=== PATIENT | female | born 1975 | race Caucasian/White ===

== ENCOUNTER 2016-09-27 12:28 | Inpatient (IN) | payer MEDICARE, MEDICAID ==
[~2016-09-27] VITALS: Ht 157.5 cm; Wt 55.4 kg
[~2016-09-27 12:28] MED LIST changes: -BEETAB NG; -CETI1SYP16 NG; -CLON1TAB NG; -HYDR-3713 NG; -IBUP40TA NG; -LEVA750T GT; -PREG25CA NG; -RISATAB3 NG
[2016-09-27 14:28] LABS: BASO # 0.3 K/mm3 (0.0-0.2); BASO % 1.2 % (0.0-1.0); EOS % 0.1 % (0.0-3.0); LARGE UNSTAINED CELL # 0.3 K/mm3 (0.0-0.4); LARGE UNSTAINED CELL % 1.1 % (0.0-4.0); LYMPH % 6.9 % (24.0-44.0); MEAN CORPUSCULAR HGB CONC 33.4 g/dl (32.0-36.5); MEAN CORPUSCULAR VOLUME 89.8 fl (80.0-96.0); MONO # 0.9 K/mm3 (0.0-0.8); MONO % 3.5 % (0.0-5.0); NEUTROPHILS # 21.7 K/mm3 (1.8-7.7); NEUTROPHILS % 87.2 % (36.0-66.0); PLATELET COUNT, AUTOMATED 229 k/mm3 (150-450); RED CELL DISTRIBUTION WIDTH 13.2 % (11.5-14.5); WHITE BLOOD COUNT 24.9 K/mm3 (4.0-10.0)
[2016-09-27] MEDS ORDERED: LevoFLOXacin/DEXTROSE 750 MG/150 ML BAG (J1956) As Ordered ONE (14:40)
--- NOTE | 2016-09-27 15:18 | REP ---
CT study of the abdomen and pelvis without IV or oral contrast: Renal stone protocol. History: Fever. Comparison is made with today's chest x-ray. 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 Lung window settings demonstrate a large area of consolidation in the right lower lobe behind the dome of the right hemidiaphragm consistent with pneumonia. This is not visible on the radiograph. The remaining lung bases are clear. There is a gastrostomy feeding tube in place. The liver and the spleen are normal in size homogeneous in texture. Gallbladder is unremarkable. No adrenal lesion is seen. The kidneys are morphologically intact. There is a low-density lesion in the head of the pancreas 4.3 cm in craniocaudal span by 2.4 cm medial to lateral by 2.0 cm anterior to posterior. This is of uncertain significance. The body of the pancreas is unremarkable. There is no evidence of regional adenopathy. Normal caliber aorta is seen. Small and large intestinal bowel loops are unremarkable. A normal appendix is visible in the right pelvis. There is no CT evidence of appendicitis or diverticulitis. Uterus is retroverted and retroflexed. No adnexal mass or free fluid is seen. Impression: 1. A large dense infiltrate in the right lower lobe consistent with pneumonia. 2. 4 cm low density lesion in the head of the pancreas question cystic mass versus pseudocyst. Recommend contrast enhanced CT study of the pancreas if the patient's clinical condition will allow. No other acute abnormality. Signed by Aquilino Arenas MD 09/27/2016 03:51 P
[2016-09-27 15:42] LABS: ALBUMIN 3.7 GM/DL (3.2-5.2); ALBUMIN/GLOBULIN RATIO 1.16 (1.00-1.93); ALKALINE PHOSPHATASE 94 U/L (45-117); ALT/SGPT 32 U/L (12-78); ANION GAP 9 MEQ/L (8-16); AST/SGOT 22 U/L (15-37); BILIRUBIN,DIRECT 0.3 MG/DL (0.0-0.2); BILIRUBIN,TOTAL 1.5 MG/DL (0.2-1.0); BLOOD UREA NITROGEN 24 MG/DL (7-18); CALCIUM LEVEL 9.3 MG/DL (8.5-10.1); CARBON DIOXIDE LEVEL 32 MEQ/L (21-32); CHLORIDE LEVEL 104 MEQ/L (98-107); CREATININE FOR GFR 0.81 MG/DL (0.55-1.02); GLOMERULAR FILTRATION RATE > 60.0 (>58); GLUCOSE, FASTING 98 MG/DL (70-105); POTASSIUM SERUM 4.6 MEQ/L (3.5-5.1); SODIUM LEVEL 145 MEQ/L (136-145); TOTAL PROTEIN 6.9 GM/DL (6.4-8.2)
[2016-09-27] MEDS ORDERED: RISATAB3 NG (16:41)
[2016-09-27] MEDS ORDERED: BEETAB NG (16:41)
[2016-09-27] MEDS ORDERED: HYDR-3713 NG (16:41)
[2016-09-27] MEDS ORDERED: IBUP40TA NG (16:41)
[2016-09-27] MEDS ORDERED: CETI1SYP16 NG (16:41)
[2016-09-27] MEDS ORDERED: PREG25CA NG (16:41)
[2016-09-27] MEDS ORDERED: MUPI2OI TOP (16:41)
[2016-09-27] MEDS ORDERED: CLON1TAB NG (16:41)
[2016-09-27] MEDS ORDERED: MOM 30ML SUSPENSION UDC NG PRN (20:00)
[2016-09-27] MEDS ORDERED: ALBUTEROL SULFATE 2.5 MG/0.5 ML INH NEB SOLN INH PRN (20:00)
[2016-09-27] MEDS ORDERED: ACETAMINOPHEN 650 MG SUPP PR PRN (20:00)
[2016-09-27] MEDS ORDERED: BISACODYL 10 MG SUPP PR PRN (20:00)
[2016-09-27] MEDS ORDERED: FLEET ENEMA PR PRN (20:00)
[2016-09-27] MEDS ORDERED: IBUPROFEN 400 MG TAB NG PRN (20:00)
[2016-09-27] MEDS ORDERED: ACETAMINOPHEN 325 MG TAB NG PRN (20:00)
[2016-09-27] MEDS ORDERED: CEFEPIME HCL 1 GM in D5W MINI-BAG PLUS 50 ML IV SCH (20:00)
[2016-09-27] MEDS ORDERED: PIPERACILLIN/TAZOBACTAM SOD 3.375 GM in D5W MINI-BAG PLUS 50 ML IV SCH (20:00)
[2016-09-27] MEDS ORDERED: ISOVUE-370 76% 100ML VIAL (Q9967) As Ordered ONE (20:35)
[2016-09-27] MEDS ORDERED: VANCOMYCIN 1000 MG/20 ML VIAL (J3370) As Ordered ONE (20:48)
[2016-09-27] MEDS: ALBUTEROL SULFATE 2.5 MG/0.5 ML INH NEB SOLN INH SCH (21:00)
[2016-09-27] MEDS: clonazePAM 1 MG TAB NG SCH (21:00)
[2016-09-27] MEDS: MUPIROCIN 2% OINT 22 GM TUBE TOP SCH (21:00)
--- NOTE | 2016-09-27 21:16 | HPE ---
DATE OF ADMISSION: 09/27/2016 PRIMARY CARE PROVIDER: Dr. Pompa CHIEF COMPLAINT: Fever. HISTORY OF PRESENT ILLNESS: The patient is a 41-year-old female with advanced Osorio's chorea who is nonverbal at her baseline and spastic quadriparesis and a long-term resident at the [facility]. She has a history of recurrent aspiration pneumonia with placement of a G tube. The patient was most recently hospitalized on 06/26/2016 through 07/04/2016 for aspiration pneumonia at that time. The patient returns once again today with fever, lethargy, similar to her previous presentations. The patient is nonverbal at her baseline and as such the history is obtained from report with the emergency department provider and review of the chart. PAST MEDICAL HISTORY: 1. Asthma. 2. Berrien's chorea. 3. Aspiration pneumonia. 4. Dysphagia. 5. Clostridium (C) difficile colitis. 6. Malnutrition. HOME MEDICATIONS: - Jevity 1.5 calorie via the percutaneous endoscopic gastrostomy (PEG) tube, 300 mL every six hours - Tylenol 650 mg every 4 hours as needed for fever - Tylenol suppository 65 mg every 4 hours as needed for pain or fever - Fisher 5/325 one tablet three times a day - albuterol sulfate nebulizer treatment twice a day and every 4 hours as needed for shortness of breath or wheezing - Baclofen 10 mg twice a day, 20 mg at night - Dulcolax 10 mg suppository per rectum daily as needed for constipation - cetirizine 5 mg per mL syrup 10 mL at night - clonazepam 1 mg tablet at night - disposable enema daily as needed for constipation - Pepcid 20 mg daily - Flonase 50 mcg spray nasally daily - Haldol 2 mg three times a day - ibuprofen 400 mg every 6 hours as needed for fever - milk of magnesia 30 mL daily as needed for constipation - mupirocin ointment 2% topically three times a day - Lyrica 25 mg three times a day - Probiotic one tablet twice a day - scopolamine patch 1.5 mg topically patch every 72 hours PAST SURGICAL HISTORY: 1. G tube insertion. ALLERGIES: PENICILLIN, but has tolerated Zosyn in the past. SOCIAL HISTORY: The patient was a never smoker. She is a resident of [facility]. She has advanced Berrien's chorea. Her aunt is her healthcare proxy. FAMILY HISTORY: Noncontributory. REVIEW OF SYSTEMS: Negative other than the history of present illness. PHYSICAL EXAMINATION: VITAL SIGNS: Blood pressure at the time of arrival was 89/56 with a pulse of 88, respiratory rate 16, temperature 98.9, oxygen saturation 95% on room air. After 2 liters of IV fluids, her blood pressure improved to 125/62, her heart rate is elevated at 114, respiratory rate is 18, temperature is unchanged, and she is 98% on room air. GENERAL: She is a frail, cachectic female, arriving in the stretcher, grunting. She appears agitated but not in acute distress. HEENT: She is nonverbal, not cooperative with examination. She has dry mucous membranes. She does not follow commands or track around the room. She is awake. Arriving in her bed, she attempts to swing at me several times during my attempt to examine her and as such the physical examination is limited. CARDIOVASCULAR EXAM: S1, S2. Tachycardic. RESPIRATORY EXAM: Clear for what I am able to auscultate, although limited anteriorly secondary to her swinging at me. ABDOMINAL EXAM: No significant surrounding erythema or discharge related to her G tube. EXTREMITIES: No clubbing, cyanosis or edema. She has significant chronic contractures. LABORATORY STUDIES: WBC 24.9, hemoglobin 14.1, hematocrit 42.2, platelet count 229. Chemistry panel: Sodium 145, potassium 4.6, chloride 104, bicarbonate 32, BUN 24, creatinine 0.8, lactic acid is 2.3, total bilirubin is slightly elevated at 1.5. Liver function tests are essentially within normal limits. She had a TSH in June, which was within normal limits. Blood cultures are pending. Influenza swab is negative. CT scan of the abdomen and pelvis revealed large dense infiltrates in the right lower lobe consistent with pneumonia and a 4 cm low density lesion at the head of the pancreas, question cystic mass versus pseudocyst. Recommended contrast enhanced CT study of the pancreas. ASSESSMENT AND PLAN: This is a 41-year-old female who presented with fever, highly suspicious for healthcare-associated pneumonia versus aspiration pneumonia. 1. Healthcare-pneumonia versus aspiration pneumonia. Given the patient was recently hospitalized, I will empirically treat her with vancomycin with a pharmacy consult to help with dosing. She did develop some mild acute kidney injury on her last visit while on vancomycin. We will also provide with her Zosyn, she previously tolerated this in the past despite the documented penicillin allergy. I am empirically treating her for healthcare-associated pneumonia. We will check a methicillin resistant Staphylococcus aureus (MRSA) screen of her nares. Should her cultures remain negative, would recommend narrowing her antibiotics to possibly Levaquin to cover for simply an aspiration pneumonia, which I think is more likely given her history of repeated aspiration pneumonias. The patient was initially hypotensive and this improved with fluid. I will continue her on intravenous fluids. I will recheck a lactic acid. 2. Advanced Berrien's chorea. The patient is a longtime residential resident. We will continue with her Baclofen, Fisher, clonazepam, Haldol, Lyrica, scopolamine patch. 3. Chronic constipation. The patient will be continued on her fairly extensive regimen. 4. Dysphagia and aspiration history. The patient does have a G tube in place. We will continue with her Jevity feeds as conducted in the residential. 5. Asthma. The patient is continued on nebulizer treatments as per her usual. 6. Deep vein thrombosis (DVT) prophylaxis. The patient will be on Lovenox. DISPOSITION: The patient is admitted to the progressive care unit (PCU) to Dr. William's service of [facility], who will continue following the patient. Of note, the patient is a FULL CODE. Her healthcare proxy is her aunt. Given her advanced disease, I think initiating goals of care discussions with the healthcare proxy and addressing her code status may be beneficial to the patient fpc.
--- NOTE | 2016-09-27 22:29 | PHACANCOPD ---
PHARMACY VANCOMYCIN DOSING Pt Demographics Demographics Patient Age:41 , Weight: , Gender: female Adjusted Body Weight Date: 09/27/16, Adjusted Body Weight: Kg Events Past 24 Hours Events Past 24 Hours: YES: Elevation in WBC Vancomycin Vancomycin indication: HCAP Vancomycin Target Ranges: 10-20 mcg/ml Vancomycin Load Y/N: No Load Dose Date Time Vancomycin Load Dose: Date: Time: Vancomycin Dose Date: 09/27/16. Current Vancomycin Dose: [750MG IV Q12H] Intermittent Dosing?: No Labs Labs Item Value Date Time White Blood Count 24.9 K/mm3 H 09/27/16 1351 Creatinine 0.81 MG/DL 09/27/16 1337 Lactic Acid Level 2.3 MMOL/L *H 09/27/16 1351 Micro Microbiology 09/27/16 Blood Culture, Received Pending 09/27/16 Blood Culture, Received Pending 09/27/16 Influenza Virus Type A Antigen - Final, Complete 09/27/16 Influenza Virus Type B Antigen - Final, Complete Creatinine Clearance Date:09/27/16. Estimated Creatinine Clearance: [78.8ml/min]. Assessment and Plan Maintaining Current Dose?: Yes Reason for dose change: No Dose Change Pharmacist Note Pharmacist Note Date: 09/27/16. Pharmacist note: Day #1 empiric zosyn/vanco initiated at 750mg IV Q12H for the treatment of HCAP - aiming for a goal trough of 10-20 mcg/ml. PMH negative for MRSA, but positive for vanco use here at [facility], and the patient is a resident of [facility]. Was previously here in June 2016 on vancomycin for the treatment of aspiration pneumonia. The patient has a hx of recurrent aspiration pneumonia, as well as quadriparesis. WBC and lactic acid are currently elevated. CXR showed no infiltrate. We will continue to monitor the patient and schedule a trough level accordingly. MYRANDA [facility]ELEN[facility] Sep 27, 2016 22:29
[2016-09-27] MEDS ORDERED: clonazePAM 0.5 MG TAB As Ordered ONE (22:40)
--- NOTE | 2016-09-27 23:31 | EDDOCDS ---
Physician Documentation [facility] Name: Jacob Dyer Age: 41 yrs Sex: Female : 1975 Arrival Date: 09/27/2016 Time: 12:28 Bed Admit Hold Private MD: Kirk Pompa D Disposition: 09/27/16 15:51 Hospitalization ordered by Salina Hawthorne for Inpatient Admission. Preliminary diagnosis is Pneumonia in diseases classified elsewhere. - [facility] - Status is Inpatient Admission. lf1 - Condition is Stable. - Problem is new. - Symptoms are unchanged. Historical: - Allergies: PENICILLINS; - Home Meds: 1. acetaminophen 650 mg Rectal supp 1 suppository every 4 hours 2. albuterol sulfate 2.5 mg /3 mL (0.083 %) Inhl nebu every 4 hours 3. baclofen 20 mg Oral tab nightly 4. baclofen 10 mg Oral tab twice a day 5. Jevity 1.5 Reji 0.06 gram-1.5 kcal/mL oral liqd 300 mL four times a day 6. Haldol 2 mg Oral tab 1 tab 3 times per day 7. Flonase 50 mcg/actuation Nasal spsn 2 sprays once daily 8. Lyrica 25 mg Oral 3 times per day 9. Transderm-Scop 1.5 mg (1 mg over 3 days) TD pt3d 1 patch 10. Milk of Magnesia 400 mg/5 mL Oral susp 11. Dulcolax (bisacodyl) 5 mg Oral TbEC 1 tab once daily 12. Eliza-Bid 1 billion-250 cell-mg oral tab 13. Tylenol 325 mg Oral tab 2 tabs every 4 hours 14. famotidine 20 mg Oral tab once daily 15. clonazepam 1 mg Oral tab 1 tab daily 16. hydrocodone-acetaminophen 5-325 mg Oral tab 1 tab every 4 hours 17. ibuprofen 200 mg Oral tab 1 tab 3 times per day 18. Zyrtec 10 mg Oral tab 1 tab once daily 19. multivitamin Oral tab daily - PMHx: Asthma; Osorio's Chorea; hypokalemia; Pneumonia; - PSHx: Feeding Tube Insertion; - Social history: Smoking status: Patient states was never smoker of tobacco. No barriers to communication noted, The patient speaks fluent Polish. - Family history: Not pertinent. - : The pt / caregiver states he / she is not on anticoagulants. Home medication list is obtained from the facility MAR. - Exposure Risk Screening:: None identified. 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 LMP N/A - Post-menopause js13 Vital Signs: 12:45 Temp 98.9(R); ml6 12:57 BP 101 / 62 LA Sitting (man/reg); Pulse 84; Resp 18; Pulse Ox 96% on R/A; Weight 54.88 jrd kg / 120.99 lbs (R); 15:39 BP 96 / 76 (auto/); Pulse 88; Resp 16; Pulse Ox 95% on R/A; js13 16:39 BP 89 / 56 (auto/); js13 16:39 Pulse 94 MON; Resp 16; Pulse Ox 97% on R/A; js13 16:54 BP 92 / 59 (auto/); js13 16:54 Pulse 102 MON; Resp 16; Pulse Ox 96% on R/A; js13 18:03 BP 106 / 68 (auto/); js13 18:03 Pulse 112 MON; Resp 16; Pulse Ox 98% on R/A; js13 18:18 BP 113 / 57 (auto/); lf1 18:19 Pulse 114 MON; Pulse Ox 98% ; lf1 18:46 BP 109 / 71 (auto/); lf1 18:47 Pulse 116 MON; Pulse Ox 97% ; lf1 18:48 BP 119 / 60 (auto/); lf1 18:48 Pulse 114 MON; Pulse Ox 97% ; lf1 19:22 BP 125 / 62 (auto/); lf1 19:23 Pulse 124 MON; Resp 18; Pulse Ox 98% ; lf1 20:26 Pulse 120 MON; Resp 18; Temp 99.4(R); Pulse Ox 97% ; lf1 21:11 Height 5 ft. 2 in. (157.48 cm); jp6 21:15 BP 124 / 91 (auto/); lf1 21:16 Pulse 128 MON; Resp 18; Pulse Ox 97% ; lf1 21:30 BP 120 / 83 (auto/); lf1 21:31 Pulse 120 MON; Pulse Ox 97% ; lf1 21:45 BP 121 / 85 (auto/); lf1 21:46 Pulse 124 MON; Pulse Ox 96% ; lf1 21:47 Pulse 126 MON; Pulse Ox 96% ; lf1 22:15 BP 133 / 69 (auto/); lf1 22:15 Pulse 142 MON; Pulse Ox 96% ; lf1 22:45 BP 115 / 75 (auto/); lf1 22:46 Pulse 128 MON; Pulse Ox 97% ; lf1 23:00 BP 148 / 78 (auto/); lf1 23:00 Pulse 134 MON; Resp 20; Temp 99.6(R); Pulse Ox 96% ; lf1 21:11 Body Mass Index 22.13 (54.88 kg, 157.48 cm) jp6 12:57 PATIENT UNABLE TO GIVE PAIN SCALE RATING jrd MDM: 13:24 -Influenza A&B Rapid Antigen - Nose Ordered. EDMS 13:35 -Blood Culture (Adults Only), peripheral from different site, or from device/port/PICC sd1 etc. if present ordered. 13:35 IV Saline Lock ordered. sd1 13:35 NS 0.9% 1000 ml IV at 150 mL/hr continuous ordered. sd1 13:36 -Blood Culture Ordered. EDMS 13:36 Lactic Acid (Gan tube on ice) Ordered. EDMS 13:36 CBC with Diff Ordered. EDMS 14:03 -Blood Culture (Adults Only), peripheral from different site, or from device/port/PICC lbd etc. if present complete. 14:05 BLOOD CULTURES Ordered. EDMS 14:07 CT ABD & PELVIS: No Contrast Ordered. EDMS 14:24 -Influenza A&B Rapid Antigen - Nose Reviewed. sd1 14:27 NS 0.9% (Sepsis- hypotension or lactate >4mmol/L, 30ml/kg) 30 ml/kg IV at bolus once; sd1 Give in 500mL aliquots, assess for rales after each, 1600cc ordered. 14:27 levofloxacin 750 mg IVPB once over 90 mins ordered. sd1 14:30 Lactic Acid (Gan tube on ice) Reviewed. sd1 14:31 Financial registration complete. mm15 14:38 [facility] Payment Agreement was scanned into [email or web address] and attached to record. mm15 15:19 CBC with Diff Reviewed. sd1 15:25 Career Development Manager/Pulse Ox/q 15 min VS ordered. sd1 15:25 MED Profile Ordered. EDMS 15:30 LIVER PROFILE Ordered. EDMS 20:03 LACTIC ACID LEVEL, LACTATE Ordered. EDMS 20:03 BASIC METABOLIC PROFILE Ordered. EDMS 20:03 COMPLETE BLOOD COUNT Ordered. EDMS 20:04 Admission / Observation Status ordered. EDMS 20:09 CT ABD & PELVIS WITH CONTRAST Ordered. EDMS 20:17 MRSA SCREEN Ordered. EDMS 20:41 NS 0.9% 1000 ml IV at 125 mL/hr continuous ordered. lf1 20:43 vancomycin 1 grams IVPB once over 60 mins; dilute in 250mL of NS or D5W ordered. lf1 22:35 cetirizine 10 mg PO once ordered. lf1 22:35 clonazePAM 1 mg PO once ordered. lf1 22:35 Haloperidol 2 mg PO once ordered. lf1 22:35 Pregabalin 25 mg PO once ordered. lf1 23:08 clonazePAM 1 mg PO once; Via gastric tube ordered. lf1 Administered Medications: 13:54 Drug: NS 0.9% 1000 ml [sodium chloride 0.9 % intravenous solution] Route: IV; Rate: 150 js13 mL/hr; Site: left forearm; 14:38 Drug: NS 0.9% (Sepsis- hypotension or lactate >4mmol/L, 30ml/kg) 1646.4 ml [sodium js13 chloride 0.9 % intravenous solution] Route: IV; Rate: bolus; Site: left forearm; 15:05 Follow up: IV Intake: 500ml ; no rales noted upon auscultation js13 15:18 Follow up: IV Intake: 500ml ; LS dimeinished with rhonchi js13 16:20 Follow up: IV Status: No rales on exam; IV Intake: 500ml js13 18:35 Follow up: IV Status: Completed infusion; IV Intake: 100ml js13 14:43 Drug: levofloxacin 750 mg [levofloxacin 750 mg/150 mL in 5 % dextrose intravenous js13 piggyback] Route: IVPB; Infused Over: 90 mins; Site: left forearm; 17:02 Follow up: IV Status: Completed infusion js13 21:19 Drug: NS 0.9% 1000 ml [sodium chloride 0.9 % intravenous solution] Route: IV; Rate: 125 lf1 mL/hr; Site: left forearm; 23:29 Follow up: IV Status: Infusion continued upon admit; IV Intake: 125ml lf1 21:19 Drug: vancomycin 1 grams [vancomycin 1,000 mg intravenous injection] Route: IVPB; lf1 Infused Over: 60 mins; Site: left forearm; 23:29 Follow up: IV Status: Completed infusion; IV Intake: 250ml lf1 22:42 Not Given (admit): cetirizine 10 mg PO once lf1 22:42 Not Given (admit): Haloperidol 2 mg PO once lf1 22:42 Not Given (admit): Pregabalin 25 mg PO once lf1 22:42 CANCELLED (Duplicate Order): Piperacillin-Tazobactam 3.375 grams IVPB once over 30 lf1 mins; dilute in 50mL of NS or D5W 23:02 Not Given (Another route given): clonazePAM 1 mg PO once lf1 23:14 Drug: clonazePAM 1 mg [clonazepam 0.5 mg tablet (2 tabs)] Route: PO; lf1 Signatures: Dispatcher [employer] EDMS Brenda Judge MD MD sd1 Shilpi Jordan, Chain Machine Operator Unit [facility] [place] RN RN Alice Jimenez RN RN 1 Radha Mata,RN RN js13 Swetha Lopez mm15 The chart was reviewed and I authenticate all verbal orders and agree with the evaluation and treatment provided.Corrections: (The following items were deleted from the chart) 15:28 15:25 LIVER PROFILE+LAB ordered. EDND EDND 22:42 22:35 Piperacillin-Tazobactam 3.375 grams IVPB once over 30 mins; dilute in 50mL of NS lf1 or D5W ordered. 1 22:42 22:42 Piperacillin-Tazobactam 3.375 grams IVPB once over 30 mins; dilute in 50mL of NS lf1 or D5W ordered. lf1 Attachments: 14:38 [facility] Payment Agreement mm15 MTDD
--- NOTE | 2016-09-27 23:31 | EDDOCDS ---
Nurse's Notes [facility] Name: Jacob Dyer Age: 41 yrs Sex: Female : 1975 Arrival Date: 09/27/2016 Time: 12:28 Bed Admit Hold Private MD: Kirk Pompa D Diagnosis: Pneumonia in diseases classified elsewhere Presentation: 09/27 12:41 Presenting complaint: [facility] staff sent patient over to be evaluated. Patient had CBC with js13 DIFF, BMP, UA C&S and CHEST X RAY over at [facility]. Suicide/Homicide risk assessment- Unable to assess, due to patient's chronic mental disability. 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 Transition of care: patient was received from [facility]. 12:41 Acuity: APOLONIA Level 3 js13 12:41 Method Of Arrival: Other js13 12:54 Adult Sepsis Screening: The patient does not have new or worsening altered mentation. js13 Patient's respiratory rate is less than 22. Systolic blood pressure is greater than 100. Patient has a qSOFA score of 0- Negative Sepsis Screen. Triage Assessment: 12:54 General: Appears in no apparent distress, Behavior is cooperative. Pain: Unable to use js13 pain scale. Does not appear to understand pain scale. Pt Declines HIV testing. The patient is triaged at the bedside. See Assessment in Nurses Notes section of ED record. Neurological: Level of Consciousness is awake. Cardiovascular: Rhythm is sinus rhythm. Respiratory: Airway is patent Respiratory effort is even, unlabored, Respiratory pattern is regular, symmetrical, Breath sounds are clear. GI: Enteral feeding tube Site clean. Derm: Skin is pink, warm & dry. 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 acetaminophen 650 mg Rectal supp 1 suppository every 4 hours 2. albuterol sulfate 2.5 mg /3 mL (0.083 %) Inhl nebu every 4 hours 3. baclofen 20 mg Oral tab nightly 4. baclofen 10 mg Oral tab twice a day 5. Jevity 1.5 Reji 0.06 gram-1.5 kcal/mL oral liqd 300 mL four times a day 6. Haldol 2 mg Oral tab 1 tab 3 times per day 7. Flonase 50 mcg/actuation Nasal spsn 2 sprays once daily 8. Lyrica 25 mg Oral 3 times per day 9. Transderm-Scop 1.5 mg (1 mg over 3 days) TD pt3d 1 patch 10. Milk of Magnesia 400 mg/5 mL Oral susp 11. Dulcolax (bisacodyl) 5 mg Oral TbEC 1 tab once daily 12. Eliza-Bid 1 billion-250 cell-mg oral tab 13. Tylenol 325 mg Oral tab 2 tabs every 4 hours 14. famotidine 20 mg Oral tab once daily 15. clonazepam 1 mg Oral tab 1 tab daily 16. hydrocodone-acetaminophen 5-325 mg Oral tab 1 tab every 4 hours 17. ibuprofen 200 mg Oral tab 1 tab 3 times per day 18. Zyrtec 10 mg Oral tab 1 tab once daily 19. multivitamin Oral tab daily - PMHx: Asthma; Osorio's Chorea; hypokalemia; Pneumonia; - PSHx: Feeding Tube Insertion; - Social history: Smoking status: Patient states was never smoker of tobacco. No barriers to communication noted, The patient speaks fluent Czech. - Family history: Not pertinent. - : The pt / caregiver states he / she is not on anticoagulants. Home medication list is obtained from the facility MAR. - Exposure Risk Screening:: None identified. Screenin:56 Screening information is obtained from residence staff. Fall risk: At risk due to js13 apparent cognitive impairment, immobility. Assistance ADL's: Requires assistance with. Abuse/DV Screen: The patient / caregiver reports he/she is: not in a situation that causes fear, pain or injury. Nutritional screening: On NPO diet. Advance Directives: There is no active DNR order. home support is adequate. Assessment: 12:56 General: Appears in no apparent distress, Behavior is cooperative. Pain: Unable to use js13 pain scale. Does not appear to understand pain scale. Neurological: Level of Consciousness is awake. Cardiovascular: Rhythm is sinus rhythm. GI: Enteral feeding tube Site clean. Derm: Skin is pink, warm & dry. 14:00 General: Appears in no apparent distress, Behavior is cooperative. Pain: Unable to use js13 pain scale. Does not appear to understand pain scale. Neurological: Level of Consciousness is awake. Cardiovascular: Rhythm is sinus rhythm. Respiratory: Airway is patent Respiratory effort is even, unlabored, Respiratory pattern is regular, Breath sounds with rhonchi Breath sounds are diminished. GI: Enteral feeding tube Site clean. Derm: Skin is pink, warm & dry. 15:10 Adult Sepsis Screening: The patient does not have new or worsening altered mentation. js13 Patient's respiratory rate is less than 22. Systolic blood pressure is greater than 100. Patient has a qSOFA score of 0- Negative Sepsis Screen. General: Appears in no apparent distress, Behavior is cooperative. Pain: Unable to use pain scale. Does not appear to understand pain scale. Neurological: Level of Consciousness is awake. Respiratory: Airway is patent Respiratory effort is even, unlabored, Respiratory pattern is regular. Derm: Skin is pink, warm & dry. 16:15 General: Appears in no apparent distress, Behavior is cooperative. Pain: Unable to use js13 pain scale. Does not appear to understand pain scale. Neurological: Level of Consciousness is awake. Cardiovascular: Rhythm is sinus tachycardia. Respiratory: Airway is patent Respiratory effort is even, unlabored, Respiratory pattern is regular, Breath sounds are diminished. Derm: Skin is pink, warm & dry. 17:00 Adult Sepsis Screening: Accepted Exclusions- Patient is already in the Sepsis Protocol. js13 General: Appears in no apparent distress, Behavior is cooperative. Pain: Unable to use pain scale. Does not appear to understand pain scale. Neurological: Level of Consciousness is awake. Cardiovascular: Rhythm is sinus tachycardia. Respiratory: Airway is patent Respiratory effort is even, unlabored, Respiratory pattern is regular, Breath sounds are diminished. Derm: Skin is pink, warm & dry. 18:10 General: Appears Patient is yelling out and thrashing around in bed, patient opened a js13 cut on her finger that was bleeding. Band aid applied to left index finger. Patient has been repositioned, checked for incontinence, given the television. Patient still yelling out on occasion. . Pain: Unable to use pain scale. Does not appear to understand pain scale. Neurological: Level of Consciousness is awake. Cardiovascular: Rhythm is sinus tachycardia. Respiratory: Airway is patent Respiratory effort is even, unlabored, Respiratory pattern is regular. Derm: Skin is pink, warm & dry. 19:27 Adult Sepsis Screening: The patient does not have new or worsening altered mentation. lf1 Patient's respiratory rate is less than 22. Systolic blood pressure is greater than 100. Patient has a qSOFA score of 0- Negative Sepsis Screen. General: Appears Pt is yelling out regularly, appears to be at her baseline. TV in view.. Pain: Unable to use pain scale. Does not appear to understand pain scale. Neurological: Level of Consciousness is awake. Respiratory: Respiratory effort is even, unlabored, Respiratory pattern is regular. GI: Site clean. Derm: Skin is pale. Musculoskeletal: right arm contracted, BL LE contracted. 20:22 General: Appears in no apparent distress, Behavior is cooperative, restless. Pain: lf1 Unable to use pain scale. Does not appear to understand pain scale. Nonverbal. Neurological: Level of Consciousness is awake. Respiratory: Respiratory effort is even, unlabored. GI: Enteral feeding tube Site clean. : Last wet diaper was September 27, 2016. at 20:24. Derm: Skin is pale. 21:24 General: Appears Pt is continually banging left hand into side rail, pillows positioned lf1 to prevent injury. . Respiratory: Respiratory effort is even, unlabored. Derm: Skin is pale. 23:09 General: Appears uncomfortable, Behavior is agitated, restless. Pain: Unable to use lf1 pain scale. Neurological: Level of Consciousness is awake. Respiratory: Respiratory effort is even, unlabored. GI: Enteral feeding tube Site clean. Derm: Skin is pale. Vital Signs: 12:45 Temp 98.9(R); ml6 12:57 BP 101 / 62 LA Sitting (man/reg); Pulse 84; Resp 18; Pulse Ox 96% on R/A; Weight 54.88 jrd kg (R); 15:39 BP 96 / 76 (auto/); Pulse 88; Resp 16; Pulse Ox 95% on R/A; js13 16:39 BP 89 / 56 (auto/); js13 16:39 Pulse 94 MON; Resp 16; Pulse Ox 97% on R/A; js13 16:54 BP 92 / 59 (auto/); js13 16:54 Pulse 102 MON; Resp 16; Pulse Ox 96% on R/A; js13 18:03 BP 106 / 68 (auto/); js13 18:03 Pulse 112 MON; Resp 16; Pulse Ox 98% on R/A; js13 18:18 BP 113 / 57 (auto/); lf1 18:19 Pulse 114 MON; Pulse Ox 98% ; lf1 18:46 BP 109 / 71 (auto/); lf1 18:47 Pulse 116 MON; Pulse Ox 97% ; lf1 18:48 BP 119 / 60 (auto/); lf1 18:48 Pulse 114 MON; Pulse Ox 97% ; lf1 19:22 BP 125 / 62 (auto/); lf1 19:23 Pulse 124 MON; Resp 18; Pulse Ox 98% ; lf1 20:26 Pulse 120 MON; Resp 18; Temp 99.4(R); Pulse Ox 97% ; lf1 21:11 Height 5 ft. 2 in. (157.48 cm); jp6 21:15 BP 124 / 91 (auto/); lf1 21:16 Pulse 128 MON; Resp 18; Pulse Ox 97% ; lf1 21:30 BP 120 / 83 (auto/); lf1 21:31 Pulse 120 MON; Pulse Ox 97% ; lf1 21:45 BP 121 / 85 (auto/); lf1 21:46 Pulse 124 MON; Pulse Ox 96% ; lf1 21:47 Pulse 126 MON; Pulse Ox 96% ; lf1 22:15 BP 133 / 69 (auto/); lf1 22:15 Pulse 142 MON; Pulse Ox 96% ; lf1 22:45 BP 115 / 75 (auto/); lf1 22:46 Pulse 128 MON; Pulse Ox 97% ; lf1 23:00 BP 148 / 78 (auto/); lf1 23:00 Pulse 134 MON; Resp 20; Temp 99.6(R); Pulse Ox 96% ; lf1 21:11 Body Mass Index 22.13 (54.88 kg, 157.48 cm) jp6 12:57 PATIENT UNABLE TO GIVE PAIN SCALE RATING jrd Vitals: 12:28 Log In Time N/A - ambulance arrival. lf1 ED Course: 12:30 Patient visited by Shilpi Jordan, Condenser Operator. lbd 12:30 Patient moved to Waiting lbd 12:31 Kirk Pompa is Private Physician. lbd 12:32 Radha Mata,GERMAIN is Primary Nurse. lbd 12:32 Patient moved to 15 lbd 12:45 Triage Initiated js13 12:55 Brenda Judge MD is Attending Physician. sd1 12:56 The patient / caregiver is instructed regarding the plan of care and ED course. js13 12:56 No IV's were initiated during this patient's visit. No procedures done that require [facility] assistance. 13:00 Patient visited by Radha Mata RN. js13 13:01 Patient visited by Surendra Kilgore PCA. jrd 13:31 Patient visited by Brenda Judge MD. sd1 13:54 -Blood Culture Sent. js13 13:54 Lactic Acid (Gan tube on ice) Sent. js13 13:54 CBC with Diff Sent. js13 13:54 Inserted saline lock: 18 gauge in left forearm and blood collected. The patient js13 tolerated the procedure well. Labs drawn. (by ED staff). Sent per order to lab. Labs/Blood culture drawn. 14:34 Patient visited by Shanti Marr. nb2 14:38 [facility] Payment Agreement was scanned into [employer] and attached to record. mm15 14:38 BLOOD CULTURES Sent. js13 15:25 CT ABD & PELVIS: No Contrast Returned. EDMS 15:28 Patient visited by Radha Mata RN. js13 15:41 Patient visited by Radha Mata RN. js13 15:51 Salina Hawthorne is Hospitalizing Provider. sd1 17:03 Patient visited by Radha Mata RN. js13 18:15 Patient visited by Radha Mata RN. js13 19:27 Patient visited by Alice Qureshi RN. lf1 19:31 Patient visited by Alice Qureshi RN. lf1 20:21 Patient visited by Alice Qureshi RN. lf1 20:24 Noise minimized. Turned to right side. Repositioned patient. Cleaned of incontinence. lf1 Linen changed. 20:29 Patient visited by Alice Qureshi RN. lf1 20:46 Patient moved to Admit Hold daq 21:00 Cleaned of incontinence. lf1 21:19 Patient visited by Alice Qureshi RN. lf1 21:28 Patient visited by Alice Qureshi RN. lf1 22:45 Primary Nurse role handed off by Radha Mata RN mcp 22:45 Repositioned patient. Cleaned of incontinence. lf1 Administered Medications: 13:54 Drug: NS 0.9% 1000 ml [sodium chloride 0.9 % intravenous solution] Route: IV; Rate: 150 js13 mL/hr; Site: left forearm; 14:38 Drug: NS 0.9% (Sepsis- hypotension or lactate >4mmol/L, 30ml/kg) 1646.4 ml [sodium js13 chloride 0.9 % intravenous solution] Route: IV; Rate: bolus; Site: left forearm; 15:05 Follow up: IV Intake: 500ml ; no rales noted upon auscultation js13 15:18 Follow up: IV Intake: 500ml ; LS dimeinished with rhonchi js13 16:20 Follow up: IV Status: No rales on exam; IV Intake: 500ml js13 18:35 Follow up: IV Status: Completed infusion; IV Intake: 100ml js13 14:43 Drug: levofloxacin 750 mg [levofloxacin 750 mg/150 mL in 5 % dextrose intravenous js13 piggyback] Route: IVPB; Infused Over: 90 mins; Site: left forearm; 17:02 Follow up: IV Status: Completed infusion js13 21:19 Drug: NS 0.9% 1000 ml [sodium chloride 0.9 % intravenous solution] Route: IV; Rate: 125 lf1 mL/hr; Site: left forearm; 23:29 Follow up: IV Status: Infusion continued upon admit; IV Intake: 125ml lf1 21:19 Drug: vancomycin 1 grams [vancomycin 1,000 mg intravenous injection] Route: IVPB; lf1 Infused Over: 60 mins; Site: left forearm; 23:29 Follow up: IV Status: Completed infusion; IV Intake: 250ml lf1 22:42 Not Given (admit): cetirizine 10 mg PO once lf1 22:42 Not Given (admit): Haloperidol 2 mg PO once lf1 22:42 Not Given (admit): Pregabalin 25 mg PO once lf1 22:42 CANCELLED (Duplicate Order): Piperacillin-Tazobactam 3.375 grams IVPB once over 30 lf1 mins; dilute in 50mL of NS or D5W 23:02 Not Given (Another route given): clonazePAM 1 mg PO once lf1 23:14 Drug: clonazePAM 1 mg [clonazepam 0.5 mg tablet (2 tabs)] Route: PO; lf1 Intake: 15:05 IV: 500.00ml; Total: 500.00ml. js13 15:18 IV: 500.00ml; Total: 1000.00ml. js13 16:20 IV: 500.00ml; Total: 1500.00ml. js13 18:35 IV: 100.00ml; Total: 1600.00ml. js13 23:29 IV: 250.00ml; Total: 1850.00ml. lf1 23:29 IV: 125.00ml; Total: 1975.00ml. lf1 Order Results: Lab Order: -Influenza A&B Rapid Antigen - Nose; SPEC'M 09/27/16 13:37 Test: INFLUENZA A RAPID SCR by ICA; Value: INFLUENZA A RESULTS NEGATIVE; Status: F Test: INFLUENZA A RAPID SCR by ICA; Value: Comments:; Status: F Test: INFLUENZA B RAPID SCR by ICA; Value: INFLUENZA B RESULTS NEGATIVE; Status: F Test Note: ; The Influenza test is a direct rapid immunoassay for the qualitative detection of Influenza viral antigen. Cell culture (Viral Culture) testing should be considered to confirm NEGATIVE results and to assist in detecting other viruses that can provide similar clinical symptoms. Please contact the lab within 24 hours ([phone] if confirmatory testing is desired. Lab Order: Lactic Acid (Gan tube on ice); SPEC'M 09/27/16 13:51 Test: LACTIC ACID LEVEL, LACTATE; Value: 2.3; Range: 0.4-2.0; Abnormal: Above upper panic limits; Units: MMOL/L; Status: F Lab Order: CBC with Diff; SPEC'M 09/27/16 13:51 Test: WHITE BLOOD COUNT; Value: 24.9; Range: 4.0-10.0; Abnormal: Above high normal; Units: K/mm3; Status: F Test: RED BLOOD COUNT; Value: 4.69; Range: 4.00-5.40; Units: M/mm3; Status: F Test: HEMOGLOBIN; Value: 14.1; Range: 12.0-16.0; Units: g/dl; Status: F Test: HEMATOCRIT; Value: 42.2; Range: 36.0-47.0; Units: %; Status: F Test: MEAN CORPUSCULAR VOLUME; Value: 89.8; Range: 80.0-96.0; Units: fl; Status: F Test: MEAN CORPUSCULAR HEMOGLOBIN; Value: 30.0; Range: 27.0-33.0; Units: pg; Status: F Test: MEAN CORPUSCULAR HGB CONC; Value: 33.4; Range: 32.0-36.5; Units: g/dl; Status: F Test: RED CELL DISTRIBUTION WIDTH; Value: 13.2; Range: 11.5-14.5; Units: %; Status: F Test: PLATELET COUNT, AUTOMATED; Value: 229; Range: 150-450; Units: k/mm3; Status: F Test: NEUTROPHILS %; Value: 87.2; Range: 36.0-66.0; Abnormal: Above high normal; Units: %; Status: F Test: LYMPH %; Value: 6.9; Range: 24.0-44.0; Abnormal: Below low normal; Units: %; Status: F Test: MONO %; Value: 3.5; Range: 0.0-5.0; Units: %; Status: F Test: EOS %; Value: 0.1; Range: 0.0-3.0; Units: %; Status: F Test: BASO %; Value: 1.2; Range: 0.0-1.0; Abnormal: Above high normal; Units: %; Status: F Test: LARGE UNSTAINED CELL %; Value: 1.1; Range: 0.0-4.0; Units: %; Status: F Test: NEUTROPHILS #; Value: 21.7; Range: 1.8-7.7; Abnormal: Above high normal; Units: K/mm3; Status: F Test: LYMPH #; Value: 2.0; Range: 1.5-4.5; Units: K/mm3; Status: F Test: MONO #; Value: 0.9; Range: 0.0-0.8; Abnormal: Above high normal; Units: K/mm3; Status: F Test: EOS #; Value: 0.0; Range: 0.0-0.50; Units: K/mm3; Status: F Test: BASO #; Value: 0.3; Range: 0.0-0.2; Abnormal: Above high normal; Units: K/mm3; Status: F Test: LARGE UNSTAINED CELL #; Value: 0.3; Range: 0.0-0.4; Units: K/mm3; Status: F Lab Order: MED Profile; SPEC'M 09/27/16 13:37 Test: GLUCOSE, FASTING; Value: 98; Range: 70-105; Units: MG/DL; Status: F Test: BLOOD UREA NITROGEN; Value: 24; Range: 7-18; Abnormal: Above high normal; Units: MG/DL; Status: F Test: CREATININE FOR GFR; Value: 0.81; Range: 0.55-1.02; Units: MG/DL; Status: F Test: GLOMERULAR FILTRATION RATE; Value: > 60.0; Range: >58; Status: F Test: SODIUM LEVEL; Value: 145; Range: 136-145; Units: MEQ/L; Status: F Test: POTASSIUM SERUM; Value: 4.6; Range: 3.5-5.1; Abnormal: Delta; Units: MEQ/L; Status: F Test: CHLORIDE LEVEL; Value: 104; Range: 98-107; Units: MEQ/L; Status: F Test: CARBON DIOXIDE LEVEL; Value: 32; Range: 21-32; Units: MEQ/L; Status: F Test: ANION GAP; Value: 9; Range: 8-16; Units: MEQ/L; Status: F Test: CALCIUM LEVEL; Value: 9.3; Range: 8.5-10.1; Units: MG/DL; Status: F Test Note: ; Units are mL/min/1.73 m2 Chronic Kidney Disease Staging per NKF: Stage I & II GFR >=60 Normal to Mildly Decreased Stage III GFR 30-59 Moderately Decreased Stage IV GFR 15-29 Severely Decreased Stage V GFR <15 Very Little GFR Left ESRD GFR <15 on PUBLIC HEALTH DIRECTOR Lab Order: LIVER PROFILE; SPEC'M 09/27/16 13:37 Test: AST/SGOT; Value: 22; Range: 15-37; Units: U/L; Status: F Test: ALT/SGPT; Value: 32; Range: 12-78; Units: U/L; Status: F Test: ALKALINE PHOSPHATASE; Value: 94; Range: 45-117; Units: U/L; Status: F Test: BILIRUBIN,TOTAL; Value: 1.5; Range: 0.2-1.0; Abnormal: Above high normal; Units: MG/DL; Status: F Test: BILIRUBIN,DIRECT; Value: 0.3; Range: 0.0-0.2; Abnormal: Above high normal; Units: MG/DL; Status: F Test: TOTAL PROTEIN; Value: 6.9; Range: 6.4-8.2; Units: GM/DL; Status: F Test: ALBUMIN; Value: 3.7; Range: 3.2-5.2; Units: GM/DL; Status: F Test: ALBUMIN/GLOBULIN RATIO; Value: 1.16; Range: 1.00-1.93; Status: F Lab Order: LACTIC ACID LEVEL, LACTATE; SPEC'M 09/27/16 20:17 Test: LACTIC ACID LEVEL, LACTATE; Value: 0.9; Range: 0.4-2.0; Units: MMOL/L; Status: F Radiology Order: CT ABD & PELVIS: No Contrast Test: CT ABD & PELVIS: No Contrast REASON FOR EXAMINATION: fever; CT study of the abdomen and pelvis without IV or oral contrast: Renal stone; protocol.; ; History: Fever.; ; Comparison is made with today's chest x-ray.; ; Findings: 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 This; is not visible on the radiograph. The remaining lung bases are clear.; ; There is a gastrostomy feeding tube in place. The liver and the spleen are; normal in size homogeneous in texture. Gallbladder is unremarkable. No adrenal; lesion is seen. The kidneys are morphologically intact. There is a low-density; lesion in the head of the pancreas 4.3 cm in craniocaudal span by 2.4 cm medial; to lateral by 2.0 cm anterior to posterior. This is of uncertain significance.; The body of the pancreas is unremarkable. There is no evidence of regional; adenopathy. Normal caliber aorta is seen. Small and large intestinal bowel; loops are unremarkable. A normal appendix is visible in the right pelvis. There; is no CT evidence of appendicitis or diverticulitis. Uterus is retroverted and; retroflexed. No adnexal mass or free fluid is seen.; ; Impression:; ; 1. A large dense infiltrate in the right lower lobe consistent with pneumonia.; ; 2. 4 cm low density lesion in the head of the pancreas question cystic mass; versus pseudocyst. Recommend contrast enhanced CT study of the pancreas if the; patient's clinical condition will allow. No other acute abnormality.; ; ; Signed by; Aquilino Arenas MD 09/27/2016 03:51 P; Outcome: 15:51 Decision to Hospitalize by Provider. sd1 23:27 Discharge Assessment:. The following High Risk Discharge criteria are identified: None. lf1 Admitted to PCU accompanied by nurse, accompanied by tech, via stretcher, on monitor, with chart. Condition: unchanged. CT Study completed. Property :Personal belongings accompany Pt. 23:28 Discharge Assessment: patient administered narcotics - no. lf1 23:30 Patient left the ED. lf1 Signatures: Dispatcher [employer] EDMS Brenda Judge MD MD sd1 Shilpi Jordan, Condenser Operator Unit lbd Ruth Lemus RN RN [facility] Jaylen PEREZ, Lashonda RN RN Alice Jimenez,RN RN lf1 Sushil Cagle RN RN ml6 Radha MataRN RN js13 Swetha Lopez mm15 Surendra Kilgore, ELECTROLYSIS INVESTIGATOR ELECTROLYSIS INVESTIGATOR jrd Paula Olson,RN RN jp6 Shanti Marr nb2 Corrections: (The following items were deleted from the chart) 13:01 12:57 BP 101 / 62 Sitting Manual L Arm Regular; Pulse 84bpm; Resp 18bpm; Pulse Ox 96% jrd RA; PATIENT UNABLE TO GIVE PAIN SCALE RATING; jrd 17:11 17:00 Adult Sepsis Screening: The patient does not have new or worsening altered js13 mentation. Patient's respiratory rate is less than 22. Systolic blood pressure is less than or equal to 100 (1 point). Patient has a qSOFA score of 1- Negative Sepsis Screen. js13 MTDD
--- NOTE | 2016-09-27 23:52 | IPNPDOC ---
Text Note Date of Service The patient was seen on 09/27/16 at 23:51. NOTE Patient is allergic to PCN; will change zosyn to aztreonam. VS,Fishbone, I+O VS, Fishbone, I+O Laboratory Tests 09/27/16 13:37 09/27/16 13:51 Red Blood Count 4.69, Mean Corpuscular Volume 89.8, Mean Corpuscular Hemoglobin 30.0, Mean Corpuscular Hemoglobin Concent 33.4, Red Cell Distribution Width 13.2 , Neutrophils (%) (Auto) 87.2 H, Lymphocytes (%) (Auto) 6.9 L, Monocytes (%) ( Auto) 3.5, Eosinophils (%) (Auto) 0.1, Basophils (%) (Auto) 1.2 H, Neutrophils # (Auto) 21.7 H, Lymphocytes # (Auto) 2.0, Monocytes # (Auto) 0.9 H, Eosinophils # (Auto) 0.0, Basophils # (Auto) 0.3 H MARY BEAL Sep 27, 2016 23:52
[2016-09-27] MEDS ORDERED: ACETAMINOPHEN 325 MG TAB GT PRN (23:55)
[2016-09-27 23:59] VITALS: BP 140/60
[2016-09-28] VITALS (7 sets, daily range): BP systolic 97–126; BP diastolic 52–69
[2016-09-28] MEDS: CETIRIZINE (ZyrTEC) 5 MG/5 ML UDC NG SCH ×2 (00:27→22:13)
[2016-09-28] MEDS: AZTREONAM 2 GM in D5W MINI-BAG PLUS 100 ML IV SCH ×3 (00:27→15:12)
[2016-09-28] MEDS: HALOPERIDOL 2 MG TAB NG SCH ×4 (00:27→22:12)
[2016-09-28] MEDS: LACTOBACILLUS ACIDOPHILUS CAP (BACID) NG SCH ×3 (00:28→22:12)
[2016-09-28] MEDS: PREGABALIN 25 MG CAP (LYRICA) NG SCH ×4 (00:28→22:12)
[2016-09-28] MEDS: BACLOFEN 10 MG TAB NG SCH ×2 (00:29→22:12)
[2016-09-28] MEDS: NORCO, ANEXSIA 5/325MG TABLET (HYDROcodone/ACETAMINOPHEN) FT SCH ×4 (00:29→22:12)
[2016-09-28] MEDS: NS 1,000 ML IV SCH ×3 (00:30→11:18)
[2016-09-28] MEDS ORDERED: BACLOFEN 10 MG TAB GT SCH (00:42)
[2016-09-28 05:23] LABS: MEAN CORPUSCULAR HEMOGLOBIN 30.4 pg (27.0-33.0); MEAN CORPUSCULAR HGB CONC 32.9 g/dl (32.0-36.5); MEAN CORPUSCULAR VOLUME 92.2 fl (80.0-96.0); RED CELL DISTRIBUTION WIDTH 12.2 % (11.5-14.5); WHITE BLOOD COUNT 10.3 K/mm3 (4.0-10.0)
[2016-09-28 05:48] LABS: ANION GAP 9 MEQ/L (8-16); BLOOD UREA NITROGEN 16 MG/DL (7-18); CALCIUM LEVEL 8.4 MG/DL (8.5-10.1); CARBON DIOXIDE LEVEL 26 MEQ/L (21-32); CHLORIDE LEVEL 111 MEQ/L (98-107); CREATININE FOR GFR 0.54 MG/DL (0.55-1.02); GLOMERULAR FILTRATION RATE > 60.0 (>58); GLUCOSE, FASTING 81 MG/DL (70-105); POTASSIUM SERUM 3.5 MEQ/L (3.5-5.1); SODIUM LEVEL 146 MEQ/L (136-145)
[2016-09-28] MEDS: ALBUTEROL SULFATE 2.5 MG/0.5 ML INH NEB SOLN INH SCH ×2 (07:28→21:00)
[2016-09-28] MEDS: FAMOTIDINE 20 MG TAB FT SCH (08:30)
[2016-09-28] MEDS: BACLOFEN 10 MG TAB GT SCH ×2 (08:30→13:48)
[2016-09-28] MEDS: FLUTICASONE PROP 0.05% NASAL SPRAY 16 GM (FLONASE) SCH (08:31)
[2016-09-28] MEDS: ENOXAPARIN 40 MG/0.4 ML SYRINGE (J1650) SC SCH (08:31)
--- NOTE | 2016-09-28 09:20 | IPNPDOC ---
Assessment/Plan Date Seen The patient was seen on 09/28/16. Family Medicine Attending Note: I saw and examined Ms. Dyer, discussed with WINSTON Bradford. Agree with their note as documented. She seems to be stable and slowly improving. We'll continue current regimen, monitor. 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 Sats stable. If remains stable, can consider change to Levaquin. (2) [place]'s chorea Status: Chronic Response to Treatment: Stable Problem Specific Plan: Monitor Clinically (3) Spastic quadriparesis Status: Chronic Response to Treatment: Stable Problem Specific Plan: Monitor Clinically Plan / VTE VTE Prophylaxis Ordered?: No Subjective Review of Systems CC/HPI Nursing without new concerns. Pt moves about bed freely with her arms and legs. General: Reports: ROS Unobtainable Objective Physical Examination General Exam: Positive: Alert, No Acute Distress ENT Exam: Positive: Mucous membr. moist/pink Chest Exam: Positive: Clear to auscultation Heart Exam: Positive: Normal S1, Normal S2, Rate Normal Abdomen Exam: Positive: Normal bowel sounds, Other (+ G tube in place), Soft Extremity Exam: Negative: Edema Vital Signs/I&O Vital Signs Date Time Temp Pulse Resp B/P Pulse Ox O2 Delivery O2 Flow Rate FiO2 09/28/16 09:12 22 09/28/16 04:00 96.2 112 116/58 94 Room Air I&O- Last 24 Hours up to 6 AM 09/28/16 06:00 Intake Total 1175 ml Balance 1175 ml Laboratory Data Labs 24H Laboratory Tests 2 09/27/16 13:37: Aspartate Amino Transf (AST/SGOT) 22, Alanine Aminotransferase (ALT/SGPT) 32, Alkaline Phosphatase 94, Total Bilirubin 1.5H, Direct Bilirubin 0.3H, Albumin 3.7, Albumin/Globulin Ratio 1.16, Anion Gap 9, Calcium Level 9.3, Glomerular Filtration Rate > 60.0, Total Protein 6.9 09/27/16 13:51: White Blood Count 24.9H, Red Blood Count 4.69, Hemoglobin 14.1, Hematocrit 42.2 , Mean Corpuscular Volume 89.8, Mean Corpuscular Hemoglobin 30.0, Mean Corpuscular Hemoglobin Concent 33.4, Red Cell Distribution Width 13.2, Platelet Count 229, Neutrophils (%) (Auto) 87.2H, Lymphocytes (%) (Auto) 6.9L, Monocytes (%) (Auto) 3.5, Eosinophils (%) (Auto) 0.1, Basophils (%) (Auto) 1.2H, Neutrophils # (Auto) 21.7H, Lymphocytes # (Auto) 2.0, Monocytes # (Auto) 0.9H, Eosinophils # (Auto) 0.0, Basophils # (Auto) 0.3H, Lactic Acid Level 2.3*H, Large Unclassified Cells # 0.3, Large Unclassified Cells % 1.1 09/27/16 20:17: Lactic Acid Level 0.9 09/28/16 05:11: Anion Gap 9, Calcium Level 8.4L, Glomerular Filtration Rate > 60.0, Blood Urea Nitrogen 16, Creatinine 0.54L, Sodium Level 146H, Potassium Level 3.5#, Chloride Level 111H, Carbon Dioxide Level 26 CBC/BMP Laboratory Tests 09/27/16 13:37 09/27/16 13:51 Red Blood Count 4.69, Mean Corpuscular Volume 89.8, Mean Corpuscular Hemoglobin 30.0, Mean Corpuscular Hemoglobin Concent 33.4, Red Cell Distribution Width 13.2 , Neutrophils (%) (Auto) 87.2 H, Lymphocytes (%) (Auto) 6.9 L, Monocytes (%) ( Auto) 3.5, Eosinophils (%) (Auto) 0.1, Basophils (%) (Auto) 1.2 H, Neutrophils # (Auto) 21.7 H, Lymphocytes # (Auto) 2.0, Monocytes # (Auto) 0.9 H, Eosinophils # (Auto) 0.0, Basophils # (Auto) 0.3 H 09/28/16 05:11 Red Blood Count 3.75 L, Mean Corpuscular Volume 92.2, Mean Corpuscular Hemoglobin 30.4, Mean Corpuscular Hemoglobin Concent 32.9, Red Cell Distribution Width 12.2, Calcium Level 8.4 L Microbiology Microbiology 09/27/16 Blood Culture, Received Pending 1/27/17 Blood Culture, Received Pending 09/28/16 MRSA Screen, Received Pending 09/27/16 Influenza Virus Type A Antigen - Final, Complete 09/27/16 Influenza Virus Type B Antigen - Final, Complete TAWANDA YA PA-C Sep 28, 2016 09:20 Tay William MD Sep 28, 2016 22:32
[2016-09-28] MEDS: MUPIROCIN 2% OINT 22 GM TUBE TOP SCH ×3 (09:39→22:13)
[2016-09-28] MEDS: VANCOMYCIN HCL 750 MG, VIAL MATE ADAPTER 1 EACH in D5W 250 ML IV SCH ×2 (09:39→22:11)
[2016-09-28] MEDS: clonazePAM 1 MG TAB NG SCH (22:12)
[2016-09-29] MEDS: AZTREONAM 2 GM in D5W MINI-BAG PLUS 100 ML IV SCH ×3 (00:52→15:03)
[2016-09-29] MEDS: NS 1,000 ML IV SCH ×4 (03:49→18:45)
[2016-09-29 04:00] VITALS: BP 119/68
[2016-09-29] MEDS: ALBUTEROL SULFATE 2.5 MG/0.5 ML INH NEB SOLN INH SCH ×2 (07:21→21:03)
[2016-09-29 08:00] VITALS: BP 120/52
[2016-09-29 08:32] LABS: MEAN CORPUSCULAR HEMOGLOBIN 30.4 pg (27.0-33.0); MEAN CORPUSCULAR HGB CONC 33.6 g/dl (32.0-36.5); MEAN CORPUSCULAR VOLUME 90.3 fl (80.0-96.0); RED CELL DISTRIBUTION WIDTH 13.1 % (11.5-14.5); WHITE BLOOD COUNT 9.5 K/mm3 (4.0-10.0)
[2016-09-29 08:47] LABS: ANION GAP 8 MEQ/L (8-16); BLOOD UREA NITROGEN 8 MG/DL (7-18); CALCIUM LEVEL 8.2 MG/DL (8.5-10.1); CARBON DIOXIDE LEVEL 27 MEQ/L (21-32); CHLORIDE LEVEL 113 MEQ/L (98-107); CREATININE FOR GFR 0.54 MG/DL (0.55-1.02); GLOMERULAR FILTRATION RATE > 60.0 (>58); GLUCOSE, FASTING 98 MG/DL (70-105); POTASSIUM SERUM 3.8 MEQ/L (3.5-5.1); SODIUM LEVEL 148 MEQ/L (136-145)
[2016-09-29] MEDS: ENOXAPARIN 40 MG/0.4 ML SYRINGE (J1650) SC SCH (09:04)
[2016-09-29] MEDS: PREGABALIN 25 MG CAP (LYRICA) NG SCH ×3 (09:05→20:44)
[2016-09-29] MEDS: BACLOFEN 10 MG TAB GT SCH ×2 (09:05→14:57)
[2016-09-29] MEDS: HALOPERIDOL 2 MG TAB NG SCH ×3 (09:05→20:45)
[2016-09-29] MEDS: LACTOBACILLUS ACIDOPHILUS CAP (BACID) NG SCH ×2 (09:05→20:45)
[2016-09-29] MEDS: FAMOTIDINE 20 MG TAB FT SCH (09:05)
[2016-09-29] MEDS: NORCO, ANEXSIA 5/325MG TABLET (HYDROcodone/ACETAMINOPHEN) FT SCH ×3 (09:06→20:46)
[2016-09-29] MEDS: FLUTICASONE PROP 0.05% NASAL SPRAY 16 GM (FLONASE) SCH (09:07)
[2016-09-29] MEDS: MUPIROCIN 2% OINT 22 GM TUBE TOP SCH ×3 (09:07→21:00)
--- NOTE | 2016-09-29 09:14 | IPNPDOC ---
Assessment/Plan Date Seen The patient was seen on 09/29/16. Family Medicine Attending Note: I saw and examined Ms. Dyer, discussed with WINSTON Bradford. Agree with their note as documented. The were some concerns last night about residual in her stomach. Her midnight feeding was held. Nursing reports that she's been tolerating her feedings well since. She's had very little or no residual. I anticipate if she remains afebrile, she can be changed to an antibiotic via G-tube. If this is the case she probably can be transferred back to the [facility] in 1-2 days. 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 Sats stable. If remains stable, can consider change to Levaquin. 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 General: Reports: ROS Unobtainable Objective Physical Examination General Exam: Positive: Alert, No Acute Distress ENT Exam: Positive: Mucous membr. moist/pink (lips dry) Chest Exam: Positive: Clear to auscultation Heart Exam: Positive: Normal S1, Normal S2, Rate Normal Abdomen Exam: Positive: Normal bowel sounds, Other (+ G tube in place), Soft Extremity Exam: Negative: Edema Vital Signs/I&O Vital Signs Date Time Temp Pulse Resp B/P Pulse Ox O2 Delivery O2 Flow Rate FiO2 09/29/16 09:06 20 09/29/16 08:00 96.5 82 120/52 98 Room Air I&O- Last 24 Hours up to 6 AM 09/29/16 06:00 Intake Total 4480 ml Output Total 0 ml Balance 4480 ml Laboratory Data Labs 24H Laboratory Tests 2 09/29/16 08:00: Anion Gap 8, Blood Urea Nitrogen 8, Creatinine 0.54L, Sodium Level 148H, Potassium Level 3.8, Chloride Level 113H, Carbon Dioxide Level 27, Calcium Level 8.2L, Glomerular Filtration Rate > 60.0, Vancomycin Level Trough 9.0L CBC/BMP Laboratory Tests 09/29/16 08:00 Calcium Level 8.2 L, Red Blood Count 3.80 L, Mean Corpuscular Volume 90.3, Mean Corpuscular Hemoglobin 30.4, Mean Corpuscular Hemoglobin Concent 33.6, Red Cell Distribution Width 13.1 Microbiology Microbiology 09/27/16 Blood Culture - Preliminary, Resulted No growth after 24 hours . All specim... 09/27/16 Blood Culture - Preliminary, Resulted No growth after 24 hours . All specim... 09/28/16 MRSA Screen - Final, Complete 09/27/16 Influenza Virus Type A Antigen - Final, Complete 09/27/16 Influenza Virus Type B Antigen - Final, Complete TAWANDA YA PA-C Sep 29, 2016 09:14 Tay William MD Sep 29, 2016 20:26
[2016-09-29] MEDS: VANCOMYCIN HCL 750 MG, VIAL MATE ADAPTER 1 EACH in D5W 250 ML IV SCH (10:03)
[2016-09-29 11:30] VITALS: BP 131/96
--- NOTE | 2016-09-29 11:31 | PHACANCOPD ---
PHARMACY VANCOMYCIN DOSING Pt Demographics Demographics Patient Age:41 , Weight:55.400 , Gender: female Adjusted Body Weight Date: 09/27/16, Adjusted Body Weight: Kg Vancomycin Vancomycin indication: HCAP Vancomycin Target Ranges: 10-20 mcg/ml Vancomycin Load Y/N: No Load Dose Date Time Vancomycin Load Dose: Date: Time: Vancomycin Dose Date: 09/27/16. Current Vancomycin Dose: [750MG IV Q12H] Intermittent Dosing?: No Labs Micro Microbiology 09/27/16 Blood Culture - Preliminary, Resulted No growth after 24 hours . All specim... 09/27/16 Blood Culture - Preliminary, Resulted No growth after 24 hours . All specim... 09/28/16 MRSA Screen - Final, Complete 09/27/16 Influenza Virus Type A Antigen - Final, Complete 09/27/16 Influenza Virus Type B Antigen - Final, Complete Creatinine Clearance Date:09/27/16. Estimated Creatinine Clearance: [78.8ml/min]. Assessment and Plan Maintaining Current Dose?: No Reason for dose change: Trough too low Pharmacist Note Pharmacist Note 09/29/16: Trough today resulted at 9.0, drawn prior to the 4th dose. I will increase the current vancomycin regimen from 750 mg IV Q12H to 1g IV Q12H, continuing to aim for a goal trough of 10-20 mcg/ml. WBC is currently WNL, and patient has been afebrile for past 24 hours. Blood cultures are still pending, and MRSA screen resulted negative. A follow-up trough has been scheduled @ 0800, prior to the 4th dose of the new regimen. We will continue to monitor and make further dose adjustments as needed. Date: 09/27/16. Pharmacist note: Day #1 empiric zosyn/vanco initiated at 750mg IV Q12H for the treatment of HCAP - aiming for a goal trough of 10-20 mcg/ml. PMH negative for MRSA, but positive for vanco use here at [facility], and the patient is a resident of [facility]. Was previously here in June 2016 on vancomycin for the treatment of aspiration pneumonia. The patient has a hx of recurrent aspiration pneumonia, as well as quadriparesis. WBC and lactic acid are currently elevated. CXR showed no infiltrate. We will continue to monitor the patient and schedule a trough level accordingly. MYRANDA MELENDEZ [facility]ARMAC[facility] Sep 29, 2016 11:31
[2016-09-29 14:00] VITALS: BP 133/81
[2016-09-29] MEDS: CETIRIZINE (ZyrTEC) 5 MG/5 ML UDC NG SCH (20:44)
[2016-09-29] MEDS: clonazePAM 1 MG TAB NG SCH (20:45)
[2016-09-29] MEDS: BACLOFEN 10 MG TAB NG SCH (20:45)
[2016-09-29] MEDS: VANCOMYCIN HCL 1,000 MG, VIAL MATE ADAPTER 1 EACH in D5W 250 ML IV SCH (21:00)
[2016-09-29 22:00] VITALS: BP 131/76
--- NOTE | 2016-09-30 00:31 | EDDOCDS ---
Physician Documentation [facility] Name: Jacob Dyer Age: 41 yrs Sex: Female : 1975 Arrival Date: 09/27/2016 Time: 12:28 Bed Admit Hold Private MD: Kirk Pompa D Disposition: 09/27/16 15:51 Hospitalization ordered by Salina Hawthorne for Inpatient Admission. Preliminary diagnosis is Pneumonia in diseases classified elsewhere. - [facility]. - Status is Inpatient Admission. lf1 - Condition is Stable. - Problem is new. - Symptoms are unchanged. Historical: - Allergies: PENICILLINS; - Home Meds: 1. acetaminophen 650 mg Rectal supp 1 suppository every 4 hours 2. albuterol sulfate 2.5 mg /3 mL (0.083 %) Inhl nebu every 4 hours 3. baclofen 20 mg Oral tab nightly 4. baclofen 10 mg Oral tab twice a day 5. Jevity 1.5 Reji 0.06 gram-1.5 kcal/mL oral liqd 300 mL four times a day 6. Haldol 2 mg Oral tab 1 tab 3 times per day 7. Flonase 50 mcg/actuation Nasal spsn 2 sprays once daily 8. Lyrica 25 mg Oral 3 times per day 9. Transderm-Scop 1.5 mg (1 mg over 3 days) TD pt3d 1 patch 10. Milk of Magnesia 400 mg/5 mL Oral susp 11. Dulcolax (bisacodyl) 5 mg Oral TbEC 1 tab once daily 12. Eliza-Bid 1 billion-250 cell-mg oral tab 13. Tylenol 325 mg Oral tab 2 tabs every 4 hours 14. famotidine 20 mg Oral tab once daily 15. clonazepam 1 mg Oral tab 1 tab daily 16. hydrocodone-acetaminophen 5-325 mg Oral tab 1 tab every 4 hours 17. ibuprofen 200 mg Oral tab 1 tab 3 times per day 18. Zyrtec 10 mg Oral tab 1 tab once daily 19. multivitamin Oral tab daily - PMHx: Asthma; Osorio's Chorea; hypokalemia; Pneumonia; - PSHx: Feeding Tube Insertion; - Social history: Smoking status: Patient states was never smoker of tobacco. No barriers to communication noted, The patient speaks fluent Yi. - Family history: Not pertinent. - : The pt / caregiver states he / she is not on anticoagulants. Home medication list is obtained from the facility MAR. - Exposure Risk Screening:: None identified. 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 12:54 LMP N/A - Post-menopause js13 Vital Signs: 12:45 Temp 98.9(R); ml6 12:57 BP 101 / 62 LA Sitting (man/reg); Pulse 84; Resp 18; Pulse Ox 96% on R/A; Weight 54.88 jrd kg / 120.99 lbs (R); 15:39 BP 96 / 76 (auto/); Pulse 88; Resp 16; Pulse Ox 95% on R/A; js13 16:39 BP 89 / 56 (auto/); js13 16:39 Pulse 94 MON; Resp 16; Pulse Ox 97% on R/A; js13 16:54 BP 92 / 59 (auto/); js13 16:54 Pulse 102 MON; Resp 16; Pulse Ox 96% on R/A; js13 18:03 BP 106 / 68 (auto/); js13 18:03 Pulse 112 MON; Resp 16; Pulse Ox 98% on R/A; js13 18:18 BP 113 / 57 (auto/); lf1 18:19 Pulse 114 MON; Pulse Ox 98% ; lf1 18:46 BP 109 / 71 (auto/); lf1 18:47 Pulse 116 MON; Pulse Ox 97% ; lf1 18:48 BP 119 / 60 (auto/); lf1 18:48 Pulse 114 MON; Pulse Ox 97% ; lf1 19:22 BP 125 / 62 (auto/); lf1 19:23 Pulse 124 MON; Resp 18; Pulse Ox 98% ; lf1 20:26 Pulse 120 MON; Resp 18; Temp 99.4(R); Pulse Ox 97% ; lf1 21:11 Height 5 ft. 2 in. (157.48 cm); jp6 21:15 BP 124 / 91 (auto/); lf1 21:16 Pulse 128 MON; Resp 18; Pulse Ox 97% ; lf1 21:30 BP 120 / 83 (auto/); lf1 21:31 Pulse 120 MON; Pulse Ox 97% ; lf1 21:45 BP 121 / 85 (auto/); lf1 21:46 Pulse 124 MON; Pulse Ox 96% ; lf1 21:47 Pulse 126 MON; Pulse Ox 96% ; lf1 22:15 BP 133 / 69 (auto/); lf1 22:15 Pulse 142 MON; Pulse Ox 96% ; lf1 22:45 BP 115 / 75 (auto/); lf1 22:46 Pulse 128 MON; Pulse Ox 97% ; lf1 23:00 BP 148 / 78 (auto/); lf1 23:00 Pulse 134 MON; Resp 20; Temp 99.6(R); Pulse Ox 96% ; lf1 21:11 Body Mass Index 22.13 (54.88 kg, 157.48 cm) jp6 12:57 PATIENT UNABLE TO GIVE PAIN SCALE RATING jrd MDM: 13:24 -Influenza A&B Rapid Antigen - Nose Ordered. EDMS 13:35 -Blood Culture (Adults Only), peripheral from different site, or from device/port/PICC sd1 etc. if present ordered. 13:35 IV Saline Lock ordered. sd1 13:35 NS 0.9% 1000 ml IV at 150 mL/hr continuous ordered. sd1 13:36 -Blood Culture Ordered. EDMS 13:36 Lactic Acid (Gan tube on ice) Ordered. EDMS 13:36 CBC with Diff Ordered. EDMS 14:03 -Blood Culture (Adults Only), peripheral from different site, or from device/port/PICC lbd etc. if present complete. 14:05 BLOOD CULTURES Ordered. EDMS 14:07 CT ABD & PELVIS: No Contrast Ordered. EDMS 14:24 -Influenza A&B Rapid Antigen - Nose Reviewed. sd1 14:27 NS 0.9% (Sepsis- hypotension or lactate >4mmol/L, 30ml/kg) 30 ml/kg IV at bolus once; sd1 Give in 500mL aliquots, assess for rales after each, 1600cc ordered. 14:27 levofloxacin 750 mg IVPB once over 90 mins ordered. sd1 14:30 Lactic Acid (Gan tube on ice) Reviewed. sd1 14:31 Financial registration complete. mm15 14:38 [facility] Payment Agreement was scanned into [employer] and attached to record. mm15 15:19 CBC with Diff Reviewed. sd1 15:25 Preschool Adviser/Pulse Ox/q 15 min VS ordered. sd1 15:25 MED Profile Ordered. EDMS 15:30 LIVER PROFILE Ordered. EDMS 20:03 LACTIC ACID LEVEL, LACTATE Ordered. EDMS 20:03 BASIC METABOLIC PROFILE Ordered. EDMS 20:03 COMPLETE BLOOD COUNT Ordered. EDMS 20:04 Admission / Observation Status ordered. EDMS 20:09 CT ABD & PELVIS WITH CONTRAST Ordered. EDMS 20:17 MRSA SCREEN Ordered. EDMS 20:41 NS 0.9% 1000 ml IV at 125 mL/hr continuous ordered. lf1 20:43 vancomycin 1 grams IVPB once over 60 mins; dilute in 250mL of NS or D5W ordered. lf1 22:35 cetirizine 10 mg PO once ordered. lf1 22:35 clonazePAM 1 mg PO once ordered. lf1 22:35 Haloperidol 2 mg PO once ordered. lf1 22:35 Pregabalin 25 mg PO once ordered. lf1 23:08 clonazePAM 1 mg PO once; Via gastric tube ordered. lf1 01 07:46 Radiology Report was scanned into [employer] and attached to record. gb Administered Medications: 09/27 13:54 Drug: NS 0.9% 1000 ml [sodium chloride 0.9 % intravenous solution] Route: IV; Rate: 150 js13 mL/hr; Site: left forearm; 14:38 Drug: NS 0.9% (Sepsis- hypotension or lactate >4mmol/L, 30ml/kg) 1646.4 ml [sodium js13 chloride 0.9 % intravenous solution] Route: IV; Rate: bolus; Site: left forearm; 15:05 Follow up: IV Intake: 500ml ; no rales noted upon auscultation js13 15:18 Follow up: IV Intake: 500ml ; LS dimeinished with rhonchi js13 16:20 Follow up: IV Status: No rales on exam; IV Intake: 500ml js13 18:35 Follow up: IV Status: Completed infusion; IV Intake: 100ml js13 14:43 Drug: levofloxacin 750 mg [levofloxacin 750 mg/150 mL in 5 % dextrose intravenous js13 piggyback] Route: IVPB; Infused Over: 90 mins; Site: left forearm; 17:02 Follow up: IV Status: Completed infusion js13 21:19 Drug: NS 0.9% 1000 ml [sodium chloride 0.9 % intravenous solution] Route: IV; Rate: 125 lf1 mL/hr; Site: left forearm; 23:29 Follow up: IV Status: Infusion continued upon admit; IV Intake: 125ml lf1 21:19 Drug: vancomycin 1 grams [vancomycin 1,000 mg intravenous injection] Route: IVPB; lf1 Infused Over: 60 mins; Site: left forearm; 23:29 Follow up: IV Status: Completed infusion; IV Intake: 250ml lf1 22:42 Not Given (admit): cetirizine 10 mg PO once lf1 22:42 Not Given (admit): Haloperidol 2 mg PO once lf1 22:42 Not Given (admit): Pregabalin 25 mg PO once lf1 22:42 CANCELLED (Duplicate Order): Piperacillin-Tazobactam 3.375 grams IVPB once over 30 lf1 mins; dilute in 50mL of NS or D5W 23:02 Not Given (Another route given): clonazePAM 1 mg PO once lf1 23:14 Drug: clonazePAM 1 mg [clonazepam 0.5 mg tablet (2 tabs)] Route: PO; lf1 Signatures: Dispatcher [employer] EDMS Brenda Judge MD MD sd1 Shilpi Jordan, Head Transfer Clerk Unit lbd Jaylen [facility], Lashonda, RN RN daq Zoey Dhaliwal, Reg Reg gb Alice Qureshi,RN RN 1 Radha Mata,RN RN js13 Swetha Lopez mm15 The chart was reviewed and I authenticate all verbal orders and agree with the evaluation and treatment provided.Corrections: (The following items were deleted from the chart) 15:28 15:25 LIVER PROFILE+LAB ordered. EDOH EDOH 22:42 22:35 Piperacillin-Tazobactam 3.375 grams IVPB once over 30 mins; dilute in 50mL of NS lf1 or D5W ordered. lf1 22:42 22:42 Piperacillin-Tazobactam 3.375 grams IVPB once over 30 mins; dilute in 50mL of NS lf1 or D5W ordered. lf1 Attachments: 14:38 [facility] Payment Agreement mm15 Chart Complete MTDD
--- NOTE | 2016-09-30 00:31 | EDDOCDS ---
Nurse's Notes [facility] Name: Jacob Dyer Age: 41 yrs Sex: Female : 1975 Arrival Date: 09/27/2016 Time: 12:28 Bed Admit Hold Private MD: Kirk Pompa D Diagnosis: Pneumonia in diseases classified elsewhere Presentation: 09/27 12:41 Presenting complaint: [facility] staff sent patient over to be evaluated. Patient had CBC with js13 DIFF, BMP, UA C&S and CHEST X RAY over at [facility]. Suicide/Homicide risk assessment- Unable to assess, due to patient's chronic mental disability. Status: Patient is not a manager field services or dependent. Transition of care: patient was received from [facility]. 12:41 Acuity: APOLONIA Level 3 js13 12:41 Method Of Arrival: Other js13 12:54 Adult Sepsis Screening: The patient does not have new or worsening altered mentation. js13 Patient's respiratory rate is less than 22. Systolic blood pressure is greater than 100. Patient has a qSOFA score of 0- Negative Sepsis Screen. Triage Assessment: 12:54 General: Appears in no apparent distress, Behavior is cooperative. Pain: Unable to use js13 pain scale. Does not appear to understand pain scale. Pt Declines HIV testing. The patient is triaged at the bedside. See Assessment in Nurses Notes section of ED record. Neurological: Level of Consciousness is awake. Cardiovascular: Rhythm is sinus rhythm. Respiratory: Airway is patent Respiratory effort is even, unlabored, Respiratory pattern is regular, symmetrical, Breath sounds are clear. GI: Enteral feeding tube Site clean. Derm: Skin is pink, warm & dry. 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 acetaminophen 650 mg Rectal supp 1 suppository every 4 hours 2. albuterol sulfate 2.5 mg /3 mL (0.083 %) Inhl nebu every 4 hours 3. baclofen 20 mg Oral tab nightly 4. baclofen 10 mg Oral tab twice a day 5. Jevity 1.5 Reji 0.06 gram-1.5 kcal/mL oral liqd 300 mL four times a day 6. Haldol 2 mg Oral tab 1 tab 3 times per day 7. Flonase 50 mcg/actuation Nasal spsn 2 sprays once daily 8. Lyrica 25 mg Oral 3 times per day 9. Transderm-Scop 1.5 mg (1 mg over 3 days) TD pt3d 1 patch 10. Milk of Magnesia 400 mg/5 mL Oral susp 11. Dulcolax (bisacodyl) 5 mg Oral TbEC 1 tab once daily 12. Eliza-Bid 1 billion-250 cell-mg oral tab 13. Tylenol 325 mg Oral tab 2 tabs every 4 hours 14. famotidine 20 mg Oral tab once daily 15. clonazepam 1 mg Oral tab 1 tab daily 16. hydrocodone-acetaminophen 5-325 mg Oral tab 1 tab every 4 hours 17. ibuprofen 200 mg Oral tab 1 tab 3 times per day 18. Zyrtec 10 mg Oral tab 1 tab once daily 19. multivitamin Oral tab daily - PMHx: Asthma; Osorio's Chorea; hypokalemia; Pneumonia; - PSHx: Feeding Tube Insertion; - Social history: Smoking status: Patient states was never smoker of tobacco. No barriers to communication noted, The patient speaks fluent Tajik. - Family history: Not pertinent. - : The pt / caregiver states he / she is not on anticoagulants. Home medication list is obtained from the facility MAR. - Exposure Risk Screening:: None identified. Screenin:56 Screening information is obtained from residence staff. Fall risk: At risk due to js13 apparent cognitive impairment, immobility. Assistance ADL's: Requires assistance with. Abuse/DV Screen: The patient / caregiver reports he/she is: not in a situation that causes fear, pain or injury. Nutritional screening: On NPO diet. Advance Directives: There is no active DNR order. home support is adequate. Assessment: 12:56 General: Appears in no apparent distress, Behavior is cooperative. Pain: Unable to use js13 pain scale. Does not appear to understand pain scale. Neurological: Level of Consciousness is awake. Cardiovascular: Rhythm is sinus rhythm. GI: Enteral feeding tube Site clean. Derm: Skin is pink, warm & dry. 14:00 General: Appears in no apparent distress, Behavior is cooperative. Pain: Unable to use js13 pain scale. Does not appear to understand pain scale. Neurological: Level of Consciousness is awake. Cardiovascular: Rhythm is sinus rhythm. Respiratory: Airway is patent Respiratory effort is even, unlabored, Respiratory pattern is regular, Breath sounds with rhonchi Breath sounds are diminished. GI: Enteral feeding tube Site clean. Derm: Skin is pink, warm & dry. 15:10 Adult Sepsis Screening: The patient does not have new or worsening altered mentation. js13 Patient's respiratory rate is less than 22. Systolic blood pressure is greater than 100. Patient has a qSOFA score of 0- Negative Sepsis Screen. General: Appears in no apparent distress, Behavior is cooperative. Pain: Unable to use pain scale. Does not appear to understand pain scale. Neurological: Level of Consciousness is awake. Respiratory: Airway is patent Respiratory effort is even, unlabored, Respiratory pattern is regular. Derm: Skin is pink, warm & dry. 16:15 General: Appears in no apparent distress, Behavior is cooperative. Pain: Unable to use js13 pain scale. Does not appear to understand pain scale. Neurological: Level of Consciousness is awake. Cardiovascular: Rhythm is sinus tachycardia. Respiratory: Airway is patent Respiratory effort is even, unlabored, Respiratory pattern is regular, Breath sounds are diminished. Derm: Skin is pink, warm & dry. 17:00 Adult Sepsis Screening: Accepted Exclusions- Patient is already in the Sepsis Protocol. js13 General: Appears in no apparent distress, Behavior is cooperative. Pain: Unable to use pain scale. Does not appear to understand pain scale. Neurological: Level of Consciousness is awake. Cardiovascular: Rhythm is sinus tachycardia. Respiratory: Airway is patent Respiratory effort is even, unlabored, Respiratory pattern is regular, Breath sounds are diminished. Derm: Skin is pink, warm & dry. 18:10 General: Appears Patient is yelling out and thrashing around in bed, patient opened a js13 cut on her finger that was bleeding. Band aid applied to left index finger. Patient has been repositioned, checked for incontinence, given the television. Patient still yelling out on occasion. . Pain: Unable to use pain scale. Does not appear to understand pain scale. Neurological: Level of Consciousness is awake. Cardiovascular: Rhythm is sinus tachycardia. Respiratory: Airway is patent Respiratory effort is even, unlabored, Respiratory pattern is regular. Derm: Skin is pink, warm & dry. 19:27 Adult Sepsis Screening: The patient does not have new or worsening altered mentation. lf1 Patient's respiratory rate is less than 22. Systolic blood pressure is greater than 100. Patient has a qSOFA score of 0- Negative Sepsis Screen. General: Appears Pt is yelling out regularly, appears to be at her baseline. TV in view.. Pain: Unable to use pain scale. Does not appear to understand pain scale. Neurological: Level of Consciousness is awake. Respiratory: Respiratory effort is even, unlabored, Respiratory pattern is regular. GI: Site clean. Derm: Skin is pale. Musculoskeletal: right arm contracted, BL LE contracted. 20:22 General: Appears in no apparent distress, Behavior is cooperative, restless. Pain: lf1 Unable to use pain scale. Does not appear to understand pain scale. Nonverbal. Neurological: Level of Consciousness is awake. Respiratory: Respiratory effort is even, unlabored. GI: Enteral feeding tube Site clean. : Last wet diaper was September 27, 2016. at 20:24. Derm: Skin is pale. 21:24 General: Appears Pt is continually banging left hand into side rail, pillows positioned lf1 to prevent injury. . Respiratory: Respiratory effort is even, unlabored. Derm: Skin is pale. 23:09 General: Appears uncomfortable, Behavior is agitated, restless. Pain: Unable to use lf1 pain scale. Neurological: Level of Consciousness is awake. Respiratory: Respiratory effort is even, unlabored. GI: Enteral feeding tube Site clean. Derm: Skin is pale. Vital Signs: 12:45 Temp 98.9(R); ml6 12:57 BP 101 / 62 LA Sitting (man/reg); Pulse 84; Resp 18; Pulse Ox 96% on R/A; Weight 54.88 jrd kg (R); 15:39 BP 96 / 76 (auto/); Pulse 88; Resp 16; Pulse Ox 95% on R/A; js13 16:39 BP 89 / 56 (auto/); js13 16:39 Pulse 94 MON; Resp 16; Pulse Ox 97% on R/A; js13 16:54 BP 92 / 59 (auto/); js13 16:54 Pulse 102 MON; Resp 16; Pulse Ox 96% on R/A; js13 18:03 BP 106 / 68 (auto/); js13 18:03 Pulse 112 MON; Resp 16; Pulse Ox 98% on R/A; js13 18:18 BP 113 / 57 (auto/); lf1 18:19 Pulse 114 MON; Pulse Ox 98% ; lf1 18:46 BP 109 / 71 (auto/); lf1 18:47 Pulse 116 MON; Pulse Ox 97% ; lf1 18:48 BP 119 / 60 (auto/); lf1 18:48 Pulse 114 MON; Pulse Ox 97% ; lf1 19:22 BP 125 / 62 (auto/); lf1 19:23 Pulse 124 MON; Resp 18; Pulse Ox 98% ; lf1 20:26 Pulse 120 MON; Resp 18; Temp 99.4(R); Pulse Ox 97% ; lf1 21:11 Height 5 ft. 2 in. (157.48 cm); jp6 21:15 BP 124 / 91 (auto/); lf1 21:16 Pulse 128 MON; Resp 18; Pulse Ox 97% ; lf1 21:30 BP 120 / 83 (auto/); lf1 21:31 Pulse 120 MON; Pulse Ox 97% ; lf1 21:45 BP 121 / 85 (auto/); lf1 21:46 Pulse 124 MON; Pulse Ox 96% ; lf1 21:47 Pulse 126 MON; Pulse Ox 96% ; lf1 22:15 BP 133 / 69 (auto/); lf1 22:15 Pulse 142 MON; Pulse Ox 96% ; lf1 22:45 BP 115 / 75 (auto/); lf1 22:46 Pulse 128 MON; Pulse Ox 97% ; lf1 23:00 BP 148 / 78 (auto/); lf1 23:00 Pulse 134 MON; Resp 20; Temp 99.6(R); Pulse Ox 96% ; lf1 21:11 Body Mass Index 22.13 (54.88 kg, 157.48 cm) jp6 12:57 PATIENT UNABLE TO GIVE PAIN SCALE RATING jrd Vitals: 12:28 Log In Time N/A - ambulance arrival. lf1 ED Course: 12:30 Patient visited by Shilpi Jordan, Animal Cop. lbd 12:30 Patient moved to Waiting lbd 12:31 Kirk Pompa is Private Physician. lbd 12:32 Radha Mata,GERMAIN is Primary Nurse. lbd 12:32 Patient moved to 15 lbd 12:45 Triage Initiated js13 12:55 Brenda Judge MD is Attending Physician. sd1 12:56 The patient / caregiver is instructed regarding the plan of care and ED course. js13 12:56 No IV's were initiated during this patient's visit. No procedures done that require [facility] assistance. 13:00 Patient visited by Radha Mata RN. js13 13:01 Patient visited by Surendra Kilgore PCA. jrd 13:31 Patient visited by Brenda Judge MD. sd1 13:54 -Blood Culture Sent. js13 13:54 Lactic Acid (Gan tube on ice) Sent. js13 13:54 CBC with Diff Sent. js13 13:54 Inserted saline lock: 18 gauge in left forearm and blood collected. The patient js13 tolerated the procedure well. Labs drawn. (by ED staff). Sent per order to lab. Labs/Blood culture drawn. 14:34 Patient visited by Shanti Marr. nb2 14:38 [facility] Payment Agreement was scanned into [employer] and attached to record. mm15 14:38 BLOOD CULTURES Sent. js13 15:25 CT ABD & PELVIS: No Contrast Returned. EDMS 15:28 Patient visited by Radha Mata RN. js13 15:41 Patient visited by Radha Mata RN. js13 15:51 Salina Hawthorne is Hospitalizing Provider. sd1 17:03 Patient visited by Radha Mata RN. js13 18:15 Patient visited by Radha Mata RN. js13 19:27 Patient visited by Alice Qureshi RN. lf1 19:31 Patient visited by Alice Qureshi RN. lf1 20:21 Patient visited by Alice Qureshi RN. lf1 20:24 Noise minimized. Turned to right side. Repositioned patient. Cleaned of incontinence. lf1 Linen changed. 20:29 Patient visited by Alice Qureshi RN. lf1 20:46 Patient moved to Admit Hold daq 21:00 Cleaned of incontinence. lf1 21:19 Patient visited by Alice Qureshi RN. lf1 21:28 Patient visited by Alice Qureshi RN. lf1 22:45 Primary Nurse role handed off by Radha Mata RN mcp 22:45 Repositioned patient. Cleaned of incontinence. lf1 09/28 07:46 Radiology Report was scanned into [employer] and attached to record. gb Administered Medications: 09/27 13:54 Drug: NS 0.9% 1000 ml [sodium chloride 0.9 % intravenous solution] Route: IV; Rate: 150 js13 mL/hr; Site: left forearm; 14:38 Drug: NS 0.9% (Sepsis- hypotension or lactate >4mmol/L, 30ml/kg) 1646.4 ml [sodium js13 chloride 0.9 % intravenous solution] Route: IV; Rate: bolus; Site: left forearm; 15:05 Follow up: IV Intake: 500ml ; no rales noted upon auscultation js13 15:18 Follow up: IV Intake: 500ml ; LS dimeinished with rhonchi js13 16:20 Follow up: IV Status: No rales on exam; IV Intake: 500ml js13 18:35 Follow up: IV Status: Completed infusion; IV Intake: 100ml js13 14:43 Drug: levofloxacin 750 mg [levofloxacin 750 mg/150 mL in 5 % dextrose intravenous js13 piggyback] Route: IVPB; Infused Over: 90 mins; Site: left forearm; 17:02 Follow up: IV Status: Completed infusion js13 21:19 Drug: NS 0.9% 1000 ml [sodium chloride 0.9 % intravenous solution] Route: IV; Rate: 125 lf1 mL/hr; Site: left forearm; 23:29 Follow up: IV Status: Infusion continued upon admit; IV Intake: 125ml lf1 21:19 Drug: vancomycin 1 grams [vancomycin 1,000 mg intravenous injection] Route: IVPB; lf1 Infused Over: 60 mins; Site: left forearm; 23:29 Follow up: IV Status: Completed infusion; IV Intake: 250ml lf1 22:42 Not Given (admit): cetirizine 10 mg PO once lf1 22:42 Not Given (admit): Haloperidol 2 mg PO once lf1 22:42 Not Given (admit): Pregabalin 25 mg PO once lf1 22:42 CANCELLED (Duplicate Order): Piperacillin-Tazobactam 3.375 grams IVPB once over 30 lf1 mins; dilute in 50mL of NS or D5W 23:02 Not Given (Another route given): clonazePAM 1 mg PO once lf1 23:14 Drug: clonazePAM 1 mg [clonazepam 0.5 mg tablet (2 tabs)] Route: PO; lf1 Intake: 15:05 IV: 500.00ml; Total: 500.00ml. js13 15:18 IV: 500.00ml; Total: 1000.00ml. js13 16:20 IV: 500.00ml; Total: 1500.00ml. js13 18:35 IV: 100.00ml; Total: 1600.00ml. js13 23:29 IV: 250.00ml; Total: 1850.00ml. lf1 23:29 IV: 125.00ml; Total: 1975.00ml. lf1 Order Results: Lab Order: -Influenza A&B Rapid Antigen - Nose; SPEC'M 09/27/16 13:37 Test: INFLUENZA A RAPID SCR by ICA; Value: INFLUENZA A RESULTS NEGATIVE; Status: F Test: INFLUENZA A RAPID SCR by ICA; Value: Comments:; Status: F Test: INFLUENZA B RAPID SCR by ICA; Value: INFLUENZA B RESULTS NEGATIVE; Status: F Test Note: ; The Influenza test is a direct rapid immunoassay for the qualitative detection of Influenza viral antigen. Cell culture (Viral Culture) testing should be considered to confirm NEGATIVE results and to assist in detecting other viruses that can provide similar clinical symptoms. Please contact the lab within 24 hours [phone] if confirmatory testing is desired. Lab Order: Lactic Acid (Gan tube on ice); SPEC'M 09/27/16 13:51 Test: LACTIC ACID LEVEL, LACTATE; Value: 2.3; Range: 0.4-2.0; Abnormal: Above upper panic limits; Units: MMOL/L; Status: F Lab Order: CBC with Diff; SPEC'M 09/27/16 13:51 Test: WHITE BLOOD COUNT; Value: 24.9; Range: 4.0-10.0; Abnormal: Above high normal; Units: K/mm3; Status: F Test: RED BLOOD COUNT; Value: 4.69; Range: 4.00-5.40; Units: M/mm3; Status: F Test: HEMOGLOBIN; Value: 14.1; Range: 12.0-16.0; Units: g/dl; Status: F Test: HEMATOCRIT; Value: 42.2; Range: 36.0-47.0; Units: %; Status: F Test: MEAN CORPUSCULAR VOLUME; Value: 89.8; Range: 80.0-96.0; Units: fl; Status: F Test: MEAN CORPUSCULAR HEMOGLOBIN; Value: 30.0; Range: 27.0-33.0; Units: pg; Status: F Test: MEAN CORPUSCULAR HGB CONC; Value: 33.4; Range: 32.0-36.5; Units: g/dl; Status: F Test: RED CELL DISTRIBUTION WIDTH; Value: 13.2; Range: 11.5-14.5; Units: %; Status: F Test: PLATELET COUNT, AUTOMATED; Value: 229; Range: 150-450; Units: k/mm3; Status: F Test: NEUTROPHILS %; Value: 87.2; Range: 36.0-66.0; Abnormal: Above high normal; Units: %; Status: F Test: LYMPH %; Value: 6.9; Range: 24.0-44.0; Abnormal: Below low normal; Units: %; Status: F Test: MONO %; Value: 3.5; Range: 0.0-5.0; Units: %; Status: F Test: EOS %; Value: 0.1; Range: 0.0-3.0; Units: %; Status: F Test: BASO %; Value: 1.2; Range: 0.0-1.0; Abnormal: Above high normal; Units: %; Status: F Test: LARGE UNSTAINED CELL %; Value: 1.1; Range: 0.0-4.0; Units: %; Status: F Test: NEUTROPHILS #; Value: 21.7; Range: 1.8-7.7; Abnormal: Above high normal; Units: K/mm3; Status: F Test: LYMPH #; Value: 2.0; Range: 1.5-4.5; Units: K/mm3; Status: F Test: MONO #; Value: 0.9; Range: 0.0-0.8; Abnormal: Above high normal; Units: K/mm3; Status: F Test: EOS #; Value: 0.0; Range: 0.0-0.50; Units: K/mm3; Status: F Test: BASO #; Value: 0.3; Range: 0.0-0.2; Abnormal: Above high normal; Units: K/mm3; Status: F Test: LARGE UNSTAINED CELL #; Value: 0.3; Range: 0.0-0.4; Units: K/mm3; Status: F Lab Order: MED Profile; SPEC'M 09/27/16 13:37 Test: GLUCOSE, FASTING; Value: 98; Range: 70-105; Units: MG/DL; Status: F Test: BLOOD UREA NITROGEN; Value: 24; Range: 7-18; Abnormal: Above high normal; Units: MG/DL; Status: F Test: CREATININE FOR GFR; Value: 0.81; Range: 0.55-1.02; Units: MG/DL; Status: F Test: GLOMERULAR FILTRATION RATE; Value: > 60.0; Range: >58; Status: F Test: SODIUM LEVEL; Value: 145; Range: 136-145; Units: MEQ/L; Status: F Test: POTASSIUM SERUM; Value: 4.6; Range: 3.5-5.1; Abnormal: Delta; Units: MEQ/L; Status: F Test: CHLORIDE LEVEL; Value: 104; Range: 98-107; Units: MEQ/L; Status: F Test: CARBON DIOXIDE LEVEL; Value: 32; Range: 21-32; Units: MEQ/L; Status: F Test: ANION GAP; Value: 9; Range: 8-16; Units: MEQ/L; Status: F Test: CALCIUM LEVEL; Value: 9.3; Range: 8.5-10.1; Units: MG/DL; Status: F Test Note: ; Units are mL/min/1.73 m2 Chronic Kidney Disease Staging per NKF: Stage I & II GFR >=60 Normal to Mildly Decreased Stage III GFR 30-59 Moderately Decreased Stage IV GFR 15-29 Severely Decreased Stage V GFR <15 Very Little GFR Left ESRD GFR <15 on [employer] OPERATOR Lab Order: LIVER PROFILE; SPEC'M 09/27/16 13:37 Test: AST/SGOT; Value: 22; Range: 15-37; Units: U/L; Status: F Test: ALT/SGPT; Value: 32; Range: 12-78; Units: U/L; Status: F Test: ALKALINE PHOSPHATASE; Value: 94; Range: 45-117; Units: U/L; Status: F Test: BILIRUBIN,TOTAL; Value: 1.5; Range: 0.2-1.0; Abnormal: Above high normal; Units: MG/DL; Status: F Test: BILIRUBIN,DIRECT; Value: 0.3; Range: 0.0-0.2; Abnormal: Above high normal; Units: MG/DL; Status: F Test: TOTAL PROTEIN; Value: 6.9; Range: 6.4-8.2; Units: GM/DL; Status: F Test: ALBUMIN; Value: 3.7; Range: 3.2-5.2; Units: GM/DL; Status: F Test: ALBUMIN/GLOBULIN RATIO; Value: 1.16; Range: 1.00-1.93; Status: F Lab Order: LACTIC ACID LEVEL, LACTATE; SPEC'M 09/27/16 20:17 Test: LACTIC ACID LEVEL, LACTATE; Value: 0.9; Range: 0.4-2.0; Units: MMOL/L; Status: F Radiology Order: CT ABD & PELVIS: No Contrast Test: CT ABD & PELVIS: No Contrast REASON FOR EXAMINATION: fever; CT study of the abdomen and pelvis without IV or oral contrast: Renal stone; protocol.; ; History: Fever.; ; Comparison is made with today's chest x-ray.; ; Findings: Digital preliminary rolled gold plater radiograph is unremarkable.; ; Lung window settings demonstrate a large area of consolidation in the right lower; lobe behind the dome of the right hemidiaphragm consistent with pneumonia. This; is not visible on the radiograph. The remaining lung bases are clear.; ; There is a gastrostomy feeding tube in place. The liver and the spleen are; normal in size homogeneous in texture. Gallbladder is unremarkable. No adrenal; lesion is seen. The kidneys are morphologically intact. There is a low-density; lesion in the head of the pancreas 4.3 cm in craniocaudal span by 2.4 cm medial; to lateral by 2.0 cm anterior to posterior. This is of uncertain significance.; The body of the pancreas is unremarkable. There is no evidence of regional; adenopathy. Normal caliber aorta is seen. Small and large intestinal bowel; loops are unremarkable. A normal appendix is visible in the right pelvis. There; is no CT evidence of appendicitis or diverticulitis. Uterus is retroverted and; retroflexed. No adnexal mass or free fluid is seen.; ; Impression:; ; 1. A large dense infiltrate in the right lower lobe consistent with pneumonia.; ; 2. 4 cm low density lesion in the head of the pancreas question cystic mass; versus pseudocyst. Recommend contrast enhanced CT study of the pancreas if the; patient's clinical condition will allow. No other acute abnormality.; ; ; Signed by; Aquilino Arenas MD 09/27/2016 03:51 P; Outcome: 15:51 Decision to Hospitalize by Provider. sd1 23:27 Discharge Assessment:. The following High Risk Discharge criteria are identified: None. lf1 Admitted to PCU accompanied by nurse, accompanied by tech, via stretcher, on monitor, with chart. Condition: unchanged. CT Study completed. Property :Personal belongings accompany Pt. 23:28 Discharge Assessment: patient administered narcotics - no. lf1 23:30 Patient left the ED. lf1 Signatures: Dispatcher [employer] EDMS Brenda Judge MD MD sd1 Shilpi Jordan, Animal Cop Unit lbd Ruth Lemus RN GERMAIN [place] , Lashonda RN GERMAIN daZoey Rocha, Reg Reg gb Alice Qureshi,RN RN lf1 Sushil Cagle, RN RN ml6 Radha Mata,RN RN js13 Swetha Lopez mm15 Surendra Kilgore, ART THERAPIST ART THERAPIST d Paula Olson,RN RN jp6 Shanti Marr2 Corrections: (The following items were deleted from the chart) 13:01 12:57 BP 101 / 62 Sitting Manual L Arm Regular; Pulse 84bpm; Resp 18bpm; Pulse Ox 96% jrd RA; PATIENT UNABLE TO GIVE PAIN SCALE RATING; jrd 17:11 17:00 Adult Sepsis Screening: The patient does not have new or worsening altered js13 mentation. Patient's respiratory rate is less than 22. Systolic blood pressure is less than or equal to 100 (1 point). Patient has a qSOFA score of 1- Negative Sepsis Screen. js13 Chart Complete MTDD
--- NOTE | 2016-09-30 00:31 | EDDOCDS ---
Physician Documentation [facility] Name: Jacob Dyer Age: 41 yrs Sex: Female : 1975 Arrival Date: 09/27/2016 Time: 12:28 Bed Admit Hold Private MD: Kirk Pompa D Disposition: 09/27/16 15:51 Hospitalization ordered by Salina Hawthorne for Inpatient Admission. Preliminary diagnosis is Pneumonia in diseases classified elsewhere. - [facility] - Status is Inpatient Admission. lf1 - Condition is Stable. - Problem is new. - Symptoms are unchanged. Historical: - Allergies: PENICILLINS; - Home Meds: 1. acetaminophen 650 mg Rectal supp 1 suppository every 4 hours 2. albuterol sulfate 2.5 mg /3 mL (0.083 %) Inhl nebu every 4 hours 3. baclofen 20 mg Oral tab nightly 4. baclofen 10 mg Oral tab twice a day 5. Jevity 1.5 Reji 0.06 gram-1.5 kcal/mL oral liqd 300 mL four times a day 6. Haldol 2 mg Oral tab 1 tab 3 times per day 7. Flonase 50 mcg/actuation Nasal spsn 2 sprays once daily 8. Lyrica 25 mg Oral 3 times per day 9. Transderm-Scop 1.5 mg (1 mg over 3 days) TD pt3d 1 patch 10. Milk of Magnesia 400 mg/5 mL Oral susp 11. Dulcolax (bisacodyl) 5 mg Oral TbEC 1 tab once daily 12. Eliza-Bid 1 billion-250 cell-mg oral tab 13. Tylenol 325 mg Oral tab 2 tabs every 4 hours 14. famotidine 20 mg Oral tab once daily 15. clonazepam 1 mg Oral tab 1 tab daily 16. hydrocodone-acetaminophen 5-325 mg Oral tab 1 tab every 4 hours 17. ibuprofen 200 mg Oral tab 1 tab 3 times per day 18. Zyrtec 10 mg Oral tab 1 tab once daily 19. multivitamin Oral tab daily - PMHx: Asthma; Osorio's Chorea; hypokalemia; Pneumonia; - PSHx: Feeding Tube Insertion; - Social history: Smoking status: Patient states was never smoker of tobacco. No barriers to communication noted, The patient speaks fluent Czech. - Family history: Not pertinent. - : The pt / caregiver states he / she is not on anticoagulants. Home medication list is obtained from the facility MAR. - Exposure Risk Screening:: None identified. 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 BENDER: 09/27 12:54 LMP N/A - Post-menopause js13 Vital Signs: 12:45 Temp 98.9(R); ml6 12:57 BP 101 / 62 LA Sitting (man/reg); Pulse 84; Resp 18; Pulse Ox 96% on R/A; Weight 54.88 jrd kg / 120.99 lbs (R); 15:39 BP 96 / 76 (auto/); Pulse 88; Resp 16; Pulse Ox 95% on R/A; js13 16:39 BP 89 / 56 (auto/); js13 16:39 Pulse 94 MON; Resp 16; Pulse Ox 97% on R/A; js13 16:54 BP 92 / 59 (auto/); js13 16:54 Pulse 102 MON; Resp 16; Pulse Ox 96% on R/A; js13 18:03 BP 106 / 68 (auto/); js13 18:03 Pulse 112 MON; Resp 16; Pulse Ox 98% on R/A; js13 18:18 BP 113 / 57 (auto/); lf1 18:19 Pulse 114 MON; Pulse Ox 98% ; lf1 18:46 BP 109 / 71 (auto/); lf1 18:47 Pulse 116 MON; Pulse Ox 97% ; lf1 18:48 BP 119 / 60 (auto/); lf1 18:48 Pulse 114 MON; Pulse Ox 97% ; lf1 19:22 BP 125 / 62 (auto/); lf1 19:23 Pulse 124 MON; Resp 18; Pulse Ox 98% ; lf1 20:26 Pulse 120 MON; Resp 18; Temp 99.4(R); Pulse Ox 97% ; lf1 21:11 Height 5 ft. 2 in. (157.48 cm); jp6 21:15 BP 124 / 91 (auto/); lf1 21:16 Pulse 128 MON; Resp 18; Pulse Ox 97% ; lf1 21:30 BP 120 / 83 (auto/); lf1 21:31 Pulse 120 MON; Pulse Ox 97% ; lf1 21:45 BP 121 / 85 (auto/); lf1 21:46 Pulse 124 MON; Pulse Ox 96% ; lf1 21:47 Pulse 126 MON; Pulse Ox 96% ; lf1 22:15 BP 133 / 69 (auto/); lf1 22:15 Pulse 142 MON; Pulse Ox 96% ; lf1 22:45 BP 115 / 75 (auto/); lf1 22:46 Pulse 128 MON; Pulse Ox 97% ; lf1 23:00 BP 148 / 78 (auto/); lf1 23:00 Pulse 134 MON; Resp 20; Temp 99.6(R); Pulse Ox 96% ; lf1 21:11 Body Mass Index 22.13 (54.88 kg, 157.48 cm) jp6 12:57 PATIENT UNABLE TO GIVE PAIN SCALE RATING jrd MDM: 13:24 -Influenza A&B Rapid Antigen - Nose Ordered. EDMS 13:35 -Blood Culture (Adults Only), peripheral from different site, or from device/port/PICC sd1 etc. if present ordered. 13:35 IV Saline Lock ordered. sd1 13:35 NS 0.9% 1000 ml IV at 150 mL/hr continuous ordered. sd1 13:36 -Blood Culture Ordered. EDMS 13:36 Lactic Acid (Gan tube on ice) Ordered. EDMS 13:36 CBC with Diff Ordered. EDMS 14:03 -Blood Culture (Adults Only), peripheral from different site, or from device/port/PICC lbd etc. if present complete. 14:05 BLOOD CULTURES Ordered. EDMS 14:07 CT ABD & PELVIS: No Contrast Ordered. EDMS 14:24 -Influenza A&B Rapid Antigen - Nose Reviewed. sd1 14:27 NS 0.9% (Sepsis- hypotension or lactate >4mmol/L, 30ml/kg) 30 ml/kg IV at bolus once; sd1 Give in 500mL aliquots, assess for rales after each, 1600cc ordered. 14:27 levofloxacin 750 mg IVPB once over 90 mins ordered. sd1 14:30 Lactic Acid (Gan tube on ice) Reviewed. sd1 14:31 Financial registration complete. mm15 14:38 PENDING SALE TO [facility] Payment Agreement was scanned into [employer] and attached to record. mm15 15:19 CBC with Diff Reviewed. sd1 15:25 Supervisor Chlorine Liquefaction/Pulse Ox/q 15 min VS ordered. sd1 15:25 MED Profile Ordered. EDMS 15:30 LIVER PROFILE Ordered. EDMS 20:03 LACTIC ACID LEVEL, LACTATE Ordered. EDMS 20:03 BASIC METABOLIC PROFILE Ordered. EDMS 20:03 COMPLETE BLOOD COUNT Ordered. EDMS 20:04 Admission / Observation Status ordered. EDMS 20:09 CT ABD & PELVIS WITH CONTRAST Ordered. EDMS 20:17 MRSA SCREEN Ordered. EDMS 20:41 NS 0.9% 1000 ml IV at 125 mL/hr continuous ordered. lf1 20:43 vancomycin 1 grams IVPB once over 60 mins; dilute in 250mL of NS or D5W ordered. lf1 22:35 cetirizine 10 mg PO once ordered. lf1 22:35 clonazePAM 1 mg PO once ordered. lf1 22:35 Haloperidol 2 mg PO once ordered. lf1 22:35 Pregabalin 25 mg PO once ordered. lf1 23:08 clonazePAM 1 mg PO once; Via gastric tube ordered. lf1 01 07:46 Radiology Report was scanned into [employer] and attached to record. gb Administered Medications: 09/27 13:54 Drug: NS 0.9% 1000 ml [sodium chloride 0.9 % intravenous solution] Route: IV; Rate: 150 js13 mL/hr; Site: left forearm; 14:38 Drug: NS 0.9% (Sepsis- hypotension or lactate >4mmol/L, 30ml/kg) 1646.4 ml [sodium js13 chloride 0.9 % intravenous solution] Route: IV; Rate: bolus; Site: left forearm; 15:05 Follow up: IV Intake: 500ml ; no rales noted upon auscultation js13 15:18 Follow up: IV Intake: 500ml ; LS dimeinished with rhonchi js13 16:20 Follow up: IV Status: No rales on exam; IV Intake: 500ml js13 18:35 Follow up: IV Status: Completed infusion; IV Intake: 100ml js13 14:43 Drug: levofloxacin 750 mg [levofloxacin 750 mg/150 mL in 5 % dextrose intravenous js13 piggyback] Route: IVPB; Infused Over: 90 mins; Site: left forearm; 17:02 Follow up: IV Status: Completed infusion js13 21:19 Drug: NS 0.9% 1000 ml [sodium chloride 0.9 % intravenous solution] Route: IV; Rate: 125 lf1 mL/hr; Site: left forearm; 23:29 Follow up: IV Status: Infusion continued upon admit; IV Intake: 125ml lf1 21:19 Drug: vancomycin 1 grams [vancomycin 1,000 mg intravenous injection] Route: IVPB; lf1 Infused Over: 60 mins; Site: left forearm; 23:29 Follow up: IV Status: Completed infusion; IV Intake: 250ml lf1 22:42 Not Given (admit): cetirizine 10 mg PO once lf1 22:42 Not Given (admit): Haloperidol 2 mg PO once lf1 22:42 Not Given (admit): Pregabalin 25 mg PO once lf1 22:42 CANCELLED (Duplicate Order): Piperacillin-Tazobactam 3.375 grams IVPB once over 30 lf1 mins; dilute in 50mL of NS or D5W 23:02 Not Given (Another route given): clonazePAM 1 mg PO once lf1 23:14 Drug: clonazePAM 1 mg [clonazepam 0.5 mg tablet (2 tabs)] Route: PO; lf1 Signatures: Dispatcher [employer] EDMS Brenda Judge MD MD sd1 Shilpi Jordan, Apprentice Stylist Unit lbd [facility], Lashonda, RN RN daq Zoey Dhaliwal, Reg Reg gb Alice Qureshi,RN RN 1 Radha Mata,RN RN js13 Swetha Lopez mm15 The chart was reviewed and I authenticate all verbal orders and agree with the evaluation and treatment provided.Corrections: (The following items were deleted from the chart) 15:28 15:25 LIVER PROFILE+LAB ordered. EDAR EDAR 22:42 22:35 Piperacillin-Tazobactam 3.375 grams IVPB once over 30 mins; dilute in 50mL of NS lf1 or D5W ordered. lf1 22:42 22:42 Piperacillin-Tazobactam 3.375 grams IVPB once over 30 mins; dilute in 50mL of NS lf1 or D5W ordered. lf1 Attachments: 14:38 [facility] mm15 Chart Complete MTDD
[2016-09-30] MEDS: NS 1,000 ML IV SCH (03:45)
[2016-09-30 06:00] VITALS: BP 117/77
[2016-09-30 06:37] LABS: MEAN CORPUSCULAR HEMOGLOBIN 29.5 pg (27.0-33.0); MEAN CORPUSCULAR HGB CONC 32.6 g/dl (32.0-36.5); MEAN CORPUSCULAR VOLUME 90.6 fl (80.0-96.0); RED CELL DISTRIBUTION WIDTH 13.1 % (11.5-14.5); WHITE BLOOD COUNT 8.6 K/mm3 (4.0-10.0)
[2016-09-30 06:51] LABS: ANION GAP 8 MEQ/L (8-16); BLOOD UREA NITROGEN 11 MG/DL (7-18); CALCIUM LEVEL 8.7 MG/DL (8.5-10.1); CARBON DIOXIDE LEVEL 29 MEQ/L (21-32); CHLORIDE LEVEL 110 MEQ/L (98-107); CREATININE FOR GFR 0.56 MG/DL (0.55-1.02); GLOMERULAR FILTRATION RATE > 60.0 (>58); GLUCOSE, FASTING 91 MG/DL (70-105); POTASSIUM SERUM 4.4 MEQ/L (3.5-5.1); SODIUM LEVEL 147 MEQ/L (136-145)
[2016-09-30] MEDS: ALBUTEROL SULFATE 2.5 MG/0.5 ML INH NEB SOLN INH SCH (07:23)
[2016-09-30] MEDS ORDERED: LEVA750T GT (08:53)
[2016-09-30] MEDS ORDERED: SCOPOLAMINE 1.5 MG TRANSDERMAL TOP SCH (09:00)
[2016-09-30] MEDS: ENOXAPARIN 40 MG/0.4 ML SYRINGE (J1650) SC SCH (09:02)
[2016-09-30] MEDS: FAMOTIDINE 20 MG TAB FT SCH (09:03)
[2016-09-30] MEDS: PREGABALIN 25 MG CAP (LYRICA) NG SCH (09:03)
[2016-09-30] MEDS: NORCO, ANEXSIA 5/325MG TABLET (HYDROcodone/ACETAMINOPHEN) FT SCH (09:03)
[2016-09-30] MEDS: BACLOFEN 10 MG TAB GT SCH (09:03)
[2016-09-30] MEDS: HALOPERIDOL 2 MG TAB NG SCH (09:04)
[2016-09-30] MEDS: AZTREONAM 2 GM in D5W MINI-BAG PLUS 100 ML IV SCH ×3 (09:04)
[2016-09-30] MEDS: LACTOBACILLUS ACIDOPHILUS CAP (BACID) NG SCH (09:04)
[2016-09-30] MEDS: FLUTICASONE PROP 0.05% NASAL SPRAY 16 GM (FLONASE) SCH (09:05)
[2016-09-30] MEDS: MUPIROCIN 2% OINT 22 GM TUBE TOP SCH (09:06)
--- NOTE | 2016-09-30 09:10 | REPUSA ---
HISTORY: N/A. TECHNIQUE: Multiple axial CT images were obtained through the abdomen and pelvis after administratio n of oral and intravenous contrast material. FINDINGS: Correlation is made with noncontrast study of the same date. The liver is of uniform attenuation without mass or defect. There is no intra- or extrahepatic bilia ry ductal dilatation. The spleen is normal. The gallbladder is within normal limits. The pancreas is of normal contour and attenuation characteristics. There is no evidence of adrenal mass. Both kidneys demonstrate prompt and equal nephrograms. The kidneys are normal in size, shape and con figuration. There is no evidence of renal or ureteral mass. No renal or ureteral calculi are identi fied. There is no hydroureter or hydronephrosis. Gastrostomy tube is in place. No evidence for appendicitis. There is no bowel wall thickening. No evidence for small or large bow el obstruction. There is no evidence of abdominal ascites or lymphadenopathy. There is no evidence of intrinsic or extrinsic bladder mass. There is no pelvic ascites or lymphaden opathy. Uterus and ovaries are unremarkable. Patchy confluent opacity is noted in the right lung base compatible with pneumonia. The bony structures are free of lytic or blastic lesions. IMPRESSION: 1. Right lower lobe pneumonia. 2. Pancreas appears grossly unremarkable. No evidence of pancreatic mass or cyst. Thank you for your kind referral of this patient. We appreciate the opportunity to participate in th is patient's care.
[2016-09-30] MEDS: VANCOMYCIN HCL 1,000 MG, VIAL MATE ADAPTER 1 EACH in D5W 250 ML IV SCH (10:35)
--- NOTE | 2016-09-30 10:48 | DSES ---
DATE OF ADMISSION: 09/27/2016 DATE OF DISCHARGE: 09/30/2016 PRIMARY CARE PHYSICIAN: Chaz Matson MD ATTENDING PHYSICIAN: Dr. Nydia Sandoval HISTORY OF PRESENT ILLNESS: Jacob Dyer is a 41-year-old female patient of Dr. Chaz Matson and resident of [facility] who was admitted with healthcare-associated pneumonia. The patient received intravenous (IV) vancomycin and aztreonam. White blood cell (WBC) improved. The patient was afebrile and remained stable. Plan is to be discharged back to [facility] on Levaquin via gastrostomy tube (G-tube) tube for an additional 7 days. The patient does have a feeding tube, and nursing stated that she had no residuals this morning. She has a history of [facility] 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 She was maintained on her chronic nebulizer treatments for history of asthma. She will be discharged back to [facility] today. PHYSICAL EXAMINATION: Vital signs: Temperature 97.2, pulse 98, respiratory rate 20, blood pressure is 117/77, pulse oximetry 99%. General: The patient is nonverbal. No acute distress. Chest: Clear to auscultation bilaterally. Heart: Regular rate and rhythm. Abdomen: Positive bowel sounds, soft, nontender. G tube in place. Extremities: No edema. LABORATORIES: WBC 8.6, hemoglobin 12.8, hematocrit 39.2, platelets 207. Sodium 147, potassium 4.4, chloride 110, carbon dioxide 29, BUN 11, creatinine 0.56, glucose 91, calcium 8.7. MEDICATIONS: - Levaquin 750 mg G tube daily for 7 days - acetaminophen 650 mg G tube every 4 hours as needed pain or fever - acetaminophen 650 mg suppository per rectum every 4 hours as needed pain or fever - acetaminophen/hydrocodone one tablet G tube three times a day - albuterol 2.5 mg inhaled every 4 hours shortness of breath or wheezing - albuterol nebulizers 2.5 mg inhaled twice a day - baclofen 10 mg G tube twice a day - baclofen 20 mg G tube nightly - Dulcolax 10 mg suppository per rectum daily as needed constipation - cetirizine 10 mg G tube nightly - clonazepam 1 mg G tube nightly - enema per rectum daily as needed constipation - Pepcid 20 mg G tube daily - Flonase two sprays each nostril daily - haloperidol 2 mg G tube three times a day - Jevity per regular dosing - milk of magnesia 30 mL G tube daily as needed constipation - mupirocin topically three times a day to affected area - Lyrica 25 mg G tube three times a day - scopolamine 1.5 mg topically every 72 hours - ibuprofen 400 mg G tube every 6 hours as needed temperature greater than 101 DISCHARGE INSTRUCTIONS: The patient should followup with her primary care provider, Dr. Matson, at [facility] this week. Activity is total assist. Diet: Feeding tube per instructions. DISCHARGE DIAGNOSES: 1. Healthcare-associated pneumonia/ Gram Negative Healthcare-associated pneumonia 2. [facility] [place] [facility] chorea. 3. Spastic quadriparesis. 4. Asthma. 5. Dysphagia. MTDD
--- NOTE | 2016-10-02 13:58 | EDDOCDS ---
Physician Documentation [facility] Name: Jacob Dyer Age: 41 yrs Sex: Female : 1975 Arrival Date: 09/27/2016 Time: 12:28 Bed Admit Hold Private MD: Kirk Pompa D Disposition: 09/27/16 15:51 Hospitalization ordered by Salina Hawthorne for Inpatient Admission. Preliminary diagnosis is Pneumonia in diseases classified elsewhere. - [facility] - Status is Inpatient Admission. lf1 - Condition is Stable. - Problem is new. - Symptoms are unchanged. Historical: - Allergies: PENICILLINS; - Home Meds: 1. acetaminophen 650 mg Rectal supp 1 suppository every 4 hours 2. albuterol sulfate 2.5 mg /3 mL (0.083 %) Inhl nebu every 4 hours 3. baclofen 20 mg Oral tab nightly 4. baclofen 10 mg Oral tab twice a day 5. Jevity 1.5 Reji 0.06 gram-1.5 kcal/mL oral liqd 300 mL four times a day 6. Haldol 2 mg Oral tab 1 tab 3 times per day 7. Flonase 50 mcg/actuation Nasal spsn 2 sprays once daily 8. Lyrica 25 mg Oral 3 times per day 9. Transderm-Scop 1.5 mg (1 mg over 3 days) TD pt3d 1 patch 10. Milk of Magnesia 400 mg/5 mL Oral susp 11. Dulcolax (bisacodyl) 5 mg Oral TbEC 1 tab once daily 12. Eliza-Bid 1 billion-250 cell-mg oral tab 13. Tylenol 325 mg Oral tab 2 tabs every 4 hours 14. famotidine 20 mg Oral tab once daily 15. clonazepam 1 mg Oral tab 1 tab daily 16. hydrocodone-acetaminophen 5-325 mg Oral tab 1 tab every 4 hours 17. ibuprofen 200 mg Oral tab 1 tab 3 times per day 18. Zyrtec 10 mg Oral tab 1 tab once daily 19. multivitamin Oral tab daily - PMHx: Asthma; Osorio's Chorea; hypokalemia; Pneumonia; - PSHx: Feeding Tube Insertion; - Social history: Smoking status: Patient states was never smoker of tobacco. No barriers to communication noted, The patient speaks fluent Greenlandic. - Family history: Not pertinent. - : The pt / caregiver states he / she is not on anticoagulants. Home medication list is obtained from the facility MAR. - Exposure Risk Screening:: None identified. 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: 09/27 12:54 LMP N/A - Post-menopause js13 Vital Signs: 12:45 Temp 98.9(R); ml6 12:57 BP 101 / 62 LA Sitting (man/reg); Pulse 84; Resp 18; Pulse Ox 96% on R/A; Weight 54.88 jrd kg / 120.99 lbs (R); 15:39 BP 96 / 76 (auto/); Pulse 88; Resp 16; Pulse Ox 95% on R/A; js13 16:39 BP 89 / 56 (auto/); js13 16:39 Pulse 94 MON; Resp 16; Pulse Ox 97% on R/A; js13 16:54 BP 92 / 59 (auto/); js13 16:54 Pulse 102 MON; Resp 16; Pulse Ox 96% on R/A; js13 18:03 BP 106 / 68 (auto/); js13 18:03 Pulse 112 MON; Resp 16; Pulse Ox 98% on R/A; js13 18:18 BP 113 / 57 (auto/); lf1 18:19 Pulse 114 MON; Pulse Ox 98% ; lf1 18:46 BP 109 / 71 (auto/); lf1 18:47 Pulse 116 MON; Pulse Ox 97% ; lf1 18:48 BP 119 / 60 (auto/); lf1 18:48 Pulse 114 MON; Pulse Ox 97% ; lf1 19:22 BP 125 / 62 (auto/); lf1 19:23 Pulse 124 MON; Resp 18; Pulse Ox 98% ; lf1 20:26 Pulse 120 MON; Resp 18; Temp 99.4(R); Pulse Ox 97% ; lf1 21:11 Height 5 ft. 2 in. (157.48 cm); jp6 21:15 BP 124 / 91 (auto/); lf1 21:16 Pulse 128 MON; Resp 18; Pulse Ox 97% ; lf1 21:30 BP 120 / 83 (auto/); lf1 21:31 Pulse 120 MON; Pulse Ox 97% ; lf1 21:45 BP 121 / 85 (auto/); lf1 21:46 Pulse 124 MON; Pulse Ox 96% ; lf1 21:47 Pulse 126 MON; Pulse Ox 96% ; lf1 22:15 BP 133 / 69 (auto/); lf1 22:15 Pulse 142 MON; Pulse Ox 96% ; lf1 22:45 BP 115 / 75 (auto/); lf1 22:46 Pulse 128 MON; Pulse Ox 97% ; lf1 23:00 BP 148 / 78 (auto/); lf1 23:00 Pulse 134 MON; Resp 20; Temp 99.6(R); Pulse Ox 96% ; lf1 21:11 Body Mass Index 22.13 (54.88 kg, 157.48 cm) jp6 12:57 PATIENT UNABLE TO GIVE PAIN SCALE RATING jrd MDM: 13:24 -Influenza A&B Rapid Antigen - Nose Ordered. EDMS 13:35 -Blood Culture (Adults Only), peripheral from different site, or from device/port/PICC sd1 etc. if present ordered. 13:35 IV Saline Lock ordered. sd1 13:35 NS 0.9% 1000 ml IV at 150 mL/hr continuous ordered. sd1 13:36 -Blood Culture Ordered. EDMS 13:36 Lactic Acid (Gan tube on ice) Ordered. EDMS 13:36 CBC with Diff Ordered. EDMS 14:03 -Blood Culture (Adults Only), peripheral from different site, or from device/port/PICC lbd etc. if present complete. 14:05 BLOOD CULTURES Ordered. EDMS 14:07 CT ABD & PELVIS: No Contrast Ordered. EDMS 14:24 -Influenza A&B Rapid Antigen - Nose Reviewed. sd1 14:27 NS 0.9% (Sepsis- hypotension or lactate >4mmol/L, 30ml/kg) 30 ml/kg IV at bolus once; sd1 Give in 500mL aliquots, assess for rales after each, 1600cc ordered. 14:27 levofloxacin 750 mg IVPB once over 90 mins ordered. sd1 14:30 Lactic Acid (Gan tube on ice) Reviewed. sd1 14:31 Financial registration complete. mm15 14:38 [facility] Payment Agreement was scanned into [employer] and attached to record. mm15 15:19 CBC with Diff Reviewed. sd1 15:25 Manager Fine/Pulse Ox/q 15 min VS ordered. sd1 15:25 MED Profile Ordered. EDMS 15:30 LIVER PROFILE Ordered. EDMS 20:03 LACTIC ACID LEVEL, LACTATE Ordered. EDMS 20:03 BASIC METABOLIC PROFILE Ordered. EDMS 20:03 COMPLETE BLOOD COUNT Ordered. EDMS 20:04 Admission / Observation Status ordered. EDMS 20:09 CT ABD & PELVIS WITH CONTRAST Ordered. EDMS 20:17 MRSA SCREEN Ordered. EDMS 20:41 NS 0.9% 1000 ml IV at 125 mL/hr continuous ordered. lf1 20:43 vancomycin 1 grams IVPB once over 60 mins; dilute in 250mL of NS or D5W ordered. lf1 22:35 cetirizine 10 mg PO once ordered. lf1 22:35 clonazePAM 1 mg PO once ordered. lf1 22:35 Haloperidol 2 mg PO once ordered. lf1 22:35 Pregabalin 25 mg PO once ordered. lf1 23:08 clonazePAM 1 mg PO once; Via gastric tube ordered. lf1 09/28 07:46 Radiology Report was scanned into [employer] and attached to record. 10/02 09:23 MED Profile Reviewed. sd1 09:23 LIVER PROFILE Reviewed. sd1 09:23 LACTIC ACID LEVEL, LACTATE Reviewed. sd1 09:23 CT ABD & PELVIS: No Contrast Reviewed. sd1 Administered Medications: 09/27 13:54 Drug: NS 0.9% 1000 ml [sodium chloride 0.9 % intravenous solution] Route: IV; Rate: 150 js13 mL/hr; Site: left forearm; 14:38 Drug: NS 0.9% (Sepsis- hypotension or lactate >4mmol/L, 30ml/kg) 1646.4 ml [sodium js13 chloride 0.9 % intravenous solution] Route: IV; Rate: bolus; Site: left forearm; 15:05 Follow up: IV Intake: 500ml ; no rales noted upon auscultation js13 15:18 Follow up: IV Intake: 500ml ; LS dimeinished with rhonchi js13 16:20 Follow up: IV Status: No rales on exam; IV Intake: 500ml js13 18:35 Follow up: IV Status: Completed infusion; IV Intake: 100ml js13 14:43 Drug: levofloxacin 750 mg [levofloxacin 750 mg/150 mL in 5 % dextrose intravenous js13 piggyback] Route: IVPB; Infused Over: 90 mins; Site: left forearm; 17:02 Follow up: IV Status: Completed infusion js13 21:19 Drug: NS 0.9% 1000 ml [sodium chloride 0.9 % intravenous solution] Route: IV; Rate: 125 lf1 mL/hr; Site: left forearm; 23:29 Follow up: IV Status: Infusion continued upon admit; IV Intake: 125ml lf1 21:19 Drug: vancomycin 1 grams [vancomycin 1,000 mg intravenous injection] Route: IVPB; lf1 Infused Over: 60 mins; Site: left forearm; 23:29 Follow up: IV Status: Completed infusion; IV Intake: 250ml lf1 22:42 Not Given (admit): cetirizine 10 mg PO once lf1 22:42 Not Given (admit): Haloperidol 2 mg PO once lf1 22:42 Not Given (admit): Pregabalin 25 mg PO once lf1 22:42 CANCELLED (Duplicate Order): Piperacillin-Tazobactam 3.375 grams IVPB once over 30 lf1 mins; dilute in 50mL of NS or D5W 23:02 Not Given (Another route given): clonazePAM 1 mg PO once lf1 23:14 Drug: clonazePAM 1 mg [clonazepam 0.5 mg tablet (2 tabs)] Route: PO; lf1 Signatures: Dispatcher [employer] EDMS Brenda Judge MD MD sd1 Shilpi Jordan, Operations Assistant Unit [facility] Lashonda Velazquez, RN RN daZoey Rocha, Reg Reg gb Alice Qureshi,RN RN lf1 Radha Mata RN RN [id number] Swetha Lopez mm15 The chart was reviewed and I authenticate all verbal orders and agree with the evaluation and treatment provided.Corrections: (The following items were deleted from the chart) 15:28 15:25 LIVER PROFILE+LAB ordered. EDMS EDMS 22:42 22:35 Piperacillin-Tazobactam 3.375 grams IVPB once over 30 mins; dilute in 50mL of NS lf1 or D5W ordered. lf1 22:42 22:42 Piperacillin-Tazobactam 3.375 grams IVPB once over 30 mins; dilute in 50mL of NS lf1 or D5W ordered. lf1 Attachments: 14:38 [facility] Payment Agreement mm15 Chart Complete MTDD
--- NOTE | 2016-10-02 13:58 | EDDOCDS ---
Physician Documentation [facility] Name: Jacob Dyer Age: 41 yrs Sex: Female : 1975 Arrival Date: 09/27/2016 Time: 12:28 Bed Admit Hold Private MD: Kirk Pompa D Disposition: 09/27/16 15:51 Hospitalization ordered by Salina Hawthorne for Inpatient Admission. Preliminary diagnosis is Pneumonia in diseases classified elsewhere. - [facility] - Status is Inpatient Admission. lf1 - Condition is Stable. - Problem is new. - Symptoms are unchanged. Historical: - Allergies: PENICILLINS; - Home Meds: 1. acetaminophen 650 mg Rectal supp 1 suppository every 4 hours 2. albuterol sulfate 2.5 mg /3 mL (0.083 %) Inhl nebu every 4 hours 3. baclofen 20 mg Oral tab nightly 4. baclofen 10 mg Oral tab twice a day 5. Jevity 1.5 Reji 0.06 gram-1.5 kcal/mL oral liqd 300 mL four times a day 6. Haldol 2 mg Oral tab 1 tab 3 times per day 7. Flonase 50 mcg/actuation Nasal spsn 2 sprays once daily 8. Lyrica 25 mg Oral 3 times per day 9. Transderm-Scop 1.5 mg (1 mg over 3 days) TD pt3d 1 patch 10. Milk of Magnesia 400 mg/5 mL Oral susp 11. Dulcolax (bisacodyl) 5 mg Oral TbEC 1 tab once daily 12. Eliza-Bid 1 billion-250 cell-mg oral tab 13. Tylenol 325 mg Oral tab 2 tabs every 4 hours 14. famotidine 20 mg Oral tab once daily 15. clonazepam 1 mg Oral tab 1 tab daily 16. hydrocodone-acetaminophen 5-325 mg Oral tab 1 tab every 4 hours 17. ibuprofen 200 mg Oral tab 1 tab 3 times per day 18. Zyrtec 10 mg Oral tab 1 tab once daily 19. multivitamin Oral tab daily - PMHx: Asthma; Osorio's Chorea; hypokalemia; Pneumonia; - PSHx: Feeding Tube Insertion; - Social history: Smoking status: Patient states was never smoker of tobacco. No barriers to communication noted, The patient speaks fluent Sinhala. - Family history: Not pertinent. - : The pt / caregiver states he / she is not on anticoagulants. Home medication list is obtained from the facility MAR. - Exposure Risk Screening:: None identified. 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 12:54 LMP N/A - Post-menopause js13 Vital Signs: 12:45 Temp 98.9(R); ml6 12:57 BP 101 / 62 LA Sitting (man/reg); Pulse 84; Resp 18; Pulse Ox 96% on R/A; Weight 54.88 jrd kg / 120.99 lbs (R); 15:39 BP 96 / 76 (auto/); Pulse 88; Resp 16; Pulse Ox 95% on R/A; js13 16:39 BP 89 / 56 (auto/); js13 16:39 Pulse 94 MON; Resp 16; Pulse Ox 97% on R/A; js13 16:54 BP 92 / 59 (auto/); js13 16:54 Pulse 102 MON; Resp 16; Pulse Ox 96% on R/A; js13 18:03 BP 106 / 68 (auto/); js13 18:03 Pulse 112 MON; Resp 16; Pulse Ox 98% on R/A; js13 18:18 BP 113 / 57 (auto/); lf1 18:19 Pulse 114 MON; Pulse Ox 98% ; lf1 18:46 BP 109 / 71 (auto/); lf1 18:47 Pulse 116 MON; Pulse Ox 97% ; lf1 18:48 BP 119 / 60 (auto/); lf1 18:48 Pulse 114 MON; Pulse Ox 97% ; lf1 19:22 BP 125 / 62 (auto/); lf1 19:23 Pulse 124 MON; Resp 18; Pulse Ox 98% ; lf1 20:26 Pulse 120 MON; Resp 18; Temp 99.4(R); Pulse Ox 97% ; lf1 21:11 Height 5 ft. 2 in. (157.48 cm); jp6 21:15 BP 124 / 91 (auto/); lf1 21:16 Pulse 128 MON; Resp 18; Pulse Ox 97% ; lf1 21:30 BP 120 / 83 (auto/); lf1 21:31 Pulse 120 MON; Pulse Ox 97% ; lf1 21:45 BP 121 / 85 (auto/); lf1 21:46 Pulse 124 MON; Pulse Ox 96% ; lf1 21:47 Pulse 126 MON; Pulse Ox 96% ; lf1 22:15 BP 133 / 69 (auto/); lf1 22:15 Pulse 142 MON; Pulse Ox 96% ; lf1 22:45 BP 115 / 75 (auto/); lf1 22:46 Pulse 128 MON; Pulse Ox 97% ; lf1 23:00 BP 148 / 78 (auto/); lf1 23:00 Pulse 134 MON; Resp 20; Temp 99.6(R); Pulse Ox 96% ; lf1 21:11 Body Mass Index 22.13 (54.88 kg, 157.48 cm) jp6 12:57 PATIENT UNABLE TO GIVE PAIN SCALE RATING jrd MDM: 13:24 -Influenza A&B Rapid Antigen - Nose Ordered. EDMS 13:35 -Blood Culture (Adults Only), peripheral from different site, or from device/port/PICC sd1 etc. if present ordered. 13:35 IV Saline Lock ordered. sd1 13:35 NS 0.9% 1000 ml IV at 150 mL/hr continuous ordered. sd1 13:36 -Blood Culture Ordered. EDMS 13:36 Lactic Acid (Gan tube on ice) Ordered. EDMS 13:36 CBC with Diff Ordered. EDMS 14:03 -Blood Culture (Adults Only), peripheral from different site, or from device/port/PICC lbd etc. if present complete. 14:05 BLOOD CULTURES Ordered. EDMS 14:07 CT ABD & PELVIS: No Contrast Ordered. EDMS 14:24 -Influenza A&B Rapid Antigen - Nose Reviewed. sd1 14:27 NS 0.9% (Sepsis- hypotension or lactate >4mmol/L, 30ml/kg) 30 ml/kg IV at bolus once; sd1 Give in 500mL aliquots, assess for rales after each, 1600cc ordered. 14:27 levofloxacin 750 mg IVPB once over 90 mins ordered. sd1 14:30 Lactic Acid (Gan tube on ice) Reviewed. sd1 14:31 Financial registration complete. mm15 14:38 [facility] Payment Agreement was scanned into [employer] and attached to record. mm15 15:19 CBC with Diff Reviewed. sd1 15:25 Field Operations Coordinator/Pulse Ox/q 15 min VS ordered. sd1 15:25 MED Profile Ordered. EDMS 15:30 LIVER PROFILE Ordered. EDMS 20:03 LACTIC ACID LEVEL, LACTATE Ordered. EDMS 20:03 BASIC METABOLIC PROFILE Ordered. EDMS 20:03 COMPLETE BLOOD COUNT Ordered. EDMS 20:04 Admission / Observation Status ordered. EDMS 20:09 CT ABD & PELVIS WITH CONTRAST Ordered. EDMS 20:17 MRSA SCREEN Ordered. EDMS 20:41 NS 0.9% 1000 ml IV at 125 mL/hr continuous ordered. lf1 20:43 vancomycin 1 grams IVPB once over 60 mins; dilute in 250mL of NS or D5W ordered. lf1 22:35 cetirizine 10 mg PO once ordered. lf1 22:35 clonazePAM 1 mg PO once ordered. lf1 22:35 Haloperidol 2 mg PO once ordered. lf1 22:35 Pregabalin 25 mg PO once ordered. lf1 23:08 clonazePAM 1 mg PO once; Via gastric tube ordered. lf1 09/28 07:46 Radiology Report was scanned into [employer] and attached to record. 10/02 09:23 MED Profile Reviewed. sd1 09:23 LIVER PROFILE Reviewed. sd1 09:23 LACTIC ACID LEVEL, LACTATE Reviewed. sd1 09:23 CT ABD & PELVIS: No Contrast Reviewed. sd1 Administered Medications: 09/27 13:54 Drug: NS 0.9% 1000 ml [sodium chloride 0.9 % intravenous solution] Route: IV; Rate: 150 js13 mL/hr; Site: left forearm; 14:38 Drug: NS 0.9% (Sepsis- hypotension or lactate >4mmol/L, 30ml/kg) 1646.4 ml [sodium js13 chloride 0.9 % intravenous solution] Route: IV; Rate: bolus; Site: left forearm; 15:05 Follow up: IV Intake: 500ml ; no rales noted upon auscultation js13 15:18 Follow up: IV Intake: 500ml ; LS dimeinished with rhonchi js13 16:20 Follow up: IV Status: No rales on exam; IV Intake: 500ml js13 18:35 Follow up: IV Status: Completed infusion; IV Intake: 100ml js13 14:43 Drug: levofloxacin 750 mg [levofloxacin 750 mg/150 mL in 5 % dextrose intravenous js13 piggyback] Route: IVPB; Infused Over: 90 mins; Site: left forearm; 17:02 Follow up: IV Status: Completed infusion js13 21:19 Drug: NS 0.9% 1000 ml [sodium chloride 0.9 % intravenous solution] Route: IV; Rate: 125 lf1 mL/hr; Site: left forearm; 23:29 Follow up: IV Status: Infusion continued upon admit; IV Intake: 125ml lf1 21:19 Drug: vancomycin 1 grams [vancomycin 1,000 mg intravenous injection] Route: IVPB; lf1 Infused Over: 60 mins; Site: left forearm; 23:29 Follow up: IV Status: Completed infusion; IV Intake: 250ml lf1 22:42 Not Given (admit): cetirizine 10 mg PO once lf1 22:42 Not Given (admit): Haloperidol 2 mg PO once lf1 22:42 Not Given (admit): Pregabalin 25 mg PO once lf1 22:42 CANCELLED (Duplicate Order): Piperacillin-Tazobactam 3.375 grams IVPB once over 30 lf1 mins; dilute in 50mL of NS or D5W 23:02 Not Given (Another route given): clonazePAM 1 mg PO once lf1 23:14 Drug: clonazePAM 1 mg [clonazepam 0.5 mg tablet (2 tabs)] Route: PO; lf1 Signatures: Dispatcher [employer] EDMS Brenda Judge MD MD sd1 Shilpi Jordan, Building Inspector Unit [facility] Lashonda Velazquez, RN RN daZoey Rocha, Reg Reg gb Alice Qureshi,RN RN lf1 Radha Mata RN RN js13 Swetha Lopez mm15 The chart was reviewed and I authenticate all verbal orders and agree with the evaluation and treatment provided.Corrections: (The following items were deleted from the chart) 15:28 15:25 LIVER PROFILE+LAB ordered. EDMS EDMS 22:42 22:35 Piperacillin-Tazobactam 3.375 grams IVPB once over 30 mins; dilute in 50mL of NS lf1 or D5W ordered. lf1 22:42 22:42 Piperacillin-Tazobactam 3.375 grams IVPB once over 30 mins; dilute in 50mL of NS lf1 or D5W ordered. lf1 Attachments: 14:38 [facility] Payment Agreement mm15 Chart Complete MTDD
--- NOTE | 2016-10-02 13:58 | EDDOCDS ---
Nurse's Notes [facility] Name: Jacob Dyer Age: 41 yrs Sex: Female : 1975 Arrival Date: 09/27/2016 Time: 12:28 Bed Admit Hold Private MD: Kirk Pompa D Diagnosis: Pneumonia in diseases classified elsewhere Presentation: 09/27 12:41 Presenting complaint: [facility] staff sent patient over to be evaluated. Patient had CBC with js13 DIFF, BMP, UA C&S and CHEST X RAY over at [facility]. Suicide/Homicide risk assessment- Unable to assess, due to patient's chronic mental disability. Status: Patient is not a office services coordinator or dependent. Transition of care: patient was received from [facility]. 12:41 Acuity: APOLONIA Level 3 js13 12:41 Method Of Arrival: Other js13 12:54 Adult Sepsis Screening: The patient does not have new or worsening altered mentation. js13 Patient's respiratory rate is less than 22. Systolic blood pressure is greater than 100. Patient has a qSOFA score of 0- Negative Sepsis Screen. Triage Assessment: 12:54 General: Appears in no apparent distress, Behavior is cooperative. Pain: Unable to use js13 pain scale. Does not appear to understand pain scale. Pt Declines HIV testing. The patient is triaged at the bedside. See Assessment in Nurses Notes section of ED record. Neurological: Level of Consciousness is awake. Cardiovascular: Rhythm is sinus rhythm. Respiratory: Airway is patent Respiratory effort is even, unlabored, Respiratory pattern is regular, symmetrical, Breath sounds are clear. GI: Enteral feeding tube Site clean. Derm: Skin is pink, warm & dry. 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 acetaminophen 650 mg Rectal supp 1 suppository every 4 hours 2. albuterol sulfate 2.5 mg /3 mL (0.083 %) Inhl nebu every 4 hours 3. baclofen 20 mg Oral tab nightly 4. baclofen 10 mg Oral tab twice a day 5. Jevity 1.5 Reji 0.06 gram-1.5 kcal/mL oral liqd 300 mL four times a day 6. Haldol 2 mg Oral tab 1 tab 3 times per day 7. Flonase 50 mcg/actuation Nasal spsn 2 sprays once daily 8. Lyrica 25 mg Oral 3 times per day 9. Transderm-Scop 1.5 mg (1 mg over 3 days) TD pt3d 1 patch 10. Milk of Magnesia 400 mg/5 mL Oral susp 11. Dulcolax (bisacodyl) 5 mg Oral TbEC 1 tab once daily 12. Eliza-Bid 1 billion-250 cell-mg oral tab 13. Tylenol 325 mg Oral tab 2 tabs every 4 hours 14. famotidine 20 mg Oral tab once daily 15. clonazepam 1 mg Oral tab 1 tab daily 16. hydrocodone-acetaminophen 5-325 mg Oral tab 1 tab every 4 hours 17. ibuprofen 200 mg Oral tab 1 tab 3 times per day 18. Zyrtec 10 mg Oral tab 1 tab once daily 19. multivitamin Oral tab daily - PMHx: Asthma; Osorio's Chorea; hypokalemia; Pneumonia; - PSHx: Feeding Tube Insertion; - Social history: Smoking status: Patient states was never smoker of tobacco. No barriers to communication noted, The patient speaks fluent Thai. - Family history: Not pertinent. - : The pt / caregiver states he / she is not on anticoagulants. Home medication list is obtained from the facility MAR. - Exposure Risk Screening:: None identified. Screenin:56 Screening information is obtained from residence staff. Fall risk: At risk due to js13 apparent cognitive impairment, immobility. Assistance ADL's: Requires assistance with. Abuse/DV Screen: The patient / caregiver reports he/she is: not in a situation that causes fear, pain or injury. Nutritional screening: On NPO diet. Advance Directives: There is no active DNR order. home support is adequate. Assessment: 12:56 General: Appears in no apparent distress, Behavior is cooperative. Pain: Unable to use js13 pain scale. Does not appear to understand pain scale. Neurological: Level of Consciousness is awake. Cardiovascular: Rhythm is sinus rhythm. GI: Enteral feeding tube Site clean. Derm: Skin is pink, warm & dry. 14:00 General: Appears in no apparent distress, Behavior is cooperative. Pain: Unable to use js13 pain scale. Does not appear to understand pain scale. Neurological: Level of Consciousness is awake. Cardiovascular: Rhythm is sinus rhythm. Respiratory: Airway is patent Respiratory effort is even, unlabored, Respiratory pattern is regular, Breath sounds with rhonchi Breath sounds are diminished. GI: Enteral feeding tube Site clean. Derm: Skin is pink, warm & dry. 15:10 Adult Sepsis Screening: The patient does not have new or worsening altered mentation. js13 Patient's respiratory rate is less than 22. Systolic blood pressure is greater than 100. Patient has a qSOFA score of 0- Negative Sepsis Screen. General: Appears in no apparent distress, Behavior is cooperative. Pain: Unable to use pain scale. Does not appear to understand pain scale. Neurological: Level of Consciousness is awake. Respiratory: Airway is patent Respiratory effort is even, unlabored, Respiratory pattern is regular. Derm: Skin is pink, warm & dry. 16:15 General: Appears in no apparent distress, Behavior is cooperative. Pain: Unable to use js13 pain scale. Does not appear to understand pain scale. Neurological: Level of Consciousness is awake. Cardiovascular: Rhythm is sinus tachycardia. Respiratory: Airway is patent Respiratory effort is even, unlabored, Respiratory pattern is regular, Breath sounds are diminished. Derm: Skin is pink, warm & dry. 17:00 Adult Sepsis Screening: Accepted Exclusions- Patient is already in the Sepsis Protocol. js13 General: Appears in no apparent distress, Behavior is cooperative. Pain: Unable to use pain scale. Does not appear to understand pain scale. Neurological: Level of Consciousness is awake. Cardiovascular: Rhythm is sinus tachycardia. Respiratory: Airway is patent Respiratory effort is even, unlabored, Respiratory pattern is regular, Breath sounds are diminished. Derm: Skin is pink, warm & dry. 18:10 General: Appears Patient is yelling out and thrashing around in bed, patient opened a js13 cut on her finger that was bleeding. Band aid applied to left index finger. Patient has been repositioned, checked for incontinence, given the television. Patient still yelling out on occasion. . Pain: Unable to use pain scale. Does not appear to understand pain scale. Neurological: Level of Consciousness is awake. Cardiovascular: Rhythm is sinus tachycardia. Respiratory: Airway is patent Respiratory effort is even, unlabored, Respiratory pattern is regular. Derm: Skin is pink, warm & dry. 19:27 Adult Sepsis Screening: The patient does not have new or worsening altered mentation. lf1 Patient's respiratory rate is less than 22. Systolic blood pressure is greater than 100. Patient has a qSOFA score of 0- Negative Sepsis Screen. General: Appears Pt is yelling out regularly, appears to be at her baseline. TV in view.. Pain: Unable to use pain scale. Does not appear to understand pain scale. Neurological: Level of Consciousness is awake. Respiratory: Respiratory effort is even, unlabored, Respiratory pattern is regular. GI: Site clean. Derm: Skin is pale. Musculoskeletal: right arm contracted, BL LE contracted. 20:22 General: Appears in no apparent distress, Behavior is cooperative, restless. Pain: lf1 Unable to use pain scale. Does not appear to understand pain scale. Nonverbal. Neurological: Level of Consciousness is awake. Respiratory: Respiratory effort is even, unlabored. GI: Enteral feeding tube Site clean. : Last wet diaper was September 27, 2016. at 20:24. Derm: Skin is pale. 21:24 General: Appears Pt is continually banging left hand into side rail, pillows positioned lf1 to prevent injury. . Respiratory: Respiratory effort is even, unlabored. Derm: Skin is pale. 23:09 General: Appears uncomfortable, Behavior is agitated, restless. Pain: Unable to use lf1 pain scale. Neurological: Level of Consciousness is awake. Respiratory: Respiratory effort is even, unlabored. GI: Enteral feeding tube Site clean. Derm: Skin is pale. Vital Signs: 12:45 Temp 98.9(R); ml6 12:57 BP 101 / 62 LA Sitting (man/reg); Pulse 84; Resp 18; Pulse Ox 96% on R/A; Weight 54.88 jrd kg (R); 15:39 BP 96 / 76 (auto/); Pulse 88; Resp 16; Pulse Ox 95% on R/A; js13 16:39 BP 89 / 56 (auto/); js13 16:39 Pulse 94 MON; Resp 16; Pulse Ox 97% on R/A; js13 16:54 BP 92 / 59 (auto/); js13 16:54 Pulse 102 MON; Resp 16; Pulse Ox 96% on R/A; js13 18:03 BP 106 / 68 (auto/); js13 18:03 Pulse 112 MON; Resp 16; Pulse Ox 98% on R/A; js13 18:18 BP 113 / 57 (auto/); lf1 18:19 Pulse 114 MON; Pulse Ox 98% ; lf1 18:46 BP 109 / 71 (auto/); lf1 18:47 Pulse 116 MON; Pulse Ox 97% ; lf1 18:48 BP 119 / 60 (auto/); lf1 18:48 Pulse 114 MON; Pulse Ox 97% ; lf1 19:22 BP 125 / 62 (auto/); lf1 19:23 Pulse 124 MON; Resp 18; Pulse Ox 98% ; lf1 20:26 Pulse 120 MON; Resp 18; Temp 99.4(R); Pulse Ox 97% ; lf1 21:11 Height 5 ft. 2 in. (157.48 cm); jp6 21:15 BP 124 / 91 (auto/); lf1 21:16 Pulse 128 MON; Resp 18; Pulse Ox 97% ; lf1 21:30 BP 120 / 83 (auto/); lf1 21:31 Pulse 120 MON; Pulse Ox 97% ; lf1 21:45 BP 121 / 85 (auto/); lf1 21:46 Pulse 124 MON; Pulse Ox 96% ; lf1 21:47 Pulse 126 MON; Pulse Ox 96% ; lf1 22:15 BP 133 / 69 (auto/); lf1 22:15 Pulse 142 MON; Pulse Ox 96% ; lf1 22:45 BP 115 / 75 (auto/); lf1 22:46 Pulse 128 MON; Pulse Ox 97% ; lf1 23:00 BP 148 / 78 (auto/); lf1 23:00 Pulse 134 MON; Resp 20; Temp 99.6(R); Pulse Ox 96% ; lf1 21:11 Body Mass Index 22.13 (54.88 kg, 157.48 cm) jp6 12:57 PATIENT UNABLE TO GIVE PAIN SCALE RATING jrd Vitals: 12:28 Log In Time N/A - ambulance arrival. lf1 ED Course: 12:30 Patient visited by Shilpi Jordan, Pourer. lbd 12:30 Patient moved to Waiting lbd 12:31 Kirk Pompa is Private Physician. lbd 12:32 Radha Mata,GERMAIN is Primary Nurse. lbd 12:32 Patient moved to 15 lbd 12:45 Triage Initiated js13 12:55 Brenda Judge MD is Attending Physician. sd1 12:56 The patient / caregiver is instructed regarding the plan of care and ED course. js13 12:56 No IV's were initiated during this patient's visit. No procedures done that require [facility] assistance. 13:00 Patient visited by Radha Mata RN. js13 13:01 Patient visited by Surendra Kilgore PCA. jrd 13:31 Patient visited by Brenda Judge MD. sd1 13:54 -Blood Culture Sent. js13 13:54 Lactic Acid (Gan tube on ice) Sent. js13 13:54 CBC with Diff Sent. js13 13:54 Inserted saline lock: 18 gauge in left forearm and blood collected. The patient js13 tolerated the procedure well. Labs drawn. (by ED staff). Sent per order to lab. Labs/Blood culture drawn. 14:34 Patient visited by Shanti Marr. nb2 14:38 [facility] Payment Agreement was scanned into EZ2[employer] and attached to record. mm15 14:38 BLOOD CULTURES Sent. js13 15:25 CT ABD & PELVIS: No Contrast Returned. EDMS 15:28 Patient visited by Radha Mata RN. js13 15:41 Patient visited by Radha Mata RN. js13 15:51 Salina Hawthorne is Hospitalizing Provider. sd1 17:03 Patient visited by Radha Mata RN. js13 18:15 Patient visited by Radha Mata RN. js13 19:27 Patient visited by Alice Qureshi RN. lf1 19:31 Patient visited by Alice Qureshi RN. lf1 20:21 Patient visited by Alice Qureshi RN. lf1 20:24 Noise minimized. Turned to right side. Repositioned patient. Cleaned of incontinence. lf1 Linen changed. 20:29 Patient visited by Alcie Qureshi RN. lf1 20:46 Patient moved to Admit Hold daq 21:00 Cleaned of incontinence. lf1 21:19 Patient visited by Alice Qureshi RN. lf1 21:28 Patient visited by Alice Qureshi RN. lf1 22:45 Primary Nurse role handed off by Radha Mata RN mcp 22:45 Repositioned patient. Cleaned of incontinence. lf1 09/28 07:46 Radiology Report was scanned into EZ[employer] and attached to record. gb Administered Medications: 09/27 13:54 Drug: NS 0.9% 1000 ml [sodium chloride 0.9 % intravenous solution] Route: IV; Rate: 150 js13 mL/hr; Site: left forearm; 14:38 Drug: NS 0.9% (Sepsis- hypotension or lactate >4mmol/L, 30ml/kg) 1646.4 ml [sodium js13 chloride 0.9 % intravenous solution] Route: IV; Rate: bolus; Site: left forearm; 15:05 Follow up: IV Intake: 500ml ; no rales noted upon auscultation js13 15:18 Follow up: IV Intake: 500ml ; LS dimeinished with rhonchi js13 16:20 Follow up: IV Status: No rales on exam; IV Intake: 500ml js13 18:35 Follow up: IV Status: Completed infusion; IV Intake: 100ml js13 14:43 Drug: levofloxacin 750 mg [levofloxacin 750 mg/150 mL in 5 % dextrose intravenous js13 piggyback] Route: IVPB; Infused Over: 90 mins; Site: left forearm; 17:02 Follow up: IV Status: Completed infusion js13 21:19 Drug: NS 0.9% 1000 ml [sodium chloride 0.9 % intravenous solution] Route: IV; Rate: 125 lf1 mL/hr; Site: left forearm; 23:29 Follow up: IV Status: Infusion continued upon admit; IV Intake: 125ml lf1 21:19 Drug: vancomycin 1 grams [vancomycin 1,000 mg intravenous injection] Route: IVPB; lf1 Infused Over: 60 mins; Site: left forearm; 23:29 Follow up: IV Status: Completed infusion; IV Intake: 250ml lf1 22:42 Not Given (admit): cetirizine 10 mg PO once lf1 22:42 Not Given (admit): Haloperidol 2 mg PO once lf1 22:42 Not Given (admit): Pregabalin 25 mg PO once lf1 22:42 CANCELLED (Duplicate Order): Piperacillin-Tazobactam 3.375 grams IVPB once over 30 lf1 mins; dilute in 50mL of NS or D5W 23:02 Not Given (Another route given): clonazePAM 1 mg PO once lf1 23:14 Drug: clonazePAM 1 mg [clonazepam 0.5 mg tablet (2 tabs)] Route: PO; lf1 Intake: 15:05 IV: 500.00ml; Total: 500.00ml. js13 15:18 IV: 500.00ml; Total: 1000.00ml. js13 16:20 IV: 500.00ml; Total: 1500.00ml. js13 18:35 IV: 100.00ml; Total: 1600.00ml. js13 23:29 IV: 250.00ml; Total: 1850.00ml. lf1 23:29 IV: 125.00ml; Total: 1975.00ml. lf1 Order Results: Lab Order: -Influenza A&B Rapid Antigen - Nose; SPEC'M 09/27/16 13:37 Test: INFLUENZA A RAPID SCR by ICA; Value: INFLUENZA A RESULTS NEGATIVE; Status: F Test: INFLUENZA A RAPID SCR by ICA; Value: Comments:; Status: F Test: INFLUENZA B RAPID SCR by ICA; Value: INFLUENZA B RESULTS NEGATIVE; Status: F Test Note: ; The Influenza test is a direct rapid immunoassay for the qualitative detection of Influenza viral antigen. Cell culture (Viral Culture) testing should be considered to confirm NEGATIVE results and to assist in detecting other viruses that can provide similar clinical symptoms. Please contact the lab within 24 hours ([phone]) if confirmatory testing is desired. Lab Order: Lactic Acid (Gan tube on ice); SPEC'M 09/27/16 13:51 Test: LACTIC ACID LEVEL, LACTATE; Value: 2.3; Range: 0.4-2.0; Abnormal: Above upper panic limits; Units: MMOL/L; Status: F Lab Order: CBC with Diff; SPEC'M 09/27/16 13:51 Test: WHITE BLOOD COUNT; Value: 24.9; Range: 4.0-10.0; Abnormal: Above high normal; Units: K/mm3; Status: F Test: RED BLOOD COUNT; Value: 4.69; Range: 4.00-5.40; Units: M/mm3; Status: F Test: HEMOGLOBIN; Value: 14.1; Range: 12.0-16.0; Units: g/dl; Status: F Test: HEMATOCRIT; Value: 42.2; Range: 36.0-47.0; Units: %; Status: F Test: MEAN CORPUSCULAR VOLUME; Value: 89.8; Range: 80.0-96.0; Units: fl; Status: F Test: MEAN CORPUSCULAR HEMOGLOBIN; Value: 30.0; Range: 27.0-33.0; Units: pg; Status: F Test: MEAN CORPUSCULAR HGB CONC; Value: 33.4; Range: 32.0-36.5; Units: g/dl; Status: F Test: RED CELL DISTRIBUTION WIDTH; Value: 13.2; Range: 11.5-14.5; Units: %; Status: F Test: PLATELET COUNT, AUTOMATED; Value: 229; Range: 150-450; Units: k/mm3; Status: F Test: NEUTROPHILS %; Value: 87.2; Range: 36.0-66.0; Abnormal: Above high normal; Units: %; Status: F Test: LYMPH %; Value: 6.9; Range: 24.0-44.0; Abnormal: Below low normal; Units: %; Status: F Test: MONO %; Value: 3.5; Range: 0.0-5.0; Units: %; Status: F Test: EOS %; Value: 0.1; Range: 0.0-3.0; Units: %; Status: F Test: BASO %; Value: 1.2; Range: 0.0-1.0; Abnormal: Above high normal; Units: %; Status: F Test: LARGE UNSTAINED CELL %; Value: 1.1; Range: 0.0-4.0; Units: %; Status: F Test: NEUTROPHILS #; Value: 21.7; Range: 1.8-7.7; Abnormal: Above high normal; Units: K/mm3; Status: F Test: LYMPH #; Value: 2.0; Range: 1.5-4.5; Units: K/mm3; Status: F Test: MONO #; Value: 0.9; Range: 0.0-0.8; Abnormal: Above high normal; Units: K/mm3; Status: F Test: EOS #; Value: 0.0; Range: 0.0-0.50; Units: K/mm3; Status: F Test: BASO #; Value: 0.3; Range: 0.0-0.2; Abnormal: Above high normal; Units: K/mm3; Status: F Test: LARGE UNSTAINED CELL #; Value: 0.3; Range: 0.0-0.4; Units: K/mm3; Status: F Lab Order: MED Profile; SPEC'M 09/27/16 13:37 Test: GLUCOSE, FASTING; Value: 98; Range: 70-105; Units: MG/DL; Status: F Test: BLOOD UREA NITROGEN; Value: 24; Range: 7-18; Abnormal: Above high normal; Units: MG/DL; Status: F Test: CREATININE FOR GFR; Value: 0.81; Range: 0.55-1.02; Units: MG/DL; Status: F Test: GLOMERULAR FILTRATION RATE; Value: > 60.0; Range: >58; Status: F Test: SODIUM LEVEL; Value: 145; Range: 136-145; Units: MEQ/L; Status: F Test: POTASSIUM SERUM; Value: 4.6; Range: 3.5-5.1; Abnormal: Delta; Units: MEQ/L; Status: F Test: CHLORIDE LEVEL; Value: 104; Range: 98-107; Units: MEQ/L; Status: F Test: CARBON DIOXIDE LEVEL; Value: 32; Range: 21-32; Units: MEQ/L; Status: F Test: ANION GAP; Value: 9; Range: 8-16; Units: MEQ/L; Status: F Test: CALCIUM LEVEL; Value: 9.3; Range: 8.5-10.1; Units: MG/DL; Status: F Test Note: ; Units are mL/min/1.73 m2 Chronic Kidney Disease Staging per NKF: Stage I & II GFR >=60 Normal to Mildly Decreased Stage III GFR 30-59 Moderately Decreased Stage IV GFR 15-29 Severely Decreased Stage V GFR <15 Very Little GFR Left ESRD GFR <15 on ENROLLMENT REPRESENTATIVE Lab Order: LIVER PROFILE; SPEC'M 09/27/16 13:37 Test: AST/SGOT; Value: 22; Range: 15-37; Units: U/L; Status: F Test: ALT/SGPT; Value: 32; Range: 12-78; Units: U/L; Status: F Test: ALKALINE PHOSPHATASE; Value: 94; Range: 45-117; Units: U/L; Status: F Test: BILIRUBIN,TOTAL; Value: 1.5; Range: 0.2-1.0; Abnormal: Above high normal; Units: MG/DL; Status: F Test: BILIRUBIN,DIRECT; Value: 0.3; Range: 0.0-0.2; Abnormal: Above high normal; Units: MG/DL; Status: F Test: TOTAL PROTEIN; Value: 6.9; Range: 6.4-8.2; Units: GM/DL; Status: F Test: ALBUMIN; Value: 3.7; Range: 3.2-5.2; Units: GM/DL; Status: F Test: ALBUMIN/GLOBULIN RATIO; Value: 1.16; Range: 1.00-1.93; Status: F Lab Order: LACTIC ACID LEVEL, LACTATE; SPEC'M 09/27/16 20:17 Test: LACTIC ACID LEVEL, LACTATE; Value: 0.9; Range: 0.4-2.0; Units: MMOL/L; Status: F Radiology Order: CT ABD & PELVIS: No Contrast Test: CT ABD & PELVIS: No Contrast REASON FOR EXAMINATION: fever; CT study of the abdomen and pelvis without IV or oral contrast: Renal stone; protocol.; ; History: Fever.; ; Comparison is made with today's chest x-ray.; ; Findings: Digital preliminary dining car hop radiograph is unremarkable.; ; Lung window settings demonstrate a large area of consolidation in the right lower; lobe behind the dome of the right hemidiaphragm consistent with pneumonia. This; is not visible on the radiograph. The remaining lung bases are clear.; ; There is a gastrostomy feeding tube in place. The liver and the spleen are; normal in size homogeneous in texture. Gallbladder is unremarkable. No adrenal; lesion is seen. The kidneys are morphologically intact. There is a low-density; lesion in the head of the pancreas 4.3 cm in craniocaudal span by 2.4 cm medial; to lateral by 2.0 cm anterior to posterior. This is of uncertain significance.; The body of the pancreas is unremarkable. There is no evidence of regional; adenopathy. Normal caliber aorta is seen. Small and large intestinal bowel; loops are unremarkable. A normal appendix is visible in the right pelvis. There; is no CT evidence of appendicitis or diverticulitis. Uterus is retroverted and; retroflexed. No adnexal mass or free fluid is seen.; ; Impression:; ; 1. A large dense infiltrate in the right lower lobe consistent with pneumonia.; ; 2. 4 cm low density lesion in the head of the pancreas question cystic mass; versus pseudocyst. Recommend contrast enhanced CT study of the pancreas if the; patient's clinical condition will allow. No other acute abnormality.; ; ; Signed by; Aquilino Arenas MD 09/27/2016 03:51 P; Outcome: 15:51 Decision to Hospitalize by Provider. sd1 23:27 Discharge Assessment:. The following High Risk Discharge criteria are identified: None. lf1 Admitted to PCU accompanied by nurse, accompanied by tech, via stretcher, on monitor, with chart. Condition: unchanged. CT Study completed. Property :Personal belongings accompany Pt. 23:28 Discharge Assessment: patient administered narcotics - no. lf1 23:30 Patient left the ED. lf1 Signatures: Dispatcher [employer] EDMS Brenda Judge MD MD sd1 Shilpi Jordan, Pourer Unit lbd Ruth Lemus RN GERMAIN [place] , Lashonda RN GERMAIN daZoey Rocha, Reg Reg gb Alice Qureshi,RN RN lf1 Sushil Cagle, RN RN ml6 Radha Mata,RN RN js13 Swetha Lopez mm15 Surendra Kilgore, [employer]AT [employer] PLANT UTILITY SUPERVISOR [employer]ANT UTILITY SUPERVISOR d Paula Olson,RN RN jp6 Shanti Marr2 Corrections: (The following items were deleted from the chart) 13:01 12:57 BP 101 / 62 Sitting Manual L Arm Regular; Pulse 84bpm; Resp 18bpm; Pulse Ox 96% jrd RA; PATIENT UNABLE TO GIVE PAIN SCALE RATING; jrd 17:11 17:00 Adult Sepsis Screening: The patient does not have new or worsening altered js13 mentation. Patient's respiratory rate is less than 22. Systolic blood pressure is less than or equal to 100 (1 point). Patient has a qSOFA score of 1- Negative Sepsis Screen. js13 Chart Complete MTDD
== END 2016-09-30 12:25 | DRG 177 ==
LOC: M ED 12:28 → M MS5PR 19:59 → M ED INP 20:00 → M PCU 23:18 → M MS5PR 09-29 11:15
PROVIDERS: ADMIT Internal Medicine; ATTEND Family Medicine
DX: J15.6 Pneumonia due to other Gram-negative bacteria (principal); G82.50 Quadriplegia, unspecified; G10 Huntington's disease; E46 Unspecified protein-calorie malnutrition; J45.909 Unspecified asthma, uncomplicated; K59.09 Other constipation; R13.10 Dysphagia, unspecified; Z79.51 Long term (current) use of inhaled steroids; Z79.899 Other long term (current) drug therapy; Z87.01 Personal history of pneumonia (recurrent); Z93.1 Gastrostomy status; Z88.0 Allergy status to penicillin

== ENCOUNTER → 2016-09-27 | Outpatient (REF) | payer MEDICARE, MEDICAID ==
[~2016-09-27] MED LIST: ACET-654 NG; ACET650S3 PR; ALBU83IN INH; ARTIDRO OP; ATIV1TAB7 GT; AUGM875T27 PEG; BACL-67 NG; BACL10TA2 NG; BEETAB NG; BENCRE TOP; CEFT1INJ3 IM; CETI1SYP16 NG; CETI1SYP16 PEG; CLIN300C2 GT; CLON1TAB NG; CLON1TAB PEG; DULC10SU2 PR; DUONSOL NEB; ENEMENE6 PR; FAMO20TA PEG; FEVE650S3 PR; FLON1SPR; HALDOL; HALO1TA PEG; HALO2TA NG; HYDR-3713 NG; HYDR-3713 PEG; HYDR-3713 PO; IBUP40TA NG; JEVILIQ32 PEG; LEVA500T PO; LEVA750T GT; MILKSUS NG; MOM30SS PEG; MOME50SP; MOTR200T4; MUPI2OI TOP; NYST100024 TOP; NYST10PW TOP; PEPC1TAB4 NG; PHEN1SUP6 PR; PRED20TA GT; PREG25CA NG; PREG25CA PEG; PREG50CA PEG; PREV30TA3 GT; PROTPAK PEG; PULM0.5S INH; RISATAB3 NG; RISATAB3 PEG; RISP1TAB41 PEG; SENO8.6T10 PEG; TRAN1.5D2 TOP; ZANT1TAB PEG; ZYRT10TA2 PEG; ventolin NEB
[2016-09-27 09:56] LABS: BASO % 0.2 % (0.0-1.0); LARGE UNSTAINED CELL # 0.2 K/mm3 (0.0-0.4); LARGE UNSTAINED CELL % 1.1 % (0.0-4.0); LYMPH # 0.8 K/mm3 (1.5-4.5); LYMPH % 3.9 % (24.0-44.0); MEAN CORPUSCULAR HEMOGLOBIN 30.5 pg (27.0-33.0); MEAN CORPUSCULAR HGB CONC 33.4 g/dl (32.0-36.5); MEAN CORPUSCULAR VOLUME 91.2 fl (80.0-96.0); MONO # 0.7 K/mm3 (0.0-0.8); MONO % 3.2 % (0.0-5.0); NEUTROPHILS # 19.5 K/mm3 (1.8-7.7); NEUTROPHILS % 91.7 % (36.0-66.0); PLATELET COUNT, AUTOMATED 211 k/mm3 (150-450); RED CELL DISTRIBUTION WIDTH 12.3 % (11.5-14.5); WHITE BLOOD COUNT 21.2 K/mm3 (4.0-10.0)
[2016-09-27 10:07] LABS: ANION GAP 8 MEQ/L (8-16); BLOOD UREA NITROGEN 23 MG/DL (7-18); CALCIUM LEVEL 9.2 MG/DL (8.5-10.1); CARBON DIOXIDE LEVEL 30 MEQ/L (21-32); CHLORIDE LEVEL 106 MEQ/L (98-107); CREATININE FOR GFR 0.71 MG/DL (0.55-1.02); GLOMERULAR FILTRATION RATE > 60.0 (>58); GLUCOSE, FASTING 129 MG/DL (70-105); POTASSIUM SERUM 3.7 MEQ/L (3.5-5.1); SODIUM LEVEL 144 MEQ/L (136-145)
--- NOTE | 2016-09-27 11:07 | REP ---
PORTABLE CHEST: AP portable view of the chest is performed and compared to multiple prior exams, most recent of which is 07/07/2016. There is no evidence of acute infiltrate, with lung huntley appearing unchanged compared to the prior study. The heart and mediastinum are within normal limits. The visualized osseous structures are intact. IMPRESSION: No acute infiltrate. Signed by Isidro Gan MD 09/27/2016 01:13 P
== END | disposition home or self-care (01) ==
LOC: SKLAB2 09:07
PROVIDERS: ATTEND Family Medicine
DX: R50.9 Fever, unspecified (principal)

== ENCOUNTER → 2016-10-14 | Outpatient (REF) | payer MEDICARE, MEDICAID ==
[~2016-10-14] MED LIST changes: +BEETAB NG; +CETI1SYP16 NG; +CLON1TAB NG; +HYDR-3713 NG; +IBUP40TA NG; +LEVA750T GT; +PREG25CA NG; +RISATAB3 NG
[2016-10-14 09:13] LABS: ALBUMIN 3.3 GM/DL (3.2-5.2); ALKALINE PHOSPHATASE 74 U/L (45-117); ALT/SGPT 32 U/L (12-78); ANION GAP 7 MEQ/L (8-16); AST/SGOT 24 U/L (15-37); BILIRUBIN,TOTAL 0.5 MG/DL (0.2-1.0); BLOOD UREA NITROGEN 24 MG/DL (7-18); CALCIUM LEVEL 8.9 MG/DL (8.5-10.1); CARBON DIOXIDE LEVEL 31 MEQ/L (21-32); CHLORIDE LEVEL 106 MEQ/L (98-107); CREATININE FOR GFR 0.55 MG/DL (0.55-1.02); GLOMERULAR FILTRATION RATE > 60.0 (>58); GLUCOSE, FASTING 68 MG/DL (70-105); SODIUM LEVEL 144 MEQ/L (136-145); TOTAL PROTEIN 6.3 GM/DL (6.4-8.2)
== END | disposition home or self-care (01) ==
LOC: SKLAB2 07:00
PROVIDERS: ATTEND Family Medicine
DX: G10 Huntington's disease (principal)

== ENCOUNTER → 2016-11-18 | Outpatient (REF) | payer MEDICARE, MEDICAID ==
[2016-11-18 15:19] LABS: MEAN CORPUSCULAR HEMOGLOBIN 30.6 pg (27.0-33.0); MEAN CORPUSCULAR HGB CONC 34.2 g/dl (32.0-36.5); MEAN CORPUSCULAR VOLUME 89.4 fl (80.0-96.0); RED CELL DISTRIBUTION WIDTH 12.2 % (11.5-14.5); WHITE BLOOD COUNT 13.3 K/mm3 (4.0-10.0)
[2016-11-18 15:38] LABS: ANION GAP 9 MEQ/L (8-16); BLOOD UREA NITROGEN 24 MG/DL (7-18); CARBON DIOXIDE LEVEL 30 MEQ/L (21-32); CHLORIDE LEVEL 108 MEQ/L (98-107); CREATININE FOR GFR 0.76 MG/DL (0.55-1.02); GLOMERULAR FILTRATION RATE > 60.0 (>58); GLUCOSE, FASTING 125 MG/DL (70-105); POTASSIUM SERUM 4.7 MEQ/L (3.5-5.1); SODIUM LEVEL 147 MEQ/L (136-145)
--- NOTE | 2016-11-18 15:42 | REP ---
Chest one-view HISTORY: Aspiration Comparison: 09/27/2016 The lungs are clear. The heart is normal in size. The pulmonary vasculature is normal in appearance. Impression: No acute disease. Signed by Benjamin Suazo MD 11/18/2016 03:33 P
== END ==
LOC: SKLAB2 14:42
PROVIDERS: ATTEND Family Medicine
DX: J69.0 Pneumonitis due to inhalation of food and vomit (principal); Z79.899 Other long term (current) drug therapy

== ENCOUNTER → 2016-11-20 | Outpatient (REF) | payer MEDICARE, MEDICAID | LOC: SKLAB2 04:30 | PROVIDERS: ATTEND Family Medicine | DX: R50.9 Fever, unspecified (principal) ==

== ENCOUNTER → 2016-11-20 | Outpatient (REF) | payer MEDICARE, MEDICAID ==
[2016-11-20 12:32] LABS: MEAN CORPUSCULAR HEMOGLOBIN 29.8 pg (27.0-33.0); MEAN CORPUSCULAR VOLUME 93.2 fl (80.0-96.0); RED CELL DISTRIBUTION WIDTH 12.4 % (11.5-14.5); WHITE BLOOD COUNT 16.8 K/mm3 (4.0-10.0)
[2016-11-20 12:50] LABS: ANION GAP 8 MEQ/L (8-16); BLOOD UREA NITROGEN 25 MG/DL (7-18); CALCIUM LEVEL 9.1 MG/DL (8.5-10.1); CARBON DIOXIDE LEVEL 30 MEQ/L (21-32); CHLORIDE LEVEL 106 MEQ/L (98-107); CREATININE FOR GFR 0.67 MG/DL (0.55-1.02); GLOMERULAR FILTRATION RATE > 60.0 (>58); GLUCOSE, FASTING 101 MG/DL (70-105); POTASSIUM SERUM 4.1 MEQ/L (3.5-5.1); SODIUM LEVEL 144 MEQ/L (136-145)
== END ==
LOC: SKLAB2 11:47
PROVIDERS: ATTEND Family Medicine
DX: R50.9 Fever, unspecified (principal)

== ENCOUNTER → 2016-11-25 | Outpatient (REF) | payer MEDICARE, MEDICAID ==
[2016-11-25 07:46] LABS: MEAN CORPUSCULAR HEMOGLOBIN 29.3 pg (27.0-33.0); MEAN CORPUSCULAR HGB CONC 32.7 g/dl (32.0-36.5); MEAN CORPUSCULAR VOLUME 89.5 fl (80.0-96.0); RED CELL DISTRIBUTION WIDTH 12.3 % (11.5-14.5); WHITE BLOOD COUNT 5.2 K/mm3 (4.0-10.0)
== END ==
LOC: SKLAB2 07:00
PROVIDERS: ATTEND Family Medicine
DX: J98.8 Other specified respiratory disorders (principal)

== ENCOUNTER → 2016-12-27 | Outpatient (CLI) | payer MEDICARE, MEDICAID ==
[~2016-12-27] MED LIST changes: +IPRASOL4 INH; +LEVO1SOL3 NG; +LORA-376 SL
--- NOTE | 2016-12-27 17:18 | REP ---
KUB ABDOMEN: Two KUB films of the abdomen are performed. A catheter is seen overlying the right lower quadrant of the abdomen, coursing cephalad and medially with the tip overlying the L1 vertebral body. There is no evidence of bowel obstruction. A phlebolith is seen in the inferior pelvis. There are mild degenerative changes of the spine. Signed by Isidro Gan MD 12/30/2016 05:39 P
== END ==
LOC: M RAD 16:38
PROVIDERS: ATTEND Family Medicine
DX: Z46.6 Encounter for fitting and adjustment of urinary device (principal)

== ENCOUNTER 2016-12-28 09:38 | Inpatient (IN) | payer MEDICARE, MEDICAID ==
[~2016-12-28] VITALS: Ht 154.9 cm; Wt 51.0 kg
[~2016-12-28 09:38] MED LIST changes: -IPRASOL4 INH; -LEVO1SOL3 NG; -LORA-376 SL
[2016-12-28] MEDS ORDERED: IPRASOL4 INH (10:41)
[2016-12-28] MEDS ORDERED: GASTROGRAFIN SOLUTION 30ML (Q9963) PO ONE (13:45)
[2016-12-28] MEDS ORDERED: NS 1,000 ML IV ONE (14:30)
[2016-12-28] MEDS ORDERED: cefTRIAXone SOD 1 GM in D5W MINI-BAG PLUS 50 ML IV ONE (14:30)
[2016-12-28] MEDS ORDERED: ACETAMINOPHEN 650 MG SUPP PR ONE (14:30)
[2016-12-28] MEDS ORDERED: LEVO1SOL3 NG (14:42)
[2016-12-28] MEDS ORDERED: LORA-376 SL (14:56)
[2016-12-28 15:01] LABS: BASO % 0.2 % (0.0-1.0); EOS % 0.1 % (0.0-3.0); LARGE UNSTAINED CELL # 0.1 K/mm3 (0.0-0.4); LARGE UNSTAINED CELL % 1.1 % (0.0-4.0); LYMPH # 1.2 K/mm3 (1.5-4.5); LYMPH % 10.6 % (24.0-44.0); MEAN CORPUSCULAR HGB CONC 33.4 g/dl (32.0-36.5); MEAN CORPUSCULAR VOLUME 89.8 fl (80.0-96.0); MONO # 0.3 K/mm3 (0.0-0.8); MONO % 2.7 % (0.0-5.0); NEUTROPHILS # 9.8 K/mm3 (1.8-7.7); NEUTROPHILS % 85.3 % (36.0-66.0); PLATELET COUNT, AUTOMATED 280 k/mm3 (150-450); WHITE BLOOD COUNT 11.5 K/mm3 (4.0-10.0)
--- NOTE | 2016-12-28 15:12 | REP ---
Chest one-view HISTORY: Sepsis Comparison: 11/18/2016 The lungs are clear. The heart is normal in size. The pulmonary vasculature is normal in appearance. Impression: No acute disease. Signed by Benjamin Suazo MD 12/28/2016 03:02 P
[2016-12-28 15:31] LABS: ALBUMIN 3.7 GM/DL (3.2-5.2); ALBUMIN/GLOBULIN RATIO 0.86 (1.00-1.93); ALKALINE PHOSPHATASE 80 U/L (45-117); ALT/SGPT 23 U/L (12-78); ANION GAP 10 MEQ/L (8-16); AST/SGOT 10 U/L (15-37); BILIRUBIN,DIRECT 0.3 MG/DL (0.0-0.2); BILIRUBIN,TOTAL 1.3 MG/DL (0.2-1.0); BLOOD UREA NITROGEN 22 MG/DL (7-18); CALCIUM LEVEL 8.7 MG/DL (8.5-10.1); CARBON DIOXIDE LEVEL 26 MEQ/L (21-32); CHLORIDE LEVEL 107 MEQ/L (98-107); CREATININE FOR GFR 0.72 MG/DL (0.55-1.02); GLOMERULAR FILTRATION RATE > 60.0 (>58); GLUCOSE, FASTING 94 MG/DL (70-105); POTASSIUM SERUM 3.7 MEQ/L (3.5-5.1); SODIUM LEVEL 143 MEQ/L (136-145)
--- NOTE | 2016-12-28 16:50 | HPEPDOC ---
General Date of Admission 12/28/16 Primary Care Physician: Chaz Matson MD Attending Physician: GIUSEPPE ROACH MD Chief Complaint The patient is a 41-year-old female admitted with a reason for visit of Feeding Tube Problem. History of Present Illness General reveals a 41-year-old patient of Dr. Chaz Matson and is a resident of the [facility], who is transferred to the ER for dehydration due to loss of her G-tube. 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 A Dangelo catheter was temporarily placed in the G-tube opening, and placement was confirmed. However, the patient spiked a fever to 101 , and had episodes of tachycardia in the ER. She was evaluated further and, and found to have a lactic acidosis. She was admitted to the medicine service for fluid resuscitation, empiric antibiotics, and monitoring for aspiration pneumonia. Home Medications Scheduled (Flonase Allergy Relief) 50 Mcg/Act Spr, 2 SPRAYS NA DAILY, (Reported) (Jevity 1.5 Reji/Fiber) 1 Liq Liq, 300 ML PEG QID, (Reported) TAKES AT 0100, 0600, 1300, 2000 (Eliza-Bid Probiotic) 1 Tab Tab, 1 TAB NG BID, (Reported) (Bee Zee) 1 Tab Tab, 1 TAB NG DAILY, (Reported) (Levofloxacin) 25 Mg/Ml Jyothi, 750 ML NG QHS, (Reported) START DATE 12/24 FOR 10 DAYS Acetaminophen/Hydrocodone (Hydrocodone/Acetaminophen 5-325 mg) 1 Tab Tab, 1 TAB NG TID, (Reported) Albuterol/Ipratropium (Ipratropium [place]/Albut 0.5-2.5 (3) mg/3Ml) 1 Jyothi Jyothi, 1 JYOTHI INH QID, (Reported) Baclofen (Baclofen) 10 Mg Tab, 10 MG NG BID, (Reported) 0900 & 1400 Baclofen (Baclofen) 20 Mg Tab, 20 MG NG QHS, (Reported) Cetirizine Hcl (Cetirizine HCl) 5 Mg/5 Ml Syp, 10 MG NG QHS, (Reported) Clonazepam (Clonazepam) 1 Mg Tab, 1 MG NG QHS, (Reported) Famotidine (Pepcid) 20 Mg Tab, 20 MG NG DAILY, (Reported) Haloperidol (Haloperidol) 2 Mg Tab, 2 MG NG TID, (Reported) 0900, 1400, 2100 Pregabalin (Lyrica) 25 Mg Cap, 25 MG NG TID, (Reported) Scopolamine (Transderm-Scop) 1.5 Mg Dis, 1.5 MG TOP Q72H, (Reported) APPLY BEHIND EAR Scheduled PRN (Enema Disposable) 1 Merna Merna, 1 MERNA [place] DAILY PRN for CONSTIPATION, (Reported) Acetaminophen (Acetaminophen) 325 Mg Tab, 650 MG NG Q4HP PRN for PAIN / FEVER, ( Reported) Acetaminophen (Feverall Adults) 650 Mg Sup, 650 MG [place] Q4HP PRN for PAIN / FEVER, (Reported) Albuterol Sulfate (Albuterol Sulfate) 2.5 Mg/3 Ml Nebu, 2.5 MG INH Q4H PRN for SOB/WHEEZING, (Reported) Bisacodyl (Dulcolax) 10 Mg Sup, 10 MG [place] DAILY PRN for CONSTIPATION, (Reported) Ibuprofen (Ibuprofen) 400 Mg Tab, 400 MG NG Q6H PRN for TEMP => 101, (Reported) Lorazepam (Lorazepam) 0.5 Mg Tab, 0.5 MG SL for AGITATION, (Reported) Milk Of Magnesia (Milk of Magnesia) 1,200 Mg/15 Ml Amy, 30 ML NG DAILYPRN PRN for CONSTIPATION, (Reported) Allergies Coded Allergies: Penicillins (Unverified Allergy, Unknown, 04/19/16) Past Medical History Medical History 1. [place]'s michael 2. Dysphagia 3. History of multiple episodes of aspiration pneumonia 4. G-tube 5. Nonverbal Surgical History 1. G-tube 2014 Family History Significant Family History: No pertinent family hx Social History Patient lives at [facility]; no history of alcohol abuse, tobacco use, or drugs Review of Symptoms Other systems Review of systems unobtainable due to nonverbal status Physical Examination General Exam: Positive: Alert, Cooperative, No Acute Distress, Other (cachectic ) Eye Exam: Positive: Conjunctiva & lids normal ENT Exam: Positive: Atraumatic, Negative: Mucous membr. moist/pink (dry mucous membranes with cracked lips) Neck Exam: Positive: Supple, Negative: JVD, thyromegaly, Lymphadenopathy Chest Exam: Positive: Normal air movement, Rhonchi (right upper and middle lobe rhonchi), Negative: Rales, Wheezing Heart Exam: Positive: Tachycardic, Regular Rhythm, Normal S1, Normal S2, Negative: Murmurs Telemetry: Positive: No significant arrhythmia Abdomen Exam: Positive: Normal bowel sounds, Soft, Negative: Tenderness, Hepatospenomegaly, Mass Extremity Exam: Negative: Clubbing, Cyanosis, Edema Skin Exam: Negative: Nl turgor and temperature, Rash, Breakdown Neuro Exam: Positive: Other (coriaform movements of limbs) Vital Signs Vital Signs Date Time Temp Pulse Resp B/P (MAP) Pulse Ox O2 Delivery O2 Flow Rate FiO2 12/28/16 14:22 101.0 114 24 171/75 (107) 94 Room Air Laboratory Data Labs 24H Laboratory Tests 2 12/28/16 14:49: White Blood Count 11.5H, Red Blood Count 4.89, Hemoglobin 14.7, Hematocrit 43.9 , Mean Corpuscular Volume 89.8, Mean Corpuscular Hemoglobin 30.0, Mean Corpuscular Hemoglobin Concent 33.4, Red Cell Distribution Width 13.0, Platelet Count 280, Neutrophils (%) (Auto) 85.3H, Lymphocytes (%) (Auto) 10.6L, Monocytes (%) (Auto) 2.7, Eosinophils (%) (Auto) 0.1, Basophils (%) (Auto) 0.2, Neutrophils # (Auto) 9.8H, Lymphocytes # (Auto) 1.2L, Monocytes # (Auto) 0.3, Eosinophils # (Auto) 0.0, Basophils # (Auto) 0.0, Large Unclassified Cells % 1.1 , Large Unclassified Cells # 0.1, Urine Appearance CLEAR, Urine Color YELLOW, Urine pH 6.0, Urine Specific [place] 1.029, Urine Protein 1+H, Urine Glucose (UA ) NEGATIVE, Urine Ketones 2+H, Urine Urobilinogen 0.2, Urine Bilirubin NEGATIVE , Urine Leukocyte Esterase NEGATIVE, Urine Blood NEGATIVE, Urine Nitrite NEGATIVE, Urine WBC (Auto) 1, Urine RBC (Auto) 4H, Urine Hyaline Casts (Auto) 0 , Urine Bacteria (Auto) NEGATIVE, Urine Squamous Epithelial Cells 1, Urine Mucus (Auto) SMALL, Urine Sperm (Auto) , Anion Gap 10, Glomerular Filtration Rate > 60.0, Lactic Acid Level 3.0*H, Calcium Level 8.7, Aspartate Amino Transf (AST/SGOT) 10L, Alanine Aminotransferase (ALT/SGPT) 23, Alkaline Phosphatase 80 , Total Bilirubin 1.3H, Direct Bilirubin 0.3H, Total Protein 8.0, Albumin 3.7, Albumin/Globulin Ratio 0.86L CBC/BMP Laboratory Tests 12/28/16 14:49 Red Blood Count 4.89, Mean Corpuscular Volume 89.8, Mean Corpuscular Hemoglobin 30.0, Mean Corpuscular Hemoglobin Concent 33.4, Red Cell Distribution Width 13.0 , Neutrophils (%) (Auto) 85.3 H, Lymphocytes (%) (Auto) 10.6 L, Monocytes (%) ( Auto) 2.7, Eosinophils (%) (Auto) 0.1, Basophils (%) (Auto) 0.2, Neutrophils # ( Auto) 9.8 H, Lymphocytes # (Auto) 1.2 L, Monocytes # (Auto) 0.3, Eosinophils # ( Auto) 0.0, Basophils # (Auto) 0.0 Microbiology Microbiology 12/28/16 Blood Culture, Received Pending 12/28/16 Blood Culture, Received Pending 12/28/16 Influenza Virus Type A Antigen - Final, Complete 12/28/16 Influenza Virus Type B Antigen - Final, Complete 12/28/16 Urine Culture, Received Pending Assessment/Plan This is a 41-year-old patient of Dr. Earl, who presents with lactic acidosis, hypokalemia, tachycardia, and fever. Problems (1) Fever Status: Acute Problem Text: Patient had fever to 101 in the ER, tachycardia, and lactic acidosis. She has a history of multiple aspiration pneumonias. Mild leukocytosis. No acute respiratory distress, however rhonchi on exam. UA negative for infection. Possible aspiration pneumonitis, however will cover for anaerobes. -Admit to medicine for fluid resuscitation and antibiotics -Clindamycin 3 mg 4 times a day and Flagyl 500 mg 3 times a day 7 days -Serial lactates until normal -IV fluids (2) Lactic acidosis Status: Acute Problem Text: See above (3) [place]'s chorea Status: Chronic Problem Text: Chronic Osorio's michael, spastic quadriplegia, chronic dysphagia requiring G-tube (4) Feeding by G-tube Status: Chronic Problem Specific Plan: Consult Specialist Problem Text: Catheter replaced in the ER, however may need to discuss with surgery or GI. Nothing by mouth for now, as patient is reported to vomit up what was given to her initially to the G-tube. Plan / VTE VTE Prophylaxis Ordered?: Yes (heparin) Plan Disposition Pending resolution of lactic acidosis, afebrile, able to feed to G-tube, and with stable respiratory status GIUSEPPE ROACH MD Dec 28, 2016 16:50
[2016-12-28] MEDS ORDERED: BISACODYL 10 MG SUPP PR PRN (17:00)
[2016-12-28] MEDS ORDERED: MOM 30ML SUSPENSION UDC NG PRN (17:00)
[2016-12-28] MEDS ORDERED: ACETAMINOPHEN 650 MG SUPP PR PRN (17:00)
[2016-12-28] MEDS ORDERED: ALBUTEROL SULFATE 2.5 MG/0.5 ML INH NEB SOLN INH PRN (17:00)
[2016-12-28] MEDS: D5W/0.45% SODIUM CHLORIDE 1,000 ML IV SCH (18:13)
[2016-12-28 18:19] VITALS: BP 110/62
[2016-12-28 21:15] VITALS: BP 116/72
[2016-12-28] MEDS: CLINDAMYCIN 300 MG in APPROPRIATE DILUENT 1 EA IV SCH (21:22)
[2016-12-28] MEDS: HALOPERIDOL 2 MG TAB NG SCH (21:22)
[2016-12-28] MEDS: HEPARIN SOD (PORCINE) 5000 UNITS/ML VIAL SC SCH (21:22)
[2016-12-28] MEDS: CETIRIZINE (ZyrTEC) 5 MG/5 ML UDC DYE FREE NG SCH (21:22)
[2016-12-28] MEDS: clonazePAM 1 MG TAB NG SCH (21:22)
[2016-12-28] MEDS: BACLOFEN 10 MG TAB NG SCH (21:22)
[2016-12-28] MEDS: PREGABALIN 25 MG CAP (LYRICA) NG SCH (21:25)
[2016-12-28] MEDS: SCOPOLAMINE 1.5 MG TRANSDERMAL TOP SCH (21:25)
[2016-12-28] MEDS: metroNIDAZOLE 500 MG in APPROPRIATE DILUENT 1 EA IV SCH (22:53)
[2016-12-29] MEDS: metroNIDAZOLE 500 MG in APPROPRIATE DILUENT 1 EA IV SCH ×3 (05:14→21:38)
[2016-12-29] MEDS: D5W/0.45% SODIUM CHLORIDE 1,000 ML IV SCH ×2 (05:15→17:52)
[2016-12-29] MEDS: HEPARIN SOD (PORCINE) 5000 UNITS/ML VIAL SC SCH ×3 (05:15→21:37)
[2016-12-29 06:20] VITALS: BP 102/56
[2016-12-29 06:32] LABS: BASO % 0.5 % (0.0-1.0); EOS # 0.1 K/mm3 (0.0-0.50); EOS % 1.2 % (0.0-3.0); LARGE UNSTAINED CELL # 0.2 K/mm3 (0.0-0.4); LARGE UNSTAINED CELL % 3.7 % (0.0-4.0); LYMPH # 1.4 K/mm3 (1.5-4.5); LYMPH % 22.8 % (24.0-44.0); MEAN CORPUSCULAR HGB CONC 33.1 g/dl (32.0-36.5); MEAN CORPUSCULAR VOLUME 90.7 fl (80.0-96.0); MONO # 0.3 K/mm3 (0.0-0.8); MONO % 4.8 % (0.0-5.0); NEUTROPHILS # 4.1 K/mm3 (1.8-7.7); PLATELET COUNT, AUTOMATED 192 k/mm3 (150-450); WHITE BLOOD COUNT 6.1 K/mm3 (4.0-10.0)
[2016-12-29 06:36] LABS: ANION GAP 6 MEQ/L (8-16); BLOOD UREA NITROGEN 19 MG/DL (7-18); CALCIUM LEVEL 8.1 MG/DL (8.5-10.1); CARBON DIOXIDE LEVEL 27 MEQ/L (21-32); CHLORIDE LEVEL 109 MEQ/L (98-107); CREATININE FOR GFR 0.56 MG/DL (0.55-1.02); GLOMERULAR FILTRATION RATE > 60.0 (>58); GLUCOSE, FASTING 91 MG/DL (70-105); POTASSIUM SERUM 3.2 MEQ/L (3.5-5.1); SODIUM LEVEL 142 MEQ/L (136-145)
[2016-12-29] MEDS: FAMOTIDINE 20 MG TAB NG SCH (08:22)
[2016-12-29] MEDS: PREGABALIN 25 MG CAP (LYRICA) NG SCH ×3 (08:22→21:37)
[2016-12-29] MEDS: HALOPERIDOL 2 MG TAB NG SCH ×3 (08:22→21:37)
[2016-12-29] MEDS: CLINDAMYCIN 300 MG in APPROPRIATE DILUENT 1 EA IV SCH ×4 (08:23→21:36)
[2016-12-29] MEDS: FLUTICASONE PROP 0.05% NASAL SPRAY 16 GM (FLONASE) SCH (08:23)
--- NOTE | 2016-12-29 08:26 | REP ---
KUB, ONE VIEW: HISTORY: G tube placement. A G tube is present. Contrast material is present in the stomach. The intestinal gas pattern is nonspecific. IMPRESSION: A G tube is present in the stomach. Signed by Benjamin Suazo MD 12/29/2016 09:23 A
--- NOTE | 2016-12-29 09:25 | IPNPDOC ---
Subjective Date Seen The patient was seen on 12/29/16. Subjective Chief Complaint/HPI The patient is a 41-year-old female admitted with a reason for visit of Lactic Acidosis. Events since last encounter Patient has defervesced today and is now having sweats. Nursing notes that she is also more agitated. They have been able to give her medications through her temporary Dangelo catheter in the place of her PEG tube. She continues to have occasional cough and rhonchi. Constitutional: Reports: Fever, Other (sweats) Psych: Reports: Other Psych (agitated) Other systems Review of systems otherwise unobtainable due to nonverbal status Objective Physical Examination General Exam: Positive: Alert, Cooperative, No Acute Distress, Other (cachectic ) Eye Exam: Positive: Conjunctiva & lids normal ENT Exam: Positive: Atraumatic, Negative: Mucous membr. moist/pink (dry mucous membranes with cracked lips) Neck Exam: Positive: Supple, Negative: JVD, thyromegaly, Lymphadenopathy Chest Exam: Positive: Normal air movement, Rhonchi (right upper and middle lobe rhonchi), Negative: Rales, Wheezing Heart Exam: Positive: Tachycardic, Regular Rhythm, Normal S1, Normal S2, Negative: Murmurs Telemetry: Positive: No significant arrhythmia Abdomen Exam: Positive: Normal bowel sounds, Soft, Negative: Tenderness, Hepatospenomegaly, Mass Extremity Exam: Negative: Clubbing, Cyanosis, Edema Skin Exam: Negative: Nl turgor and temperature, Rash, Breakdown Neuro Exam: Positive: Other (coriaform movements of limbs) Assessment /Plan Problems (1) Fever Status: Acute Problem Text: Patient had fever to 101 in the ER, tachycardia, and lactic acidosis. She has a history of multiple aspiration pneumonias. Mild leukocytosis. No acute respiratory distress, however rhonchi on exam. UA negative for infection. Possible aspiration pneumonitis. Currently covering for anaerobes. Clindamycin/Flagyl day 2. Lactates have normalized. -Admit to medicine for fluid resuscitation and antibiotics -Clindamycin 3 mg 4 times a day and Flagyl 500 mg 3 times a day 7 days -IV fluids while nothing by mouth -Consult surgery to replace PEG (2) Lactic acidosis Status: Acute Problem Text: See above (3) [place]'s chorea Status: Chronic Problem Text: Chronic [place]'s michael, spastic quadriplegia, chronic dysphagia requiring G-tube (4) Feeding by G-tube Status: Chronic Problem Specific Plan: Consult Specialist Problem Text: Catheter replaced in the ER, however may need to discuss with surgery or GI. Nothing by mouth for now, as patient is reported to vomit up what was given to her initially to the G-tube. - Surgery consulted to replace PEG tube; Dr. Powers - Restart tube feeds after PEG was replaced Plan/VTE VTE Prophylaxis Ordered?: Yes (heparin) Disposition Pending afebrile for 24 hours, stable respiratory status, PEG tube replaced VS, I&O, 24H, Fishbone Vital Signs/I&O Vital Signs Date Time Temp Pulse Resp B/P (MAP) Pulse Ox O2 Delivery O2 Flow Rate FiO2 12/29/16 06:20 98.2 79 18 102/56 (71) 94 Room Air I&O- Last 24 Hours up to 6 AM 12/29/16 06:00 Intake Total 0 ml Output Total 0 ml Balance 0 ml Laboratory Data 24H LABS Laboratory Tests 2 12/28/16 14:49: White Blood Count 11.5H, Red Blood Count 4.89, Hemoglobin 14.7, Hematocrit 43.9 , Mean Corpuscular Volume 89.8, Mean Corpuscular Hemoglobin 30.0, Mean Corpuscular Hemoglobin Concent 33.4, Red Cell Distribution Width 13.0, Platelet Count 280, Neutrophils (%) (Auto) 85.3H, Lymphocytes (%) (Auto) 10.6L, Monocytes (%) (Auto) 2.7, Eosinophils (%) (Auto) 0.1, Basophils (%) (Auto) 0.2, Neutrophils # (Auto) 9.8H, Lymphocytes # (Auto) 1.2L, Monocytes # (Auto) 0.3, Eosinophils # (Auto) 0.0, Basophils # (Auto) 0.0, Large Unclassified Cells % 1.1 , Large Unclassified Cells # 0.1, Urine Appearance CLEAR, Urine Color YELLOW, Urine pH 6.0, Urine Specific [place] 1.029, Urine Protein 1+H, Urine Glucose (UA ) NEGATIVE, Urine Ketones 2+H, Urine Urobilinogen 0.2, Urine Bilirubin NEGATIVE , Urine Leukocyte Esterase NEGATIVE, Urine Blood NEGATIVE, Urine Nitrite NEGATIVE, Urine WBC (Auto) 1, Urine RBC (Auto) 4H, Urine Hyaline Casts (Auto) 0 , Urine Bacteria (Auto) NEGATIVE, Urine Squamous Epithelial Cells 1, Urine Mucus (Auto) SMALL, Urine Sperm (Auto) , Anion Gap 10, Glomerular Filtration Rate > 60.0, Lactic Acid Level 3.0*H, Calcium Level 8.7, Aspartate Amino Transf (AST/SGOT) 10L, Alanine Aminotransferase (ALT/SGPT) 23, Alkaline Phosphatase 80 , Total Bilirubin 1.3H, Direct Bilirubin 0.3H, Total Protein 8.0, Albumin 3.7, Albumin/Globulin Ratio 0.86L 12/28/16 19:50: Lactic Acid Followup at 4 Hours 1.8 12/29/16 05:37: White Blood Count 6.1, Red Blood Count 4.15, Hemoglobin 12.5#, Hematocrit 37.7, Mean Corpuscular Volume 90.7, Mean Corpuscular Hemoglobin 30.0, Mean Corpuscular Hemoglobin Concent 33.1, Red Cell Distribution Width 13.0, Platelet Count 192, Neutrophils (%) (Auto) 67.0H, Lymphocytes (%) (Auto) 22.8L, Monocytes (%) (Auto) 4.8, Eosinophils (%) (Auto) 1.2, Basophils (%) (Auto) 0.5, Neutrophils # (Auto) 4.1, Lymphocytes # (Auto) 1.4L, Monocytes # (Auto) 0.3, Eosinophils # (Auto) 0.1, Basophils # (Auto) 0.0, Large Unclassified Cells % 3.7 , Large Unclassified Cells # 0.2, Anion Gap 6L, Glomerular Filtration Rate > 60.0, Calcium Level 8.1L, Blood Urea Nitrogen 19H, Creatinine 0.56, Sodium Level 142, Potassium Level 3.2L, Chloride Level 109H, Carbon Dioxide Level 27 CBC/BMP Laboratory Tests 12/28/16 14:49 Red Blood Count 4.89, Mean Corpuscular Volume 89.8, Mean Corpuscular Hemoglobin 30.0, Mean Corpuscular Hemoglobin Concent 33.4, Red Cell Distribution Width 13.0 , Neutrophils (%) (Auto) 85.3 H, Lymphocytes (%) (Auto) 10.6 L, Monocytes (%) ( Auto) 2.7, Eosinophils (%) (Auto) 0.1, Basophils (%) (Auto) 0.2, Neutrophils # ( Auto) 9.8 H, Lymphocytes # (Auto) 1.2 L, Monocytes # (Auto) 0.3, Eosinophils # ( Auto) 0.0, Basophils # (Auto) 0.0 12/29/16 05:37 Red Blood Count 4.15, Mean Corpuscular Volume 90.7, Mean Corpuscular Hemoglobin 30.0, Mean Corpuscular Hemoglobin Concent 33.1, Red Cell Distribution Width 13.0 , Neutrophils (%) (Auto) 67.0 H, Lymphocytes (%) (Auto) 22.8 L, Monocytes (%) ( Auto) 4.8, Eosinophils (%) (Auto) 1.2, Basophils (%) (Auto) 0.5, Neutrophils # ( Auto) 4.1, Lymphocytes # (Auto) 1.4 L, Monocytes # (Auto) 0.3, Eosinophils # ( Auto) 0.1, Basophils # (Auto) 0.0, Calcium Level 8.1 L Microbiology Microbiology 12/28/16 Blood Culture, Received Pending 12/28/16 Blood Culture, Received Pending 12/28/16 Influenza Virus Type A Antigen - Final, Complete 12/28/16 Influenza Virus Type B Antigen - Final, Complete 12/28/16 Urine Culture, Received Pending GIUSEPPE ROACH MD Dec 29, 2016 09:25
[2016-12-29] MEDS ORDERED: D5W/0.45% SODIUM CHLORIDE 1,000 ML IV SCH (09:30)
[2016-12-29] MEDS ORDERED: POTASSIUM CHLORIDE 10% LIQ 20 MEQ/15 ML UDC PEG ONE (09:30)
[2016-12-29] MEDS: ACETAMINOPHEN 325 MG/10.15 ML UDC GT PRN (12:25)
[2016-12-29 14:00] VITALS: BP 119/64
[2016-12-29] MEDS: clonazePAM 1 MG TAB NG SCH (21:36)
[2016-12-29] MEDS: BACLOFEN 10 MG TAB NG SCH (21:36)
[2016-12-29] MEDS: CETIRIZINE (ZyrTEC) 5 MG/5 ML UDC DYE FREE NG SCH (21:37)
[2016-12-29 22:00] VITALS: BP 139/63
[2016-12-30] MEDS: D5W/0.45% SODIUM CHLORIDE 1,000 ML IV SCH (05:35)
[2016-12-30] MEDS: HEPARIN SOD (PORCINE) 5000 UNITS/ML VIAL SC SCH ×3 (05:35→21:29)
[2016-12-30] MEDS: metroNIDAZOLE 500 MG in APPROPRIATE DILUENT 1 EA IV SCH ×2 (05:35→13:11)
--- NOTE | 2016-12-30 05:49 | ECGEPIP ---
Stationary ECG Study [facility] - ED Test Date: 2016-12-28 Pat Name: PAT RAYGOZA Department: Room: - Gender: F [employer]: CHARLENE : 1975 Requested By: SHELLY Maldonado Order Number: [id number] Reading MD: Israel Sotelo Measurements Intervals [place] Rate: 128 P: 63 TN: 105 QRS: 93 QRSD: 78 T: 35 QT: 334 QTc: 488 Interpretive Statements SINUS TACHYCARDIA WITH SHORT TN INTERVAL NONSPECIFIC ST & T-WAVE ABNORMALITY BASELINE ARTIFACT AFFECTS INTERPRETATION SIMILAR TO 06/16/16 Electronically Signed On 12-30-2016 5:49:34 EDT by Israel Sotelo
[2016-12-30 06:00] VITALS: BP 111/68
[2016-12-30 06:07] LABS: BASO % 0.5 % (0.0-1.0); EOS # 0.1 K/mm3 (0.0-0.50); EOS % 1.1 % (0.0-3.0); LARGE UNSTAINED CELL # 0.1 K/mm3 (0.0-0.4); LARGE UNSTAINED CELL % 1.5 % (0.0-4.0); LYMPH # 1.4 K/mm3 (1.5-4.5); MEAN CORPUSCULAR HEMOGLOBIN 29.3 pg (27.0-33.0); MEAN CORPUSCULAR HGB CONC 33.1 g/dl (32.0-36.5); MEAN CORPUSCULAR VOLUME 88.5 fl (80.0-96.0); MONO # 0.4 K/mm3 (0.0-0.8); MONO % 5.6 % (0.0-5.0); NEUTROPHILS # 4.8 K/mm3 (1.8-7.7); NEUTROPHILS % 72.4 % (36.0-66.0); PLATELET COUNT, AUTOMATED 187 k/mm3 (150-450); RED CELL DISTRIBUTION WIDTH 12.9 % (11.5-14.5); WHITE BLOOD COUNT 6.6 K/mm3 (4.0-10.0)
[2016-12-30 06:24] LABS: ANION GAP 7 MEQ/L (8-16); BLOOD UREA NITROGEN 9 MG/DL (7-18); CALCIUM LEVEL 7.8 MG/DL (8.5-10.1); CARBON DIOXIDE LEVEL 27 MEQ/L (21-32); CHLORIDE LEVEL 109 MEQ/L (98-107); CREATININE FOR GFR 0.48 MG/DL (0.55-1.02); GLOMERULAR FILTRATION RATE > 60.0 (>58); GLUCOSE, FASTING 89 MG/DL (70-105); POTASSIUM SERUM 3.4 MEQ/L (3.5-5.1); SODIUM LEVEL 143 MEQ/L (136-145)
[2016-12-30] MEDS: ACETAMINOPHEN 325 MG/10.15 ML UDC GT PRN ×2 (06:29→16:39)
[2016-12-30] MEDS: LORazepam 0.5 MG TAB SL PRN (06:29)
--- NOTE | 2016-12-30 08:38 | CR ---
DATE OF CONSULTATION: 12/29/2016 REASON FOR CONSULTATION: Replacement of feeding tube. HISTORY OF PRESENT ILLNESS: The patient is a 41-year-old female who presents from [facility] for dehydration due to malfunction and loss of her G tube. She has a history of Nolan's chorea, spastic quadriparesis and dysphagia. A Dangelo catheter was temporarily placed in the G-tube opening in the emergency room. She was admitted to the floor for hydration. I have been asked to replace her feeding tubes so that she can resume feedings. PAST MEDICAL HISTORY: 1. Osorio's chorea. 2. Dysphagia. 3. Aspiration pneumonia. PAST SURGICAL HISTORY: G-tube placement originally in 2014. FAMILY HISTORY: Noncontributory. SOCIAL HISTORY: Lives at [facility]. No alcohol, drug or tobacco abuse. REVIEW OF SYSTEMS: Unable to obtain. ALLERGIES: PENICILLINS HOME MEDICATIONS: Please see med record. PHYSICAL EXAMINATION; General: Patient is awake and cooperative. HEENT: Pupils are equally round and reactive to light and accommodation. Heart: S1, S2 regular rate and rhythm. Lungs: Clear to auscultation bilaterally. Abdomen: Soft, nontender, nondistended. There is a gastrostomy in the left upper abdomen currently with a 14-Nepalese Dangelo catheter in place. Extremities: No clubbing, cyanosis or edema. LABORATORY DATA: White count is 6.6, hemoglobin 12.6 and platelets 187. ASSESSMENT/PLAN: The patient is a 41-year-old female with dysphagia and Osorio's chorea who presents for feeding tube replacement. Currently has a 14-Nepalese Dangelo catheter in place. According to our records, she had a 20- Nepalese feeding tube prior to that originally placed back into [address] Dr[address] Blevins. I obtained a 20-Nepalese gastrostomy tube from the operating room and replaced it at bedside. The Dangelo catheter was removed. The 20-Nepalese gastrostomy tube had lubrication placed around the bulb and it was gently inserted without any resistance. 5 mL of saline were placed inside the bulb on the gastrostomy tube and the bumper was placed. She tolerated the procedure well. The tube was able to be aspirated and gastric contents were easily removed. After placement, it flushed easily as well without any leakage around the tube. Thank you for the consult. Please call with any other questions. FIGUEROAD
[2016-12-30] MEDS: PREGABALIN 25 MG CAP (LYRICA) NG SCH ×3 (09:58→21:28)
[2016-12-30] MEDS: HALOPERIDOL 2 MG TAB NG SCH ×3 (09:58→21:28)
[2016-12-30] MEDS: CLINDAMYCIN 300 MG in APPROPRIATE DILUENT 1 EA IV SCH ×2 (09:58→13:10)
[2016-12-30] MEDS: FAMOTIDINE 20 MG TAB NG SCH (09:58)
[2016-12-30] MEDS: FLUTICASONE PROP 0.05% NASAL SPRAY 16 GM (FLONASE) SCH (09:59)
--- NOTE | 2016-12-30 11:19 | IPNPDOC ---
Subjective Date Seen The patient was seen on 12/30/16. Subjective Chief Complaint/HPI The patient is a 41-year-old female admitted with a reason for visit of Lactic Acidosis. Events since last encounter Pt non verbal. Nursing reports pt has not had her feedings resumed. General: Reports: ROS Unobtainable Objective Physical Examination General Exam: Positive: Alert, No Acute Distress, Other (cachectic) Eye Exam: Positive: Conjunctiva & lids normal Neck Exam: Positive: Supple, Negative: JVD, thyromegaly, Lymphadenopathy Chest Exam: Positive: Normal air movement, Rhonchi (right upper and middle lobe rhonchi), Negative: Rales, Wheezing Heart Exam: Positive: Rate Normal, Regular Rhythm, Normal S1, Normal S2, Negative: Murmurs Telemetry: Positive: No significant arrhythmia Abdomen Exam: Positive: Normal bowel sounds (+ G tube), Soft, Negative: Tenderness, Hepatospenomegaly, Mass Extremity Exam: Negative: Edema Skin Exam: Positive: Nl turgor and temperature Neuro Exam: Positive: Other (coriaform movements of limbs) Assessment /Plan Problems (1) Fever Status: Acute Problem Text: D3 clinda/metro 12/30 - Afebrile for more than 24 hours, HR improved. change to levo for 7D total 12/29 Patient had fever to 101 in the ER, tachycardia, and lactic acidosis. She has a history of multiple aspiration pneumonias. Mild leukocytosis. No acute respiratory distress, however rhonchi on exam. UA negative for infection. Possible aspiration pneumonitis. Currently covering for anaerobes. Clindamycin/ Flagyl day 2. Lactates have normalized. -Admit to medicine for fluid resuscitation and antibiotics -Clindamycin 3 mg 4 times a day and Flagyl 500 mg 3 times a day 7 days -IV fluids while nothing by mouth -Consult surgery to replace PEG (2) Feeding by G-tube Status: Chronic Problem Specific Plan: Consult Specialist Problem Text: 12/30 - G tube replaced, will resume tube feeds, if tolerated well plan for tran[facility]ser back to [facility] either today or tomorrow, PFS aware. 12/29 - Catheter replaced in the ER, however may need to discuss with surgery or GI. Nothing by mouth for now, as patient is reported to vomit up what was given to her initially to the G-tube. - Surgery consulted to replace PEG tube; Dr. 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, spastic quadriplegia, chronic dysphagia requiring G-tube Plan/VTE VTE Prophylaxis Ordered?: Yes (heparin) VS, I&O, 24H, Fishbone Vital Signs/I&O Vital Signs Date Time Temp Pulse Resp B/P (MAP) Pulse Ox O2 Delivery O2 Flow Rate FiO2 12/30/16 06:00 98.5 92 18 111/68 (82) 94 Room Air I&O- Last 24 Hours up to 6 AM 12/30/16 06:00 Intake Total 1300 ml Balance 1300 ml Laboratory Data 24H LABS Laboratory Tests 2 12/30/16 05:31: White Blood Count 6.6, Red Blood Count 4.29, Hemoglobin 12.6, Hematocrit 38.0, Mean Corpuscular Volume 88.5, Mean Corpuscular Hemoglobin 29.3, Mean Corpuscular Hemoglobin Concent 33.1, Red Cell Distribution Width 12.9, Platelet Count 187, Neutrophils (%) (Auto) 72.4H, Lymphocytes (%) (Auto) 19.0L, Monocytes (%) (Auto) 5.6H, Eosinophils (%) (Auto) 1.1, Basophils (%) (Auto) 0.5 , Neutrophils # (Auto) 4.8, Lymphocytes # (Auto) 1.4L, Monocytes # (Auto) 0.4, Eosinophils # (Auto) 0.1, Basophils # (Auto) 0.0, Large Unclassified Cells % 1.5 , Large Unclassified Cells # 0.1, Anion Gap 7L, Glomerular Filtration Rate > 60.0, Blood Urea Nitrogen 9#, Creatinine 0.48L, Sodium Level 143, Potassium Level 3.4L, Chloride Level 109H, Carbon Dioxide Level 27, Calcium Level 7.8L CBC/BMP Laboratory Tests 12/30/16 05:31 Red Blood Count 4.29, Mean Corpuscular Volume 88.5, Mean Corpuscular Hemoglobin 29.3, Mean Corpuscular Hemoglobin Concent 33.1, Red Cell Distribution Width 12.9 , Neutrophils (%) (Auto) 72.4 H, Lymphocytes (%) (Auto) 19.0 L, Monocytes (%) ( Auto) 5.6 H, Eosinophils (%) (Auto) 1.1, Basophils (%) (Auto) 0.5, Neutrophils # (Auto) 4.8, Lymphocytes # (Auto) 1.4 L, Monocytes # (Auto) 0.4, Eosinophils # (Auto) 0.1, Basophils # (Auto) 0.0, Calcium Level 7.8 L Microbiology Microbiology 12/28/16 Blood Culture - Preliminary, Resulted No growth after 24 hours . All specim... 12/28/16 Blood Culture - Preliminary, Resulted No growth after 24 hours . All specim... 12/28/16 Influenza Virus Type A Antigen - Final, Complete 12/28/16 Influenza Virus Type B Antigen - Final, Complete 12/28/16 Urine Culture - Final, Complete TAWANDA YA PA-C December 30, 2016 11:19 Richar Wiggins M.D. December 30, 2016 15:39
[2016-12-30 14:00] VITALS: BP 115/76
[2016-12-30] MEDS: LevoFLOXacin 500 MG TABLET PEG SCH (16:34)
[2016-12-30] MEDS: BACLOFEN 10 MG TAB NG SCH (21:27)
[2016-12-30] MEDS: CETIRIZINE (ZyrTEC) 5 MG/5 ML UDC DYE FREE NG SCH (21:28)
[2016-12-30] MEDS: clonazePAM 1 MG TAB NG SCH (21:28)
[2016-12-30 22:00] VITALS: BP 137/76
[2016-12-31] MEDS: D5W/0.45% SODIUM CHLORIDE 1,000 ML IV SCH ×2 (01:09→20:41)
[2016-12-31] MEDS: LORazepam 0.5 MG TAB SL PRN (01:09)
[2016-12-31] MEDS: LevoFLOXacin 500 MG TABLET PEG SCH (05:33)
[2016-12-31] MEDS: HEPARIN SOD (PORCINE) 5000 UNITS/ML VIAL SC SCH ×3 (05:33→20:42)
[2016-12-31 06:00] VITALS: BP 144/72
[2016-12-31 06:40] LABS: BASO % 0.3 % (0.0-1.0); EOS # 0.2 K/mm3 (0.0-0.50); EOS % 1.4 % (0.0-3.0); LARGE UNSTAINED CELL # 0.2 K/mm3 (0.0-0.4); LARGE UNSTAINED CELL % 1.1 % (0.0-4.0); LYMPH # 1.8 K/mm3 (1.5-4.5); MEAN CORPUSCULAR HEMOGLOBIN 30.1 pg (27.0-33.0); MEAN CORPUSCULAR HGB CONC 33.7 g/dl (32.0-36.5); MEAN CORPUSCULAR VOLUME 89.2 fl (80.0-96.0); MONO # 0.6 K/mm3 (0.0-0.8); MONO % 4.4 % (0.0-5.0); NEUTROPHILS # 11.9 K/mm3 (1.8-7.7); NEUTROPHILS % 80.9 % (36.0-66.0); PLATELET COUNT, AUTOMATED 217 k/mm3 (150-450); RED CELL DISTRIBUTION WIDTH 12.8 % (11.5-14.5); WHITE BLOOD COUNT 14.7 K/mm3 (4.0-10.0)
[2016-12-31 07:02] LABS: ANION GAP 10 MEQ/L (8-16); BLOOD UREA NITROGEN 5 MG/DL (7-18); CALCIUM LEVEL 8.4 MG/DL (8.5-10.1); CARBON DIOXIDE LEVEL 24 MEQ/L (21-32); CHLORIDE LEVEL 109 MEQ/L (98-107); CREATININE FOR GFR 0.51 MG/DL (0.55-1.02); GLOMERULAR FILTRATION RATE > 60.0 (>58); GLUCOSE, FASTING 89 MG/DL (70-105); SODIUM LEVEL 143 MEQ/L (136-145)
[2016-12-31] MEDS: FAMOTIDINE 20 MG TAB NG SCH (09:42)
[2016-12-31] MEDS: PREGABALIN 25 MG CAP (LYRICA) NG SCH ×3 (09:43→20:41)
[2016-12-31] MEDS: HALOPERIDOL 2 MG TAB NG SCH ×3 (09:43→20:42)
[2016-12-31] MEDS: FLUTICASONE PROP 0.05% NASAL SPRAY 16 GM (FLONASE) SCH (09:44)
--- NOTE | 2016-12-31 10:27 | IPNPDOC ---
Subjective Date Seen The patient was seen on 12/31/16. Subjective Chief Complaint/HPI The patient is a 41-year-old female admitted with a reason for visit of Lactic Acidosis. Events since last encounter Nursing tried to bolus feed yesterday, which resulted in the pt vomiting. She had a residual of 125 cc at midnight and 15 cc at 4 AM. They have not yet started to feed her continuous at this time. General: Reports: ROS Unobtainable Objective Physical Examination General Exam: Positive: Alert, No Acute Distress, Other (cachectic) Eye Exam: Positive: Conjunctiva & lids normal Neck Exam: Positive: Supple, Negative: JVD, thyromegaly, Lymphadenopathy Chest Exam: Positive: Normal air movement, Rhonchi (right upper and middle lobe rhonchi), Negative: Rales, Wheezing Heart Exam: Positive: Rate Normal, Regular Rhythm, Normal S1, Normal S2, Negative: Murmurs Telemetry: Positive: No significant arrhythmia Abdomen Exam: Positive: Normal bowel sounds (+ G tube), Soft, Negative: Tenderness, Hepatospenomegaly, Mass Extremity Exam: Negative: Edema Skin Exam: Positive: Nl turgor and temperature Neuro Exam: Positive: Other (coriaform movements of limbs) Assessment /Plan Problems (1) Fever Status: Acute Problem Text: D2 levo 12/31 - remains afebrile, but had a bump in her WBC to 14.7, likely assoc with her vomiting event yesterday 12/30 - Afebrile for more than 24 hours, HR improved. D3 clinda/metro, change to levo for 7D total for G- coverage 12/29 Patient had fever to 101 in the ER, tachycardia, and lactic acidosis. She has a history of multiple aspiration pneumonias. Mild leukocytosis. No acute respiratory distress, however rhonchi on exam. UA negative for infection. Possible aspiration pneumonitis. Currently covering for anaerobes. Clindamycin/ Flagyl day 2. Lactates have normalized. 12/28 BCX - 1 12/28 UCX - x 1 (2) Feeding by G-tube Status: Chronic Problem Specific Plan: Consult Specialist Problem Text: Contingency: advance to J / - Bolus feeds as were being administered at [facility] were resumed yest, pt vomited. restarted at 20 cc/hr at noon c SLOW titration. with 75 cc free water q6h for now, will involve heel stainer for recommendations, this will need to be titrated to suit her needs. PFS has obtained approval for pt to receive continuous feeds at [facility]. 12/30 - G tube replaced, will resume tube feeds, if tolerated well plan for tranfser back to [facility] either today or tomorrow, PFS aware. 12/29 - Catheter replaced in the ER, however may need to discuss with surgery or GI. Nothing by mouth for now, as patient is reported to vomit up what was given to her initially to the G-tube. - Surgery consulted to replace PEG tube; Dr. Powers - Restart tube feeds after PEG was replaced (3) Lactic acidosis Status: Resolved Problem Text: See above (4) [place]'s chorea Status: Chronic Problem Text: Chronic Osorio's michael, spastic quadriplegia, chronic dysphagia requiring G-tube Plan/VTE VTE Prophylaxis Ordered?: Yes (heparin) VS, I&O, 24H, Fishbone Vital Signs/I&O Vital Signs Date Time Temp Pulse Resp B/P (MAP) Pulse Ox O2 Delivery O2 Flow Rate FiO2 12/31/16 06:00 98.5 91 19 144/72 (96) 91 Room Air I&O- Last 24 Hours up to 6 AM 12/31/16 06:00 Intake Total 1725 ml Output Total 0 ml Balance 1725 ml Laboratory Data 24H LABS Laboratory Tests 2 12/31/16 06:25: White Blood Count 14.7H, Red Blood Count 4.80, Hemoglobin 14.4, Hematocrit 42.8 , Mean Corpuscular Volume 89.2, Mean Corpuscular Hemoglobin 30.1, Mean Corpuscular Hemoglobin Concent 33.7, Red Cell Distribution Width 12.8, Platelet Count 217, Neutrophils (%) (Auto) 80.9H, Lymphocytes (%) (Auto) 12.0L, Monocytes (%) (Auto) 4.4, Eosinophils (%) (Auto) 1.4, Basophils (%) (Auto) 0.3, Neutrophils # (Auto) 11.9H, Lymphocytes # (Auto) 1.8, Monocytes # (Auto) 0.6, Eosinophils # (Auto) 0.2, Basophils # (Auto) 0.0, Large Unclassified Cells % 1.1 , Large Unclassified Cells # 0.2, Anion Gap 10, Glomerular Filtration Rate > 60.0, Blood Urea Nitrogen 5L, Creatinine 0.51L, Sodium Level 143, Potassium Level 4.0, Chloride Level 109H, Carbon Dioxide Level 24, Calcium Level 8.4L CBC/BMP Laboratory Tests 12/31/16 06:25 Red Blood Count 4.80, Mean Corpuscular Volume 89.2, Mean Corpuscular Hemoglobin 30.1, Mean Corpuscular Hemoglobin Concent 33.7, Red Cell Distribution Width 12.8 , Neutrophils (%) (Auto) 80.9 H, Lymphocytes (%) (Auto) 12.0 L, Monocytes (%) ( Auto) 4.4, Eosinophils (%) (Auto) 1.4, Basophils (%) (Auto) 0.3, Neutrophils # ( Auto) 11.9 H, Lymphocytes # (Auto) 1.8, Monocytes # (Auto) 0.6, Eosinophils # ( Auto) 0.2, Basophils # (Auto) 0.0, Calcium Level 8.4 L Microbiology Microbiology 12/28/16 Blood Culture - Preliminary, Resulted No Growth after 48 hours. All Specime... 12/28/16 Blood Culture - Preliminary, Resulted No Growth after 48 hours. All Specime... 12/28/16 Influenza Virus Type A Antigen - Final, Complete 12/28/16 Influenza Virus Type B Antigen - Final, Complete 12/28/16 Urine Culture - Final, Complete TAWANDA YA PA-C December 31, 2016 10:27 Richar Wiggins M.D. December 31, 2016 14:57
[2016-12-31 14:00] VITALS: BP 139/92
[2016-12-31] MEDS: clonazePAM 1 MG TAB NG SCH (20:41)
[2016-12-31] MEDS: SCOPOLAMINE 1.5 MG TRANSDERMAL TOP SCH (20:41)
[2016-12-31] MEDS: CETIRIZINE (ZyrTEC) 5 MG/5 ML UDC DYE FREE NG SCH (20:41)
[2016-12-31] MEDS: BACLOFEN 10 MG TAB NG SCH (20:41)
[2016-12-31 22:00] VITALS: BP 130/72
--- NOTE | 2017-01-01 02:17 | REP ---
Clinical: Leukocytosis . Comparison: 11/18/2016 . Technique: PA and lateral. Findings: The mediastinum and cardiac silhouette are normal. The lung huntley are clear and without acute consolidation, effusion, or pneumothorax. The skeletal structures are intact and normal. Impression: 1. No acute cardiopulmonary process. Signed by Aaron Shelton MD 01/01/2017 02:09 A
[2017-01-01] MEDS: LevoFLOXacin 500 MG TABLET PEG SCH (05:32)
[2017-01-01] MEDS: HEPARIN SOD (PORCINE) 5000 UNITS/ML VIAL SC SCH ×3 (05:32→20:49)
[2017-01-01 06:00] VITALS: BP 116/67
[2017-01-01 06:15] LABS: BASO % 0.6 % (0.0-1.0); EOS # 0.1 K/mm3 (0.0-0.50); EOS % 1.7 % (0.0-3.0); LARGE UNSTAINED CELL # 0.1 K/mm3 (0.0-0.4); LARGE UNSTAINED CELL % 1.5 % (0.0-4.0); LYMPH % 25.2 % (24.0-44.0); MEAN CORPUSCULAR HGB CONC 34.2 g/dl (32.0-36.5); MEAN CORPUSCULAR VOLUME 87.8 fl (80.0-96.0); MONO # 0.5 K/mm3 (0.0-0.8); PLATELET COUNT, AUTOMATED 234 k/mm3 (150-450); WHITE BLOOD COUNT 7.6 K/mm3 (4.0-10.0)
[2017-01-01 06:30] LABS: ANION GAP 7 MEQ/L (8-16); BLOOD UREA NITROGEN 5 MG/DL (7-18); CALCIUM LEVEL 8.8 MG/DL (8.5-10.1); CARBON DIOXIDE LEVEL 29 MEQ/L (21-32); CHLORIDE LEVEL 109 MEQ/L (98-107); CREATININE FOR GFR 0.63 MG/DL (0.55-1.02); GLOMERULAR FILTRATION RATE > 60.0 (>58); GLUCOSE, FASTING 107 MG/DL (70-105); POTASSIUM SERUM 3.5 MEQ/L (3.5-5.1); SODIUM LEVEL 145 MEQ/L (136-145)
[2017-01-01] MEDS: PREGABALIN 25 MG CAP (LYRICA) NG SCH ×3 (09:29→20:46)
[2017-01-01] MEDS: FAMOTIDINE 20 MG TAB NG SCH (09:29)
[2017-01-01] MEDS: HALOPERIDOL 2 MG TAB NG SCH ×3 (09:29→20:47)
[2017-01-01] MEDS: FLUTICASONE PROP 0.05% NASAL SPRAY 16 GM (FLONASE) SCH (09:30)
--- NOTE | 2017-01-01 10:31 | IPNPDOC ---
Subjective Date Seen The patient was seen on 01/01/17. Subjective Chief Complaint/HPI The patient is a 41-year-old female admitted with a reason for visit of Lactic Acidosis. Events since last encounter tolerating PEG tube feeds at 30 cc/hour Constitutional: Denies: Chills, Fever Pulmonary: Denies: Dyspnea, Cough Cardiovascular: Denies: Chest Pain, Palpitations Gastrointestinal: Reports: Vomiting (small amount of emesis 2200 12/31. ), Denies: Nausea, Abdominal Pain, Diarrhea, Constipation Objective Physical Examination General Exam: Positive: Alert, Other (cachectic - alert, moaning at times) Eye Exam: Positive: Conjunctiva & lids normal Neck Exam: Positive: Supple, Negative: JVD, thyromegaly, Lymphadenopathy Chest Exam: Positive: Normal air movement, Negative: Rales, Rhonchi, Wheezing Heart Exam: Positive: Rate Normal, Regular Rhythm, Normal S1, Normal S2, Negative: Murmurs Telemetry: Positive: No significant arrhythmia Abdomen Exam: Positive: Normal bowel sounds (+ G tube), Soft, Negative: Tenderness, Hepatospenomegaly, Mass Extremity Exam: Negative: Edema Skin Exam: Positive: Nl turgor and temperature Neuro Exam: Positive: Other (coriaform movements of limbs) Assessment /Plan Problems (1) Fever Status: Acute Problem Text: 01/01 - tmax = 99.2 last 24 hours. D#3 Levoquin for ? aspiration pneumonia. B/C neg. U/c neg. CXR neg x 2. Resp status stable. 12/31 - remains afebrile, but had a bump in her WBC to 14.7, likely assoc with her vomiting event yesterday 12/30 - Afebrile for more than 24 hours, HR improved. D3 clinda/metro, change to levo for 7D total for G- coverage 12/29 Patient had fever to 101 in the ER, tachycardia, and lactic acidosis. She has a history of multiple aspiration pneumonias. Mild leukocytosis. No acute respiratory distress, however rhonchi on exam. UA negative for infection. Possible aspiration pneumonitis. Currently covering for anaerobes. Clindamycin/ Flagyl day 2. Lactates have normalized. 12/28 BCX - 1 12/28 UCX - x 1 (2) Feeding by G-tube Status: Chronic Problem Specific Plan: Consult Specialist Problem Text: 01/01 - Tolerating Continuous feedings at 30 cc/hour. Advance to 40 cc/hour today and monitor residuals. Nutrition consult to determine goal rate ordered. Contingency: advance to J 12/31 - Bolus feeds as were being administered at [facility] were resumed yest, pt vomited. restarted at 20 cc/hr at noon c SLOW titration. with 75 cc free water q6h for now, will involve loading machine tool setter for recommendations, this will need to be titrated to suit her needs. PFS has obtained approval for pt to receive continuous feeds at [facility]. 12/30 - G tube replaced, will resume tube feeds, if tolerated well plan for tranfser back to [facility] either today or tomorrow, PFS aware. 12/29 - Catheter replaced in the ER, however may need to discuss with surgery or GI. Nothing by mouth for now, as patient is reported to vomit up what was given to her initially to the G-tube. - Surgery consulted to replace PEG tube; Dr. 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 VS, I&O, 24H, [facility] Vital Signs/I&O Vital Signs Date Time Temp Pulse Resp B/P (MAP) Pulse Ox O2 Delivery O2 Flow Rate FiO2 01/01/17 06:00 98.1 102 16 116/67 (83) 95 Room Air I&O- Last 24 Hours up to 6 AM 01/01/17 05:59 Intake Total 1216 ml Output Total 0 ml Balance 1216 ml Laboratory Data 24H LABS Laboratory Tests 2 01/01/17 05:48: White Blood Count 7.6, Red Blood Count 4.55, Hemoglobin 13.7, Hematocrit 39.9, Mean Corpuscular Volume 87.8, Mean Corpuscular Hemoglobin 30.0, Mean Corpuscular Hemoglobin Concent 34.2, Red Cell Distribution Width 13.0, Platelet Count 234, Neutrophils (%) (Auto) 65.0, Lymphocytes (%) (Auto) 25.2, Monocytes ( %) (Auto) 6.0H, Eosinophils (%) (Auto) 1.7, Basophils (%) (Auto) 0.6, Neutrophils # (Auto) 5.0, Lymphocytes # (Auto) 2.0, Monocytes # (Auto) 0.5, Eosinophils # (Auto) 0.1, Basophils # (Auto) 0.0, Large Unclassified Cells % 1.5 , Large Unclassified Cells # 0.1, Anion Gap 7L, Glomerular Filtration Rate > 60.0, Blood Urea Nitrogen 5L, Creatinine 0.63, Sodium Level 145, Potassium Level 3.5, Chloride Level 109H, Carbon Dioxide Level 29, Calcium Level 8.8 CBC/BMP Laboratory Tests 01/01/17 05:48 Red Blood Count 4.55, Mean Corpuscular Volume 87.8, Mean Corpuscular Hemoglobin 30.0, Mean Corpuscular Hemoglobin Concent 34.2, Red Cell Distribution Width 13.0 , Neutrophils (%) (Auto) 65.0, Lymphocytes (%) (Auto) 25.2, Monocytes (%) (Auto ) 6.0 H, Eosinophils (%) (Auto) 1.7, Basophils (%) (Auto) 0.6, Neutrophils # ( Auto) 5.0, Lymphocytes # (Auto) 2.0, Monocytes # (Auto) 0.5, Eosinophils # (Auto ) 0.1, Basophils # (Auto) 0.0, Calcium Level 8.8 Microbiology Microbiology 12/28/16 Blood Culture - Preliminary, Resulted No Growth after 72 hours. All specime... 12/28/16 Blood Culture - Preliminary, Resulted No Growth after 72 hours. All specime... 12/28/16 Influenza Virus Type A Antigen - Final, Complete 12/28/16 Influenza Virus Type B Antigen - Final, Complete 12/28/16 Urine Culture - Final, Complete HOLLY TREAN PA-C January 01, 2017 10:31
[2017-01-01 14:00] VITALS: BP 153/82
[2017-01-01] MEDS: CETIRIZINE (ZyrTEC) 5 MG/5 ML UDC DYE FREE NG SCH (20:46)
[2017-01-01] MEDS: clonazePAM 1 MG TAB NG SCH (20:46)
[2017-01-01] MEDS: BACLOFEN 10 MG TAB NG SCH (20:47)
[2017-01-01] MEDS: LORazepam 0.5 MG TAB SL PRN (20:47)
[2017-01-02] MEDS: HEPARIN SOD (PORCINE) 5000 UNITS/ML VIAL SC SCH (05:15)
[2017-01-02] MEDS: LevoFLOXacin 500 MG TABLET PEG SCH (05:15)
[2017-01-02 05:59] LABS: BASO % 0.7 % (0.0-1.0); EOS # 0.3 K/mm3 (0.0-0.50); EOS % 4.8 % (0.0-3.0); LARGE UNSTAINED CELL # 0.2 K/mm3 (0.0-0.4); LARGE UNSTAINED CELL % 3.4 % (0.0-4.0); LYMPH # 2.2 K/mm3 (1.5-4.5); LYMPH % 39.5 % (24.0-44.0); MEAN CORPUSCULAR HEMOGLOBIN 30.6 pg (27.0-33.0); MEAN CORPUSCULAR HGB CONC 33.7 g/dl (32.0-36.5); MEAN CORPUSCULAR VOLUME 90.6 fl (80.0-96.0); MONO # 0.4 K/mm3 (0.0-0.8); MONO % 6.8 % (0.0-5.0); NEUTROPHILS # 2.5 K/mm3 (1.8-7.7); NEUTROPHILS % 44.7 % (36.0-66.0); PLATELET COUNT, AUTOMATED 245 k/mm3 (150-450); RED CELL DISTRIBUTION WIDTH 13.1 % (11.5-14.5); WHITE BLOOD COUNT 5.5 K/mm3 (4.0-10.0)
[2017-01-02 06:00] VITALS: BP 109/79
[2017-01-02 06:11] LABS: ANION GAP 6 MEQ/L (8-16); BLOOD UREA NITROGEN 10 MG/DL (7-18); CALCIUM LEVEL 9.1 MG/DL (8.5-10.1); CARBON DIOXIDE LEVEL 34 MEQ/L (21-32); CHLORIDE LEVEL 108 MEQ/L (98-107); CREATININE FOR GFR 0.65 MG/DL (0.55-1.02); GLOMERULAR FILTRATION RATE > 60.0 (>58); GLUCOSE, FASTING 91 MG/DL (70-105); SODIUM LEVEL 148 MEQ/L (136-145)
[2017-01-02] MEDS: FAMOTIDINE 20 MG TAB NG SCH (09:34)
[2017-01-02] MEDS: PREGABALIN 25 MG CAP (LYRICA) NG SCH (09:34)
[2017-01-02] MEDS: HALOPERIDOL 2 MG TAB NG SCH (09:34)
[2017-01-02] MEDS: FLUTICASONE PROP 0.05% NASAL SPRAY 16 GM (FLONASE) SCH (09:35)
[2017-01-02] MEDS ORDERED: LEVA500T PEG (10:10)
--- NOTE | 2017-01-02 15:18 | DSES ---
DATE OF ADMISSION: 12/28/2016 DATE OF DISCHARGE: 01/02/2017 PRIMARY CARE PROVIDER: Dr. Ayden Matson ATTENDING PHYSICIAN: Dr. Richar Wiggins HISTORY: This is a 41-year-old female patient resident at [facility] who was transferred to [facility] Emergency Room due to a problem with her gastrostomy (G) tube. She has a history of [place]obr[place]'s chorea, spastic quadriplegia and dysphagia, multiple episodes of aspiration pneumonia. She discontinued her G-tube. A Dangelo catheter was temporarily placed, although the patient was tachycardic and feverish in the emergency room and therefore, her admission was arranged. She was admitted to the hospital for fluid resuscitation and empiric antibiotics for coverage of aspiration pneumonia. During her hospitalization, she did remain medically stable. She did have her G-tube replaced by general surgery. She was placed on clindamycin and Flagyl initially. This was changed to oral Levaquin. She has remained afebrile despite a bump in her white blood cell count. She does clinically appear to be improving and her white blood cell count did normalize. After replacement of the G-tube, we re-attempted bolus feeds. However, the patient did not tolerate this and therefore, she has been transitioned to continuous feeds. Patient and family services has been involved with making sure that this will be acceptable upon her transfer back over to [facility]. She has also been seen and evaluated by nutritional services in the hospital with a recommendation of a goal feeding rate of 45 mL an hour to provide 1620 calories, 68 grams of protein, 108% RDI, 820 mL of water needed, free water needed is 800 mL daily for 1 mL of water per calorie. She currently is at her goal feeding rate at this time. DISCHARGE DIAGNOSES: Include: 1. Aspiration pneumonia. 2. Feeding by gastrostomy (G) tube. 3. Lactic acidosis. 4. Niobrara's chorea. DISCHARGE MEDICATIONS: Include: - Levaquin 500 mg daily times seven additional days - acetaminophen 650 via tube every four hours as needed for pain or fever or per rectum - hydrocodone one tablet three times a day - albuterol sulfate 2.5 mg inhaled four times a day as needed for shortness of breath or wheezing - baclofen 10 mg twice a day - baclofen 20 mg before bed - BZ one tablet daily - bisacodyl 10 mg per rectum daily as needed for constipation - cetirizine 10 mg before bed - clonazepam 1 mg before bed - enema daily as needed for constipation - Pepcid 20 mg daily - Flonase two sprays intranasally daily - haloperidol 2 mg three times a day - ibuprofen 400 mg every six hours as needed for temperature greater than 101 - lorazepam 0.5 mg sublingually as needed for agitation - milk of magnesia 30 mL daily as needed for constipation - Lyrica 25 mg three times a day - Eliza-Bid probiotic twice a day - scopolamine 1.5 mg topically every 72 hours DISCHARGE PLAN: Followup with Dr. Matson at [facility] Keep home. Activity should be as tolerated. Diet is as stated above.
== END 2017-01-02 13:28 | DRG 177 ==
LOC: M ED 11:03 → M ED INP 16:47 → M MSPAV 18:03
PROVIDERS: ADMIT Family Medicine; ATTEND Family Medicine
PROC: 0D2DXUZ Change Feeding Device in Lower Intestinal Tract, External Approach (ICD-10-PCS; principal; 2016-12-29)
DX: J69.0 Pneumonitis due to inhalation of food and vomit (principal); G80.0 Spastic quadriplegic cerebral palsy; G10 Huntington's disease; E87.2 Acidosis; K94.23 Gastrostomy malfunction; E87.6 Hypokalemia; R00.0 Tachycardia, unspecified; E86.0 Dehydration; R13.10 Dysphagia, unspecified; Z88.0 Allergy status to penicillin; Z79.899 Other long term (current) drug therapy

== ENCOUNTER → 2017-01-06 | Outpatient (REF) | payer MEDICARE, MEDICAID ==
[~2017-01-06] MED LIST changes: +IPRASOL4 INH; +LEVA500T PEG; +LEVO1SOL3 NG; +LORA-376 SL
[2017-01-06 08:56] LABS: ALBUMIN 3.3 GM/DL (3.2-5.2); ALBUMIN/GLOBULIN RATIO 0.89 (1.00-1.93); ALKALINE PHOSPHATASE 72 U/L (45-117); ALT/SGPT 71 U/L (12-78); ANION GAP 6 MEQ/L (8-16); AST/SGOT 42 U/L (15-37); BILIRUBIN,TOTAL 0.7 MG/DL (0.2-1.0); BLOOD UREA NITROGEN 17 MG/DL (7-18); CALCIUM LEVEL 9.3 MG/DL (8.5-10.1); CARBON DIOXIDE LEVEL 28 MEQ/L (21-32); CHLORIDE LEVEL 103 MEQ/L (98-107); CREATININE FOR GFR 0.59 MG/DL (0.55-1.02); GLOMERULAR FILTRATION RATE > 60.0 (>58); GLUCOSE, FASTING 77 MG/DL (70-105); POTASSIUM SERUM 5.1 MEQ/L (3.5-5.1); SODIUM LEVEL 137 MEQ/L (136-145)
== END ==
LOC: SKLAB2 07:00
PROVIDERS: ATTEND Family Medicine
DX: G10 Huntington's disease (principal)

== ENCOUNTER → 2017-01-11 | Outpatient (CLI) | payer MEDICARE, MEDICAID ==
[~2017-01-11] MED LIST changes: +GASTROGRAFIN SOLUTION 30ML (Q9963) As Ordered ONE; +GUAI10EL PO; +IBUP60TA NG; +LEVA500T GT; +PRED5ELUD PEG; +TYLE325T5 NG; +VITMTA NG
--- NOTE | 2017-01-11 11:57 | REP ---
KUB ABDOMEN AND PELVIS TO CHECK GASTROSTOMY TUBE: Gastrografin was injected into the gastrostomy tube, approximately 50cc. The contrast enters the stomach and proximal duodenum. The gastrostomy tube is in good position. No leakage of contrast is seen. Bowel gas pattern is normal. Signed by Isidro Gan MD 01/11/2017 07:48 P
== END ==
LOC: M RAD 10:03
PROVIDERS: ATTEND Family Medicine
DX: Z93.1 Gastrostomy status (principal)
CPT/HCPCS: 74000; Q9963

== ENCOUNTER 2017-01-12 13:50 | Emergency (ER) | payer MEDICARE, MEDICAID ==
[~2017-01-12] VITALS: Ht 154.9 cm; Wt 50.3 kg
[~2017-01-12 13:50] MED LIST changes: -GASTROGRAFIN SOLUTION 30ML (Q9963) As Ordered ONE; -GUAI10EL PO; -IBUP60TA NG; -LEVA500T GT; -PRED5ELUD PEG; -TYLE325T5 NG; -VITMTA NG
[2017-01-12] MEDS ORDERED: NS 1,000 ML IV SCH (14:06)
[2017-01-12] MEDS ORDERED: ONDANSETRON 4MG/2ML VIAL (J2405) IV ONE (14:40)
[2017-01-12 16:07] LABS: BASO % 0.2 % (0.0-1.0); EOS % 0.2 % (0.0-3.0); INR 0.99; LARGE UNSTAINED CELL # 0.2 K/mm3 (0.0-0.4); LARGE UNSTAINED CELL % 1.3 % (0.0-4.0); LYMPH # 1.4 K/mm3 (1.5-4.5); LYMPH % 9.8 % (24.0-44.0); MEAN CORPUSCULAR HEMOGLOBIN 29.3 pg (27.0-33.0); MEAN CORPUSCULAR HGB CONC 33.1 g/dl (32.0-36.5); MEAN CORPUSCULAR VOLUME 88.3 fl (80.0-96.0); MONO # 0.6 K/mm3 (0.0-0.8); MONO % 4.7 % (0.0-5.0); NEUTROPHILS # 10.5 K/mm3 (1.8-7.7); NEUTROPHILS % 83.9 % (36.0-66.0); PLATELET COUNT, AUTOMATED 192 k/mm3 (150-450); RED CELL DISTRIBUTION WIDTH 13.3 % (11.5-14.5); WHITE BLOOD COUNT 12.5 K/mm3 (4.0-10.0)
[2017-01-12 16:17] LABS: ALBUMIN 3.6 GM/DL (3.2-5.2); ALBUMIN/GLOBULIN RATIO 0.97 (1.00-1.93); ALKALINE PHOSPHATASE 78 U/L (45-117); ALT/SGPT 33 U/L (12-78); ANION GAP 6 MEQ/L (8-16); AST/SGOT 11 U/L (15-37); BILIRUBIN,DIRECT 0.2 MG/DL (0.0-0.2); BLOOD UREA NITROGEN 16 MG/DL (7-18); CARBON DIOXIDE LEVEL 30 MEQ/L (21-32); CHLORIDE LEVEL 107 MEQ/L (98-107); CREATININE FOR GFR 0.55 MG/DL (0.55-1.02); GLOMERULAR FILTRATION RATE > 60.0 (>58); GLUCOSE, FASTING 103 MG/DL (70-105); POTASSIUM SERUM 3.8 MEQ/L (3.5-5.1); SODIUM LEVEL 143 MEQ/L (136-145); TOTAL PROTEIN 7.3 GM/DL (6.4-8.2)
[2017-01-12 17:06] VITALS: BP 190/105
--- NOTE | 2017-01-13 07:31 | REP ---
PORTABLE CHEST: AP portable view of the chest is performed and compared to a prior study 12/31/2016. There is no acute infiltrate. The heart is normal in size and the mediastinal silhouette is unremarkable. IMPRESSION: No acute infiltrate. Signed by Isidro Gan MD 01/13/2017 12:17 P
--- NOTE | 2017-01-13 07:58 | REP ---
CT CHEST WITHOUT CONTRAST: CT chest is performed without IV contrast. Sagittal and coronal reconstruction images are performed. In the right lower lobe there is some minor streaky infiltrate or atelectasis. This has significantly improved since the prior CT of 09/27/2016. No definite infiltrate is seen in the left lung. No gross adenopathy is seen in the chest. The heart is normal in size. There is no pleural or pericardial effusion. The visualized upper abdominal structures are grossly unremarkable. There is a gastrostomy tube present. IMPRESSION: Minimal right lower lobe infiltrate. This has significantly improved when compared to the prior CT exam of 09/27/2016. Signed by Isidro Gan MD 01/13/2017 12:20 P
== END 2017-01-12 18:46 | disposition home or self-care (01) ==
LOC: EDBD 13:50 → M ED 14:04
DX: R91.8 Other nonspecific abnormal finding of lung field (principal); R05 Cough; G10 Huntington's disease; J45.909 Unspecified asthma, uncomplicated; E46 Unspecified protein-calorie malnutrition; M54.9 Dorsalgia, unspecified; Z93.1 Gastrostomy status; Z79.899 Other long term (current) drug therapy; Z88.0 Allergy status to penicillin
CPT/HCPCS: 36415; 71010; 71250; 74000; 80048; 80076; 81001; 83690; 85025; 85610; 87086; 94760; 96374; 99284; J2405; Q9963

== ENCOUNTER 2017-02-10 01:41 | Inpatient (IN) | payer MEDICARE, MEDICAID ==
[~2017-02-10] VITALS: Ht 154.9 cm; Wt 50.0 kg
[2017-02-10] MEDS ORDERED: NS 500 ML IV ONE ×2 (03:00→03:45)
[2017-02-10 03:11] LABS: BASO % 0.3 % (0.0-1.0); EOS % 0.1 % (0.0-3.0); LARGE UNSTAINED CELL # 0.2 K/mm3 (0.0-0.4); LYMPH # 0.7 K/mm3 (1.5-4.5); MEAN CORPUSCULAR HEMOGLOBIN 30.5 pg (27.0-33.0); MEAN CORPUSCULAR VOLUME 89.7 fl (80.0-96.0); MONO # 0.9 K/mm3 (0.0-0.8); MONO % 5.4 % (0.0-5.0); NEUTROPHILS # 15.7 K/mm3 (1.8-7.7); NEUTROPHILS % 90.2 % (36.0-66.0); PLATELET COUNT, AUTOMATED 192 k/mm3 (150-450); RED CELL DISTRIBUTION WIDTH 13.2 % (11.5-14.5); WHITE BLOOD COUNT 17.4 K/mm3 (4.0-10.0)
[2017-02-10 03:19] LABS: ANION GAP 5 MEQ/L (8-16); BLOOD UREA NITROGEN 23 MG/DL (7-18); CARBON DIOXIDE LEVEL 31 MEQ/L (21-32); CHLORIDE LEVEL 108 MEQ/L (98-107); CREATININE FOR GFR 0.63 MG/DL (0.55-1.02); GLOMERULAR FILTRATION RATE > 60.0 (>58); GLUCOSE, FASTING 136 MG/DL (70-105); POTASSIUM SERUM 3.8 MEQ/L (3.5-5.1); SODIUM LEVEL 144 MEQ/L (136-145)
[2017-02-10 03:53] LABS: ABG BASE EXCESS -1.5 (-2.0-2.0); ABG HCO3 23.7 MEQ/L (22.0-26.0); ABG PARTIAL PRESSURE CO2 41.9 mmHg (35.0-45.0); ABG PARTIAL PRESSURE O2 127.6 mmHg (75.0-100.0); ABG STANDARD HCO3 23.2 MEQ/L (22.0-26.0); ABG pH (ARTERIAL) 7.371 UNITS (7.350-7.450)
[2017-02-10] MEDS ORDERED: ISOVUE-370 76% 100ML VIAL (Q9967) As Ordered ONE (04:23)
[2017-02-10] MEDS ORDERED: FUROSEMIDE 100 MG/10 ML VIAL (J1940) IV ONE (05:00)
--- NOTE | 2017-02-10 05:09 | REP ---
Clinical: Acute chest pain dyspnea. Comparison: Chest CT dated 01/12/2017. Technique: Axial contrast enhanced images from the thoracic inlet to the upper abdomen using 100 ml Isovue 370 intravenous contrast material with coronal and sagittal re-formations. Findings: Respiratory motion artifact limits evaluation. Satisfactory enhancement of the pulmonary vasculature is achieved and no obvious filling defects are identified to suggest pulmonary embolus. Thoracic aorta is normal caliber without aneurysm or dissection. Heart and pericardium are normal. Bilateral lung huntley demonstrates subtle increased perihilar interstitial markings and very mild perihilar ground-glass opacities extending into the lower lobes suggesting bronchitis. No focal consolidation, effusion/pleural reaction or pneumothorax. No pulmonary nodule or mass lesion appreciated. Tracheobronchial tree is patent. No significant adenopathy. Impression: No evidence for pulmonary embolus. Mild perihilar and basilar bronchitis type pattern suggested. No focal consolidation or effusion. Signed by Aaron Shelton MD 02/10/2017 05:01 A
[2017-02-10] MEDS ORDERED: DULC10SU2 PR (06:11)
[2017-02-10] MEDS ORDERED: VITMTA NG (06:12)
[2017-02-10] MEDS ORDERED: TRAN1.5D2 TOP (06:12)
[2017-02-10] MEDS ORDERED: MILKSUS NG (06:12)
[2017-02-10] MEDS ORDERED: TYLE325T5 NG (06:12)
[2017-02-10] MEDS ORDERED: IPRASOL4 INH (06:12)
[2017-02-10] MEDS ORDERED: IBUP60TA NG (06:12)
--- NOTE | 2017-02-10 06:41 | HPEPDOC ---
General Date of Admission Primary Care Physician: Chaz Matson M.D. Attending Physician: Chaz Matson M.D. Chief Complaint The patient is a 42-year-old female admitted with a reason for visit of SOB. 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 History of aspiration pneumonia coming from custodial for generalized weakness and hypoxia. Patient has PEG tube in place. She was immediately placed on nonrebreather. Patient was tachypneic, presented and able to participate in history and physical exam records were reviewed from the old chart Home Medications Scheduled (Flonase Allergy Relief) 50 Mcg/Act Spr, 2 SPRAYS NA DAILY, (Reported) (Eliza-Bid Probiotic) 1 Tab Tab, 1 TAB NG BID, (Reported) (Bee Zee) 1 Tab Tab, 1 TAB NG DAILY, (Reported) Acetaminophen/Hydrocodone (Hydrocodone/Acetaminophen 5-325 mg) 1 Tab Tab, 1 TAB NG TID, (Reported) Albuterol/Ipratropium (Ipratropium Wharton/Albut 0.5-2.5 (3) mg/3Ml) 1 Jyothi Jyothi, 1 JYOTHI INH QID, (Reported) Baclofen (Baclofen) 10 Mg Tab, 10 MG NG BID, (Reported) 0900 & 1400 Baclofen (Baclofen) 20 Mg Tab, 20 MG NG QHS, (Reported) Cetirizine Hcl (Cetirizine HCl) 5 Mg/5 Ml Syp, 10 MG NG QHS, (Reported) Clonazepam (Clonazepam) 1 Mg Tab, 1 MG NG QHS, (Reported) Famotidine (Pepcid) 20 Mg Tab, 20 MG NG DAILY, (Reported) Haloperidol (Haloperidol) 2 Mg Tab, 2 MG NG TID, (Reported) 0900, 1400, 2100 Pregabalin (Lyrica) 25 Mg Cap, 25 MG NG TID, (Reported) Scopolamine (Transderm-Scop) 1.5 Mg Dis, 1.5 MG TOP Q72H, (Reported) @1400 Scheduled PRN Acetaminophen (Tylenol) 325 Mg Tab, 650 MG NG Q4H PRN for PAIN / FEVER, ( Reported) Bisacodyl (Dulcolax) 10 Mg Sup, 10 MG DC DAILY PRN for CONSTIPATION, (Reported) Ibuprofen (Ibuprofen) 600 Mg Tab, 600 MG NG Q6H PRN for FEVER, (Reported) Milk Of Magnesia (Milk of Magnesia) 1,200 Mg/15 Ml Amy, 30 ML NG DAILY PRN for CONSTIPATION, (Reported) Allergies Coded Allergies: Penicillins (Unverified Allergy, Unknown, 04/19/16) Past Medical History Medical History Osorio chorea Surgical History PEG tube placement Family History Significant Family History: No pertinent family hx Social History * Smoker: Denies Alcohol: Denies Drugs: denies Recent Travel/Sick Contacts: Denies: Recent travel, Recent sick contacts Review of Symptoms Other systems Unable to obtain due to Osorio chorea, mental impairment Physical Examination General Exam: Positive: Mild Distress Eye Exam: Positive: PERRLA, Conjunctiva & lids normal, Negative: Sclera icteric ENT Exam: Positive: Atraumatic, Mucous membr. moist/pink Neck Exam: Positive: Supple, Negative: JVD, thyromegaly Chest Exam: Positive: Rhonchi, Diminished Heart Exam: Positive: Rate Normal, Tachycardic, Normal S1, Normal S2, Negative: Murmurs, Rubs Telemetry: Positive: No significant arrhythmia Abdomen Exam: Positive: Normal bowel sounds, Soft, Negative: Tenderness, Hepatospenomegaly Extremity Exam: Positive: Normal pulses, Negative: Clubbing, Cyanosis, Edema Skin Exam: Positive: Nl turgor and temperature, Negative: Breakdown, Lesion Neuro Exam: Positive: Other (nonverbal, not following commands) Vital Signs Vital Signs Date Time Temp Pulse Resp B/P (MAP) Pulse Ox O2 Delivery O2 Flow Rate FiO2 02/10/17 06:03 114 91 02/10/17 04:33 112/55 (74) 02/10/17 02:10 Non-Rebreather 02/10/17 01:43 99.0 32 Laboratory Data Labs 24H Laboratory Tests 2 02/10/17 02:35: White Blood Count 17.4H, Red Blood Count 4.84, Hemoglobin 14.8, Hematocrit 43.5 , Mean Corpuscular Volume 89.7, Mean Corpuscular Hemoglobin 30.5, Mean Corpuscular Hemoglobin Concent 34.0, Red Cell Distribution Width 13.2, Platelet Count 192, Neutrophils (%) (Auto) 90.2H, Lymphocytes (%) (Auto) 3.0L, Monocytes (%) (Auto) 5.4H, Eosinophils (%) (Auto) 0.1, Basophils (%) (Auto) 0.3, Neutrophils # (Auto) 15.7H, Lymphocytes # (Auto) 0.7L, Monocytes # (Auto) 0.9H, Eosinophils # (Auto) 0.0, Basophils # (Auto) 0.0, Large Unclassified Cells % 1.0 , Large Unclassified Cells # 0.2, Anion Gap 5L, Glomerular Filtration Rate > 60.0, Blood Urea Nitrogen 23H, Creatinine 0.63, Sodium Level 144, Potassium Level 3.8, Chloride Level 108H, Carbon Dioxide Level 31, Calcium Level 10.0 02/10/17 02:36: Lactic Acid Level 1.4 02/10/17 03:13: Urine Appearance HAZY, Urine Color YOAV, Urine pH 6.0, Urine Specific [place] 1.031, Urine Protein 1+H, Urine Glucose (UA) 1+H, Urine Ketones 1+H, Urine Urobilinogen 0.2, Urine Bilirubin NEGATIVE, Urine Leukocyte Esterase NEGATIVE, Urine Blood NEGATIVE, Urine Nitrite NEGATIVE, Urine WBC (Auto) 3, Urine RBC ( Auto) 7H, Urine Hyaline Casts (Auto) 0, Urine Bacteria (Auto) NEGATIVE, Urine Squamous Epithelial Cells 1, Urine Mucus (Auto) MODERATE, Urine Sperm (Auto) 02/10/17 03:48: Blood Gas Bicarbonate Standard 23.2, Arterial Blood pH 7.371, Arterial Blood Partial Pressure CO2 41.9, Arterial Blood Partial Pressure O2 127.6H, Arterial Blood Total CO2 25.0, Arterial Blood HCO3 23.7, Arterial Blood Base Excess -1.5 , Arterial Blood Oxygen Saturation 98.6 CBC/BMP Laboratory Tests 02/10/17 02:35 Red Blood Count 4.84, Mean Corpuscular Volume 89.7, Mean Corpuscular Hemoglobin 30.5, Mean Corpuscular Hemoglobin Concent 34.0, Red Cell Distribution Width 13.2 , Neutrophils (%) (Auto) 90.2 H, Lymphocytes (%) (Auto) 3.0 L, Monocytes (%) ( Auto) 5.4 H, Eosinophils (%) (Auto) 0.1, Basophils (%) (Auto) 0.3, Neutrophils # (Auto) 15.7 H, Lymphocytes # (Auto) 0.7 L, Monocytes # (Auto) 0.9 H, Eosinophils # (Auto) 0.0, Basophils # (Auto) 0.0, Calcium Level 10.0 Microbiology Microbiology 02/10/17 Blood Culture, Received Pending 02/10/17 Urine Culture, Received Pending Assessment/Plan 42-year-old female for history of Crook chorea presented with a custodial for aspiration pneumonia Problems (1) Aspiration pneumonia Onset Date: Unknown Status: Acute Problem Text: started IV vancomycin and Zosyn. Continue with aspiration precautions (2) Crook chorea Status: Chronic Problem Text: Continue with the Klonopin, Haldol and Lyrica Plan / VTE VTE Prophylaxis Ordered?: Yes Plan / Urinary Catheter Reason for insertion/continuin: Critical Pt monitoring Plan IVF: Initiate Diet: Continue Current Activity: Continue Current Anticipated Discharge: Custodial AARON SAENZ MD Feb 10, 2017 06:41
[2017-02-10] MEDS ORDERED: MOM 30ML SUSPENSION UDC NG PRN (06:45)
[2017-02-10] MEDS ORDERED: BISACODYL 10 MG SUPP PR PRN (06:45)
[2017-02-10] MEDS ORDERED: VANCOMYCIN HCL 1,000 MG, VIAL MATE ADAPTER 1 EACH in D5W 250 ML IV ONE (06:45)
[2017-02-10] MEDS: IPRATROPIUM 0.5MG/ALBUTEROL 2.5MG INH SOL UD 3ML (DUONEB)(J7620) INH SCH ×3 (08:27→20:33)
--- NOTE | 2017-02-10 08:51 | REP ---
PORTABLE CHEST, SINGLE VIEW: There is no evidence of acute infiltrate. No pleural effusion is seen. The heart is normal in size. The mediastinal silhouette is unremarkable. The visualized osseous structures are intact. IMPRESSION: No acute pulmonary disease. Signed by Isidro Gan MD 02/10/2017 05:09 P
[2017-02-10] MEDS: PREGABALIN 25 MG CAP (LYRICA) NG SCH ×3 (09:00→21:01)
[2017-02-10] MEDS: HALOPERIDOL 2 MG TAB NG SCH ×3 (09:00→21:02)
--- NOTE | 2017-02-10 11:36 | IPNPDOC ---
Subjective Date Seen The patient was seen on 02/10/17. Subjective Chief Complaint/HPI The patient is a 42-year-old female admitted with a reason for visit of Hcap ( Healthcare-Associated Pneumonia). General: Reports: ROS Unobtainable Constitutional: Denies: Fever, Night Sweats Skin: Denies: Rash, Breakdown Pulmonary: Reports: Dyspnea, Cough Gastrointestinal: Denies: Vomiting Neurological: Reports: Weakness Objective Physical Examination General Exam: Positive: Mild Distress Eye Exam: Positive: PERRLA, Conjunctiva & lids normal, Negative: Sclera icteric ENT Exam: Positive: Atraumatic, Mucous membr. moist/pink Neck Exam: Positive: Supple, Negative: JVD, thyromegaly Chest Exam: Positive: Rhonchi, Diminished Heart Exam: Positive: Rate Normal, Tachycardic, Normal S1, Normal S2, Negative: Murmurs, Rubs Telemetry: Positive: No significant arrhythmia Abdomen Exam: Positive: Normal bowel sounds, Soft, Negative: Tenderness, Hepatospenomegaly Extremity Exam: Positive: Normal pulses, Negative: Clubbing, Cyanosis, Edema Skin Exam: Positive: Nl turgor and temperature, Negative: Breakdown, Lesion Neuro Exam: Positive: Other (nonverbal, not following commands) Assessment /Plan Problems (1) Acute respiratory failure with hypoxia Status: Acute Problem Text: -noted to have bronchitis on CT chest. Start Solumedrol 60 mg IV q 8 hrs. Chest PT ordered. Wean oxygen to keep saturations above 90%. Currently on non-rebeather with sats in the 98% range. (2) Aspiration pneumonia Onset Date: Unknown Status: Acute Problem Text: started IV vancomycin and Zosyn. Continue with aspiration precautions (3) [place] chorea Status: Chronic Problem Text: Will obtain tube feed schedule from [facility] to continue for nutrition. Continue with the Klonopin, Haldol and Lyrica Plan/VTE VTE Prophylaxis Ordered?: Yes (Lovenox) Plan/Urinary Catheter Reason for insertion/continuin: Critical Pt monitoring Plan Diet: Continue Current Activity: Continue Current Anticipated Discharge: Residential VS, I&O, 24H, Fishbone Vital Signs/I&O Vital Signs Date Time Temp Pulse Resp B/P (MAP) Pulse Ox O2 Delivery O2 Flow Rate FiO2 02/10/17 11:28 97.5 02/10/17 10:09 114 20 98 02/10/17 02:10 Non-Rebreather I&O- Last 24 Hours up to 6 AM 02/10/17 06:00 Output Total 800 ml Balance -800 ml Laboratory Data 24H LABS Laboratory Tests 2 02/10/17 02:35: White Blood Count 17.4H, Red Blood Count 4.84, Hemoglobin 14.8, Hematocrit 43.5 , Mean Corpuscular Volume 89.7, Mean Corpuscular Hemoglobin 30.5, Mean Corpuscular Hemoglobin Concent 34.0, Red Cell Distribution Width 13.2, Platelet Count 192, Neutrophils (%) (Auto) 90.2H, Lymphocytes (%) (Auto) 3.0L, Monocytes (%) (Auto) 5.4H, Eosinophils (%) (Auto) 0.1, Basophils (%) (Auto) 0.3, Neutrophils # (Auto) 15.7H, Lymphocytes # (Auto) 0.7L, Monocytes # (Auto) 0.9H, Eosinophils # (Auto) 0.0, Basophils # (Auto) 0.0, Large Unclassified Cells % 1.0 , Large Unclassified Cells # 0.2, Anion Gap 5L, Glomerular Filtration Rate > 60.0, Blood Urea Nitrogen 23H, Creatinine 0.63, Sodium Level 144, Potassium Level 3.8, Chloride Level 108H, Carbon Dioxide Level 31, Calcium Level 10.0 02/10/17 02:36: Lactic Acid Level 1.4 02/10/17 03:13: Urine Appearance HAZY, Urine Color YOAV, Urine pH 6.0, Urine Specific [place] 1.031, Urine Protein 1+H, Urine Glucose (UA) 1+H, Urine Ketones 1+H, Urine Urobilinogen 0.2, Urine Bilirubin NEGATIVE, Urine Leukocyte Esterase NEGATIVE, Urine Blood NEGATIVE, Urine Nitrite NEGATIVE, Urine WBC (Auto) 3, Urine RBC ( Auto) 7H, Urine Hyaline Casts (Auto) 0, Urine Bacteria (Auto) NEGATIVE, Urine Squamous Epithelial Cells 1, Urine Mucus (Auto) MODERATE, Urine Sperm (Auto) 02/10/17 03:48: Blood Gas Bicarbonate Standard 23.2, Arterial Blood pH 7.371, Arterial Blood Partial Pressure CO2 41.9, Arterial Blood Partial Pressure O2 127.6H, Arterial Blood Total CO2 25.0, Arterial Blood HCO3 23.7, Arterial Blood Base Excess -1.5 , Arterial Blood Oxygen Saturation 98.6 02/10/17 06:27: CBC/BMP Laboratory Tests 02/10/17 02:35 Red Blood Count 4.84, Mean Corpuscular Volume 89.7, Mean Corpuscular Hemoglobin 30.5, Mean Corpuscular Hemoglobin Concent 34.0, Red Cell Distribution Width 13.2 , Neutrophils (%) (Auto) 90.2 H, Lymphocytes (%) (Auto) 3.0 L, Monocytes (%) ( Auto) 5.4 H, Eosinophils (%) (Auto) 0.1, Basophils (%) (Auto) 0.3, Neutrophils # (Auto) 15.7 H, Lymphocytes # (Auto) 0.7 L, Monocytes # (Auto) 0.9 H, Eosinophils # (Auto) 0.0, Basophils # (Auto) 0.0, Calcium Level 10.0 Microbiology Microbiology 02/10/17 Blood Culture, Received Pending 02/10/17 Blood Culture, Received Pending 02/10/17 Influenza Virus Type A Antigen - Final, Complete 02/10/17 Influenza Virus Type B Antigen - Final, Complete 02/10/17 Urine Culture, Received Pending Chloé Valenzuela [facility] Feb 10, 2017 11:36
[2017-02-10] MEDS: methylPREDNISolone INJ 125 MG/2 ML VIAL (J2930) IV SCH ×2 (12:38→21:01)
[2017-02-10] MEDS: ENOXAPARIN 30 MG/0.3 ML SYR (J1650) SC SCH (12:42)
[2017-02-10] MEDS: FAMOTIDINE 20 MG TAB NG SCH (12:46)
[2017-02-10 13:10] VITALS: BP 131/78
[2017-02-10] MEDS: FLUTICASONE PROP 0.05% NASAL SPRAY 16 GM (FLONASE) SCH (14:28)
[2017-02-10] MEDS: NS 1,000 ML IV SCH (14:29)
[2017-02-10] MEDS: SCOPOLAMINE 1.5 MG TRANSDERMAL TOP SCH (14:29)
[2017-02-10 16:00] VITALS: BP 138/68
[2017-02-10] MEDS: VANCOMYCIN HCL 1,000 MG, VIAL MATE ADAPTER 1 EACH in D5W 250 ML IV SCH (17:29)
[2017-02-10] MEDS ORDERED: KETOROLAC 30 MG/ML VIAL (J1885) IV SCH (19:00)
[2017-02-10 19:20] VITALS: BP 115/60
[2017-02-10] MEDS: clonazePAM 1 MG TAB NG SCH (21:00)
[2017-02-10] MEDS: BACLOFEN 10 MG TAB NG SCH (21:02)
[2017-02-11 00:56] VITALS: BP 111/71
[2017-02-11] MEDS: NS 1,000 ML IV SCH ×3 (01:29→21:00)
[2017-02-11] MEDS: VANCOMYCIN HCL 1,000 MG, VIAL MATE ADAPTER 1 EACH in D5W 250 ML IV SCH (03:27)
[2017-02-11] MEDS: methylPREDNISolone INJ 125 MG/2 ML VIAL (J2930) IV SCH ×3 (03:27→22:07)
[2017-02-11 04:04] VITALS: BP 107/55
[2017-02-11 04:38] LABS: DIFF SLIDE NUMBER 68; MEAN CORPUSCULAR HEMOGLOBIN 31.5 pg (27.0-33.0); MEAN CORPUSCULAR HGB CONC 34.2 g/dl (32.0-36.5); MEAN CORPUSCULAR VOLUME 92.2 fl (80.0-96.0); PLATELET COUNT, AUTOMATED 163 k/mm3 (150-450); RED CELL DISTRIBUTION WIDTH 13.3 % (11.5-14.5); WHITE BLOOD COUNT 12.8 K/mm3 (4.0-10.0)
[2017-02-11 04:59] LABS: ALBUMIN 2.9 GM/DL (3.2-5.2); ALBUMIN/GLOBULIN RATIO 0.85 (1.00-1.93); ALKALINE PHOSPHATASE 72 U/L (45-117); ALT/SGPT 24 U/L (12-78); ANION GAP 6 MEQ/L (8-16); AST/SGOT 10 U/L (15-37); BLOOD UREA NITROGEN 24 MG/DL (7-18); CARBON DIOXIDE LEVEL 26 MEQ/L (21-32); CHLORIDE LEVEL 109 MEQ/L (98-107); CREATININE FOR GFR 0.61 MG/DL (0.55-1.02); GLOMERULAR FILTRATION RATE > 60.0 (>58); GLUCOSE, FASTING 185 MG/DL (70-105); SODIUM LEVEL 141 MEQ/L (136-145); TOTAL PROTEIN 6.3 GM/DL (6.4-8.2)
[2017-02-11 05:16] LABS: CALCIUM LEVEL 8.2 MG/DL (8.5-10.1)
[2017-02-11 05:34] LABS: EOSINOPHILS 1 % (0-5)
[2017-02-11] MEDS: IPRATROPIUM 0.5MG/ALBUTEROL 2.5MG INH SOL UD 3ML (DUONEB)(J7620) INH SCH ×4 (07:16→21:26)
[2017-02-11 07:40] VITALS: BP 103/49
[2017-02-11] MEDS ORDERED: AZITHROMYCIN SUSP 200MG/5ML 30ML BOTTLE (FOR INPATIENT ORDERS) GT SCH (09:00)
[2017-02-11] MEDS: ENOXAPARIN 30 MG/0.3 ML SYR (J1650) SC SCH (09:13)
[2017-02-11] MEDS: HALOPERIDOL 2 MG TAB NG SCH ×3 (09:13→20:16)
[2017-02-11] MEDS: FAMOTIDINE 20 MG TAB NG SCH (09:13)
[2017-02-11] MEDS: FLUTICASONE PROP 0.05% NASAL SPRAY 16 GM (FLONASE) SCH (09:13)
[2017-02-11] MEDS: PREGABALIN 25 MG CAP (LYRICA) NG SCH ×3 (09:19→20:16)
--- NOTE | 2017-02-11 09:55 | IPNPDOC ---
Subjective Date Seen The patient was seen on 02/11/17. Subjective Chief Complaint/HPI The patient is a 42-year-old female admitted with a reason for visit of Hcap ( Healthcare-Associated Pneumonia). Events since last encounter Improving since yesterday. Oxygen weaned down to 2LNC from NRB. HR improved in 90s from 120s General: Reports: ROS Unobtainable Constitutional: Denies: Fever Pulmonary: Reports: Dyspnea, Denies: Cough Objective Physical Examination General Exam: Positive: Mild Distress Eye Exam: Positive: PERRLA, Conjunctiva & lids normal, Negative: Sclera icteric ENT Exam: Positive: Atraumatic, Mucous membr. moist/pink Neck Exam: Positive: Supple, Negative: JVD, thyromegaly Chest Exam: Positive: Rhonchi, Diminished Heart Exam: Positive: Rate Normal, Tachycardic, Normal S1, Normal S2, Negative: Murmurs, Rubs Telemetry: Positive: No significant arrhythmia Abdomen Exam: Positive: Normal bowel sounds, Soft, Negative: Tenderness, Hepatospenomegaly Extremity Exam: Positive: Normal pulses, Negative: Clubbing, Cyanosis, Edema Skin Exam: Positive: Nl turgor and temperature, Negative: Breakdown, Lesion Neuro Exam: Positive: Other (nonverbal, not following commands) Assessment /Plan Problems (1) Acute respiratory failure with hypoxia Status: Acute Problem Text: 02/11/2017: continue Solumedrol x 1 more day. Oxygen saturations improving. Change to zithromax and ceftin via Gtube. -noted to have bronchitis on CT chest. Start Solumedrol 60 mg IV q 8 hrs. Chest PT ordered. Wean oxygen to keep saturations above 90%. Currently on non- rebreather with sats in the 98% range. (2) Bronchitis Problem Text: 02/11/2017: continue Solumedrol x 1 more day. Oxygen saturations improving. Change to zithromax and ceftin via Gtube. (3) Aspiration pneumonia Onset Date: Unknown Status: Acute Problem Text: Continue with aspiration precautions. Resume Tube feeds today (4) [place] chorea Status: Chronic Problem Text: Will obtain tube feed schedule from [facility] to continue for nutrition. Continue with the Klonopin, Haldol and Lyrica Plan/VTE VTE Prophylaxis Ordered?: Yes (Lovenox) Plan/Urinary Catheter Reason for insertion/continuin: Critical Pt monitoring Plan Diet: Continue Current Activity: Continue Current Anticipated Discharge: [facility] VS, I&O, 24H, Jarod Vital Signs/I&O Vital Signs Date Time Temp Pulse Resp B/P (MAP) Pulse Ox O2 Delivery O2 Flow Rate FiO2 02/11/17 07:40 97.7 99 18 103/49 (67) 97 Nasal Cannula 3.0 I&O- Last 24 Hours up to 6 AM 02/11/17 06:00 Intake Total 2040 ml Output Total 250 ml Balance 1790 ml Laboratory Data 24H LABS Laboratory Tests 2 02/11/17 04:20: Neutrophils 92H, Lymphocytes (Manual) 8L, Eosinophils (Manual) 1, Platelet Estimate NORMAL, Red Blood Cell Morphology NORMAL, Anion Gap 6L, Glomerular Filtration Rate > 60.0, Blood Urea Nitrogen 24H, Creatinine 0.61, Sodium Level 141, Potassium Level 4.0, Chloride Level 109H, Carbon Dioxide Level 26, Calcium Level 8.2#L, Aspartate Amino Transf (AST/SGOT) 10L, Alanine Aminotransferase ( ALT/SGPT) 24, Alkaline Phosphatase 72, Total Bilirubin 1.0, Total Protein 6.3L, Albumin 2.9L, Albumin/Globulin Ratio 0.85L CBC/BMP Laboratory Tests 02/11/17 04:20 Red Blood Count 3.90 L, Mean Corpuscular Volume 92.2, Mean Corpuscular Hemoglobin 31.5, Mean Corpuscular Hemoglobin Concent 34.2, Red Cell Distribution Width 13.3, Calcium Level 8.2 #L, Aspartate Amino Transf (AST/SGOT ) 10 L, Alanine Aminotransferase (ALT/SGPT) 24, Alkaline Phosphatase 72, Total Bilirubin 1.0, Total Protein 6.3 L, Albumin 2.9 L Microbiology Microbiology 02/10/17 Blood Culture - Preliminary, Resulted No growth after 24 hours . All specim... 02/10/17 Blood Culture - Preliminary, Resulted No growth after 24 hours . All specim... 02/10/17 Influenza Virus Type A Antigen - Final, Complete 02/10/17 Influenza Virus Type B Antigen - Final, Complete 02/10/17 Urine Culture, Received Pending Chloé Valenzuela [facility] Feb 11, 2017 09:55
[2017-02-11 12:00] VITALS: BP 123/70
[2017-02-11] MEDS: LevoFLOXacin 500 MG TABLET GT SCH (14:10)
[2017-02-11 16:00] VITALS: BP 110/66
[2017-02-11 20:00] VITALS: BP 118/83
[2017-02-11] MEDS: ACETAMINOPHEN 325 MG/10.15 ML UDC NG PRN (20:16)
[2017-02-11] MEDS: clonazePAM 1 MG TAB NG SCH (20:16)
[2017-02-11] MEDS: BACLOFEN 10 MG TAB NG SCH (20:16)
[2017-02-12] VITALS: BP 100/51
[2017-02-12 04:00] VITALS: BP 162/90
[2017-02-12] MEDS: methylPREDNISolone INJ 125 MG/2 ML VIAL (J2930) IV SCH (04:14)
[2017-02-12 05:22] LABS: BASO % 0.2 % (0.0-1.0); EOS % 0.2 % (0.0-3.0); LARGE UNSTAINED CELL # 0.1 K/mm3 (0.0-0.4); LARGE UNSTAINED CELL % 0.8 % (0.0-4.0); LYMPH # 0.9 K/mm3 (1.5-4.5); LYMPH % 7.6 % (24.0-44.0); MEAN CORPUSCULAR HEMOGLOBIN 30.2 pg (27.0-33.0); MEAN CORPUSCULAR HGB CONC 31.5 g/dl (32.0-36.5); MONO # 0.3 K/mm3 (0.0-0.8); MONO % 2.2 % (0.0-5.0); NEUTROPHILS # 10.8 K/mm3 (1.8-7.7); PLATELET COUNT, AUTOMATED 167 k/mm3 (150-450); RED CELL DISTRIBUTION WIDTH 13.1 % (11.5-14.5); WHITE BLOOD COUNT 12.2 K/mm3 (4.0-10.0)
[2017-02-12] MEDS: LevoFLOXacin 500 MG TABLET GT SCH (05:30)
[2017-02-12 05:47] LABS: ALBUMIN 2.9 GM/DL (3.2-5.2); ALBUMIN/GLOBULIN RATIO 0.81 (1.00-1.93); ALKALINE PHOSPHATASE 70 U/L (45-117); ALT/SGPT 26 U/L (12-78); ANION GAP 5 MEQ/L (8-16); AST/SGOT 18 U/L (15-37); BILIRUBIN,TOTAL 0.7 MG/DL (0.2-1.0); BLOOD UREA NITROGEN 22 MG/DL (7-18); CALCIUM LEVEL 8.4 MG/DL (8.5-10.1); CARBON DIOXIDE LEVEL 23 MEQ/L (21-32); CHLORIDE LEVEL 113 MEQ/L (98-107); CREATININE FOR GFR 0.52 MG/DL (0.55-1.02); GLOMERULAR FILTRATION RATE > 60.0 (>58); GLUCOSE, FASTING 127 MG/DL (70-105); POTASSIUM SERUM 4.5 MEQ/L (3.5-5.1); SODIUM LEVEL 141 MEQ/L (136-145); TOTAL PROTEIN 6.5 GM/DL (6.4-8.2)
[2017-02-12] MEDS: IPRATROPIUM 0.5MG/ALBUTEROL 2.5MG INH SOL UD 3ML (DUONEB)(J7620) INH SCH ×4 (07:44→19:43)
[2017-02-12 08:00] VITALS: BP 140/70
--- NOTE | 2017-02-12 09:03 | IPNPDOC ---
Subjective Date Seen The patient was seen on 02/12/17. Subjective Chief Complaint/HPI The patient is a 42-year-old female admitted with a reason for visit of Hcap ( Healthcare-Associated Pneumonia). Events since last encounter Continues to improve. Near baseline behavior. Oxygen weaning down. Requiring suction for thick secretions. Chest PT ordered q 6 hrs. General: Reports: ROS Unobtainable Constitutional: Denies: Fever Objective Physical Examination General Exam: Positive: Mild Distress Eye Exam: Positive: PERRLA, Conjunctiva & lids normal, Negative: Sclera icteric ENT Exam: Positive: Atraumatic, Mucous membr. moist/pink Neck Exam: Positive: Supple, Negative: JVD, thyromegaly Chest Exam: Positive: Clear to auscultation, Rhonchi (occasional) Heart Exam: Positive: Rate Normal, Tachycardic, Normal S1, Normal S2, Negative: Murmurs, Rubs Telemetry: Positive: No significant arrhythmia Abdomen Exam: Positive: Normal bowel sounds, Soft, Negative: Tenderness, Hepatospenomegaly Extremity Exam: Positive: Normal pulses, Negative: Clubbing, Cyanosis, Edema Skin Exam: Positive: Nl turgor and temperature, Negative: Breakdown, Lesion Neuro Exam: Positive: Other (nonverbal, not following commands) Assessment /Plan Problems (1) Acute respiratory failure with hypoxia Status: Acute Problem Text: 02/12/2017: Prednisone via GT today. COntinue Chest PT, Levaquin. Wean oxygen. anticipate DC home in 1-2 days. 02/11/2017: continue Solumedrol x 1 more day. Oxygen saturations improving. Change to zithromax and ceftin via Gtube. -noted to have bronchitis on CT chest. Start Solumedrol 60 mg IV q 8 hrs. Chest PT ordered. Wean oxygen to keep saturations above 90%. Currently on non- rebreather with sats in the 98% range. (2) Bronchitis Problem Text: 02/11/2017: continue Solumedrol x 1 more day. Oxygen saturations improving. Change to zithromax and ceftin via Gtube. (3) Aspiration pneumonia Onset Date: Unknown Status: Acute Problem Text: Continue with aspiration precautions. Resume Tube feeds today (4) [place] chorea Status: Chronic Problem Text: Will obtain tube feed schedule from [facility] to continue for nutrition. Continue with the Klonopin, Haldol and Lyrica Plan/VTE VTE Prophylaxis Ordered?: Yes (Lovenox) Plan/Urinary Catheter Reason for insertion/continuin: Critical Pt monitoring Plan Diet: Continue Current Activity: Continue Current Anticipated Discharge: Intermediate VS, I&O, 24H, Fishbone Vital Signs/I&O Vital Signs Date Time Temp Pulse Resp B/P (MAP) Pulse Ox O2 Delivery O2 Flow Rate FiO2 02/12/17 08:00 97.1 112 20 140/70 (93) 94 Room Air 02/12/17 00:00 2.0 I&O- Last 24 Hours up to 6 AM 02/12/17 05:59 Intake Total 2294 ml Output Total 500 ml Balance 1794 ml Laboratory Data 24H LABS Laboratory Tests 2 02/11/17 15:16: Vancomycin Level Trough 7.7L 02/11/17 17:22: 02/12/17 05:15: White Blood Count 12.2H, Red Blood Count 4.04, Hemoglobin 12.2, Hematocrit 38.8 , Mean Corpuscular Volume 96.0, Mean Corpuscular Hemoglobin 30.2, Mean Corpuscular Hemoglobin Concent 31.5L, Red Cell Distribution Width 13.1, Platelet Count 167, Neutrophils (%) (Auto) 89.0H, Lymphocytes (%) (Auto) 7.6L, Monocytes (%) (Auto) 2.2, Eosinophils (%) (Auto) 0.2, Basophils (%) (Auto) 0.2, Neutrophils # (Auto) 10.8H, Lymphocytes # (Auto) 0.9L, Monocytes # (Auto) 0.3, Eosinophils # (Auto) 0.0, Basophils # (Auto) 0.0, Large Unclassified Cells % 0.8 , Large Unclassified Cells # 0.1, Anion Gap 5L, Glomerular Filtration Rate > 60.0, Blood Urea Nitrogen 22H, Creatinine 0.52L, Sodium Level 141, Potassium Level 4.5, Chloride Level 113H, Carbon Dioxide Level 23, Calcium Level 8.4L, Aspartate Amino Transf (AST/SGOT) 18, Alanine Aminotransferase (ALT/SGPT) 26, Alkaline Phosphatase 70, Total Bilirubin 0.7, Total Protein 6.5, Albumin 2.9L, Albumin/Globulin Ratio 0.81L CBC/BMP Laboratory Tests 02/12/17 05:15 Red Blood Count 4.04, Mean Corpuscular Volume 96.0, Mean Corpuscular Hemoglobin 30.2, Mean Corpuscular Hemoglobin Concent 31.5 L, Red Cell Distribution Width 13.1, Neutrophils (%) (Auto) 89.0 H, Lymphocytes (%) (Auto) 7.6 L, Monocytes (% ) (Auto) 2.2, Eosinophils (%) (Auto) 0.2, Basophils (%) (Auto) 0.2, Neutrophils # (Auto) 10.8 H, Lymphocytes # (Auto) 0.9 L, Monocytes # (Auto) 0.3, Eosinophils # (Auto) 0.0, Basophils # (Auto) 0.0, Calcium Level 8.4 L, Aspartate Amino Transf (AST/SGOT) 18, Alanine Aminotransferase (ALT/SGPT) 26, Alkaline Phosphatase 70, Total Bilirubin 0.7, Total Protein 6.5, Albumin 2.9 L Microbiology Microbiology 02/10/17 Blood Culture - Preliminary, Resulted No Growth after 48 hours. All Specime... 02/10/17 Blood Culture - Preliminary, Resulted No Growth after 48 hours. All Specime... 02/10/17 Influenza Virus Type A Antigen - Final, Complete 02/10/17 Influenza Virus Type B Antigen - Final, Complete 02/10/17 Urine Culture, Received Pending Chloé Valenzuela [facility] Feb 12, 2017 09:03
[2017-02-12] MEDS: ENOXAPARIN 30 MG/0.3 ML SYR (J1650) SC SCH (09:36)
[2017-02-12] MEDS: FAMOTIDINE 20 MG TAB NG SCH (09:37)
[2017-02-12] MEDS: FLUTICASONE PROP 0.05% NASAL SPRAY 16 GM (FLONASE) SCH (09:37)
[2017-02-12] MEDS: PREGABALIN 25 MG CAP (LYRICA) NG SCH ×3 (09:37→20:11)
[2017-02-12] MEDS: HALOPERIDOL 2 MG TAB NG SCH ×3 (09:37→20:11)
[2017-02-12 12:00] VITALS: BP 139/77
[2017-02-12] MEDS: ACETAMINOPHEN 325 MG/10.15 ML UDC NG PRN ×2 (13:47→20:12)
[2017-02-12] MEDS: predniSONE 5MG/5ML SOLN ORAL SYRINGE PEG SCH ×2 (14:27→20:12)
[2017-02-12 16:00] VITALS: BP 126/59
[2017-02-12] MEDS ORDERED: guaiFENesin SYRUP 200 MG/10 ML UDC PO PRN (18:00)
[2017-02-12 20:00] VITALS: BP 105/57
[2017-02-12] MEDS: BACLOFEN 10 MG TAB NG SCH (20:11)
[2017-02-12] MEDS: clonazePAM 1 MG TAB NG SCH (20:11)
[2017-02-12] MEDS ORDERED: guaiFENesin ER 600 MG TAB PO SCH (21:00)
[2017-02-13] VITALS: BP 97/55
[2017-02-13 00:07] LABS: ORGANISM ID Not indicated. (.); SPECIMEN SOURCE Urine (.)
[2017-02-13 04:00] VITALS: BP 108/53
[2017-02-13] MEDS: LevoFLOXacin 500 MG TABLET GT SCH (05:52)
[2017-02-13 07:46] LABS: BASO % 0.2 % (0.0-1.0); EOS % 0.1 % (0.0-3.0); LARGE UNSTAINED CELL # 0.2 K/mm3 (0.0-0.4); LARGE UNSTAINED CELL % 2.1 % (0.0-4.0); LYMPH # 1.6 K/mm3 (1.5-4.5); LYMPH % 16.7 % (24.0-44.0); MEAN CORPUSCULAR HEMOGLOBIN 29.5 pg (27.0-33.0); MEAN CORPUSCULAR HGB CONC 32.3 g/dl (32.0-36.5); MEAN CORPUSCULAR VOLUME 91.1 fl (80.0-96.0); MONO # 0.6 K/mm3 (0.0-0.8); MONO % 6.7 % (0.0-5.0); NEUTROPHILS # 6.5 K/mm3 (1.8-7.7); NEUTROPHILS % 74.2 % (36.0-66.0); PLATELET COUNT, AUTOMATED 199 k/mm3 (150-450); RED CELL DISTRIBUTION WIDTH 13.1 % (11.5-14.5); WHITE BLOOD COUNT 8.7 K/mm3 (4.0-10.0)
[2017-02-13] MEDS: IPRATROPIUM 0.5MG/ALBUTEROL 2.5MG INH SOL UD 3ML (DUONEB)(J7620) INH SCH ×2 (07:58→11:37)
[2017-02-13 08:00] VITALS: BP 139/81
[2017-02-13 08:05] LABS: ALBUMIN 3.5 GM/DL (3.2-5.2); ALBUMIN/GLOBULIN RATIO 1.13 (1.00-1.93); ALKALINE PHOSPHATASE 69 U/L (45-117); ALT/SGPT 29 U/L (12-78); ANION GAP 5 MEQ/L (8-16); AST/SGOT 11 U/L (15-37); BILIRUBIN,TOTAL 0.6 MG/DL (0.2-1.0); BLOOD UREA NITROGEN 23 MG/DL (7-18); CALCIUM LEVEL 8.9 MG/DL (8.5-10.1); CARBON DIOXIDE LEVEL 31 MEQ/L (21-32); CHLORIDE LEVEL 109 MEQ/L (98-107); CREATININE FOR GFR 0.63 MG/DL (0.55-1.02); GLOMERULAR FILTRATION RATE > 60.0 (>58); GLUCOSE, FASTING 89 MG/DL (70-105); POTASSIUM SERUM 3.7 MEQ/L (3.5-5.1); SODIUM LEVEL 145 MEQ/L (136-145); TOTAL PROTEIN 6.6 GM/DL (6.4-8.2)
[2017-02-13] MEDS: ENOXAPARIN 30 MG/0.3 ML SYR (J1650) SC SCH (08:58)
[2017-02-13] MEDS: predniSONE 5MG/5ML SOLN ORAL SYRINGE PEG SCH (08:58)
[2017-02-13] MEDS: FAMOTIDINE 20 MG TAB NG SCH (08:58)
[2017-02-13] MEDS: PREGABALIN 25 MG CAP (LYRICA) NG SCH (08:58)
[2017-02-13] MEDS: HALOPERIDOL 2 MG TAB NG SCH (08:58)
[2017-02-13] MEDS: SCOPOLAMINE 1.5 MG TRANSDERMAL TOP SCH (08:59)
[2017-02-13] MEDS: FLUTICASONE PROP 0.05% NASAL SPRAY 16 GM (FLONASE) SCH (08:59)
[2017-02-13] MEDS ORDERED: PRED5ELUD PEG (11:02)
[2017-02-13] MEDS ORDERED: GUAI10EL PO (11:02)
[2017-02-13] MEDS ORDERED: LEVA500T GT (11:02)
--- NOTE | 2017-02-14 10:36 | DSES ---
DATE OF ADMISSION: 02/10/2017 DATE OF DISCHARGE: 02/13/2017 ATTENDING PHYSICIAN: Dr. Richar Wiggins. PRIMARY CARE PROVIDER: Dr. Chaz Matson. 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 Workup in the emergency department (ED) which included a chest x-ray and CT angiogram proved mild perihilar and basilar bronchitis-type pattern suggested. The patient has a significant past medical history of aspiration pneumonia. Her tube feed was held. She was resuscitated with intravenous (IV) fluids for the first 24 hours, and given IV antibiotic. HOSPITAL COURSE: The patient's saline lock subsequently pulled out and the patient was switched over to Levaquin via gastrostomy (G) tube, as well as prednisone via percutaneous endoscopic gastrostomy (PEG) tube twice a day. The patient was given guaifenesin for her chest congestion, given chest physical therapy (PT) and continued on nebulizers. The patient has improved significantly. White blood cell count on admission was 17,000. She has come down to 8000 as of today. Renal function has remained stable, and patient has been weaned off her oxygen. She is to maintain oxygen saturation in 93-95% range on room air. The patient's tube feed was started on admission day two per her previous orders at the long term, and has tolerated that well with no signs of aspiration. The patient did have a positive urinary tract infection (UTI) which was noted on culture obtained in the emergency room (ER) through catheterized specimen, and it did show sensitivity to levofloxacin. Imaging included chest x-ray and CT angiogram as already stated. CONSULTATIONS: None. PHYSICAL EXAMINATION: Currently the patient is resting comfortably. The patient does have a baseline behavior of significant movements and restlessness in the bed. She is nonverbal. Review of systems is unable to be obtained; however, the patient does appear baseline as is previously known in the nursing staff and this provider. HEENT: Neck is supple without lymphadenopathy or jugular venous distention (JVD). CARDIOVASCULAR: Heart rate and rhythm are regular. PULMONARY: Lungs are clear throughout. ABDOMEN: Soft and nontender. G tube is in place. EXTREMITIES: Bilateral lower extremities are without any edema. ASSESSMENT/DISCHARGE DIAGNOSES: 1. Perihilar bronchitis, questionable aspiration. 2. Urinary tract infection secondary to Enterococcus faecalis. 3. [place]'s chorea. PLAN: The patient will be discharged back to [facility]. She is to resume her tube feed as per previous. Activity is as per previous at the long term. She will followup with her primary care provider at [facility] which is Dr. Matson. MEDICATIONS: - guaifenesin 10 mL syrup via G-tube every four hours as needed for cough - levofloxacin 500 mg tablet via G-tube daily at 0600 - prednisone 5 mg/5 mL 20 mg via PEG tube twice a day, 20 mL were provided so that gives her another few days of steroid - acetaminophen 650 mg via G-tube every four hours as needed for pain or fever - hydrocodone with acetaminophen one tablet via G-tube three times a day - albuterol/ipratropium one inhalation four times a day - Baclofen 10 mg via G-tube twice a day - Baclofen 20 mg via G-tube at bedtime - BEE Zee one tab daily via G-tube - Dulcolax 10 mg suppository per rectum daily as needed for constipation - cetirizine 10 mg via G-tube at bedtime - clonazepam 1 mg via G-tube at bedtime - famotidine 20 mg via G-tube daily - Flonase Allergy Relief 50 mcg two sprays each nostril daily - haloperidol 2 mg three times a day via G-tube - ibuprofen 600 mg via G-tube every six hours as needed for fever - milk of magnesia 30 mL via G-tube daily as needed for constipation - pregabalin 25 mg capsule via G-tube three times a day - Eliza-Bid probiotic one tablet via G-tube twice a day - scopolamine patch topically, change every 72 hours The patient is discharged in stable condition at time of discharge.
[2017-02-15 00:06] LABS: ORGANISM ID Not indicated. (.); SPECIMEN SOURCE Urine (.)
== END 2017-02-13 14:12 | DRG 177 ==
LOC: EDBD 01:41 → M ED 03:30 → M ED INP 06:27 → M PCU 13:10
PROVIDERS: ADMIT Internal Medicine; ATTEND Family Medicine
DX: J69.0 Pneumonitis due to inhalation of food and vomit (principal); J96.01 Acute respiratory failure with hypoxia; G10 Huntington's disease; N39.0 Urinary tract infection, site not specified; J40 Bronchitis, not specified as acute or chronic; Z93.1 Gastrostomy status; Z88.0 Allergy status to penicillin; Z79.899 Other long term (current) drug therapy; B95.2 Enterococcus as the cause of diseases classified elsewhere

== ENCOUNTER 2017-03-13 06:55 | Emergency (ER) | payer MEDICARE, MEDICAID ==
[~2017-03-13] VITALS: Ht 154.9 cm; Wt 50.0 kg
[~2017-03-13 06:55] MED LIST changes: -ACEP650S PR; -BACL1TAB9 GT; -CEFT1INJ39 IM; -ENEMENE16 PR; -GUAI100S7 GT; -IBUP40TA GT; -LEVO500T3 GT; -LEVO500T3 PO; -ROCE1INJ4 IM
[2017-03-13] MEDS ORDERED: ROCE1INJ4 IM (07:38)
[2017-03-13] MEDS ORDERED: ACETAMINOPHEN 650 MG SUPP PR ONE (08:00)
[2017-03-13 09:32] LABS: BASO % 0.2 % (0.0-1.0); EOS % 0.2 % (0.0-3.0); LARGE UNSTAINED CELL # 0.2 K/mm3 (0.0-0.4); LARGE UNSTAINED CELL % 0.7 % (0.0-4.0); LYMPH # 0.7 K/mm3 (1.5-4.5); LYMPH % 3.2 % (24.0-44.0); MEAN CORPUSCULAR HEMOGLOBIN 30.5 pg (27.0-33.0); MEAN CORPUSCULAR HGB CONC 34.1 g/dl (32.0-36.5); MEAN CORPUSCULAR VOLUME 89.5 fl (80.0-96.0); MONO # 0.9 K/mm3 (0.0-0.8); MONO % 4.1 % (0.0-5.0); NEUTROPHILS # 19.2 K/mm3 (1.8-7.7); NEUTROPHILS % 91.7 % (36.0-66.0); PLATELET COUNT, AUTOMATED 254 k/mm3 (150-450); WHITE BLOOD COUNT 20.9 K/mm3 (4.0-10.0)
[2017-03-13 10:08] LABS: ANION GAP 11 MEQ/L (8-16); BLOOD UREA NITROGEN 19 MG/DL (7-18); CALCIUM LEVEL 9.7 MG/DL (8.5-10.1); CARBON DIOXIDE LEVEL 22 MEQ/L (21-32); CHLORIDE LEVEL 108 MEQ/L (98-107); CREATININE FOR GFR 0.72 MG/DL (0.55-1.02); GLOMERULAR FILTRATION RATE > 60.0 (>58); GLUCOSE, FASTING 120 MG/DL (70-105); POTASSIUM SERUM 4.6 MEQ/L (3.5-5.1); SODIUM LEVEL 141 MEQ/L (136-145)
[2017-03-13] MEDS ORDERED: NS 500 ML IV ONE (10:15)
[2017-03-13] MEDS ORDERED: LEVO500T3 PO (12:37)
[2017-03-13] MEDS ORDERED: LevoFLOXacin IV 500 MG in APPROPRIATE DILUENT 1 EA IV ONE (13:00)
[2017-03-13 13:07] VITALS: BP 118/68
== END 2017-03-13 13:59 | disposition home or self-care (01) ==
LOC: M ED 06:55
DX: J20.9 Acute bronchitis, unspecified (principal); R50.9 Fever, unspecified; R06.02 Shortness of breath; R09.89 Other specified symptoms and signs involving the circulatory and respiratory systems; J45.909 Unspecified asthma, uncomplicated; G10 Huntington's disease; Z93.1 Gastrostomy status
CPT/HCPCS: 36415; 71010; 80048; 81001; 85025; 87040; 87086; 87486; 87581; 87633; 87798; 96374; 99284; J1956

== ENCOUNTER → 2017-03-13 | Outpatient (REF) | payer MEDICARE, MEDICAID ==
[~2017-03-13] MED LIST changes: +ACEP650S PR; -ACET-654 NG; +ACET1TAB17 NG; -AUGM875T27 PEG; +AUGM875T28 PEG; -BACL-67 NG; +BACL1TAB9 GT; +BACL1TAB9 NG; +BEETAB GT; -BEETAB NG; +CEFT1INJ39 IM; +CETI1SYP16 GT; -CETI1SYP16 NG; +CLON1TAB GT; -CLON1TAB NG; +ENEMENE16 PR; +GUAI100S7 GT; +GUAI10EL PO; +HALO2TA GT; -HALO2TA NG; +HYDR-3713 GT; -HYDR-3713 NG; +IBUP1TAB6 NG; +IBUP40TA GT; +LEVA1TAB2 GT; +LEVA1TAB2 PEG; +LEVA1TAB2 PO; -LEVA500T PEG; -LEVA500T PO; -LEVA750T GT; +LEVA750T7 GT; -LEVO1SOL3 NG; +LEVO25SO NG; +LEVO500T3 GT; +LEVO500T3 PO; -LORA-376 SL; +LORA0.5T11 SL; +MILKSUS GT; -NYST100024 TOP; +NYST1POW9 TOP; +PEPC1TAB4 GT; -PEPC1TAB4 NG; +PRED5ELUD PEG; +PREG25CA GT; -PREG25CA NG; +RISATAB3 GT; -RISATAB3 NG; -RISP1TAB41 PEG; +RISP1TAB42 PEG; +ROCE1INJ4 IM; +TYLE325T5 GT; +VITMTA NG
--- NOTE | 2017-03-13 09:45 | REPUSA ---
CLINICAL HISTORY: Congestion. COMMENTS: There is bilateral peribronchial interstitial thickening suggestive of bronchitis. The heart, mediastinum and pulmonary vessels appear normal. IMPRESSION: Bronchitis. Thank you for your kind referral of this patient.
== END ==
LOC: M RAD 01:00
PROVIDERS: ATTEND Family Medicine
DX: R06.02 Shortness of breath (principal); R09.89 Other specified symptoms and signs involving the circulatory and respiratory systems

== ENCOUNTER 2017-03-23 11:39 | Inpatient (IN) | payer MEDICARE, MEDICAID ==
[2017-03-23] VITALS (7 sets, daily range): BP systolic 95–137; BP diastolic 56–92
[~2017-03-23] VITALS: Ht 154.9 cm; Wt 47.8 kg
[~2017-03-23 11:39] MED LIST changes: -ACEP650S PR; -BACL1TAB9 GT; -CEFT1INJ39 IM; -ENEMENE16 PR; -GUAI100S7 GT; -IBUP40TA GT; -LEVO500T3 GT
[2017-03-23 12:13] LABS: INR 1.06
[2017-03-23 12:16] LABS: ADD MANUAL DIFFER YES; MEAN CORPUSCULAR HEMOGLOBIN 30.1 pg (27.0-33.0); MEAN CORPUSCULAR HGB CONC 33.5 g/dl (32.0-36.5); PLATELET COUNT, AUTOMATED 366 k/mm3 (150-450); RED CELL DISTRIBUTION WIDTH 13.4 % (11.5-14.5)
[2017-03-23 12:17] LABS: DIFF SLIDE NUMBER 98
[2017-03-23 12:18] LABS: ABG pH (ARTERIAL) 7.453 UNITS (7.350-7.450)
[2017-03-23 12:19] LABS: ABG BASE EXCESS 4.7 (-2.0-2.0); ABG HCO3 29.2 MEQ/L (22.0-26.0); ABG PARTIAL PRESSURE CO2 42.7 mmHg (35.0-45.0); ABG PARTIAL PRESSURE O2 54.3 mmHg (75.0-100.0); ABG STANDARD HCO3 28.4 MEQ/L (22.0-26.0); ABG TOTAL CO2 30.5 MEQ/L (22.0-29.0)
[2017-03-23 12:24] LABS: ALBUMIN 3.9 GM/DL (3.2-5.2); ALBUMIN/GLOBULIN RATIO 0.98 (1.00-1.93); ALKALINE PHOSPHATASE 73 U/L (45-117); ALT/SGPT 24 U/L (12-78); AMYLASE 84 U/L (25-115); ANION GAP 7 MEQ/L (8-16); AST/SGOT 12 U/L (15-37); BILIRUBIN,DIRECT 0.2 MG/DL (0.0-0.2); BILIRUBIN,TOTAL 2.5 MG/DL (0.2-1.0); BLOOD UREA NITROGEN 29 MG/DL (7-18); CALCIUM LEVEL 9.7 MG/DL (8.5-10.1); CARBON DIOXIDE LEVEL 31 MEQ/L (21-32); CHLORIDE LEVEL 103 MEQ/L (98-107); CREATININE FOR GFR 0.71 MG/DL (0.55-1.02); GLOMERULAR FILTRATION RATE > 60.0 (>58); GLUCOSE, FASTING 142 MG/DL (70-105); POTASSIUM SERUM 4.1 MEQ/L (3.5-5.1); SODIUM LEVEL 141 MEQ/L (136-145); TOTAL PROTEIN 7.9 GM/DL (6.4-8.2)
[2017-03-23] MEDS ORDERED: ERTAPENEM SODIUM 1 GM in NS MINI-BAG PLUS 50 ML IV ONE (12:30)
--- NOTE | 2017-03-23 12:34 | REP ---
PORTABLE CHEST: AP portable view of the chest is performed. Comparison made with prior studies. There is mild interstitial fibrosis without evidence of acute infiltrate. Heart is normal in size. Mediastinal silhouette is unchanged. IMPRESSION: No acute infiltrate. Signed by Isidro Gan MD 03/23/2017 07:29 P
[2017-03-23 12:42] LABS: BANDS 2 % (< 11)
[2017-03-23] MEDS ORDERED: ISOVUE-370 76% 100ML VIAL (Q9967) As Ordered ONE (13:03)
[2017-03-23] MEDS ORDERED: GUAI100S7 GT ×2 (13:10→13:27)
[2017-03-23] MEDS ORDERED: ALBU83IN INH (13:27)
[2017-03-23] MEDS ORDERED: ENEMENE16 PR (13:27)
[2017-03-23] MEDS ORDERED: BACL1TAB9 GT (13:27)
[2017-03-23] MEDS ORDERED: ACEP650S PR (13:27)
[2017-03-23] MEDS ORDERED: IBUP40TA GT (13:27)
[2017-03-23] MEDS ORDERED: LEVO500T3 GT (13:29)
--- NOTE | 2017-03-23 14:23 | REP ---
CT ANGIOGRAM OF THE CHEST: TECHNIQUE: Axial contrast enhanced images from the thoracic inlet to the upper abdomen using 100 mL Isovue 370 intravenous contrast material with multiplanar reformations. Comparison 02/10/2017. There is no CT evidence of a pulmonary embolism. There is no thoracic aortic aneurysm or dissection. Normal size mediastinal and hilar lymph nodes are present. Heart is normal in size. There is no pleural or pericardial effusion. There are inspissated secretions in the lower lobe bronchioles bilaterally. Diffuse interstitial and mild alveolar infiltrates are seen in both lower lobes. IMPRESSION: No CT evidence of pulmonary embolism. Inspissated secretions in bilateral lower lobe bronchioles more so on the right than on the left. There are diffuse mild bilateral lower lobe interstitial and alveolar infiltrates. Signed by Isidro Gan MD 03/23/2017 07:30 P
--- NOTE | 2017-03-23 14:25 | REP ---
CT ABDOMEN AND PELVIS WITH IV CONTRAST: TECHNIQUE: Axial contrast enhanced images from the lung bases to the pubic symphysis using 100 mL Isovue 370 intravenous contrast material with multiplanar reformations. The study is limited by patient motion. There appears to be fatty infiltration of the liver. No other gross liver abnormality is seen. The spleen, adrenals, pancreas and kidneys are grossly unremarkable but again not optimally evaluated. There is no abdominal aortic aneurysm. No definite adenopathy is seen. There is no free air or free fluid. No definite bowel wall thickening is seen. No pelvic mass is seen. IMPRESSION: Grossly negative CT abdomen and pelvis with IV contrast. This study is limited by motion. PEG tube noted. Signed by Isidro Gan MD 03/23/2017 07:31 P
[2017-03-23] MEDS ORDERED: NORCO, ANEXSIA 5/325MG TABLET (HYDROcodone/ACETAMINOPHEN) GT PRN (14:45)
[2017-03-23] MEDS ORDERED: ALBUTEROL SULFATE 2.5 MG/0.5 ML INH NEB SOLN INH PRN (14:45)
[2017-03-23] MEDS ORDERED: LIDOCAINE 1% MDV 20ML VIAL As Ordered ONE (15:14)
[2017-03-23] MEDS ORDERED: SUCCINYLCHOLINE INJ 200 MG/10 ML VIAL (J0330) As Ordered ONE (15:26)
[2017-03-23] MEDS ORDERED: ETOMIDATE INJ 20MG/10ML VIAL As Ordered ONE (15:26)
--- NOTE | 2017-03-23 15:38 | HPE ---
DATE OF ADMISSION: 03/23/2017 DIAGNOSIS: Respiratory failure secondary to bilateral pneumonia from retained pulmonary secretions. SECONDARY DIAGNOSES: 1. Archuleta's Chorea. 2. Spastic quadriparesis. 3. History of Clostridium (C.) difficile colitis. 4. History of recurrent aspiration pneumonia, status post percutaneous endoscopic gastrostomy (PEG) feeding tube. CODE STATUS: FULL CODE. HISTORY: Jacob Dyer is transferred from [facility]. She is a full code. Patient with Osorio's chorea, spastic quadriparesis, recurrent aspiration pneumonia requiring hospitalizations for this. Apparently was being treated at [facility] for presume respiratory infection. PAST MEDICAL HISTORY: As above. MEDICATIONS: - [place] tablet 5/325 three times a day at 8 a.m, 2 p.m. and 8 p.m. - baclofen 20 mg daily; the baclofen changed to 20 mg at 9 p.m.,10 mg at 9 a.m and 4 p.m. - DuoNeb every four hours - She has been getting Rocephin one gram intramuscular (IM) for the past two days - Dulcolax daily as needed - Haldol 2 mg three times a day by gastrostomy (G) tube 9, 2, and 9 p.m. - milk of magnesia 10 mL daily as needed - Flonase spray two sprays daily - Pepcid 20 mg by G-tube daily - Tylenol - multivitamins - Claritin syrup 5 mg daily - ibuprofen 400 mg every six hours as needed - Klonopin 1 mg daily at bedtime - Lyrica 25 mg three times a day 6 a.m., 1 p.m. 8 p.m. - Transderm scopolamine 1.5 mg every three days for increased secretions - oxygen as needed - DuoDerm dressing to some problem skin areas - Jevity 1.5 50 mL per hour 24 hours a day, total of 1200 mL per 24 hours - water 75 mL four times a day ALLERGIES: PENICILLIN REVIEW OF SYSTEMS: Not obtainable. PHYSICAL EXAMINATION: VITAL SIGNS: Blood pressure 136/90, pulse 133 sinus tachycardia on telemetry, saturation up to 92%, was in the high 70s on arrival, 86% when first supplying her continuous positive airway pressure (CPAP). GENERAL APPEARANCE: Cachectic, contracted, unresponsive. HEENT: Shows dystonic face. No jugular venous distention (JVD). LUNGS: Diffuse rhonchi and wheezes. Poor air movement. HEART: Regular rhythm, tachycardic. ABDOMEN: Soft. G-tube present. Nondistended. EXTREMITIES: Wasted. Contracted. No palpable musculature. Distal pulses are normal. NEUROLOGIC: Could not cooperative for neurologic exam. LABORATORY DATA: White count is 40,000, hemoglobin 59, platelets 366. ABG 7.245/42/53/88%. Sodium 141, potassium 4.1, BUN 29, creatinine 0.7, glucose 140, lactic acid 2.1. CRP is 12.1. CT angiogram no evidence of pulmonary embolism. Inspissated secretions bilateral lower lobe bronchioles. Bilateral lower lobe interstitial alveolar infiltrates. CT abdomen and pelvis unremarkable except for PEG tube. IMPRESSION: Healthcare-associated/senior living-associated pneumonia, probably secondary to aspiration and inspissated secretions. PLAN: 1. She looks like she is declining. She is unresponsive. She is on noninvasive ventilator, steroid support. I do not think this is going to be sufficient for her, as she is not responding. I spoke with Dr. Wilson about the case, transferring the patient to intensive care unit (ICU) from the emergency room. Consult Dr. Wilson. The patient may need intubation. This is consistent with her pre-expressed healthcare wishes to have "everything done." I will treat her with ceftaroline 600 mg intravenous (IV) every 12 hours, should cover methicillin-resistant Staphylococcus aureus (MRSA) as well as typical pulmonary pathogens. This does not look at all like an atypical pneumonitis, so I am not going to be giving her a macrolide. 2. Osorio's chorea. Continue her Klonopin and Haldol. 3. Feeding tube. Continue her Jevity.
[2017-03-23] MEDS ORDERED: PROPOFOL 1,000 MG/100 ML VIAL As Ordered ONE (15:42)
[2017-03-23] MEDS ORDERED: ETOMIDATE INJ 20MG/10ML VIAL IV STA (15:48)
[2017-03-23] MEDS ORDERED: SUCCINYLCHOLINE INJ 200 MG/10 ML VIAL (J0330) IV STA (15:48)
[2017-03-23] MEDS: ALBUTEROL SULFATE 2.5 MG/0.5 ML INH NEB SOLN INH SCH ×2 (16:00→19:20)
[2017-03-23] MEDS: IPRATROPIUM 0.5MG/ALBUTEROL 2.5MG INH SOL UD 3ML (DUONEB)(J7620) NEB SCH ×2 (16:00→19:20)
[2017-03-23] MEDS ORDERED: SODIUM CHLORIDE 0.9% 1000 ML IV SCH (16:15)
[2017-03-23] MEDS: PROPOFOL 1,000 MG in APPROPRIATE DILUENT 1 EA IV SCH ×2 (16:26→23:22)
[2017-03-23] MEDS: PREGABALIN 25 MG CAP (LYRICA) GT SCH ×2 (17:52→21:40)
[2017-03-23] MEDS: BACLOFEN 10 MG TAB GT SCH ×2 (17:52→21:40)
[2017-03-23] MEDS: CEFTAROLINE FOSAMIL 600 MG in D5W MINI-BAG PLUS 50 ML IV SCH (17:53)
--- NOTE | 2017-03-23 21:26 | REP ---
PORTABLE CHEST: AP portable view of the chest is performed and compared to prior study of 06/23/2017. There is placement of an endotracheal tube. The tip is about 3.5 cm above the chiqui. There are bilateral lower lobe interstitial infiltrates. The heart is normal in size. The mediastinal silhouette is unremarkable. Signed by Isidro Gan MD 03/24/2017 01:08 P
[2017-03-23] MEDS: CHLORHEXIDINE GLUCONATE 0.12 % 15ML UDC (PERIDEX ORAL RINSE) MT SCH (21:39)
[2017-03-23] MEDS: clonazePAM 1 MG TAB GT SCH (21:40)
[2017-03-23] MEDS: HEPARIN SOD (PORCINE) 5000 UNITS/ML VIAL SQ SCH (21:40)
[2017-03-24] VITALS (23 sets, daily range): BP systolic 98–132; BP diastolic 56–101; O2SAT 97
[2017-03-24] MEDS: ACETAMINOPHEN 650 MG SUPP PR PRN (02:01)
[2017-03-24 05:03] LABS: MEAN CORPUSCULAR HEMOGLOBIN 30.6 pg (27.0-33.0); MEAN CORPUSCULAR HGB CONC 34.2 g/dl (32.0-36.5); MEAN CORPUSCULAR VOLUME 89.5 fl (80.0-96.0); RED CELL DISTRIBUTION WIDTH 13.4 % (11.5-14.5); WHITE BLOOD COUNT 22.1 K/mm3 (4.0-10.0)
[2017-03-24] MEDS: CEFTAROLINE FOSAMIL 600 MG in D5W MINI-BAG PLUS 50 ML IV SCH ×2 (05:09→18:00)
[2017-03-24 05:16] LABS: ANION GAP 6 MEQ/L (8-16); BLOOD UREA NITROGEN 19 MG/DL (7-18); CALCIUM LEVEL 8.4 MG/DL (8.5-10.1); CARBON DIOXIDE LEVEL 28 MEQ/L (21-32); CHLORIDE LEVEL 108 MEQ/L (98-107); CREATININE FOR GFR 0.62 MG/DL (0.55-1.02); GLOMERULAR FILTRATION RATE > 60.0 (>58); GLUCOSE, FASTING 103 MG/DL (70-105); POTASSIUM SERUM 3.3 MEQ/L (3.5-5.1); SODIUM LEVEL 142 MEQ/L (136-145)
[2017-03-24 06:01] LABS: ABG BASE EXCESS 3.7 (-2.0-2.0); ABG HCO3 26.8 MEQ/L (22.0-26.0); ABG PARTIAL PRESSURE CO2 35.5 mmHg (35.0-45.0); ABG PARTIAL PRESSURE O2 83.6 mmHg (75.0-100.0); ABG STANDARD HCO3 27.7 MEQ/L (22.0-26.0); ABG TOTAL CO2 27.9 MEQ/L (22.0-29.0); ABG pH (ARTERIAL) 7.496 UNITS (7.350-7.450)
--- NOTE | 2017-03-24 06:38 | RO ---
DATE OF PROCEDURE: 03/23/2017 PREPROCEDURE DIAGNOSIS: Acute hypoxic respiratory distress. POSTPROCEDURE DIAGNOSIS: Acute hypoxic respiratory distress. PROCEDURE: Endotracheal intubation. PROCEDURALIST: Ravi Wilson DO FLASH RANGING CREWMEMBER: None. ANESTHESIA: Rapid sequence intubation including etomidate 20 mg IV and succinylcholine 60 mg IV. DESCRIPTION OF PROCEDURE: A time out was performed identifying correct site, correct procedure with two patient identifiers. The patient was placed in a sniffing position. She was preoxygenated with 100% of oxygen. Rapid sequence intubation was then performed with etomidate followed directly by succinylcholine and flushed. The GlideScope was then used to view the posterior pharynx. There is puddles of mucus in her posterior pharynx. The 8.0 endotracheal tube was easily passed through the vocal cords. This was secured at 22 at the lip. Placement was confirmed with end tidal CO2 monitoring, auscultation and chest x-ray. There were no observed complications. The patient had no hypoxia during the procedure.
[2017-03-24] MEDS: IPRATROPIUM 0.5MG/ALBUTEROL 2.5MG INH SOL UD 3ML (DUONEB)(J7620) NEB SCH ×4 (07:36→20:34)
--- NOTE | 2017-03-24 07:45 | REP ---
Portable chest, 06:54 a.m., single AP view, the patient semi upright: Comparison studies are 03/23/2017 at 12:16 p.m. and 03:49 p.m. and 05:05 a.m.: There is focal increased radiodensity inferiorly in the right lung as an interval change compatible with a focal infiltrate. The left lung is clear. Cardiac size is normal. There is an endotracheal tube terminating satisfactorily at the level of the aortic arch, unchanged. Signed by Isidro Eaton MD 03/24/2017 07:36 A
[2017-03-24] MEDS: ALBUTEROL SULFATE 2.5 MG/0.5 ML INH NEB SOLN INH SCH ×3 (08:00→19:17)
--- NOTE | 2017-03-24 08:16 | ECGEPIP ---
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
[2017-03-24] MEDS: CHLORHEXIDINE GLUCONATE 0.12 % 15ML UDC (PERIDEX ORAL RINSE) MT SCH (08:35)
[2017-03-24] MEDS: MOM 30ML SUSPENSION UDC GT SCH (08:35)
[2017-03-24] MEDS: PREGABALIN 25 MG CAP (LYRICA) GT SCH ×3 (08:36→20:52)
[2017-03-24] MEDS: HEPARIN SOD (PORCINE) 5000 UNITS/ML VIAL SQ SCH ×2 (08:36→20:52)
[2017-03-24] MEDS: FAMOTIDINE 20 MG TAB GT SCH (08:36)
[2017-03-24] MEDS: BACLOFEN 10 MG TAB GT SCH ×3 (08:36→20:52)
--- NOTE | 2017-03-24 08:46 | RO ---
DATE OF PROCEDURE: 03/23/2017 PREPROCEDURE DIAGNOSIS: Poor mucociliary clearance and impaction of mucous. POSTPROCEDURE DIAGNOSIS: Poor mucociliary clearance and impaction of mucous. PROCEDURE: Bronchoscopy. PROCEDURALIST: Ravi Wilson DO CAD DESIGNER: None. DESCRIPTION OF PROCEDURE: H190 bronchoscope was inserted into the endotracheal tube with Cetacaine spray. All airways were suctioned and cleared of thick amounts of mucus. The right upper lobe was especially obstructed with large amounts of mucus plugging. Saline was used and the posterior segment to facilitate mucociliary clearance. The trachea was midline. Erendira was sharp. Both right and left mainstem bronchi had significant amounts of mucus. RB 1 through 10 was cleared of mucus without endobronchial lesions. LB 1 through 10 was then cleared of mucus without any endobronchial lesions. After all airways were suctioned, the bronchoscope was removed. There were no observed complications. [facility]
[2017-03-24] MEDS: PROPOFOL 1,000 MG in APPROPRIATE DILUENT 1 EA IV SCH (11:47)
--- NOTE | 2017-03-24 12:33 | CR ---
CRITICAL CARE CONSULTATION: DATE OF CONSULTATION: 03/23/2017 REASON FOR CONSULTATION: Hypoxic respiratory failure. Critical care time was 1 hour and 47 minutes. This excludes all procedures. I was urgently called to see this patient by Dr. Sharma. He had been asked to admit this 42-year-old female that I have taken care of in the intensive care unit before for pneumonia, sepsis and respiratory failure. She again presents with a similar picture. She had been reportedly treated for respiratory infection in the alf. It is not clear what medication she was initiated on; however, she had some vomiting also last night. She was noticed to have significant respiratory distress and was brought to the emergency room where she was barely conscious, had difficulty breathing was placed on C-PAP while confirming code status. On my arrival she was tachypneic on C-PAP and unarousable. Therefore I performed intubation. During intubation, she had significant pooling of mucus secretions in her posterior pharynx. I therefore proceeded shortly after with bronchoscopy to evacuate the airway, especially because there was obstructive airway on chest CT. During the process, I sent a sputum sample for culture. The patient is not verbal. Her family is not in attendance. Her healthcare proxy and designated decision maker had spoken with our emergency room physician and directed her to perform all measures to sustain her life. PHYSICAL EXAMINATION Temperature is 99.4, rectally was 101, pulse is sinus tachycardia with a heart rate of 132, respiratory rate of 32, blood pressure of 131/83, oxygen saturation 93% on 0.40 prior to intubation. The patient is having desaturation episodes into the 80s. GENERAL: The patient is tachypneic and using accessory muscles to breathe, tachycardiac. Appears to be in acute respiratory distress. HEENT: Sclerae clear and anicteric. Pupils equal, react to light. Mucous membranes are dry. Mouth is rigid with small mouth opening. Tongue is dry. Neck is supple. No tracheal deviation or mass. LYMPHATICS: No supraclavicular, cervical, axillary adenopathy. PULMONARY: Diffuse rhonchi throughout both lung huntley with decreased air entry at bases. No dullness to percussion. Positive accessory muscle use. CARDIAC: Distant S1, S2, tachycardiac in nature without murmur, rub or gallop. ABDOMEN: Soft, nontender, nondistended. No hepatosplenomegaly. No masses. She has a percutaneous endoscopic gastrostomy (PEG) tube in her left upper quadrant. EXTREMITIES: Chronic contractures. Decreased muscle tone. NEUROLOGIC: No evidence of seizure activity. No evidence of asymmetric weakness. LABORATORY DATA: Laboratory evaluation shows a white count of 40.0, hemoglobin 15.9, hematocrit of 47.6 with a platelet count of 366 with 91% neutrophilia. Lactate is elevated at 2.1. Sodium is 141, potassium 4.1, chloride is 103, bicarbonate of 31, BUN of 29, creatinine of 0.7, glucose of 142, AST of 12, ALT of 24. INR is 1.06. Initial arterial blood gas shows a pH of 7.45, pCO2 of 42, pO2 of 54 on 100% non-rebreather. Chest x-ray shows bilateral infiltrate. Chest CT shows no evidence of pulmonary embolism but there are secretions in bilateral lower lobes obstructing most of the bronchials. Diffuse infiltrates. Abdomen and pelvis CT was performed, which did not show any abnormalities according to the report. I personal reviewed the chest CT and chest x-ray. Chest x-ray shows hyperinflated lungs. After intubation, endotracheal tube is in good position, approximately 4 cm above the chiqui. There is no evidence of pneumothorax. Blood cultures are pending. IMPRESSION: 1. Acute hypoxic respiratory failure from pneumonia. The patient is from alf. She has already received ertapenem. She was started on ceftaroline. We will continue this until her speciations from her sputum culture returns. We will maintain on volume control mechanical ventilation with low tidal volumes due to the possibility of sepsis. At this point in time, she does not have any evidence of septic shock. She is getting 2 liters of fluid as her mucous membranes appear dry. 2. Osorio's chorea. I agree with continuing Klonopin. She has chronic contractures and we will monitor closely for frequent repositioning and skin protection. 3. Gastrointestinal prophylaxis with Protonix. 4. Nutrition. We will restart Jevity, however at low rate at 30 mL an hour with elevated head of the bed and aspiration precautions. Critical care time was 1 hour and 47 minutes. Critical care attention due to the severity of her respiratory distress and mucociliary clearance. Edited: real 04/02/2017 1305 MTDD
[2017-03-24] MEDS ORDERED: POTASSIUM CHL PWD 20 MEQ PACKET PO ONE (14:00)
--- NOTE | 2017-03-24 20:45 | CCN ---
DATE: 03/24/2017 Critical care time was 45 minutes. This excludes all procedures. This morning I evaluated the patient on mechanical ventilation. She continued to have copious amounts of secretions. She was awake and agitated on sedation vacation. I again lifted her sedation and placed her on a spontaneous breathing trial. She does not follow commands at baseline. She was moving extremities and opening eyes which is her baseline functioning. She had a decent cough and passed her spontaneous breathing trial therefore I extubated the patient today. She is having copious amounts of mucus secretions continuously. We are keeping the head of the bed elevated and promoting mucociliary clearance. She is at high risk for reintubation given the severity of her respiratory status. Her tube feeds were increased today. Temperature is 98.8, pulse is 109, respiratory rate is 24, blood pressure is 117/75, oxygen saturations 98% on 2 liters. GENERAL: The patient is agitated, coughing, and slightly tachypneic. HEENT: Sclerae clear and anicteric. Pupils were equal, reactive to light. Mucous membranes are fairly moist, more moist than yesterday. Tongue is midline. PULMONARY: Diffuse rhonchi throughout both lung huntley. No expiratory wheeze. No dullness to percussion. CARDIAC: Tachycardiac, S1, S2, without audible murmur, rub or gallop. No elevated JVP. PMI is nondisplaced. There is no significant peripheral edema. ABDOMEN: Soft, nontender, nondistended. No hepatosplenomegaly. PEG tube is in place in the left upper quadrant. EXTREMITIES: Chronic contractures and muscle wasting. No edema. SKIN: Pale without jaundice or bruising. LABORATORY EVALUATION: White blood cell count is now down to 22 from 40, hemoglobin is 12.1, platelet count of 219, sodium is 142, potassium 3.3, chloride is 108, bicarbonate of 20, BUN of 19 and creatinine of 0.62, calcium is slightly low at 8.4, glucose is 103. Arterial blood gas this morning shows a pH of 7.50, pCO2 of 36 and PaO2 of 83. Chest x-ray shows endotracheal tube in good position. Minimal infiltrate, right greater than left. No evidence of pneumothorax. No pleural effusion. Fair chest expansion. IMPRESSION: 1. Acute hypoxic respiratory failure secondary to pneumonia. Sputum culture is still pending. The patient is on ceftaroline until sputum culture results. Will de-escalate therapy at that point in time. The patient is from long term and therefore runs a risk of having MRSA. She is at high risk for aspiration. She is also at high risk for a need for reintubation due to her inability to have adequate mucociliary clearance. Will continue NT suction as necessary and follow aspiration precautions. 2. Hypokalemia. Potassium replaced per tube today. 3. Muscle wasting, protein malnourishment. Increased tube feeds today. 4. Lima's chorea. She is continued on her baclofen and Klonopin and there has been no evidence of seizure activity. Overall poor prognosis given her chronic illness and inability to clear mucus secretions. Attempts to keep her off mechanical ventilation will be pursued today. Will transfer to primary service when the patient is more stable. Currently she continues to require critical care due to her tenuous respiratory status.
[2017-03-24] MEDS: clonazePAM 1 MG TAB GT SCH (20:52)
[2017-03-25] VITALS (15 sets, daily range): BP systolic 90–133; BP diastolic 56–79
[2017-03-25] MEDS: CEFTAROLINE FOSAMIL 600 MG in D5W MINI-BAG PLUS 50 ML IV SCH (05:24)
[2017-03-25 06:24] LABS: ABG BASE EXCESS 3.2 (-2.0-2.0); ABG HCO3 27.2 MEQ/L (22.0-26.0); ABG PARTIAL PRESSURE CO2 39.6 mmHg (35.0-45.0); ABG PARTIAL PRESSURE O2 76.6 mmHg (75.0-100.0); ABG STANDARD HCO3 27.2 MEQ/L (22.0-26.0); ABG TOTAL CO2 28.4 MEQ/L (22.0-29.0); ABG pH (ARTERIAL) 7.455 UNITS (7.350-7.450)
[2017-03-25 07:24] LABS: MEAN CORPUSCULAR HEMOGLOBIN 31.1 pg (27.0-33.0); MEAN CORPUSCULAR HGB CONC 33.9 g/dl (32.0-36.5); MEAN CORPUSCULAR VOLUME 91.7 fl (80.0-96.0); RED CELL DISTRIBUTION WIDTH 13.2 % (11.5-14.5); WHITE BLOOD COUNT 9.7 K/mm3 (4.0-10.0)
--- NOTE | 2017-03-25 07:48 | REP ---
Portable chest, single AP view, the patient semi upright, 06:55 a.m.: Comparison is 03/24/2017. The a focal infiltrate noted on the comparison study inferiorly in the right lung has improved. The lung huntley otherwise clear. No pleural effusions. The endotracheal tube has been removed. Cardiac size is normal. The sai, mediastinum, and bony thorax are unremarkable. There are superimposed tubing artifacts over the mediastinum. Signed by Isidro Eaton MD 03/25/2017 07:39 A
[2017-03-25] MEDS: ALBUTEROL SULFATE 2.5 MG/0.5 ML INH NEB SOLN INH SCH ×4 (08:00→19:58)
[2017-03-25] MEDS: IPRATROPIUM 0.5MG/ALBUTEROL 2.5MG INH SOL UD 3ML (DUONEB)(J7620) NEB SCH ×4 (08:43→19:58)
[2017-03-25 08:44] LABS: ANION GAP 4 MEQ/L (8-16); BLOOD UREA NITROGEN 15 MG/DL (7-18); CALCIUM LEVEL 8.8 MG/DL (8.5-10.1); CARBON DIOXIDE LEVEL 30 MEQ/L (21-32); CHLORIDE LEVEL 106 MEQ/L (98-107); CREATININE FOR GFR 0.62 MG/DL (0.55-1.02); GLOMERULAR FILTRATION RATE > 60.0 (>58); GLUCOSE, FASTING 102 MG/DL (70-105); SODIUM LEVEL 140 MEQ/L (136-145)
[2017-03-25] MEDS: BACLOFEN 10 MG TAB GT SCH ×3 (09:26→20:15)
[2017-03-25] MEDS: FAMOTIDINE 20 MG TAB GT SCH (09:26)
[2017-03-25] MEDS: HEPARIN SOD (PORCINE) 5000 UNITS/ML VIAL SQ SCH ×2 (09:27→20:15)
[2017-03-25] MEDS: PREGABALIN 25 MG CAP (LYRICA) GT SCH ×3 (09:27→20:15)
[2017-03-25] MEDS: MOM 30ML SUSPENSION UDC GT SCH (09:28)
[2017-03-25] MEDS ORDERED: SODIUM CHLORIDE 0.9% 1000 ML IV ONE (10:00)
[2017-03-25] MEDS: D5W IV SCH ×2 (10:34→17:37)
[2017-03-25] MEDS: TOBRAMYCIN SULF IV SCH ×2 (10:34→17:37)
[2017-03-25] MEDS: cefTAZidime 1 GM in D5W MINI-BAG PLUS 100 ML IV SCH ×2 (11:07→18:22)
--- NOTE | 2017-03-25 12:47 | CCN ---
DATE: 03/25/2017 Jacob was extubated yesterday. She is not as tachypneic this morning, although she continues to have significant mucus secretions requiring suctioning. Continues to produce large amounts of yellow mucus. She is continuing tube feeds. Her urine output has decreased this morning therefore I gave her normal saline at 1 liter. We will continue to monitor urine output throughout the day. The patient is averbal but has significant agitation with being repositioned, which is her baseline. PHYSICAL EXAMINATION Temperature 98.8, pulse is 91, respiratory rate 18, blood pressure is 99/63, oxygen saturation 95% on 2 liters. GENERAL: Awake, less tachypneic. Moving extremities when agitated. HEENT: Sclerae clear and anicteric. Pupils equal, react to light. Mucous membranes are moist without lesions. Tongue is midline. Much more moist than on admission. Neck is supple. No tracheal deviation or mass. LYMPHS: No supraclavicular, cervical or axillary adenopathy. CARDIAC: Regular S1, S2 without audible murmur, rub or gallop. No elevated jugular venous pressure. No peripheral edema. PULMONARY: Decreased breath sounds throughout. No prolongation of the expiratory phase. No wheeze, scattered rhonchi are present. ABDOMEN: Soft, nontender, nondistended. No hepatosplenomegaly. No masses or hernia. Left upper quadrant percutaneous endoscopic gastrostomy (PEG) tube in place without surrounding erythema. EXTREMITIES: No cyanosis, clubbing or edema. Chronic contractures are present. SKIN: Pale without rashes, jaundice. There is an old bruise underneath her jaw. This was present on admission. MUSCULOSKELETAL: Significant muscle wasting and contractures, as mentioned above. LABORATORY EVALUATION: Shows a white blood cell count that is down to 9.7 from 22 yesterday, 40 the day before. Hemoglobin is 12.4, hematocrit of 36.6 with a platelet count of 184. Sodium is 140, bicarbonate is 30, potassium is 4.0 with a chloride of 106, BUN of 15, creatinine of 0.62, calcium is 8.8. INR is 1.06. Sputum culture this morning is showing Pseudomonas, which is resistant to levofloxacin, sensitive to tobramycin, ceftazidime, Zosyn on meropenem. Enterococcus faecalis grew out of her urine; however, it is not clear that she had a urinary tract infection. IMPRESSION 1. Acute respiratory failure from Pseudomonas pneumonia. I have changed her antibiotics from ceftaroline to ceftazidime and tobramycin. I am providing dual coverage due to the Pseudomonal infection. Due to her clinical improvement, I am transferring her to [facility] service. We will continue recommend NT suctioning. The patient has a high risk of recurrent respiratory failure given her inability to perform adequate mucociliary clearance. 2. Chronic aspiration. Has tube feeds currently. Not at baseline but sufficient. Jevity is being administered continuously rather than a bolus form. 3. Decreased urine output. 1 liter normal saline administered this morning. We will continue to monitor urine output. Kidney function has been adequate. MTDD
--- NOTE | 2017-03-25 13:53 | IPNPDOC ---
Subjective Date Seen The patient was seen on 03/25/17. Subjective Chief Complaint/HPI The patient is a 42-year-old female admitted with a reason for visit of Aspiration Pneumonia. General: Reports: ROS Unobtainable Objective Physical Examination General Exam: Positive: Alert, Mild Distress ENT Exam: Positive: Atraumatic Chest Exam: Positive: Clear to auscultation, Diminished, Negative: Rales, Rhonchi Heart Exam: Positive: Regular Rhythm, Negative: Murmurs Abdomen Exam: Positive: Normal bowel sounds Skin Exam: Negative: Breakdown Neuro Exam: Positive: Other (tremor/dyskinesia. unintelligible brief vocalizations) Assessment /Plan Problems (1) HCAP (healthcare-associated pneumonia) Status: Acute Response to Treatment: Improving Problem Specific Plan: Consult Specialist (improving. pseudomonas being treated with ceftazidime and tobra) Problem Text: due to decreased urine output, received fluid bolus. milton in place. as a consequence of her chronic neurodegenerative disease she is subject to recurrent aspiration and suffers from decreased ability to clear secretions as well. (2) Osorio's chorea Status: Chronic Response to Treatment: Stable Problem Specific Plan: Monitor Clinically (3) Functional quadriplegia Status: Chronic Response to Treatment: Stable Problem Specific Plan: Monitor Clinically Plan/VTE VTE Prophylaxis Ordered?: Yes Plan/Urinary Catheter Reason for insertion/continuin: Critical Pt monitoring Plan IVF: Continue Activity: Continue Current Anticipated Discharge: Assisted VS, I&O, 24H, [facility] Vital Signs/I&O Vital Signs Date Time Temp Pulse Resp B/P (MAP) Pulse Ox O2 Delivery O2 Flow Rate FiO2 03/25/17 12:00 98.4 105 16 133/66 (88) 96 Nasal Cannula 2.0 03/24/17 13:00 40 I&O- Last 24 Hours up to 6 AM 03/25/17 06:00 Intake Total 1270 ml Output Total 580 ml Balance 690 ml Laboratory Data 24H LABS Laboratory Tests 2 03/25/17 05:52: Blood Gas Bicarbonate Standard 27.2H, Arterial Blood pH 7.455H, Arterial Blood Partial Pressure CO2 39.6, Arterial Blood Partial Pressure O2 76.6, Arterial Blood Total CO2 28.4, Arterial Blood HCO3 27.2H, Arterial Blood Base Excess 3.2H , Arterial Blood Oxygen Saturation 95.5 03/25/17 07:07: Anion Gap 4L, Glomerular Filtration Rate > 60.0, Blood Urea Nitrogen 15, Creatinine 0.62, Sodium Level 140, Potassium Level 4.0#, Chloride Level 106, Carbon Dioxide Level 30, Calcium Level 8.8 CBC/BMP Laboratory Tests 03/25/17 07:07 Red Blood Count 3.99 L, Mean Corpuscular Volume 91.7, Mean Corpuscular Hemoglobin 31.1, Mean Corpuscular Hemoglobin Concent 33.9, Red Cell Distribution Width 13.2, Calcium Level 8.8 Microbiology Microbiology 03/23/17 Blood Culture - Preliminary, Resulted No Growth after 48 hours. All Specime... 03/23/17 Blood Culture - Preliminary, Resulted No Growth after 48 hours. All Specime... 03/23/17 Gram Stain - Final, Complete 03/23/17 Sputum Culture - Final, Complete Pseudomonas Aeruginosa 03/23/17 Influenza Virus Type A Antigen - Final, Complete 03/23/17 Influenza Virus Type B Antigen - Final, Complete 03/23/17 Urine Culture - Preliminary, Resulted Enterococcus Faecalis Kirk Pompa MD Mar 25, 2017 13:53
[2017-03-25] MEDS: clonazePAM 1 MG TAB GT SCH (20:15)
[2017-03-26] VITALS (9 sets, daily range): BP systolic 108–129; BP diastolic 63–90
[2017-03-26] MEDS: TOBRAMYCIN SULF IV SCH ×3 (02:57→19:03)
[2017-03-26] MEDS: D5W IV SCH ×3 (02:57→19:03)
[2017-03-26] MEDS ORDERED: ONDANSETRON 4MG/2ML VIAL (J2405) IV PRN (03:15)
[2017-03-26] MEDS: cefTAZidime 1 GM in D5W MINI-BAG PLUS 100 ML IV SCH ×3 (03:56→19:05)
[2017-03-26 05:46] LABS: ABG HCO3 29.4 MEQ/L (22.0-26.0); ABG PARTIAL PRESSURE CO2 47.7 mmHg (35.0-45.0); ABG STANDARD HCO3 26.6 MEQ/L (22.0-26.0); ABG TOTAL CO2 30.9 MEQ/L (22.0-29.0); ABG pH (ARTERIAL) 7.408 UNITS (7.350-7.450)
[2017-03-26 05:49] LABS: ABG PARTIAL PRESSURE O2 18.8 mmHg (75.0-100.0)
[2017-03-26 05:56] LABS: MEAN CORPUSCULAR HEMOGLOBIN 30.4 pg (27.0-33.0); MEAN CORPUSCULAR HGB CONC 33.4 g/dl (32.0-36.5); RED CELL DISTRIBUTION WIDTH 13.1 % (11.5-14.5); WHITE BLOOD COUNT 13.2 K/mm3 (4.0-10.0)
[2017-03-26 05:58] LABS: ANION GAP 7 MEQ/L (8-16); BLOOD UREA NITROGEN 9 MG/DL (7-18); CALCIUM LEVEL 8.7 MG/DL (8.5-10.1); CARBON DIOXIDE LEVEL 28 MEQ/L (21-32); CHLORIDE LEVEL 103 MEQ/L (98-107); CREATININE FOR GFR 0.42 MG/DL (0.55-1.02); GLOMERULAR FILTRATION RATE > 60.0 (>58); GLUCOSE, FASTING 97 MG/DL (70-105); POTASSIUM SERUM 3.6 MEQ/L (3.5-5.1); SODIUM LEVEL 138 MEQ/L (136-145)
--- NOTE | 2017-03-26 07:36 | REP ---
AP chest, single view, 06:40 a.m.: Comparison is 03/25/2017. The lung huntley are clear. The right lung infiltrate has resolved. Cardiac size is normal. The sai, mediastinum, and bony thorax are unremarkable. Impression: Negative AP chest. The right lung infiltrate has resolved. Signed by Isidro Eaton MD 03/26/2017 07:27 A
[2017-03-26] MEDS: ALBUTEROL SULFATE 2.5 MG/0.5 ML INH NEB SOLN INH SCH ×4 (08:00→19:45)
[2017-03-26] MEDS: IPRATROPIUM 0.5MG/ALBUTEROL 2.5MG INH SOL UD 3ML (DUONEB)(J7620) NEB SCH ×4 (08:22→19:45)
[2017-03-26] MEDS: FAMOTIDINE 20 MG TAB GT SCH (08:27)
[2017-03-26] MEDS: PREGABALIN 25 MG CAP (LYRICA) GT SCH ×3 (08:27→21:37)
[2017-03-26] MEDS: HEPARIN SOD (PORCINE) 5000 UNITS/ML VIAL SQ SCH ×2 (08:27→21:37)
--- NOTE | 2017-03-26 08:29 | IPNPDOC ---
Subjective Date Seen The patient was seen on 03/26/17. Subjective Chief Complaint/HPI The patient is a 42-year-old female admitted with a reason for visit of Aspiration Pneumonia. General: Reports: ROS Unobtainable Objective Physical Examination General Exam: Positive: Alert, No Acute Distress, Negative: Cooperative Eye Exam: Positive: PERRLA ENT Exam: Positive: Atraumatic Chest Exam: Positive: Clear to auscultation, Diminished, Negative: Rales, Rhonchi Heart Exam: Positive: Regular Rhythm, Negative: Murmurs Telemetry: Positive: No significant arrhythmia Abdomen Exam: Positive: Normal bowel sounds, Soft, Negative: Tenderness Extremity Exam: Negative: Clubbing, Edema Skin Exam: Negative: Breakdown Neuro Exam: Positive: Other (tremor/dyskinesia. unintelligible brief vocalizations. seemed to be watching TV, pushed examiner away so aware of surroundings) Assessment /Plan Problems (1) HCAP (healthcare-associated pneumonia) Status: Acute Response to Treatment: Improving Problem Specific Plan: Consult Specialist (improving. pseudomonas being treated with ceftazidime and tobra) Problem Text: 03/26/17: stable. CXR essentially clear. pulmonary will sign off and ready to depart ICU for floor. 10 days total IV to treat pseudomonas pneumonia. VRE was noted in urine along with ordinary Enterococcus. Currently on Tobra and bug was S to gent 03/25: due to decreased urine output, received fluid bolus. milton in place. as a consequence of her chronic neurodegenerative disease she is subject to recurrent aspiration and suffers from decreased ability to clear secretions as well. 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 dialed in hold feeding paramet of>100. request dietary input RE nutritional rec re feeding choice, free water recommendations, calories. Plan/VTE VTE Prophylaxis Ordered?: Yes Plan/Urinary Catheter Reason for insertion/continuin: Critical Pt monitoring Plan IVF: Continue Activity: Continue Current Anticipated Discharge: [facility] Advance Directives: DNR (DNR affirmed by Proxy yesterday, but continue with intubation, tube feeding, etc.) VS, I&O, 24H, Fishbone Vital Signs/I&O Vital Signs Date Time Temp Pulse Resp B/P (MAP) Pulse Ox O2 Delivery O2 Flow Rate FiO2 03/26/17 06:00 98.6 98 23 116/87 (97) 98 Nasal Cannula 2.0 03/24/17 13:00 40 I&O- Last 24 Hours up to 6 AM 03/26/17 05:59 Intake Total 2209 ml Output Total 568 ml Balance 1641 ml Laboratory Data 24H LABS Laboratory Tests 2 03/26/17 05:28: Anion Gap 7L, Glomerular Filtration Rate > 60.0, Blood Urea Nitrogen 9, Creatinine 0.42L, Sodium Level 138, Potassium Level 3.6, Chloride Level 103, Carbon Dioxide Level 28, Calcium Level 8.7 03/26/17 05:34: Blood Gas Bicarbonate Standard 26.6H, Arterial Blood pH 7.408, Arterial Blood Partial Pressure CO2 47.7H, Arterial Blood Partial Pressure O2 18.8*L, Arterial Blood Total CO2 30.9H, Arterial Blood HCO3 29.4H, Arterial Blood Base Excess 4.0H, Arterial Blood Oxygen Saturation 27.5L, Arterial Blood Gas Puncture Site LT BRACHIAL CBC/BMP Laboratory Tests 03/26/17 05:28 Red Blood Count 3.95 L, Mean Corpuscular Volume 91.0, Mean Corpuscular Hemoglobin 30.4, Mean Corpuscular Hemoglobin Concent 33.4, Red Cell Distribution Width 13.1, Calcium Level 8.7 Microbiology Microbiology 03/23/17 Blood Culture - Preliminary, Resulted No Growth after 48 hours. All Specime... 03/23/17 Blood Culture - Preliminary, Resulted No Growth after 48 hours. All Specime... 03/23/17 Gram Stain - Final, Complete 03/23/17 Sputum Culture - Final, Complete Pseudomonas Aeruginosa 03/23/17 Influenza Virus Type A Antigen - Final, Complete 03/23/17 Influenza Virus Type B Antigen - Final, Complete 03/23/17 Urine Culture - Final, Complete Enterococcus Faecalis Enterococcus Faecium (Vre) Kirk Pompa MD Mar 26, 2017 08:29
[2017-03-26] MEDS: BACLOFEN 10 MG TAB GT SCH ×3 (08:30→21:37)
[2017-03-26] MEDS: MOM 30ML SUSPENSION UDC GT SCH (08:47)
[2017-03-26] MEDS: clonazePAM 1 MG TAB GT SCH (21:37)
[2017-03-27] MEDS: D5W IV SCH ×3 (02:29→18:15)
[2017-03-27] MEDS: NS 1,000 ML IV SCH (02:29)
[2017-03-27] MEDS: TOBRAMYCIN SULF IV SCH ×3 (02:29→18:15)
[2017-03-27] MEDS: cefTAZidime 1 GM in D5W MINI-BAG PLUS 100 ML IV SCH ×3 (03:45→19:21)
[2017-03-27 06:00] VITALS: BP 106/79
[2017-03-27 06:35] LABS: MEAN CORPUSCULAR HEMOGLOBIN 29.8 pg (27.0-33.0); MEAN CORPUSCULAR HGB CONC 33.4 g/dl (32.0-36.5); MEAN CORPUSCULAR VOLUME 89.1 fl (80.0-96.0); RED CELL DISTRIBUTION WIDTH 12.9 % (11.5-14.5); WHITE BLOOD COUNT 14.3 K/mm3 (4.0-10.0)
[2017-03-27 06:56] LABS: ANION GAP 6 MEQ/L (8-16); BLOOD UREA NITROGEN 9 MG/DL (7-18); CARBON DIOXIDE LEVEL 30 MEQ/L (21-32); CHLORIDE LEVEL 99 MEQ/L (98-107); CREATININE FOR GFR 0.56 MG/DL (0.55-1.02); GLOMERULAR FILTRATION RATE > 60.0 (>58); GLUCOSE, FASTING 100 MG/DL (70-105); POTASSIUM SERUM 4.2 MEQ/L (3.5-5.1); SODIUM LEVEL 135 MEQ/L (136-145); TOBRAMYCIN LEVEL TROUGH 1.7 MCG/ML (0.0-2.0)
[2017-03-27] MEDS: IPRATROPIUM 0.5MG/ALBUTEROL 2.5MG INH SOL UD 3ML (DUONEB)(J7620) NEB SCH ×4 (07:40→19:47)
[2017-03-27] MEDS: ALBUTEROL SULFATE 2.5 MG/0.5 ML INH NEB SOLN INH SCH ×4 (08:00→19:47)
--- NOTE | 2017-03-27 08:47 | IPNPDOC ---
Subjective Date Seen The patient was seen on 03/27/17. Subjective Chief Complaint/HPI The patient is a 42-year-old female admitted with a reason for visit of Aspiration Pneumonia. Constitutional: Denies: Chills, Fever Pulmonary: Denies: Dyspnea Gastrointestinal: Denies: Nausea, Vomiting, Diarrhea, Constipation Objective Physical Examination General Exam: Positive: Alert (eye open. Moving arms. Seems to push me away when I examine her), No Acute Distress, Negative: Cooperative Chest Exam: Positive: Clear to auscultation, Diminished, Negative: Rales, Rhonchi Heart Exam: Positive: Regular Rhythm, Negative: Murmurs Telemetry: Positive: No significant arrhythmia Abdomen Exam: Positive: Normal bowel sounds, Soft, Negative: Tenderness Extremity Exam: Negative: Clubbing, Edema Skin Exam: Negative: Breakdown Assessment /Plan Problems (1) HCAP (healthcare-associated pneumonia) Status: Acute Response to Treatment: Improving Problem Specific Plan: Consult Specialist (improving. pseudomonas being treated with ceftazidime and tobra) Problem Text: 03/27 - Resp status seems stable currently. Continue Tobra and Fortaz x 10 days total to treat pseudomonas (2) VRE (vancomycin resistant enterococcus) culture positive Status: Acute Response to Treatment: Stable Problem Text: VRE in Urine S to Gent. Continue Tobra (May be colonization, but due to patient's inability to provide history or describe symptoms it is impossible to know if she is symptomatic, so will treat). 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 dialed in hold feeding paramet of>100. request dietary input RE nutritional rec re feeding choice, free water recommendations, calories. Plan/VTE VTE Prophylaxis Ordered?: Yes Plan/Urinary Catheter Reason for insertion/continuin: Critical Pt monitoring Plan IVF: Continue Activity: Continue Current Anticipated Discharge: [facility] Advance Directives: DNR (DNR affirmed by Proxy yesterday, but continue with intubation, tube feeding, etc.) VS, I&O, 24H, Fishbone Vital Signs/I&O Vital Signs Date Time Temp Pulse Resp B/P (MAP) Pulse Ox O2 Delivery O2 Flow Rate FiO2 03/27/17 06:00 98.9 102 18 106/79 (88) 96 Nasal Cannula 2.0 03/24/17 13:00 40 I&O- Last 24 Hours up to 6 AM 03/27/17 05:59 Intake Total 650 ml Output Total 395 ml Balance 255 ml Laboratory Data 24H LABS Laboratory Tests 2 03/26/17 09:05: Tobramycin Level Trough 3.7*H 03/26/17 10:54: Tobramycin Level Peak 3.9 03/27/17 06:21: Tobramycin Level Trough 1.7, Anion Gap 6L, Glomerular Filtration Rate > 60.0, Blood Urea Nitrogen 9, Creatinine 0.56, Sodium Level 135L, Potassium Level 4.2, Chloride Level 99, Carbon Dioxide Level 30, Calcium Level 9.0 CBC/BMP Laboratory Tests 03/27/17 06:21 Red Blood Count 4.12, Mean Corpuscular Volume 89.1, Mean Corpuscular Hemoglobin 29.8, Mean Corpuscular Hemoglobin Concent 33.4, Red Cell Distribution Width 12.9 , Calcium Level 9.0 Microbiology Microbiology 03/23/17 Blood Culture - Preliminary, Resulted No Growth after 72 hours. All specime... 03/23/17 Blood Culture - Preliminary, Resulted No Growth after 72 hours. All specime... 03/23/17 Gram Stain - Final, Complete 03/23/17 Sputum Culture - Final, Complete Pseudomonas Aeruginosa 03/23/17 Influenza Virus Type A Antigen - Final, Complete 03/23/17 Influenza Virus Type B Antigen - Final, Complete 03/23/17 Urine Culture - Final, Complete Enterococcus Faecalis Enterococcus Faecium (Vre) Attending Note Attending Note may be able to return to [facility] if they are willing/able to manage completion of IV meds HOLLY TERAN PA-C Mar 27, 2017 08:47 Kirk Pompa MD Mar 27, 2017 16:13
[2017-03-27] MEDS: HEPARIN SOD (PORCINE) 5000 UNITS/ML VIAL SQ SCH ×2 (09:58→20:56)
[2017-03-27] MEDS: BACLOFEN 10 MG TAB GT SCH ×3 (09:58→20:56)
[2017-03-27] MEDS: PREGABALIN 25 MG CAP (LYRICA) GT SCH ×3 (09:58→20:56)
[2017-03-27] MEDS: MOM 30ML SUSPENSION UDC GT SCH (09:59)
[2017-03-27] MEDS: FAMOTIDINE 20 MG TAB GT SCH (09:59)
[2017-03-27] MEDS: ACETAMINOPHEN 650 MG SUPP PR PRN (10:45)
[2017-03-27 14:00] VITALS: BP 125/73
[2017-03-27] MEDS: clonazePAM 1 MG TAB GT SCH (20:56)
[2017-03-27 22:00] VITALS: BP 136/93
[2017-03-28] MEDS: NS 1,000 ML IV SCH ×2 (02:03→13:00)
[2017-03-28] MEDS: TOBRAMYCIN SULF IV SCH ×3 (02:03→17:24)
[2017-03-28] MEDS: D5W IV SCH ×3 (02:03→17:24)
[2017-03-28] MEDS: cefTAZidime 1 GM in D5W MINI-BAG PLUS 100 ML IV SCH ×3 (03:30→18:20)
[2017-03-28 06:00] VITALS: BP 122/65
[2017-03-28 06:55] LABS: MEAN CORPUSCULAR HEMOGLOBIN 30.4 pg (27.0-33.0); MEAN CORPUSCULAR HGB CONC 33.4 g/dl (32.0-36.5); MEAN CORPUSCULAR VOLUME 91.1 fl (80.0-96.0); RED CELL DISTRIBUTION WIDTH 12.9 % (11.5-14.5); WHITE BLOOD COUNT 13.3 K/mm3 (4.0-10.0)
[2017-03-28] MEDS: IPRATROPIUM 0.5MG/ALBUTEROL 2.5MG INH SOL UD 3ML (DUONEB)(J7620) NEB SCH ×4 (07:11→19:50)
[2017-03-28] MEDS: ALBUTEROL SULFATE 2.5 MG/0.5 ML INH NEB SOLN INH SCH ×2 (07:12→11:06)
[2017-03-28 07:14] LABS: ANION GAP 9 MEQ/L (8-16); BLOOD UREA NITROGEN 9 MG/DL (7-18); CALCIUM LEVEL 9.1 MG/DL (8.5-10.1); CARBON DIOXIDE LEVEL 31 MEQ/L (21-32); CHLORIDE LEVEL 100 MEQ/L (98-107); CREATININE FOR GFR 0.58 MG/DL (0.55-1.02); GLOMERULAR FILTRATION RATE > 60.0 (>58); GLUCOSE, FASTING 93 MG/DL (70-105); POTASSIUM SERUM 4.5 MEQ/L (3.5-5.1); SODIUM LEVEL 140 MEQ/L (136-145)
[2017-03-28] MEDS: BACLOFEN 10 MG TAB GT SCH ×3 (10:08→20:05)
[2017-03-28] MEDS: MOM 30ML SUSPENSION UDC GT SCH (10:08)
[2017-03-28] MEDS: PREGABALIN 25 MG CAP (LYRICA) GT SCH ×3 (10:08→20:05)
[2017-03-28] MEDS: FAMOTIDINE 20 MG TAB GT SCH (10:08)
[2017-03-28] MEDS: HEPARIN SOD (PORCINE) 5000 UNITS/ML VIAL SQ SCH ×2 (10:08→20:05)
--- NOTE | 2017-03-28 12:54 | IPNPDOC ---
Subjective Date Seen The patient was seen on 03/28/17. Subjective Chief Complaint/HPI The patient is a 42-year-old female admitted with a reason for visit of Aspiration Pneumonia. Events since last encounter tube feeds had to be held for 4 hours last night due to high residuals. Constitutional: Denies: Chills, Fever Pulmonary: Denies: Dyspnea Cardiovascular: Denies: Chest Pain Gastrointestinal: Denies: Nausea, Vomiting, Diarrhea, Constipation Objective Physical Examination General Exam: Positive: Alert, No Acute Distress Chest Exam: Positive: Clear to auscultation, Diminished Heart Exam: Positive: Regular Rhythm Telemetry: Positive: No significant arrhythmia Abdomen Exam: Positive: Normal bowel sounds, Soft Extremity Exam: Negative: Clubbing, Edema Skin Exam: Negative: Breakdown Assessment /Plan Problems (1) HCAP (healthcare-associated pneumonia) Status: Acute Response to Treatment: Improving Problem Specific Plan: Consult Specialist (improving. pseudomonas being treated with ceftazidime and tobra) Problem Text: 03/28 - Resp status seems stable currently. Continue Tobra and Fortaz Day # 12/09 to treat pseudomonas [facility] willing to complete abx there once stable (2) VRE (vancomycin resistant enterococcus) culture positive Status: Acute Response to Treatment: Stable Problem Text: VRE in Urine S to Gent. Continue Tobra (May be colonization, but due to patient's inability to provide history or describe symptoms it is impossible to know if she is symptomatic, so will treat). (3) Feeding by G-tube Status: Chronic Response to Treatment: Stable Problem Specific Plan: Consult Specialist Problem Text: Still having high residuals. Tube feeding rate decreased to 40. Nutritional recommendations are for 50/hour. We are supplementing with IVF when feedings need to be held. Monitor trend. 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 Heel float boots order. Plan/VTE VTE Prophylaxis Ordered?: Yes Plan/Urinary Catheter Reason for insertion/continuin: Critical Pt monitoring Plan IVF: Continue Activity: Continue Current Anticipated Discharge: Group Home Advance Directives: DNR (DNR affirmed by Proxy yesterday, but continue with intubation, tube feeding, etc.) VS, I&O, 24H, Fishbone Vital Signs/I&O Vital Signs Date Time Temp Pulse Resp B/P (MAP) Pulse Ox O2 Delivery O2 Flow Rate FiO2 03/28/17 06:00 99.2 100 22 122/65 (84) 90 Nasal Cannula 2.0 03/24/17 13:00 40 I&O- Last 24 Hours up to 6 AM 03/28/17 06:00 Intake Total 1551 ml Output Total 700 ml Balance 851 ml Laboratory Data 24H LABS Laboratory Tests 2 03/28/17 06:12: Anion Gap 9, Glomerular Filtration Rate > 60.0, Blood Urea Nitrogen 9, Creatinine 0.58, Sodium Level 140, Potassium Level 4.5, Chloride Level 100, Carbon Dioxide Level 31, Calcium Level 9.1 CBC/BMP Laboratory Tests 03/28/17 06:12 Red Blood Count 4.30, Mean Corpuscular Volume 91.1, Mean Corpuscular Hemoglobin 30.4, Mean Corpuscular Hemoglobin Concent 33.4, Red Cell Distribution Width 12.9 , Calcium Level 9.1 Microbiology Microbiology 03/23/17 Blood Culture - Final, Complete NO GROWTH AFTER 5 DAYS 03/23/17 Blood Culture - Final, Complete NO GROWTH AFTER 5 DAYS 03/23/17 Gram Stain - Final, Complete 03/23/17 Sputum Culture - Final, Complete Pseudomonas Aeruginosa 03/23/17 Influenza Virus Type A Antigen - Final, Complete 03/23/17 Influenza Virus Type B Antigen - Final, Complete 03/23/17 Urine Culture - Final, Complete Enterococcus Faecalis Enterococcus Faecium (Vre) HOLLY TERAN PA-C Mar 28, 2017 12:54 Kirk Pompa MD Mar 28, 2017 15:11
[2017-03-28 14:00] VITALS: BP 123/64
[2017-03-28] MEDS: clonazePAM 1 MG TAB GT SCH (20:05)
[2017-03-28 22:00] VITALS: BP 129/88
[2017-03-29] MEDS: TOBRAMYCIN SULF IV SCH ×3 (01:49→17:27)
[2017-03-29] MEDS: D5W IV SCH ×3 (01:49→17:27)
[2017-03-29] MEDS: cefTAZidime 1 GM in D5W MINI-BAG PLUS 100 ML IV SCH ×3 (02:48→18:38)
[2017-03-29] MEDS: NS 1,000 ML IV SCH ×2 (02:59→20:40)
[2017-03-29 06:00] VITALS: BP 105/70
[2017-03-29 06:27] LABS: MEAN CORPUSCULAR HEMOGLOBIN 30.6 pg (27.0-33.0); MEAN CORPUSCULAR HGB CONC 34.5 g/dl (32.0-36.5); MEAN CORPUSCULAR VOLUME 88.7 fl (80.0-96.0); WHITE BLOOD COUNT 8.5 K/mm3 (4.0-10.0)
[2017-03-29 06:53] LABS: ANION GAP 7 MEQ/L (8-16); BLOOD UREA NITROGEN 9 MG/DL (7-18); CALCIUM LEVEL 9.6 MG/DL (8.5-10.1); CARBON DIOXIDE LEVEL 33 MEQ/L (21-32); CHLORIDE LEVEL 98 MEQ/L (98-107); CREATININE FOR GFR 0.58 MG/DL (0.55-1.02); GLOMERULAR FILTRATION RATE > 60.0 (>58); GLUCOSE, FASTING 95 MG/DL (70-105); POTASSIUM SERUM 3.7 MEQ/L (3.5-5.1); SODIUM LEVEL 138 MEQ/L (136-145)
[2017-03-29] MEDS: IPRATROPIUM 0.5MG/ALBUTEROL 2.5MG INH SOL UD 3ML (DUONEB)(J7620) NEB SCH ×4 (07:19→19:41)
[2017-03-29 09:33] VITALS: BP 143/76
[2017-03-29] MEDS: FAMOTIDINE 20 MG TAB GT SCH (10:55)
[2017-03-29] MEDS: MOM 30ML SUSPENSION UDC GT SCH (10:56)
[2017-03-29] MEDS: BACLOFEN 10 MG TAB GT SCH ×3 (10:56→22:14)
[2017-03-29] MEDS: HEPARIN SOD (PORCINE) 5000 UNITS/ML VIAL SQ SCH ×2 (10:57→22:13)
[2017-03-29] MEDS: PREGABALIN 25 MG CAP (LYRICA) GT SCH ×3 (11:15→22:14)
[2017-03-29] MEDS ORDERED: ALBUTEROL SULFATE 2.5 MG/0.5 ML INH NEB SOLN INH PRN (12:00)
[2017-03-29 13:54] VITALS: BP 130/82
[2017-03-29 14:00] VITALS: BP 130/82
[2017-03-29 22:00] VITALS: BP 136/79
[2017-03-29] MEDS: clonazePAM 1 MG TAB GT SCH (22:14)
[2017-03-30] MEDS: TOBRAMYCIN SULF 100 MG in D5W 50 ML IV SCH ×3 (02:53→17:01)
--- NOTE | 2017-03-30 02:57 | IPNPDOC ---
Subjective Date Seen The patient was seen on 03/29/17. Subjective Chief Complaint/HPI The patient is a 42-year-old female admitted with a reason for visit of Aspiration Pneumonia. Events since last encounter Nursing reports that with optimal positioning, patient is tolerating her tube feedings well. Plan is likely DC to rehab on Friday. General: Reports: ROS Unobtainable Objective Physical Examination General Exam: Positive: Alert, No Acute Distress Chest Exam: Positive: Clear to auscultation, Diminished Heart Exam: Positive: Regular Rhythm Telemetry: Positive: No significant arrhythmia Abdomen Exam: Positive: Normal bowel sounds, Soft Extremity Exam: Negative: Clubbing, Edema Skin Exam: Negative: Breakdown Assessment /Plan Problems (1) HCAP (healthcare-associated pneumonia) Status: Acute Response to Treatment: Improving Problem Specific Plan: Consult Specialist (improving. pseudomonas being treated with ceftazidime and tobra) Problem Text: 03/29 -- Day 5/10 of Tobra and Fortaz 03/28 - Resp status seems stable currently. Continue Tobra and Fortaz Day # 4/ 10 to treat pseudomonas snf willing to complete abx there once stable (2) VRE (vancomycin resistant enterococcus) culture positive Status: Acute Response to Treatment: Stable Problem Text: 05/30: Get stiff. Urine S to Gent. Continue Tobra (May be colonization, but due to patient's inability to provide history or describe symptoms it is impossible to know if she is symptomatic, so will treat). (3) Feeding by G-tube Status: Chronic Response to Treatment: Stable Problem Specific Plan: Consult Specialist Problem Text: 03/29 -- residuals improved. Nursing will try to increase to her home dosing. Still having high residuals. Tube feeding rate decreased to 40. Nutritional recommendations are for 50/hour. We are supplementing with IVF when feedings need to be held. Monitor trend. 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 Heel float boots order. Plan/VTE VTE Prophylaxis Ordered?: Yes Plan/Urinary Catheter Reason for insertion/continuin: Critical Pt monitoring Plan IVF: Continue Activity: Continue Current Anticipated Discharge: [facility] Advance Directives: DNR (DNR affirmed by Proxy yesterday, but continue with intubation, tube feeding, etc.) VS, I&O, 24H, Fishbone Vital Signs/I&O Vital Signs Date Time Temp Pulse Resp B/P (MAP) Pulse Ox O2 Delivery O2 Flow Rate FiO2 03/29/17 22:00 99.1 110 22 136/79 (98) 95 Nasal Cannula 2.0 03/24/17 13:00 40 I&O- Last 24 Hours up to 6 AM 03/30/17 06:00 Intake Total 1167 ml Balance 1167 ml Laboratory Data 24H LABS Laboratory Tests 2 03/29/17 06:17: Anion Gap 7L, Glomerular Filtration Rate > 60.0, Blood Urea Nitrogen 9, Creatinine 0.58, Sodium Level 138, Potassium Level 3.7, Chloride Level 98, Carbon Dioxide Level 33H, Calcium Level 9.6 03/29/17 17:24: Tobramycin Level Trough 0.8 03/29/17 19:34: Tobramycin Level Peak 4.2 CBC/BMP Laboratory Tests 03/29/17 06:17 Red Blood Count 4.31, Mean Corpuscular Volume 88.7, Mean Corpuscular Hemoglobin 30.6, Mean Corpuscular Hemoglobin Concent 34.5, Red Cell Distribution Width 13.0 , Calcium Level 9.6 Microbiology Microbiology 03/23/17 Blood Culture - Final, Complete NO GROWTH AFTER 5 DAYS 03/23/17 Blood Culture - Final, Complete NO GROWTH AFTER 5 DAYS 03/23/17 Gram Stain - Final, Complete 03/23/17 Sputum Culture - Final, Complete Pseudomonas Aeruginosa 03/23/17 Influenza Virus Type A Antigen - Final, Complete 03/23/17 Influenza Virus Type B Antigen - Final, Complete 03/23/17 Urine Culture - Final, Complete Enterococcus Faecalis Enterococcus Faecium (Vre) OLLIE LAWSON DO Mar 30, 2017 02:57
[2017-03-30] MEDS: cefTAZidime 1 GM in D5W MINI-BAG PLUS 100 ML IV SCH ×3 (03:39→17:56)
[2017-03-30 06:00] VITALS: BP 136/64
[2017-03-30 06:39] LABS: MEAN CORPUSCULAR HEMOGLOBIN 29.9 pg (27.0-33.0); MEAN CORPUSCULAR HGB CONC 33.6 g/dl (32.0-36.5); RED CELL DISTRIBUTION WIDTH 13.1 % (11.5-14.5); WHITE BLOOD COUNT 8.1 K/mm3 (4.0-10.0)
[2017-03-30 06:54] LABS: ANION GAP 8 MEQ/L (8-16); BLOOD UREA NITROGEN 11 MG/DL (7-18); CALCIUM LEVEL 9.8 MG/DL (8.5-10.1); CARBON DIOXIDE LEVEL 33 MEQ/L (21-32); CHLORIDE LEVEL 100 MEQ/L (98-107); GLOMERULAR FILTRATION RATE > 60.0 (>58); GLUCOSE, FASTING 95 MG/DL (70-105); SODIUM LEVEL 141 MEQ/L (136-145)
[2017-03-30] MEDS: IPRATROPIUM 0.5MG/ALBUTEROL 2.5MG INH SOL UD 3ML (DUONEB)(J7620) NEB SCH ×4 (07:09→19:55)
[2017-03-30] MEDS: MOM 30ML SUSPENSION UDC GT SCH (09:00)
--- NOTE | 2017-03-30 09:29 | IPNPDOC ---
Subjective Date Seen The patient was seen on 03/30/17. Subjective Chief Complaint/HPI The patient is a 42-year-old female admitted with a reason for visit of Aspiration Pneumonia. Events since last encounter IV site lost last night, but acces re-established. Plan to DC to SNF with IV in place for continuation of IV antibiotics tomorrow. General: Reports: ROS Unobtainable Objective Physical Examination General Exam: Positive: Alert, No Acute Distress Neck Exam: Positive: Supple Chest Exam: Positive: Clear to auscultation, Diminished Heart Exam: Positive: Regular Rhythm Telemetry: Positive: No significant arrhythmia Abdomen Exam: Positive: Normal bowel sounds, Soft Extremity Exam: Negative: Clubbing, Edema Skin Exam: Positive: Breakdown (shallow ulcer dorsum L foot with protective foam overlying) Neuro Exam: Positive: Other (choreiform movements) Assessment /Plan Problems (1) HCAP (healthcare-associated pneumonia) Status: Acute Response to Treatment: Improving Problem Specific Plan: Consult Specialist (improving. pseudomonas being treated with ceftazidime and tobra) Problem Text: 03/30 -- Day 6/10 of Tobra and Fortaz. skilled nursing willing to complete abx there once stable (2) VRE (vancomycin resistant enterococcus) culture positive Status: Acute Response to Treatment: Stable Problem Text: 03/30 on tobramycin (3) Feeding by G-tube Status: Chronic Response to Treatment: Stable Problem Specific Plan: Consult Specialist Problem Text: 03/30 -- patient is receiving feedings by G tube. Earlier in hospitalization she had trouble with high residuals and we had considered need for J-tube placement, but this does not seem necessary at this point. There is an order for IVF supplementation if feedings are held. 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 Heel float boots ordered, but patient requires smaller boots than we have in stock, unlikely to be here prior to discharge. Nursing continues to adjust pillows to provide cushion. Plan/VTE VTE Prophylaxis Ordered?: Yes Plan/Urinary Catheter Reason for insertion/continuin: Critical Pt monitoring Plan IVF: Continue Activity: Continue Current Anticipated Discharge: [facility] Advance Directives: DNR VS, I&O, 24H, Fishbone Vital Signs/I&O Vital Signs Date Time Temp Pulse Resp B/P (MAP) Pulse Ox O2 Delivery O2 Flow Rate FiO2 03/30/17 06:00 97.6 103 20 136/64 (88) 94 Nasal Cannula 2.0 03/24/17 13:00 40 I&O- Last 24 Hours up to 6 AM 03/30/17 06:00 Intake Total 1167 ml Balance 1167 ml Laboratory Data 24H LABS Laboratory Tests 2 03/29/17 17:24: Tobramycin Level Trough 0.8 03/29/17 19:34: Tobramycin Level Peak 4.2 03/30/17 06:23: Anion Gap 8, Glomerular Filtration Rate > 60.0, Blood Urea Nitrogen 11, Creatinine 0.60, Sodium Level 141, Potassium Level 4.0, Chloride Level 100, Carbon Dioxide Level 33H, Calcium Level 9.8 CBC/BMP Laboratory Tests 03/30/17 06:23 Red Blood Count 4.79, Mean Corpuscular Volume 89.0, Mean Corpuscular Hemoglobin 29.9, Mean Corpuscular Hemoglobin Concent 33.6, Red Cell Distribution Width 13.1 , Calcium Level 9.8 Microbiology Microbiology 03/23/17 Blood Culture - Final, Complete NO GROWTH AFTER 5 DAYS 03/23/17 Blood Culture - Final, Complete NO GROWTH AFTER 5 DAYS 03/23/17 Gram Stain - Final, Complete 03/23/17 Sputum Culture - Final, Complete Pseudomonas Aeruginosa 03/23/17 Influenza Virus Type A Antigen - Final, Complete 03/23/17 Influenza Virus Type B Antigen - Final, Complete 03/23/17 Urine Culture - Final, Complete Enterococcus Faecalis Enterococcus Faecium (Vre) OLLIE LAWSON DO Mar 30, 2017 09:29
[2017-03-30] MEDS: HEPARIN SOD (PORCINE) 5000 UNITS/ML VIAL SQ SCH ×2 (09:43→22:27)
[2017-03-30] MEDS: PREGABALIN 25 MG CAP (LYRICA) GT SCH ×2 (09:44→22:27)
[2017-03-30] MEDS: BACLOFEN 10 MG TAB GT SCH ×3 (09:44→22:27)
[2017-03-30] MEDS: FAMOTIDINE 20 MG TAB GT SCH (09:44)
[2017-03-30] MEDS: NS 1,000 ML IV SCH (11:46)
[2017-03-30 14:00] VITALS: BP 120/88
[2017-03-30 22:00] VITALS: BP 131/76
[2017-03-30] MEDS: clonazePAM 1 MG TAB GT SCH (22:27)
[2017-03-31] MEDS ORDERED: cefTAZidime 1 GM VIAL (J0713) IV SCH (03:00)
[2017-03-31] MEDS: TOBRAMYCIN INJ 80 MG/2 ML VIAL (J3260) IM SCH ×2 (03:09→10:00)
[2017-03-31] MEDS: cefTAZidime 1 GM VIAL (J0713) IM SCH ×3 (03:50→18:12)
[2017-03-31 06:00] VITALS: BP 110/85
[2017-03-31] MEDS: NS 1,000 ML IV SCH ×2 (06:00→22:40)
[2017-03-31] MEDS: IPRATROPIUM 0.5MG/ALBUTEROL 2.5MG INH SOL UD 3ML (DUONEB)(J7620) NEB SCH ×4 (07:20→19:52)
--- NOTE | 2017-03-31 08:40 | IPNPDOC ---
Subjective Date Seen The patient was seen on 03/31/17. Subjective Chief Complaint/HPI The patient is a 42-year-old female admitted with a reason for visit of Aspiration Pneumonia. Events since last encounter Pt nonverbal. Spoke with nursing. Pt has lost IV access, unable to reaccess, receiving antibiotics IM now, 6 shots daily. General: Reports: ROS Unobtainable Objective Physical Examination General Exam: Positive: Alert, No Acute Distress Neck Exam: Positive: Supple Chest Exam: Positive: Diminished, Other (diffuse upper airway rhonchi) Heart Exam: Positive: Regular Rhythm Telemetry: Positive: No significant arrhythmia Abdomen Exam: Positive: Normal bowel sounds, Soft Extremity Exam: Negative: Clubbing, Edema Skin Exam: Positive: Breakdown (shallow ulcer dorsum L foot with protective foam overlying) Neuro Exam: Positive: Other (choreiform movements) Assessment /Plan Problems (1) HCAP (healthcare-associated pneumonia) Status: Acute Response to Treatment: Improving Problem Specific Plan: Consult Specialist (improving. pseudomonas being treated with ceftazidime and tobra) Problem Text: 03/31 -- Day 03/10 of Tobra and Fortaz. residential willing to complete abx there once stable, plan for d/c 04/01. PICC to be placed today. (2) VRE (vancomycin resistant enterococcus) culture positive Status: Acute Response to Treatment: Stable Problem Text: 03/31 on tobramycin (3) Feeding by G-tube Status: Chronic Response to Treatment: Stable Problem Specific Plan: Consult Specialist Problem Text: 03/30 -- patient is receiving feedings by G tube. Earlier in hospitalization she had trouble with high residuals and we had considered need for J-tube placement, but this does not seem necessary at this point. There is an order for IVF supplementation if feedings are held. 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 Heel float boots ordered, but patient requires smaller boots than we have in stock, unlikely to be here prior to discharge. Nursing continues to adjust pillows to provide cushion. Plan/VTE VTE Prophylaxis Ordered?: Yes Plan/Urinary Catheter Reason for insertion/continuin: Critical Pt monitoring Plan IVF: Continue Activity: Continue Current Anticipated Discharge: Long Term Advance Directives: DNR VS, I&O, 24H, Fishbone Vital Signs/I&O Vital Signs Date Time Temp Pulse Resp B/P (MAP) Pulse Ox O2 Delivery O2 Flow Rate FiO2 03/31/17 06:00 99.3 118 22 110/85 (93) 91 Nasal Cannula 2.0 I&O- Last 24 Hours up to 6 AM 03/31/17 06:00 Intake Total 1010 ml Balance 1010 ml Laboratory Data 24H LABS Laboratory Tests 2 03/30/17 16:47: Tobramycin Level Trough 1.2 03/30/17 18:55: Tobramycin Level Peak 4.0 Microbiology Microbiology 03/23/17 Blood Culture - Final, Complete NO GROWTH AFTER 5 DAYS 03/23/17 Blood Culture - Final, Complete NO GROWTH AFTER 5 DAYS 03/23/17 Gram Stain - Final, Complete 03/23/17 Sputum Culture - Final, Complete Pseudomonas Aeruginosa 03/23/17 Influenza Virus Type A Antigen - Final, Complete 03/23/17 Influenza Virus Type B Antigen - Final, Complete 03/23/17 Urine Culture - Final, Complete Enterococcus Faecalis Enterococcus Faecium (Vre) TAWANDA YA PA-C Mar 31, 2017 08:40
[2017-03-31] MEDS: PREGABALIN 25 MG CAP (LYRICA) GT SCH ×3 (09:08→21:45)
[2017-03-31] MEDS: BACLOFEN 10 MG TAB GT SCH ×3 (09:08→21:45)
[2017-03-31] MEDS: FAMOTIDINE 20 MG TAB GT SCH (09:08)
[2017-03-31] MEDS: MOM 30ML SUSPENSION UDC GT SCH (09:08)
[2017-03-31] MEDS: HEPARIN SOD (PORCINE) 5000 UNITS/ML VIAL SQ SCH ×2 (09:08→21:45)
[2017-03-31 14:00] VITALS: BP 125/90
[2017-03-31] MEDS: clonazePAM 1 MG TAB GT SCH (21:46)
[2017-03-31 22:00] VITALS: BP 132/83
[2017-04-01] MEDS: cefTAZidime 1 GM VIAL (J0713) IM SCH (03:49)
[2017-04-01 06:00] VITALS: BP 136/63
[2017-04-01] MEDS: IPRATROPIUM 0.5MG/ALBUTEROL 2.5MG INH SOL UD 3ML (DUONEB)(J7620) NEB SCH (07:48)
[2017-04-01] MEDS: MOM 30ML SUSPENSION UDC GT SCH (09:00)
[2017-04-01] MEDS ORDERED: CEFT1INJ39 IM (09:13)
[2017-04-01] MEDS: FAMOTIDINE 20 MG TAB GT SCH (09:28)
[2017-04-01] MEDS: PREGABALIN 25 MG CAP (LYRICA) GT SCH (09:28)
[2017-04-01] MEDS: BACLOFEN 10 MG TAB GT SCH (09:28)
[2017-04-01] MEDS: HEPARIN SOD (PORCINE) 5000 UNITS/ML VIAL SQ SCH (09:29)
--- NOTE | 2017-04-02 07:32 | DSES ---
DATE OF ADMISSION: 03/23/2017 DATE OF DISCHARGE: 04/01/2017 PRIMARY CARE PROVIDER: Dr. Chaz Matson ATTENDING TODAY: Dr. Richar Wiggins HISTORY: This is a 42-year-old female patient who is a resident at [facility] who presented to [facility] with respiratory failure secondary to bilateral pneumonia from retained pulmonary secretions. 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 She was admitted to the intensive care unit (ICU) and started on IV antibiotics and management by critical care. She was unresponsive. She was placed on a noninvasive ventilator with steroid support. Dr. Wilson was consulted as there was fears that the patient may require intubation and the patient has previously expressed wishes for aggressive measures. She was started on IV Ceftaroline. Her home medications including her Jevity were continued. During her hospitalization, she ultimately did require intubation and bronchoscopy to evacuate the airway. Sputum cultures were obtained during bronchoscopy. She developed residuals with her Jevity and therefore this was initially discontinued and then her rate was slowed down to 30 mL an hour. As her respiratory status improved, she was able to be extubated and her feedings have subsequently been increased back to her normal baseline. Her white blood cell count has trended back down to normal. She is responsive. She opens her eyes to voice. She looks around the room. She has been continued on IV fluids which will be discontinued at discharge. She in her sputum culture grew out Pseudomonas, the final culture was available yesterday, and therefore her antibiotic coverage was narrowed. She ultimately ended up on Tobramycin and Ceftazidime. She completed seven days of the Tobramycin. That has been discontinued and she will continue the Ceftazidime for a total of ten days. She lost IV access on 03/30/2017. After failed further attempts, her antibiotics were changed to IM. There was a failed attempt at a PICC line yesterday to be placed to continue administration of antibiotics. The patient could not hold still enough for the procedure and therefore there was a plan to proceed with this today under general anesthesia. Given today is day eight of ten of administration of IM antibiotics, I do not think she really needs to undergo general anesthesia to have the PICC line placed and therefore will continue with IM Ceftazidime every 8 hours for a total of ten days. [facility] [place] [facility] to administer these and therefore will discharge her back to [facility] with that plan in place. DISCHARGE DIAGNOSES: 1. Acute on chronic respiratory failure with pneumonia. 2. History of Vancomycin-resistant Enterococci (VRE) in the urine which was treated with Tobramycin for seven days. 3. [place]'s chorea. 4. Functional quadriplegia. 5. Pressure ulcer of the left foot Stage II. DISCHARGE MEDICATIONS: - Ceftazidime 1 gram IV every 8 hours for three additional days - acetaminophen 650 mg G tube every 4 hours as needed for pain or fever - 650 mg of acetaminophen per rectum every 4 hours as needed for fever - acetaminophen/hydrocodone one tablet G tube three times daily - albuterol sulfate 2.5 mg inhaled every 4 hours as needed for shortness of breath or wheezing - DuoNeb inhaled every 4 hours - baclofen 10 mg G tube twice daily - baclofen 20 mg G tube at bedtime - Bee-Zee one tablet G tube daily - bisacodyl 10 mg per rectum daily as needed for constipation - Cetirizine 10 mg G tube before bed - clonazepam 1 mg G tube before bed - famotidine 20 mg G tube daily - Flonase two sprays intranasally daily - guaifenesin 600 mg G tube twice daily and every 4 hours as needed for cough - haloperidol 2 mg three times daily - ibuprofen 400 mg every 6 hours as needed for fever - milk of magnesia 30 mL G tube daily as needed for constipation - Lyrica 25 mg three times daily - Probiotic one tablet twice daily - scopolamine 1.5 mg topically every 72 hours - enema daily as needed for constipation DISCHARGE PLAN: To follow up with Dr. Matson. Her diet will be Jevity through her G tube. Her activity should be as tolerated.
== END 2017-04-01 10:20 | DRG 166 ==
LOC: EDBD 11:39 → M ED 11:39 → M ED INP 14:39 → EEVIPCON 14:39 → M ICU 15:20 → M MS5PR 03-26 14:00
PROVIDERS: ADMIT Family Medicine; ATTEND Family Medicine
PROC: 5A1945Z Respiratory Ventilation, 24-96 Consecutive Hours (ICD-10-PCS; principal; 2017-03-23)
PROC: 0B9M8ZZ Drainage of Bilateral Lungs, Via Natural or Artificial Opening Endoscopic (ICD-10-PCS; 2017-03-23)
PROC: 0BH17EZ Insertion of Endotracheal Airway into Trachea, Via Natural or Artificial Opening (ICD-10-PCS; 2017-03-23)
PROC: 0BP1XDZ Removal of Intraluminal Device from Trachea, External Approach (ICD-10-PCS; 2017-03-24)
DX: J15.1 Pneumonia due to Pseudomonas (principal); R53.2 Functional quadriplegia; J96.01 Acute respiratory failure with hypoxia; G10 Huntington's disease; E46 Unspecified protein-calorie malnutrition; E87.5 Hyperkalemia; M62.59 Muscle wasting and atrophy, not elsewhere classified, multiple sites; L89.892 Pressure ulcer of other site, stage 2; Z66 Do not resuscitate; Z93.1 Gastrostomy status; Z79.891 Long term (current) use of opiate analgesic; Z79.899 Other long term (current) drug therapy; Z88.0 Allergy status to penicillin; Y95 Nosocomial condition

== ENCOUNTER → 2017-03-23 | Outpatient (REF) | payer MEDICARE, MEDICAID ==
[~2017-03-23] MED LIST changes: +ACEP650S PR; +BACL1TAB9 GT; +CEFT1INJ39 IM; +ENEMENE16 PR; +GUAI100S7 GT; +IBUP40TA GT; +LEVO500T3 GT; +LEVO500T3 PO; +ROCE1INJ4 IM
[2017-03-23 10:26] LABS: BASO # 0.1 K/mm3 (0.0-0.2); BASO % 0.4 % (0.0-1.0); LARGE UNSTAINED CELL # 0.3 K/mm3 (0.0-0.4); LARGE UNSTAINED CELL % 0.8 % (0.0-4.0); LYMPH # 1.4 K/mm3 (1.5-4.5); LYMPH % 3.8 % (24.0-44.0); MEAN CORPUSCULAR HEMOGLOBIN 30.6 pg (27.0-33.0); MEAN CORPUSCULAR HGB CONC 33.8 g/dl (32.0-36.5); MEAN CORPUSCULAR VOLUME 90.4 fl (80.0-96.0); MONO # 1.2 K/mm3 (0.0-0.8); MONO % 3.4 % (0.0-5.0); NEUTROPHILS # 33.1 K/mm3 (1.8-7.7); NEUTROPHILS % 91.5 % (36.0-66.0); PLATELET COUNT, AUTOMATED 343 k/mm3 (150-450); RED CELL DISTRIBUTION WIDTH 13.1 % (11.5-14.5)
[2017-03-23 10:30] LABS: WHITE BLOOD COUNT 36.1 K/mm3 (4.0-10.0)
[2017-03-23 10:38] LABS: ANION GAP 9 MEQ/L (8-16); BLOOD UREA NITROGEN 31 MG/DL (7-18); CALCIUM LEVEL 10.3 MG/DL (8.5-10.1); CARBON DIOXIDE LEVEL 32 MEQ/L (21-32); CHLORIDE LEVEL 102 MEQ/L (98-107); CREATININE FOR GFR 0.86 MG/DL (0.55-1.02); GLOMERULAR FILTRATION RATE > 60.0 (>58); GLUCOSE, FASTING 133 MG/DL (70-105); POTASSIUM SERUM 4.5 MEQ/L (3.5-5.1); SODIUM LEVEL 143 MEQ/L (136-145)
--- NOTE | 2017-03-23 12:35 | REP ---
PORTABLE CHEST: AP portable view of the chest is performed and compared to prior study of 03/13/2017. Mild chronic interstitial changes in the lung bases are stable without evidence of acute infiltrate or pulmonary edema. The heart is normal in size and the mediastinal silhouette is unchanged. IMPRESSION: No acute infiltrate. Signed by Isidro Gan MD 03/23/2017 07:29 P
== END ==
LOC: M RAD 03:13 → SKLAB2 03:13
PROVIDERS: ATTEND Family Medicine
DX: R06.02 Shortness of breath (principal); R00.0 Tachycardia, unspecified

== ENCOUNTER → 2017-04-14 | Outpatient (REF) | payer MEDICARE, MEDICAID ==
[~2017-04-14] MED LIST changes: +ACEP650S PR; +BACL1TAB9 GT; +CEFT1INJ39 IM; +ENEMENE16 PR; +GUAI100S7 GT; +IBUP40TA GT; +LEVO500T3 GT
[2017-04-14 10:37] LABS: ALBUMIN 3.1 GM/DL (3.2-5.2); ALBUMIN/GLOBULIN RATIO 0.94 (1.00-1.93); ALKALINE PHOSPHATASE 57 U/L (45-117); ALT/SGPT 27 U/L (12-78); ANION GAP 7 MEQ/L (8-16); AST/SGOT 20 U/L (15-37); BILIRUBIN,TOTAL 0.8 MG/DL (0.2-1.0); BLOOD UREA NITROGEN 15 MG/DL (7-18); CALCIUM LEVEL 9.1 MG/DL (8.5-10.1); CARBON DIOXIDE LEVEL 28 MEQ/L (21-32); CHLORIDE LEVEL 106 MEQ/L (98-107); CREATININE FOR GFR 0.53 MG/DL (0.55-1.02); GLOMERULAR FILTRATION RATE > 60.0 (>58); GLUCOSE, FASTING 99 MG/DL (70-105); POTASSIUM SERUM 4.8 MEQ/L (3.5-5.1); SODIUM LEVEL 141 MEQ/L (136-145); TOTAL PROTEIN 6.4 GM/DL (6.4-8.2)
== END ==
LOC: SKLAB2 07:00
PROVIDERS: ATTEND Family Medicine
DX: G10 Huntington's disease (principal)

== ENCOUNTER → 2017-04-21 | Outpatient (REF) | payer MEDICARE, MEDICAID ==
--- NOTE | 2017-04-21 09:50 | REP ---
Portable chest x-ray: Single view. History: Congestion. Comparison study: March 26, 2017. Findings: The lungs are symmetrically aerated and clear. Heart is not enlarged. Pulmonary vasculature is not increased. No significant bony abnormality is seen. Impression: No active disease. Signed by Aquilino Arenas MD 04/21/2017 10:56 A
== END ==
LOC: SKLAB2 08:41
PROVIDERS: ATTEND Family Medicine
DX: R09.89 Other specified symptoms and signs involving the circulatory and respiratory systems (principal)

== ENCOUNTER → 2017-05-02 | Outpatient (REF) | payer MEDICARE, MEDICAID | LOC: SKLAB2 23:29 → M RAD 23:29 | PROVIDERS: ATTEND Family Medicine | DX: Z53.8 Procedure and treatment not carried out for other reasons (principal) ==

== ENCOUNTER → 2017-05-03 | Outpatient (REF) | payer MEDICARE, MEDICAID ==
--- NOTE | 2017-05-03 09:39 | REP ---
Clinical: Status post gastrostomy tube placement. Technique: Two supine views of the abdomen and pelvis. Findings: Oral contrast via gastrostomy tube outlines the stomach. No extravasation is appreciated. The bowel gas pattern is nonspecific. No organomegaly. Skeletal structures are intact. Impression: Essentially normal examination. Gastrostomy tube in satisfactory position. No extravasation. Signed by Aaron Shelton MD 05/03/2017 09:31 A
== END ==
LOC: SKLAB2 03:23
PROVIDERS: ATTEND Family Medicine
DX: Z93.1 Gastrostomy status (principal)

== ENCOUNTER → 2017-05-14 | Outpatient (REF) | payer MEDICARE, MEDICAID ==
--- NOTE | 2017-05-14 03:01 | REPUSA ---
CLINICAL HISTORY: Fever. COMMENTS: Comparison to the prior exam of 03/13/2017. Single view of the chest reveals interval appearance of left basilar infiltrate. There is bilateral p eribronchial interstitial thickening suggestive of bronchitis.The heart, mediastinum and pulmonary ve ssels appear normal. IMPRESSION: Bronchitis. Interval appearance of left basilar infiltrates. Thank you for your kind referral of this patient.
[2017-05-14 03:44] LABS: MEAN CORPUSCULAR HEMOGLOBIN 29.5 pg (27.0-33.0); MEAN CORPUSCULAR HGB CONC 32.4 g/dl (32.0-36.5); MEAN CORPUSCULAR VOLUME 90.8 fl (80.0-96.0); RED CELL DISTRIBUTION WIDTH 13.5 % (11.5-14.5); WHITE BLOOD COUNT 14.8 K/mm3 (4.0-10.0)
[2017-05-14 04:00] LABS: ANION GAP 8 MEQ/L (8-16); BLOOD UREA NITROGEN 21 MG/DL (7-18); CARBON DIOXIDE LEVEL 29 MEQ/L (21-32); CHLORIDE LEVEL 107 MEQ/L (98-107); CREATININE FOR GFR 0.61 MG/DL (0.55-1.02); GLOMERULAR FILTRATION RATE > 60.0 (>58); GLUCOSE, FASTING 152 MG/DL (70-105); POTASSIUM SERUM 3.5 MEQ/L (3.5-5.1); SODIUM LEVEL 144 MEQ/L (136-145)
== END ==
LOC: M LAB 01:28 → SKLAB2 01:28
PROVIDERS: ATTEND Family Medicine
DX: R50.9 Fever, unspecified (principal); J40 Bronchitis, not specified as acute or chronic

== ENCOUNTER → 2017-06-09 | Outpatient (REF) | payer MEDICARE, MEDICAID ==
--- NOTE | 2017-06-09 16:04 | REP ---
G TUBE CHECK: The procedure was performed by NELSON Jesus under the direct supervision of Dr. Arenas. All imaging was reviewed with Dr. Arenas prior to dictation. 40 mL of a 50/50 solution of Gastrografin and water was injected into the G tube to evaluate placement. Multiple fluoroscopic images were obtained during this procedure. G tube appears to be in satisfactory position within the stomach. Fluoroscopy time of 15 seconds were utilized for this procedure. Reviewed by NELSON Michelle 06/09/2017 04:09 PEdited and Signed by Aquilino Arenas MD 06/09/2017 04:42 P
== END ==
LOC: SKLAB2 08:53
PROVIDERS: ATTEND Family Medicine
DX: Z93.1 Gastrostomy status (principal)

== ENCOUNTER → 2017-06-23 | Outpatient (REF) | payer MEDICARE, MEDICAID ==
--- NOTE | 2017-06-23 19:32 | REP ---
REASON: Abdominal pain. COMPARISON: 05/03/2017 FINDINGS: KUB shows the intestinal gas pattern to be nonspecific. The organ silhouettes insofar as delineated are unremarkable. There is no evidence of free intraperitoneal air. A PEG tube is seen in place. IMPRESSION: Nonspecific. Signed by Yoav Aguilar DO 06/23/2017 07:48 P
== END ==
LOC: M RAD 18:12
PROVIDERS: ATTEND Family Medicine
DX: R10.9 Unspecified abdominal pain (principal)

== ENCOUNTER → 2017-07-14 | Outpatient (REF) | payer MEDICARE, MEDICAID ==
[2017-07-14 10:19] LABS: ALBUMIN 3.4 GM/DL (3.2-5.2); ALBUMIN/GLOBULIN RATIO 1.36 (1.00-1.93); ALKALINE PHOSPHATASE 38 U/L (45-117); ALT/SGPT 23 U/L (12-78); ANION GAP 7 MEQ/L (8-16); AST/SGOT 10 U/L (7-37); BILIRUBIN,TOTAL 1.2 MG/DL (0.2-1.0); BLOOD UREA NITROGEN 20 MG/DL (7-18); CARBON DIOXIDE LEVEL 30 MEQ/L (21-32); CHLORIDE LEVEL 104 MEQ/L (98-107); CREATININE FOR GFR 0.48 MG/DL (0.55-1.02); GLOMERULAR FILTRATION RATE > 60.0 (>58); GLUCOSE, FASTING 115 MG/DL (70-105); SODIUM LEVEL 141 MEQ/L (136-145); TOTAL PROTEIN 5.9 GM/DL (6.4-8.2)
== END ==
LOC: SKLAB2 07:30
PROVIDERS: ATTEND Family Medicine
DX: G10 Huntington's disease (principal)

== ENCOUNTER → 2017-07-20 | Outpatient (REF) | payer MEDICARE, MEDICAID ==
--- NOTE | 2017-07-20 13:48 | REP ---
KUB ABDOMEN AND PELVIS: KUB film of abdomen and pelvis is performed. Bowel gas pattern is normal with no evidence of bowel obstruction. A tube overlies the upper abdomen with the distal end of the left upper quadrant. There are degenerative changes of the spine and hips. Signed by Isidro Gan MD 07/20/2017 05:38 P
== END ==
LOC: M RAD 11:28
PROVIDERS: ATTEND Family Medicine
DX: Z93.1 Gastrostomy status (principal)

== ENCOUNTER → 2017-07-20 | Outpatient (REF) | payer MEDICARE, MEDICAID ==
[~2017-07-20] MED LIST changes: +GASTROGRAFIN SOLUTION 30ML (Q9963) As Ordered ONE
--- NOTE | 2017-07-21 05:36 | REP ---
KUB ABDOMEN FOR GASTROSTOMY TUBE PLACEMENT WITH INJECTION OF GASTROGRAFIN: I injected approximately 40 mL of Gastrografin through the gastrostomy tube. Contrast flows freely into the stomach, and into the duodenum. The tube is in good position. Signed by Isidro Gan MD 07/21/2017 08:54 A
== END ==
LOC: M RAD 14:17
PROVIDERS: ATTEND Family Medicine
DX: Z93.1 Gastrostomy status (principal)
CPT/HCPCS: 74000; Q9963

== ENCOUNTER → 2017-08-05 | Outpatient (REF) | payer MEDICARE, MEDICAID ==
[~2017-08-05] MED LIST changes: -GASTROGRAFIN SOLUTION 30ML (Q9963) As Ordered ONE; +IPRASOL4 IN; +PRED10TA2 GT; +ZITH500T GT
--- NOTE | 2017-08-05 15:36 | REP ---
ABDOMEN, TWO VIEWS: HISTORY: Tube placement. A gastrostomy tube is present in the stomach. A small amount of contrast material is present in the stomach and proximal duodenum. IMPRESSION: A gastrostomy tube is present in the stomach. Signed by Benjamin Suazo MD 08/05/2017 03:37 P
== END ==
LOC: SKLAB2 13:14
PROVIDERS: ATTEND Family Medicine
DX: Z93.1 Gastrostomy status (principal)

== ENCOUNTER → 2017-08-06 | Outpatient (REF) | payer MEDICARE, MEDICAID ==
--- NOTE | 2017-08-06 15:29 | REP ---
CHEST PA AND LATERAL: 08/06/2017 COMPARISON: 12/31/2016 CLINICAL HISTORY: Possible aspiration of tube feeding. AP and lateral views of the chest in a semi-erect position. The lung [place] are hypoinflated. There is elevation right diaphragm. Some minor compressive atelectatic change. The lateral view is not helpful as the patient's arms project over the posterior and mid chest obscuring. No visible infiltrate, effusion, atelectasis or mass. Bones grossly intact. Aorta and airway intact. No widening of the mediastinum. IMPRESSION: Hypoinflated chest without acute infiltrate, effusion or atelectasis. Signed by Satish Cohen MD 08/06/2017 07:44 P
== END ==
LOC: SKLAB2 14:41
PROVIDERS: ATTEND Family Medicine
DX: R06.00 Dyspnea, unspecified (principal); R11.10 Vomiting, unspecified; Z93.1 Gastrostomy status

== ENCOUNTER → 2017-08-06 | Outpatient (REF) | payer MEDICARE, MEDICAID | LOC: SKLAB2 14:33 | PROVIDERS: ATTEND Family Medicine | DX: Z53.9 Procedure and treatment not carried out, unspecified reason (principal) ==

== ENCOUNTER → 2017-08-11 | Outpatient (REF) | payer MEDICARE, MEDICAID ==
[~2017-08-11] MED LIST changes: +DOXY100C GT; +PROC25SU24 PR
[2017-08-11 14:15] LABS: BASO % 0.3 % (0.0-1.0); EOS # 0.1 10^3/uL (0.0-0.50); EOS % 0.7 % (0.0-3.0); IMMATURE GRANULOCYTE % 0.4 % (0-0); LYMPH # 2.3 10^3/uL (1.5-4.5); LYMPH % 20.5 % (24.0-44.0); MEAN CORPUSCULAR HEMOGLOBIN 30.6 pg (27.0-33.0); MEAN CORPUSCULAR HGB CONC 32.5 g/dl (32.0-36.5); MONO # 0.8 10^3/uL (0.0-0.8); MONO % 7.3 % (0.0-5.0); NEUTROPHILS # 7.9 10^3/uL (1.8-7.7); NEUTROPHILS % 70.8 % (36.0-66.0); PLATELET COUNT, AUTOMATED 217 10^3/uL (150-450); WHITE BLOOD COUNT 11.2 10^3/uL (4.0-10.0)
[2017-08-11 14:34] LABS: ANION GAP 8 MEQ/L (8-16); BLOOD UREA NITROGEN 19 MG/DL (7-18); CALCIUM LEVEL 9.2 MG/DL (8.5-10.1); CARBON DIOXIDE LEVEL 26 MEQ/L (21-32); CHLORIDE LEVEL 107 MEQ/L (98-107); CREATININE FOR GFR 0.52 MG/DL (0.55-1.02); GLOMERULAR FILTRATION RATE > 60.0 (>58); GLUCOSE, FASTING 86 MG/DL (70-105); POTASSIUM SERUM 4.2 MEQ/L (3.5-5.1); SODIUM LEVEL 141 MEQ/L (136-145)
== END ==
LOC: SKLAB2 13:31
PROVIDERS: ATTEND Family Medicine
DX: G10 Huntington's disease (principal)

== ENCOUNTER 2017-08-12 13:05 | Day surgery (SDC) | payer MEDICARE, MEDICAID ==
--- NOTE | 2017-08-11 15:16 | CR ---
DATE: 08/11/2017 REASON FOR CONSULTATION: Ms. Dyer is scheduled to have jejunostomy (J) tube placed tomorrow. Her current gastrostomy (G) tube is functioning adequately; however, she is plagued by recurrent episodes of aspiration and it is hoped that by putting in a longer tube, we can prevent recurrent aspiration events. She had severe event in March where she had severe aspiration resulting in hypoxic respiratory failure that required intubation. She has had several episodes since then. It is hoped that intubation obviate this ongoing chronic problem for her. 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 She has a past history of Clostridium difficile enteritis. She is now DO NOT RESUSCITATE (DNR) with consent obtained for same from her proxy who is an aunt. Current medications, as listed in medication list as part of the preoperative record include: Tylenol 650 mg suppository; albuterol 2.5 mg nebulizers, which are used as needed for wheezing and cough; cetirizine 5 mg, she takes 10 mg a day; Klonopin 1 mg daily; Flonase nasal spray two sprays each nostril daily; haloperidol 2 mg three times a day; baclofen 20 mg at 9 p.m. and 10 mg twice a day; Lyrica 25 mg three times a day; Transderm scopolamine one patch every 3 days; [place] 5/325 three times a day; Pepcid 20 mg daily; and it looks as though she takes 10 mg of prednisone daily. All medications which may be by mouth are given through a G tube instead of oral since she is not able to take meds by mouth reliably due to dyskinesia and dementia. Her feeding nutritional support his Jevity 1.5, 65 mL per hour giving a total of 2340 calories. She gets 75 mL of flush every 6 hours with water, currently, check residual every 4 hours and hold if more than 100 mL, resume if less than 50. Has a bed elevation constantly at 45 degrees. Despite these precautions, aspiration events have recurrent and have been a problem, but not recently as severe as March. PAST MEDICAL HISTORY: Is remarkable, indeed, for history of ALLERGY to PENICILLIN. FAMILY HISTORY: Positive for father with Osorio disease. REVIEW OF SYSTEMS: Is not obtainable from the patient. EXAM: VITAL SIGNS: Per nursing record. No recent fevers. She is alert, makes unintelligible moaning, somewhat high-pitched noises. Unable to cooperate with exam but also not resistant to exam. Rising movements of her hands are exhibited, some spastic nature, and she is quadriparetic functionally. Pupils are equal. Extraocular movements are intact as far as can be determined. There is no oral lesion noted. No neck masses noted. No carotid bruits are heard. Trachea is not shifted. Auscultation of chest shows no wheezing, rales, or rhonchi, and breath sounds are symmetric. Heart: Regular rhythm without murmurs, gallops, or rubs. Abdomen: G tube is in place. There is no tenderness, guarding, or rebound. Bowel sounds are normoactive. Pelvic is not done. Extremities: Show contractures at the knees, that she has small scabs and healing wounds on the lateral malleoli, both sides, dorsum of left great toe. Neurologic exam: She is alert, withdraws to noxious stimuli, makes vocalizations spontaneously, not able to follow commands. Due to increased muscle tone, reflexes are difficult to assess. She is able to move all extremities. LABORATORY DATA: There no lab data recently obtained. Most recent labs include white count from 06/28/2017 that was 13,500 with 362,000 platelets. Chemistries; sodium, potassium, chloride, CO2 were normal on 07/14/2017. BUN 20, creatinine 0.48, total bilirubin was 1.2, at that time, alkaline phosphatase 38. IMPRESSION: Unfortunate 42-year-old woman with advanced [place] disease manifesting with chorea and prominent dementia, resulting in functional quadriparesis, history of recurrent aspiration pneumonia, dependent on feeding tube for nutritional and hydration support, but having recurrent episodes of aspiration requiring movement of a longer tube, J tube, which will hopefully reduce the likelihood and frequency of aspiration events. Clearly, surgical risk is difficult to assess, although Jacob has no history of stroke or myocardial infarction. Her renal function has been satisfactory recently. She does not have diabetes requiring insulin. There is no abnormal heart rhythm and no known history of congestive heart failure, and she has no murmur, which might suggest aortic stenosis. She, therefore, has no clinical predictors which would indicate high risk, and the intended procedure is inherently low-risk. Therefore, patient should be a satisfactory candidate to proceed to the operating room without further diagnostic study. Her proxy is aware of the planned surgery and has been apprised of the risk by the surgeon and is willing to accept intended hazard of an operative procedure for the purpose of reducing Jacob's future difficulties with aspiration. PLAN: We will obtain basic profile and CBC to assess her hydration status in advance of surgery. Note that Jacob did have an episode of Enterococcus faecium and Enterococcus faecalis infection in June. Enterococcus faecium was vancomycin-resistant, sensitive only to Zyvox and gentamicin, and the enterococcus faecalis was sensitive only to nitrofurantoin and ampicillin and vancomycin. She has had no recent fever and anticipate that her surgery should be uneventful.
[~2017-08-12] VITALS: Ht 165.1 cm; Wt 52.5 kg
[~2017-08-12 13:05] MED LIST changes: -DOXY100C GT; +GASTROGRAFIN SOLUTION 30ML (Q9963) As Ordered ONE; -IPRASOL4 IN; -PROC25SU24 PR; -ZITH500T GT
[2017-08-12] MEDS ORDERED: LR 1,000 ML IV SCH ×4 (13:15→22:00)
[2017-08-12] MEDS ORDERED: ERTAPENEM SODIUM 1 GM in APPROPRIATE DILUENT 1 EA IV ONE (13:30)
[2017-08-12] MEDS ORDERED: ERTAPENEM SODIUM IV SCH (14:00)
[2017-08-12] MEDS ORDERED: NS IV SCH (14:00)
[2017-08-12] MEDS ORDERED: ZITH500T GT (15:00)
[2017-08-12] MEDS ORDERED: IPRASOL4 IN (15:00)
[2017-08-12] MEDS ORDERED: MIDAZOLAM INJ 2 MG/2 ML VIAL (J2250) As Ordered ONE (16:00)
[2017-08-12] MEDS ORDERED: PROPOFOL 200 MG/20 ML VIAL As Ordered ONE ×2 (16:00→17:39)
[2017-08-12] MEDS ORDERED: ONDANSETRON 4MG/2ML VIAL (J2405) As Ordered ONE ×2 (16:00→19:32)
[2017-08-12] MEDS ORDERED: fentaNYL 100 MCG/2 ML INJECTION (J3010) As Ordered ONE ×2 (16:00→17:39)
[2017-08-12] MEDS ORDERED: ROCURONIUM BROMIDE 50 MG/5 ML VIAL As Ordered ONE ×2 (16:00→17:39)
[2017-08-12] MEDS ORDERED: dexameTHASONE 4 MG/ML 1ML VIAL (J1100) As Ordered ONE ×2 (16:00→19:14)
[2017-08-12] MEDS ORDERED: LIDOCAINE 2% INJ 100 MG/5 ML SDV (FOR ANES.) As Ordered ONE (16:00)
[2017-08-12] MEDS ORDERED: LIDOCAINE 1% SDV INJ 30 ML VIAL As Ordered ONE (17:33)
[2017-08-12] MEDS ORDERED: BUPIVACAINE HCL 0.25% 30 ML VIAL As Ordered ONE (17:33)
[2017-08-12] MEDS ORDERED: LIDOCAINE 2% INJ 100 MG/5 ML SYRINGE As Ordered ONE (17:39)
[2017-08-12] MEDS ORDERED: PHENYLEPHRINE INJ 10MG/ML VIAL (J2370) As Ordered ONE (19:14)
[2017-08-12] MEDS ORDERED: NEOSTIGMINE 10 MG/10 ML VIAL (J2710) As Ordered ONE (19:32)
[2017-08-12] MEDS ORDERED: GLYCOPYRROLATE INJ 0.2 MG/ML 2 ML VIAL As Ordered ONE (19:32)
[2017-08-12] MEDS ORDERED: ONDANSETRON 4MG/2ML VIAL (J2405) IV PRN (21:15)
[2017-08-12] MEDS ORDERED: fentaNYL 100 MCG/2 ML INJECTION (J3010) IV PRN (21:15)
[2017-08-12] MEDS ORDERED: ACETAMINOPHEN 325 MG/10.15 ML UDC JT PRN (22:15)
[2017-08-12 23:00] VITALS: BP 112/73
[2017-08-12 23:30] VITALS: BP 107/75
[2017-08-12] MEDS: IPRATROPIUM 0.5MG/ALBUTEROL 2.5MG INH SOL UD 3ML (DUONEB)(J7620) NEB SCH (23:44)
[2017-08-13] VITALS: BP 113/72
[2017-08-13] MEDS: NORCO, ANEXSIA 5/325MG TABLET (HYDROcodone/ACETAMINOPHEN) JT PRN ×2 (00:42→04:57)
[2017-08-13 01:00] VITALS: BP 111/77
[2017-08-13 02:00] VITALS: BP 127/61
[2017-08-13 03:00] VITALS: BP 127/68
[2017-08-13] MEDS: IPRATROPIUM 0.5MG/ALBUTEROL 2.5MG INH SOL UD 3ML (DUONEB)(J7620) NEB SCH ×2 (03:45→07:30)
[2017-08-13 06:00] VITALS: BP 133/98
[2017-08-13] MEDS ORDERED: ONDANSETRON 4 MG ORAL DISINTEGRATING TAB (S0181) SL PRN (07:00)
[2017-08-13] MEDS ORDERED: HALOPERIDOL 2 MG TAB JT ONE (07:15)
[2017-08-13] MEDS ORDERED: HALOPERIDOL 2 MG TAB JT SCH (09:00)
[2017-08-13] MEDS ORDERED: predniSONE 10 MG TAB JT SCH (09:00)
--- NOTE | 2017-08-14 16:56 | RO ---
DATE OF PROCEDURE: 08/12/2017 PREOPERATIVE DIAGNOSIS: Recurrent aspiration pneumonia. POSTOPERATIVE DIAGNOSIS: Recurrent aspiration pneumonia. PROCEDURE PERFORMED: Laparoscopy with implantation of jejunostomy feeding tube and removal of gastrostomy tube. SURGEON: Dr. Yang MANUFACTURING ENGINEER: ANESTHESIA: General. INDICATIONS FOR THE PROCEDURE: The patient is a 42-year-old woman with [place]'s disease and all the attendant neurologic deterioration associated with same. She has been fed through a gastrostomy tube for some time but has had issues with recurrent aspiration. She is now for implantation of a jejunostomy feeding tube to try to prevent further aspiration. OPERATIVE PROCEDURE: The patient was placed supine on the operating table. She was placed under general endotracheal anesthesia. The right arm had some muscular contracture and was placed up on the chest and padded. The patient was noted to have a large diameter gastrostomy tube in the epigastrium. The patient's abdomen was prepped and draped to include the existing gastrostomy tube. Initially some local anesthesia was infiltrated the right lower quadrant and a small incision was made and a Veress needle was inserted. After positive hanging drop test the abdomen was insufflated with carbon dioxide gas. A 5-mm port was placed over 5 mm scope and advanced through the abdominal wall without difficulty. Initial inspection showed no significant adhesions within the abdomen with the exception of a very well formed gastric attachment to the anterior abdominal wall high in the epigastrium at the site of her gastrostomy tube. A second 5 mm port was placed in the left lower quadrant and a third port was placed slightly to the right of the midline below the umbilicus. Graspers were inserted and the proximal jejunum was identified. Approximately 20-30 cm distal to the ligament of Treitz a pursestring suture of #2-0 Vicryl was placed in the antimesenteric wall of the jejunum using endoscopic suturing. A small area of local was infiltrated in the epigastrium to the left of the midline slightly below the site of her gastrostomy. A small incision was made and the trocar of a 5-mm port was placed through the abdominal wall. This opening was then gently dilated with a clamp and an 18-Pashto jejunostomy tube was inserted through the opening into the abdomen. This was a catheter featuring a balloon. A small enterotomy was then created in the center of the pursestring. The jejunostomy catheter was inserted into the jejunum and advanced distally until the balloon was contained within the lumen and the balloon was then inflated with approximately 5-7 cm of water. The pursestring was unfortunately cut. The balloon was therefore gently deflated and a new pursestring of #2-0 Vicryl was placed and this was tied about the catheter insertion site. The balloon was reinflated and the pressure within the abdomen was decreased 8 mmHg and the jejunostomy tube was used to pull the bowel up to the anterior abdominal wall. The tails of the pursestring were then used to suture the jejunum to the anterior abdominal wall. A second #2-0 Vicryl was placed on the opposite side of the catheter to suture the wall of the jejunum to the anterior abdominal wall. Final inspection revealed good placement of the catheter. The abdomen was then deflated and the trocars were removed. The three trocar sites were closed with buried Vicryl sutures and Steri-Strips. A suture was placed through the retention disc of the jejunostomy tube and tied about the catheter to prevent an advancement into the bowel. The inflation of the balloon was adjusted to approximately 7 mL of water. The wounds were dressed. At this point, the balloon on the G-tube was deflated and the gastrostomy tube was removed from what appeared to be a well-formed tract. A dressing of Adaptic with 2 x 2's and a small OpSite dressing was placed over the G-tube site. The patient tolerated the procedure well without apparent complication. She was awakened in the operating room, extubated and moved to the recovery room in stable condition.
[2017-08-14] MEDS ORDERED: PROC25SU24 PR (17:15)
[2017-08-14] MEDS ORDERED: ALBU83IN INH (18:07)
[2017-08-14] MEDS ORDERED: DOXY100C GT (18:07)
[2017-08-14] MEDS ORDERED: DULC10SU2 PR (18:07)
== END 2017-08-13 09:49 ==
LOC: M SDC 13:05 → M MSPAV 21:45 → M SDC 08-13 09:49
PROVIDERS: ATTEND Surgery
DX: J69.0 Pneumonitis due to inhalation of food and vomit (principal); K21.9 Gastro-esophageal reflux disease without esophagitis; G10 Huntington's disease; G40.919 Epilepsy, unspecified, intractable, without status epilepticus; R29.898 Other symptoms and signs involving the musculoskeletal system; J45.909 Unspecified asthma, uncomplicated; Z88.0 Allergy status to penicillin; Z79.899 Other long term (current) drug therapy

== ENCOUNTER 2017-08-14 12:04 | Inpatient (IN) | payer MEDICARE, MEDICAID ==
[2017-08-14] MEDS: CEFEPIME HCL 1 GM in APPROPRIATE DILUENT 1 EA IV (12:15)
[2017-08-14 13:02] LABS: ABG BASE EXCESS 1.4 (-2.0-2.0); ABG HCO3 24.7 MEQ/L (22.0-26.0); ABG PARTIAL PRESSURE CO2 35.4 mmHg (35.0-45.0); ABG PARTIAL PRESSURE O2 114.4 mmHg (75.0-100.0); ABG STANDARD HCO3 25.7 MEQ/L (22.0-26.0); ABG TOTAL CO2 25.8 MEQ/L (22.0-29.0); ABG pH (ARTERIAL) 7.462 UNITS (7.350-7.450)
[2017-08-14 13:18] LABS: BASO % 0.1 % (0.0-1.0); IMMATURE GRANULOCYTE # 0.1 10^3/uL (0-0); IMMATURE GRANULOCYTE % 0.5 % (0-0); LYMPH # 1.1 10^3/uL (1.5-4.5); LYMPH % 4.6 % (24.0-44.0); MEAN CORPUSCULAR HEMOGLOBIN 30.2 pg (27.0-33.0); MEAN CORPUSCULAR HGB CONC 33.4 g/dl (32.0-36.5); MEAN CORPUSCULAR VOLUME 90.3 fl (80.0-96.0); MONO % 8.8 % (0.0-5.0); NEUTROPHILS # 20.6 10^3/uL (1.8-7.7); PLATELET COUNT, AUTOMATED 283 10^3/uL (150-450); RED CELL DISTRIBUTION WIDTH 14.1 % (11.5-14.5); WHITE BLOOD COUNT 23.9 10^3/uL (4.0-10.0)
[2017-08-14 13:39] LABS: LACTIC ACID SEPSIS PROTOCOL 0.9 MMOL/L (0.4-2.0)
[2017-08-14 13:41] LABS: ANION GAP 4 MEQ/L (8-16); BLOOD UREA NITROGEN 17 MG/DL (7-18); CALCIUM LEVEL 9.2 MG/DL (8.5-10.1); CARBON DIOXIDE LEVEL 35 MEQ/L (21-32); CHLORIDE LEVEL 101 MEQ/L (98-107); CREATININE FOR GFR 0.56 MG/DL (0.55-1.02); GLOMERULAR FILTRATION RATE > 60.0 (>58); GLUCOSE, FASTING 117 MG/DL (70-105); POTASSIUM SERUM 3.3 MEQ/L (3.5-5.1); SODIUM LEVEL 140 MEQ/L (136-145)
[2017-08-14 13:46] LABS: ALBUMIN 3.9 GM/DL (3.2-5.2); ALBUMIN/GLOBULIN RATIO 1.08 (1.00-1.93); ALKALINE PHOSPHATASE 49 U/L (45-117); ALT/SGPT 28 U/L (12-78); AST/SGOT 17 U/L (7-37); BILIRUBIN,DIRECT 0.3 MG/DL (0.0-0.2); BILIRUBIN,TOTAL 2.3 MG/DL (0.2-1.0); TOTAL PROTEIN 7.5 GM/DL (6.4-8.2)
[2017-08-14 13:48] LABS: MONO # 2.1 10^3/uL (0.0-0.8); POSITIVE DIFF POS FLAG
[2017-08-14 13:49] LABS: ADD MANUAL DIFFER NO; DIFF SLIDE NUMBER 219
[2017-08-14] MEDS: metroNIDAZOLE 500 MG in APPROPRIATE DILUENT 1 EA IV ×2 (13:56→22:40)
[2017-08-14] MEDS ORDERED: ISOVUE-370 76% 100ML VIAL (Q9967) As Ordered (15:41)
[2017-08-14] MEDS: NS 1,000 ML IV ×2 (16:00→18:25)
[2017-08-14] MEDS: ENOXAPARIN 40 MG/0.4 ML SYRINGE (J1650) SC (18:00)
[2017-08-14] MEDS ORDERED: ALBUTEROL SULFATE 2.5 MG/0.5 ML INH NEB SOLN INH (21:00)
[2017-08-14] MEDS ORDERED: ACETAMINOPHEN 325 MG TAB GT (21:00)
[2017-08-14] MEDS ORDERED: IBUPROFEN 400 MG TAB GT (21:00)
[2017-08-14] MEDS ORDERED: MOM 30ML SUSPENSION UDC GT (21:00)
[2017-08-14] MEDS ORDERED: clonazePAM 1 MG TAB GT (21:00)
[2017-08-14] MEDS ORDERED: PROCHLORPERAZINE 25 MG SUPP PR (21:00)
[2017-08-14] MEDS ORDERED: FLEET ENEMA PR (21:00)
[2017-08-14] MEDS ORDERED: BISACODYL 10 MG SUPP PR (21:00)
[2017-08-14] MEDS ORDERED: ACETAMINOPHEN TAB 650MG DOSE (2X325MG) GT (21:15)
[2017-08-14] MEDS: CETIRIZINE (ZyrTEC) 5 MG/5 ML UDC DYE FREE GT (22:38)
[2017-08-14] MEDS: guaiFENesin SYRUP 200 MG/10 ML UDC GT (22:38)
[2017-08-14] MEDS: NORCO, ANEXSIA 5/325MG TABLET (HYDROcodone/ACETAMINOPHEN) GT (22:39)
[2017-08-14] MEDS: clonazePAM 0.5 MG TAB GT (22:39)
[2017-08-14] MEDS: LACTOBACILLUS ACIDOPHILUS CAP (BACID) GT (22:40)
[2017-08-14] MEDS: PREGABALIN 25 MG CAP (LYRICA) GT (22:40)
[2017-08-14] MEDS: BACLOFEN 10 MG TAB GT (22:40)
[2017-08-14] MEDS: HALOPERIDOL 2 MG TAB GT (22:42)
[2017-08-15] MEDS: guaiFENesin SYRUP 200 MG/10 ML UDC GT ×3 (05:45→21:00)
[2017-08-15] MEDS: metroNIDAZOLE 500 MG in APPROPRIATE DILUENT 1 EA IV ×3 (05:45→21:00)
[2017-08-15 06:36] LABS: BASO % 0.2 % (0.0-1.0); EOS # 0.2 10^3/uL (0.0-0.50); IMMATURE GRANULOCYTE # 0.1 10^3/uL (0-0); IMMATURE GRANULOCYTE % 0.4 % (0-0); LYMPH # 2.5 10^3/uL (1.5-4.5); MEAN CORPUSCULAR HGB CONC 32.5 g/dl (32.0-36.5); MEAN CORPUSCULAR VOLUME 95.2 fl (80.0-96.0); MONO # 1.2 10^3/uL (0.0-0.8); MONO % 7.5 % (0.0-5.0); NEUTROPHILS # 11.5 10^3/uL (1.8-7.7); NEUTROPHILS % 74.9 % (36.0-66.0); PLATELET COUNT, AUTOMATED 222 10^3/uL (150-450); RED CELL DISTRIBUTION WIDTH 14.4 % (11.5-14.5); WHITE BLOOD COUNT 15.4 10^3/uL (4.0-10.0)
[2017-08-15 07:02] LABS: ANION GAP 10 MEQ/L (8-16); BLOOD UREA NITROGEN 12 MG/DL (7-18); CALCIUM LEVEL 8.3 MG/DL (8.5-10.1); CARBON DIOXIDE LEVEL 24 MEQ/L (21-32); CHLORIDE LEVEL 109 MEQ/L (98-107); CREATININE FOR GFR 0.43 MG/DL (0.55-1.02); GLOMERULAR FILTRATION RATE > 60.0 (>58); GLUCOSE, FASTING 88 MG/DL (70-105); POTASSIUM SERUM 4.4 MEQ/L (3.5-5.1); SODIUM LEVEL 143 MEQ/L (136-145)
[2017-08-15] MEDS: IPRATROPIUM 0.5MG/ALBUTEROL 2.5MG INH SOL UD 3ML (DUONEB)(J7620) INH ×4 (08:06→19:34)
[2017-08-15] MEDS ORDERED: ENOXAPARIN 40 MG/0.4 ML SYRINGE (J1650) SC (09:00)
[2017-08-15] MEDS: LACTOBACILLUS ACIDOPHILUS CAP (BACID) GT ×2 (09:31→21:00)
[2017-08-15] MEDS: PREGABALIN 25 MG CAP (LYRICA) GT ×3 (09:31→20:59)
[2017-08-15] MEDS: FAMOTIDINE 20 MG TAB GT (09:32)
[2017-08-15] MEDS: NORCO, ANEXSIA 5/325MG TABLET (HYDROcodone/ACETAMINOPHEN) GT ×3 (09:32→20:59)
[2017-08-15] MEDS: BACLOFEN 10 MG TAB NG ×2 (09:32→13:37)
[2017-08-15] MEDS: HALOPERIDOL 2 MG TAB GT ×3 (09:32→21:00)
[2017-08-15] MEDS: predniSONE 10 MG TAB GT (09:32)
[2017-08-15] MEDS: FLUTICASONE PROP 0.05% NASAL SPRAY 16 GM (FLONASE) (09:33)
[2017-08-15] MEDS: ENOXAPARIN 40 MG/0.4 ML SYRINGE (J1650) SC (09:33)
[2017-08-15] MEDS: CEFEPIME HCL 2 GM in APPROPRIATE DILUENT 1 EA IV (12:21)
[2017-08-15] MEDS: clonazePAM 0.5 MG TAB GT (20:59)
[2017-08-15] MEDS: BACLOFEN 10 MG TAB GT (20:59)
[2017-08-15] MEDS: CETIRIZINE (ZyrTEC) 5 MG/5 ML UDC DYE FREE GT (21:00)
[2017-08-16] MEDS: IPRATROPIUM 0.5MG/ALBUTEROL 2.5MG INH SOL UD 3ML (DUONEB)(J7620) INH ×7 (00:59→23:42)
[2017-08-16] MEDS: metroNIDAZOLE 500 MG in APPROPRIATE DILUENT 1 EA IV ×3 (05:27→21:36)
[2017-08-16] MEDS: guaiFENesin SYRUP 200 MG/10 ML UDC GT ×4 (05:28→22:00)
[2017-08-16] MEDS: HALOPERIDOL 2 MG TAB GT ×4 (09:56→21:34)
[2017-08-16] MEDS: NORCO, ANEXSIA 5/325MG TABLET (HYDROcodone/ACETAMINOPHEN) GT ×4 (09:56→21:35)
[2017-08-16] MEDS: LACTOBACILLUS ACIDOPHILUS CAP (BACID) GT ×3 (09:56→21:34)
[2017-08-16] MEDS: PREGABALIN 25 MG CAP (LYRICA) GT ×4 (09:56→21:34)
[2017-08-16] MEDS: BACLOFEN 10 MG TAB NG ×2 (09:56→14:00)
[2017-08-16] MEDS: predniSONE 10 MG TAB GT (09:57)
[2017-08-16] MEDS: FAMOTIDINE 20 MG TAB GT (09:57)
[2017-08-16] MEDS: ENOXAPARIN 40 MG/0.4 ML SYRINGE (J1650) SC (09:57)
[2017-08-16] MEDS: FLUTICASONE PROP 0.05% NASAL SPRAY 16 GM (FLONASE) (09:58)
[2017-08-16] MEDS: CEFEPIME HCL 2 GM in APPROPRIATE DILUENT 1 EA IV (12:00)
[2017-08-16] MEDS: SCOPOLAMINE 1MG TRANSDERMAL PATCH TOP (13:50)
[2017-08-16] MEDS ORDERED: SCOPOLAMINE 1.5 MG TRANSDERMAL TOP (14:00)
[2017-08-16] MEDS: clonazePAM 0.5 MG TAB GT ×2 (21:00→21:34)
[2017-08-16] MEDS: BACLOFEN 10 MG TAB GT ×2 (21:00→21:34)
[2017-08-16] MEDS: CETIRIZINE (ZyrTEC) 5 MG/5 ML UDC DYE FREE GT ×2 (21:00→21:35)
[2017-08-17] MEDS: ACETAMINOPHEN 650 MG SUPP PR (00:31)
[2017-08-17] MEDS: IPRATROPIUM 0.5MG/ALBUTEROL 2.5MG INH SOL UD 3ML (DUONEB)(J7620) INH ×6 (04:52→23:51)
[2017-08-17] MEDS: guaiFENesin SYRUP 200 MG/10 ML UDC GT (06:00)
[2017-08-17] MEDS: metroNIDAZOLE 500 MG in APPROPRIATE DILUENT 1 EA IV ×3 (06:09→21:52)
[2017-08-17] MEDS: predniSONE 10 MG TAB GT (09:00)
[2017-08-17] MEDS: CEFEPIME HCL 2 GM in APPROPRIATE DILUENT 1 EA IV (13:00)
[2017-08-17] MEDS: methylPREDNISolone INJ 125 MG/2 ML VIAL (J2930) IV (14:55)
[2017-08-17] MEDS: D5W/0.45% SODIUM CHLORIDE 1,000 ML IV (14:55)
[2017-08-17] MEDS: LORazepam 2 MG/ML VIAL (J2060) IV ×3 (14:55→21:51)
[2017-08-17] MEDS: ENOXAPARIN 40 MG/0.4 ML SYRINGE (J1650) SC (14:55)
[2017-08-17] MEDS: FLUTICASONE PROP 0.05% NASAL SPRAY 16 GM (FLONASE) (14:56)
[2017-08-18] MEDS: methylPREDNISolone INJ 125 MG/2 ML VIAL (J2930) IV ×2 (02:48→14:08)
[2017-08-18] MEDS: IPRATROPIUM 0.5MG/ALBUTEROL 2.5MG INH SOL UD 3ML (DUONEB)(J7620) INH ×6 (04:00→23:41)
[2017-08-18] MEDS: D5W/0.45% SODIUM CHLORIDE 1,000 ML IV ×2 (05:25→18:06)
[2017-08-18] MEDS: metroNIDAZOLE 500 MG in APPROPRIATE DILUENT 1 EA IV ×3 (05:26→21:52)
[2017-08-18 05:28] LABS: BASO % 0.1 % (0.0-1.0); IMMATURE GRANULOCYTE % 0.4 % (0-0); LYMPH # 0.6 10^3/uL (1.5-4.5); LYMPH % 5.3 % (24.0-44.0); MEAN CORPUSCULAR HEMOGLOBIN 29.9 pg (27.0-33.0); MEAN CORPUSCULAR HGB CONC 32.8 g/dl (32.0-36.5); MEAN CORPUSCULAR VOLUME 91.4 fl (80.0-96.0); MONO # 0.2 10^3/uL (0.0-0.8); NEUTROPHILS # 9.5 10^3/uL (1.8-7.7); NEUTROPHILS % 92.2 % (36.0-66.0); PLATELET COUNT, AUTOMATED 171 10^3/uL (150-450); RED CELL DISTRIBUTION WIDTH 13.2 % (11.5-14.5); WHITE BLOOD COUNT 10.4 10^3/uL (4.0-10.0)
[2017-08-18 05:43] LABS: ALBUMIN 3.4 GM/DL (3.2-5.2); ALBUMIN/GLOBULIN RATIO 0.92 (1.00-1.93); ALKALINE PHOSPHATASE 47 U/L (45-117); ALT/SGPT 24 U/L (12-78); ANION GAP 7 MEQ/L (8-16); AST/SGOT 13 U/L (7-37); BILIRUBIN,TOTAL 0.7 MG/DL (0.2-1.0); BLOOD UREA NITROGEN 14 MG/DL (7-18); CALCIUM LEVEL 9.3 MG/DL (8.5-10.1); CARBON DIOXIDE LEVEL 27 MEQ/L (21-32); CHLORIDE LEVEL 109 MEQ/L (98-107); CREATININE FOR GFR 0.59 MG/DL (0.55-1.02); GLOMERULAR FILTRATION RATE > 60.0 (>58); GLUCOSE, FASTING 109 MG/DL (70-105); POTASSIUM SERUM 3.9 MEQ/L (3.5-5.1); SODIUM LEVEL 143 MEQ/L (136-145); TOTAL PROTEIN 7.1 GM/DL (6.4-8.2)
[2017-08-18] MEDS: LORazepam 2 MG/ML VIAL (J2060) IV ×4 (06:46→21:52)
[2017-08-18] MEDS ORDERED: predniSONE 10 MG TAB GT (09:00)
[2017-08-18] MEDS: ENOXAPARIN 40 MG/0.4 ML SYRINGE (J1650) SC (10:07)
[2017-08-18] MEDS: FLUTICASONE PROP 0.05% NASAL SPRAY 16 GM (FLONASE) (10:07)
[2017-08-18] MEDS: CEFEPIME HCL 2 GM in APPROPRIATE DILUENT 1 EA IV (11:29)
[2017-08-18] MEDS: clonazePAM 0.5 MG TAB GT (21:00)
[2017-08-19] MEDS: LORazepam 2 MG/ML VIAL (J2060) IV ×5 (01:15→21:43)
[2017-08-19] MEDS: methylPREDNISolone INJ 125 MG/2 ML VIAL (J2930) IV ×2 (03:58→14:42)
[2017-08-19] MEDS: IPRATROPIUM 0.5MG/ALBUTEROL 2.5MG INH SOL UD 3ML (DUONEB)(J7620) INH ×6 (04:05→23:52)
[2017-08-19 05:45] LABS: BASO % 0.1 % (0.0-1.0); IMMATURE GRANULOCYTE # 0.1 10^3/uL (0-0); IMMATURE GRANULOCYTE % 0.6 % (0-0); LYMPH % 7.5 % (24.0-44.0); MEAN CORPUSCULAR HEMOGLOBIN 30.3 pg (27.0-33.0); MEAN CORPUSCULAR HGB CONC 33.6 g/dl (32.0-36.5); MEAN CORPUSCULAR VOLUME 90.3 fl (80.0-96.0); MONO # 0.6 10^3/uL (0.0-0.8); MONO % 4.3 % (0.0-5.0); NEUTROPHILS # 12.2 10^3/uL (1.8-7.7); NEUTROPHILS % 87.5 % (36.0-66.0); PLATELET COUNT, AUTOMATED 265 10^3/uL (150-450); RED CELL DISTRIBUTION WIDTH 13.2 % (11.5-14.5); WHITE BLOOD COUNT 13.9 10^3/uL (4.0-10.0)
[2017-08-19 06:01] LABS: ALBUMIN 3.4 GM/DL (3.2-5.2); ALBUMIN/GLOBULIN RATIO 1.17 (1.00-1.93); ALKALINE PHOSPHATASE 47 U/L (45-117); ALT/SGPT 23 U/L (12-78); ANION GAP 9 MEQ/L (8-16); AST/SGOT 14 U/L (7-37); BILIRUBIN,TOTAL 0.6 MG/DL (0.2-1.0); BLOOD UREA NITROGEN 11 MG/DL (7-18); CALCIUM LEVEL 8.8 MG/DL (8.5-10.1); CARBON DIOXIDE LEVEL 27 MEQ/L (21-32); CHLORIDE LEVEL 109 MEQ/L (98-107); CREATININE FOR GFR 0.55 MG/DL (0.55-1.02); GLOMERULAR FILTRATION RATE > 60.0 (>58); GLUCOSE, FASTING 99 MG/DL (70-105); POTASSIUM SERUM 4.2 MEQ/L (3.5-5.1); SODIUM LEVEL 145 MEQ/L (136-145); TOTAL PROTEIN 6.3 GM/DL (6.4-8.2)
[2017-08-19] MEDS: metroNIDAZOLE 500 MG in APPROPRIATE DILUENT 1 EA IV (06:33)
[2017-08-19] MEDS: ENOXAPARIN 40 MG/0.4 ML SYRINGE (J1650) SC (09:39)
[2017-08-19] MEDS: HALOPERIDOL 5 MG/ML VIAL (J1630) IM ×3 (09:39→21:43)
[2017-08-19] MEDS: FLUTICASONE PROP 0.05% NASAL SPRAY 16 GM (FLONASE) (09:40)
[2017-08-19] MEDS: D5W/0.45% SODIUM CHLORIDE 1,000 ML IV (12:48)
[2017-08-19] MEDS: SCOPOLAMINE 1MG TRANSDERMAL PATCH TOP (14:43)
[2017-08-19] MEDS: clonazePAM 0.5 MG TAB GT ×2 (21:00)
[2017-08-20] MEDS: IPRATROPIUM 0.5MG/ALBUTEROL 2.5MG INH SOL UD 3ML (DUONEB)(J7620) INH ×5 (03:44→22:16)
[2017-08-20] MEDS: methylPREDNISolone INJ 125 MG/2 ML VIAL (J2930) IV (04:40)
[2017-08-20] MEDS: D5W/0.45% SODIUM CHLORIDE 1,000 ML IV ×2 (04:41→14:37)
[2017-08-20 07:13] LABS: ALBUMIN 3.4 GM/DL (3.2-5.2); ALBUMIN/GLOBULIN RATIO 1.17 (1.00-1.93); ALKALINE PHOSPHATASE 48 U/L (45-117); ALT/SGPT 33 U/L (12-78); ANION GAP 11 MEQ/L (8-16); AST/SGOT 24 U/L (7-37); BILIRUBIN,TOTAL 0.8 MG/DL (0.2-1.0); BLOOD UREA NITROGEN 9 MG/DL (7-18); CALCIUM LEVEL 8.7 MG/DL (8.5-10.1); CARBON DIOXIDE LEVEL 25 MEQ/L (21-32); CHLORIDE LEVEL 108 MEQ/L (98-107); GLOMERULAR FILTRATION RATE > 60.0 (>58); GLUCOSE, FASTING 102 MG/DL (70-105); POTASSIUM SERUM 3.6 MEQ/L (3.5-5.1); SODIUM LEVEL 144 MEQ/L (136-145); TOTAL PROTEIN 6.3 GM/DL (6.4-8.2)
[2017-08-20] MEDS: FLUTICASONE PROP 0.05% NASAL SPRAY 16 GM (FLONASE) (09:16)
[2017-08-20] MEDS: LORazepam 2 MG/ML VIAL (J2060) IV ×4 (09:16→22:38)
[2017-08-20] MEDS: HALOPERIDOL 5 MG/ML VIAL (J1630) IM ×3 (09:16→22:38)
[2017-08-20] MEDS: ENOXAPARIN 40 MG/0.4 ML SYRINGE (J1650) SC (09:16)
[2017-08-20] MEDS: MULTIVITAMIN -ADULT INJECTION 10 ML, CR/CU/SE/MN/ZN INJ 1 ML in AMINO AC/ELECTROLYTE/DE... IV (16:49)
[2017-08-20] MEDS: HumaLOG INSULIN (NovoLOG) PER UNIT SC ×2 (16:49→23:51)
[2017-08-20] MEDS: clonazePAM 0.5 MG TAB GT (21:00)
[2017-08-21] MEDS: IPRATROPIUM 0.5MG/ALBUTEROL 2.5MG INH SOL UD 3ML (DUONEB)(J7620) INH ×7 (03:32→23:39)
[2017-08-21] MEDS: D5W/0.45% SODIUM CHLORIDE 1,000 ML IV (03:38)
[2017-08-21] MEDS: ACETAMINOPHEN 650 MG SUPP PR (04:00)
[2017-08-21] MEDS: HumaLOG INSULIN (NovoLOG) PER UNIT SC ×3 (05:00→18:00)
[2017-08-21 06:58] LABS: ALBUMIN 3.4 GM/DL (3.2-5.2); ALKALINE PHOSPHATASE 46 U/L (45-117); ALT/SGPT 57 U/L (12-78); ANION GAP 8 MEQ/L (8-16); AST/SGOT 38 U/L (7-37); BILIRUBIN,TOTAL 0.8 MG/DL (0.2-1.0); BLOOD UREA NITROGEN 8 MG/DL (7-18); CALCIUM LEVEL 8.3 MG/DL (8.5-10.1); CARBON DIOXIDE LEVEL 28 MEQ/L (21-32); CHLORIDE LEVEL 106 MEQ/L (98-107); CREATININE FOR GFR 0.47 MG/DL (0.55-1.02); GLOMERULAR FILTRATION RATE > 60.0 (>58); GLUCOSE, FASTING 88 MG/DL (70-105); SODIUM LEVEL 142 MEQ/L (136-145); TOTAL PROTEIN 6.5 GM/DL (6.4-8.2)
[2017-08-21] MEDS: LORazepam 2 MG/ML VIAL (J2060) IV ×4 (08:34→22:08)
[2017-08-21] MEDS: FLUTICASONE PROP 0.05% NASAL SPRAY 16 GM (FLONASE) (08:35)
[2017-08-21] MEDS: HALOPERIDOL 5 MG/ML VIAL (J1630) IM ×3 (08:35→21:00)
[2017-08-21] MEDS: KCL 10MEQ IN 100ML SWI (KRUN) 10 MEQ in APPROPRIATE DILUENT 1 EA IV ×4 (11:23→19:58)
[2017-08-21] MEDS ORDERED: PROPOFOL 200 MG/20 ML VIAL As Ordered (13:30)
[2017-08-21] MEDS ORDERED: fentaNYL 250 MCG/5 ML INJECTION (J3010) As Ordered (13:30)
[2017-08-21] MEDS ORDERED: MIDAZOLAM INJ 2 MG/2 ML VIAL (J2250) As Ordered (13:30)
[2017-08-21] MEDS ORDERED: metroNIDAZOLE/NACL 500MG(5MG/ML)100 ML BAG (S0030) As Ordered (14:21)
[2017-08-21] MEDS: metroNIDAZOLE 500 MG in APPROPRIATE DILUENT 1 EA IV (14:31)
[2017-08-21] MEDS ORDERED: ROCURONIUM BROMIDE 50 MG/5 ML VIAL As Ordered ×2 (14:49)
[2017-08-21] MEDS ORDERED: PHENYLephrine HCL 500 MCG/5 ML (100MCG/ML) SYRINGE (J2370) As Ordered (14:49)
[2017-08-21] MEDS ORDERED: ePHEDrine SULFATE 25 MG/5 ML(5MG/ML) SYRINGE As Ordered (14:49)
[2017-08-21] MEDS: CIPROFLOXACIN/D5W 400 MG/200 ML BAG (J0744) As Ordered (14:55)
[2017-08-21] MEDS: CIPROFLOXACIN 400 MG in APPROPRIATE DILUENT 1 EA IV (15:30)
[2017-08-21] MEDS ORDERED: GLYCOPYRROLATE INJ 0.2 MG/ML 2 ML VIAL As Ordered (15:58)
[2017-08-21] MEDS ORDERED: NEOSTIGMINE 10 MG/10 ML VIAL (J2710) As Ordered (15:58)
[2017-08-21] MEDS: BUPIVACAINE LIPOSOME/PF 1.3% 20 ML VIAL (13.3MG/ML)(EXPAREL) As Ordered (16:11)
[2017-08-21] MEDS ORDERED: ACETAMINOPHEN/CODEINE 12.5 ML UDC JT (16:45)
[2017-08-21] MEDS ORDERED: ONDANSETRON 4MG/2ML VIAL (J2405) IV (17:15)
[2017-08-21] MEDS: LR 1,000 ML IV (17:15)
[2017-08-21] MEDS ORDERED: fentaNYL 100 MCG/2 ML INJECTION (J3010) IV (17:15)
[2017-08-21] MEDS: AMINO AC/ELECTROLYTE/DEX/CALC 1,540 ML IV (18:42)
[2017-08-21] MEDS: clonazePAM 0.5 MG TAB GT (21:00)
[2017-08-21] MEDS: SODIUM CHLORIDE 0.9% INJ 10 ML SYR IV (22:09)
[2017-08-21] MEDS: MORPHINE 2 MG/ML 1ML SYRINGE IV (23:14)
[2017-08-22] MEDS: HumaLOG INSULIN (NovoLOG) PER UNIT SC ×3 (00:49→12:05)
[2017-08-22] MEDS: MORPHINE 2 MG/ML 1ML SYRINGE IV ×2 (03:06→05:34)
[2017-08-22] MEDS: SODIUM CHLORIDE 0.9% INJ 10 ML SYR IV ×3 (03:07→16:17)
[2017-08-22] MEDS: IPRATROPIUM 0.5MG/ALBUTEROL 2.5MG INH SOL UD 3ML (DUONEB)(J7620) INH ×6 (04:00→23:54)
[2017-08-22 05:54] LABS: MEAN CORPUSCULAR HEMOGLOBIN 30.2 pg (27.0-33.0); MEAN CORPUSCULAR HGB CONC 33.8 g/dl (32.0-36.5); MEAN CORPUSCULAR VOLUME 89.3 fl (80.0-96.0); PLATELET COUNT, AUTOMATED 320 10^3/uL (150-450); RED CELL DISTRIBUTION WIDTH 13.3 % (11.5-14.5)
[2017-08-22 06:22] LABS: ALBUMIN 3.1 GM/DL (3.2-5.2); ALBUMIN/GLOBULIN RATIO 1.11 (1.00-1.93); ALKALINE PHOSPHATASE 46 U/L (45-117); ALT/SGPT 61 U/L (12-78); ANION GAP 7 MEQ/L (8-16); AST/SGOT 23 U/L (7-37); BILIRUBIN,TOTAL 1.1 MG/DL (0.2-1.0); BLOOD UREA NITROGEN 7 MG/DL (7-18); CALCIUM LEVEL 8.2 MG/DL (8.5-10.1); CARBON DIOXIDE LEVEL 30 MEQ/L (21-32); CHLORIDE LEVEL 101 MEQ/L (98-107); CREATININE FOR GFR 0.39 MG/DL (0.55-1.02); GLOMERULAR FILTRATION RATE > 60.0 (>58); GLUCOSE, FASTING 107 MG/DL (70-105); POTASSIUM SERUM 3.2 MEQ/L (3.5-5.1); SODIUM LEVEL 138 MEQ/L (136-145); TOTAL PROTEIN 5.9 GM/DL (6.4-8.2)
[2017-08-22] MEDS: clonazePAM 1 MG TAB GT (06:45)
[2017-08-22] MEDS: KCL 10MEQ IN 100ML SWI (KRUN) 10 MEQ in APPROPRIATE DILUENT 1 EA IV (07:05)
[2017-08-22] MEDS: POTASSIUM CHLORIDE 10% LIQ 20 MEQ/15 ML UDC PO ×2 (08:38→20:11)
[2017-08-22] MEDS: FLUTICASONE PROP 0.05% NASAL SPRAY 16 GM (FLONASE) (08:39)
[2017-08-22] MEDS: HALOPERIDOL 5 MG/ML VIAL (J1630) IM ×3 (08:39→20:11)
[2017-08-22] MEDS: LORazepam 2 MG/ML VIAL (J2060) IV ×4 (08:39→20:11)
[2017-08-22 13:26] LABS: ANION GAP 5 MEQ/L (8-16); BLOOD UREA NITROGEN 8 MG/DL (7-18); CALCIUM LEVEL 8.4 MG/DL (8.5-10.1); CARBON DIOXIDE LEVEL 31 MEQ/L (21-32); CHLORIDE LEVEL 101 MEQ/L (98-107); CREATININE FOR GFR 0.45 MG/DL (0.55-1.02); GLOMERULAR FILTRATION RATE > 60.0 (>58); GLUCOSE, FASTING 117 MG/DL (70-105); POTASSIUM SERUM 3.9 MEQ/L (3.5-5.1); SODIUM LEVEL 137 MEQ/L (136-145)
[2017-08-22] MEDS: SCOPOLAMINE 1MG TRANSDERMAL PATCH TOP (14:20)
[2017-08-22] MEDS: clonazePAM 0.5 MG TAB GT (20:11)
[2017-08-23] MEDS: MORPHINE 2 MG/ML 1ML SYRINGE IV ×5 (00:28→13:58)
[2017-08-23] MEDS: IPRATROPIUM 0.5MG/ALBUTEROL 2.5MG INH SOL UD 3ML (DUONEB)(J7620) INH ×5 (04:00→23:59)
[2017-08-23] MEDS: SODIUM CHLORIDE 0.9% INJ 10 ML SYR IV ×2 (05:41→18:37)
[2017-08-23 06:16] LABS: MEAN CORPUSCULAR HEMOGLOBIN 29.7 pg (27.0-33.0); MEAN CORPUSCULAR HGB CONC 32.6 g/dl (32.0-36.5); MEAN CORPUSCULAR VOLUME 91.2 fl (80.0-96.0); PLATELET COUNT, AUTOMATED 270 10^3/uL (150-450); RED CELL DISTRIBUTION WIDTH 13.6 % (11.5-14.5); WHITE BLOOD COUNT 19.1 10^3/uL (4.0-10.0)
[2017-08-23 06:52] LABS: ALBUMIN 2.7 GM/DL (3.2-5.2); ALKALINE PHOSPHATASE 55 U/L (45-117); ALT/SGPT 72 U/L (12-78); ANION GAP 6 MEQ/L (8-16); AST/SGOT 31 U/L (7-37); BILIRUBIN,TOTAL 0.6 MG/DL (0.2-1.0); BLOOD UREA NITROGEN 11 MG/DL (7-18); CARBON DIOXIDE LEVEL 30 MEQ/L (21-32); CHLORIDE LEVEL 102 MEQ/L (98-107); CREATININE FOR GFR 0.46 MG/DL (0.55-1.02); GLOMERULAR FILTRATION RATE > 60.0 (>58); GLUCOSE, FASTING 113 MG/DL (70-105); POTASSIUM SERUM 4.2 MEQ/L (3.5-5.1); SODIUM LEVEL 138 MEQ/L (136-145); TOTAL PROTEIN 5.4 GM/DL (6.4-8.2)
[2017-08-23] MEDS ORDERED: predniSONE 10 MG TAB GT (09:00)
[2017-08-23] MEDS: HALOPERIDOL 5 MG/ML VIAL (J1630) IM (09:46)
[2017-08-23] MEDS: POTASSIUM CHLORIDE 10% LIQ 20 MEQ/15 ML UDC PO (09:46)
[2017-08-23] MEDS: LORazepam 2 MG/ML VIAL (J2060) IV ×2 (09:47→13:00)
[2017-08-23] MEDS: FLUTICASONE PROP 0.05% NASAL SPRAY 16 GM (FLONASE) (11:54)
[2017-08-23 14:49] LABS: ABG BASE EXCESS -3.6 (-2.0-2.0); ABG HCO3 21.9 MEQ/L (22.0-26.0); ABG PARTIAL PRESSURE CO2 41.1 mmHg (35.0-45.0); ABG STANDARD HCO3 21.2 MEQ/L (22.0-26.0); ABG TOTAL CO2 23.1 MEQ/L (22.0-29.0); ABG pH (ARTERIAL) 7.344 UNITS (7.350-7.450)
[2017-08-23] MEDS ORDERED: MIDAZOLAM INJ 2 MG/2 ML VIAL (J2250) As Ordered ×2 (14:56→14:57)
[2017-08-23] MEDS: MIDAZOLAM INJ 2 MG/2 ML VIAL (J2250) IV ×4 (15:00→22:06)
[2017-08-23] MEDS ORDERED: REFRIGERATOR IV KEYS XX (16:00)
[2017-08-23] MEDS ORDERED: DEXTROSE 50% 50 ML SYRINGE IV (16:15)
[2017-08-23] MEDS ORDERED: GLUCAGON FOR INJ 1 MG VIAL (J1610) SC (16:15)
[2017-08-23] MEDS ORDERED: GLUCOSE 4 GM CHEW TABLET PO (16:15)
[2017-08-23 16:32] LABS: ABG BASE EXCESS -3.4 (-2.0-2.0); ABG HCO3 20.4 MEQ/L (22.0-26.0); ABG PARTIAL PRESSURE CO2 33.9 mmHg (35.0-45.0); ABG PARTIAL PRESSURE O2 89.6 mmHg (75.0-100.0); ABG STANDARD HCO3 21.6 MEQ/L (22.0-26.0); ABG TOTAL CO2 21.5 MEQ/L (22.0-29.0); ABG pH (ARTERIAL) 7.398 UNITS (7.350-7.450)
[2017-08-23] MEDS: MIDAZOLAM HCL 50 MG in D5W 40 ML IV ×2 (17:00→19:30)
[2017-08-23] MEDS: NS 500 ML IV ×2 (17:30→20:30)
[2017-08-23] MEDS ORDERED: NOREPINEPHRINE 4 MG/4 ML AMP As Ordered (17:41)
[2017-08-23] MEDS: NOREPINEPHRINE BITARTRATE 8 MG in D5W 492 ML IV (18:00)
[2017-08-23] MEDS: HumaLOG INSULIN (NovoLOG) PER UNIT SC (18:00)
[2017-08-23] MEDS: PANTOPRAZOLE 40MG INJ (PROTONIX) (C9113) IV (18:33)
[2017-08-23 22:31] LABS: KETONE, URINE AUTO RFX NEGATIVE (NEGATIVE); LEUKOCYTE ESTERASE UR AUTO RFX NEGATIVE (NEGATIVE); MUCUS, URINE RFX LARGE (NEGATIVE); NITRITE, URINE AUTO RFX NEGATIVE (NEGATIVE); RBC, URINE AUTO RFX 5 /HPF (0-3); SPECIFIC GRAVITY UR AUTO RFX 1.024 (1.002-1.035); SQUAM EPITHELIAL CELL UR AURFX 0 /HPF (0-6); WBC, URINE AUTO RFX 10 /HPF (0-3)
[2017-08-23] MEDS: HEPARIN SOD (PORCINE) 5000 UNITS/ML VIAL SQ (22:42)
[2017-08-24] MEDS: HumaLOG INSULIN (NovoLOG) PER UNIT SC ×4 (00:04→17:56)
[2017-08-24] MEDS: VANCOMYCIN HCL 1,000 MG, VIAL MATE ADAPTER 1 EACH in D5W 250 ML IV (00:53)
[2017-08-24] MEDS: PIPERACILLIN/TAZOBACTAM SOD 3.375 GM in APPROPRIATE DILUENT 1 EA IV ×4 (01:53→19:41)
[2017-08-24] MEDS: MIDAZOLAM HCL 50 MG in D5W 40 ML IV (03:13)
[2017-08-24] MEDS: MIDAZOLAM INJ 2 MG/2 ML VIAL (J2250) IV ×2 (03:33→11:06)
[2017-08-24] MEDS: IPRATROPIUM 0.5MG/ALBUTEROL 2.5MG INH SOL UD 3ML (DUONEB)(J7620) INH ×5 (03:58→23:04)
[2017-08-24 05:24] LABS: ABG BASE EXCESS -0.2 (-2.0-2.0); ABG HCO3 23.2 MEQ/L (22.0-26.0); ABG PARTIAL PRESSURE CO2 34.1 mmHg (35.0-45.0); ABG STANDARD HCO3 24.4 MEQ/L (22.0-26.0); ABG TOTAL CO2 24.3 MEQ/L (22.0-29.0); ABG pH (ARTERIAL) 7.451 UNITS (7.350-7.450)
[2017-08-24] MEDS: ACETAMINOPHEN 650 MG SUPP PR (05:55)
[2017-08-24] MEDS: HEPARIN SOD (PORCINE) 5000 UNITS/ML VIAL SQ ×3 (05:56→22:34)
[2017-08-24] MEDS: SODIUM CHLORIDE 0.9% INJ 10 ML SYR IV ×2 (05:59→17:55)
[2017-08-24 06:13] LABS: MEAN CORPUSCULAR HEMOGLOBIN 30.4 pg (27.0-33.0); MEAN CORPUSCULAR HGB CONC 33.9 g/dl (32.0-36.5); MEAN CORPUSCULAR VOLUME 89.7 fl (80.0-96.0); PLATELET COUNT, AUTOMATED 183 10^3/uL (150-450); RED CELL DISTRIBUTION WIDTH 13.8 % (11.5-14.5); WHITE BLOOD COUNT 23.5 10^3/uL (4.0-10.0)
[2017-08-24 06:47] LABS: ALBUMIN 2.3 GM/DL (3.2-5.2); ALBUMIN/GLOBULIN RATIO 0.82 (1.00-1.93); ALKALINE PHOSPHATASE 100 U/L (45-117); ALT/SGPT 102 U/L (12-78); ANION GAP 7 MEQ/L (8-16); AST/SGOT 40 U/L (7-37); BILIRUBIN,TOTAL 1.1 MG/DL (0.2-1.0); BLOOD UREA NITROGEN 13 MG/DL (7-18); CALCIUM LEVEL 7.8 MG/DL (8.5-10.1); CARBON DIOXIDE LEVEL 30 MEQ/L (21-32); CHLORIDE LEVEL 101 MEQ/L (98-107); CREATININE FOR GFR 0.56 MG/DL (0.55-1.02); GLOMERULAR FILTRATION RATE > 60.0 (>58); GLUCOSE, FASTING 129 MG/DL (70-105); POTASSIUM SERUM 3.9 MEQ/L (3.5-5.1); SODIUM LEVEL 138 MEQ/L (136-145); TOTAL PROTEIN 5.1 GM/DL (6.4-8.2)
[2017-08-24] MEDS: MIDAZOLAM HCL 100 MG in D5W 80 ML IV (12:19)
[2017-08-24] MEDS: PANTOPRAZOLE 40MG INJ (PROTONIX) (C9113) IV (17:56)
[2017-08-25] MEDS: HumaLOG INSULIN (NovoLOG) PER UNIT SC ×4 (00:47→17:14)
[2017-08-25] MEDS: VANCOMYCIN HCL 1,000 MG, VIAL MATE ADAPTER 1 EACH in D5W 250 ML IV (00:48)
[2017-08-25] MEDS: ACETAMINOPHEN 650 MG SUPP PR (00:48)
[2017-08-25] MEDS: PIPERACILLIN/TAZOBACTAM SOD 3.375 GM in APPROPRIATE DILUENT 1 EA IV ×4 (01:59→21:26)
[2017-08-25] MEDS: IPRATROPIUM 0.5MG/ALBUTEROL 2.5MG INH SOL UD 3ML (DUONEB)(J7620) INH ×6 (03:26→23:13)
[2017-08-25] MEDS: MIDAZOLAM HCL 100 MG in D5W 80 ML IV ×2 (05:25→23:44)
[2017-08-25 05:32] LABS: ABG BASE EXCESS 3.2 (-2.0-2.0); ABG HCO3 25.6 MEQ/L (22.0-26.0); ABG PARTIAL PRESSURE CO2 31.4 mmHg (35.0-45.0); ABG PARTIAL PRESSURE O2 153.7 mmHg (75.0-100.0); ABG STANDARD HCO3 27.4 MEQ/L (22.0-26.0); ABG TOTAL CO2 26.6 MEQ/L (22.0-29.0); ABG pH (ARTERIAL) 7.529 UNITS (7.350-7.450); MEAN CORPUSCULAR HEMOGLOBIN 29.9 pg (27.0-33.0); MEAN CORPUSCULAR HGB CONC 32.9 g/dl (32.0-36.5); PLATELET COUNT, AUTOMATED 172 10^3/uL (150-450); RED CELL DISTRIBUTION WIDTH 13.9 % (11.5-14.5); WHITE BLOOD COUNT 17.8 10^3/uL (4.0-10.0)
[2017-08-25 05:57] LABS: ALBUMIN/GLOBULIN RATIO 0.59 (1.00-1.93); ALKALINE PHOSPHATASE 84 U/L (45-117); ALT/SGPT 69 U/L (12-78); ANION GAP 6 MEQ/L (8-16); AST/SGOT 31 U/L (7-37); BILIRUBIN,TOTAL 0.8 MG/DL (0.2-1.0); BLOOD UREA NITROGEN 11 MG/DL (7-18); CALCIUM LEVEL 7.5 MG/DL (8.5-10.1); CARBON DIOXIDE LEVEL 31 MEQ/L (21-32); CHLORIDE LEVEL 100 MEQ/L (98-107); CREATININE FOR GFR 0.52 MG/DL (0.55-1.02); GLOMERULAR FILTRATION RATE > 60.0 (>58); GLUCOSE, FASTING 102 MG/DL (70-105); POTASSIUM SERUM 3.2 MEQ/L (3.5-5.1); SODIUM LEVEL 137 MEQ/L (136-145); TOTAL PROTEIN 5.4 GM/DL (6.4-8.2)
[2017-08-25] MEDS: HEPARIN SOD (PORCINE) 5000 UNITS/ML VIAL SQ ×3 (06:22→21:26)
[2017-08-25] MEDS: SODIUM CHLORIDE 0.9% INJ 10 ML SYR IV ×2 (06:22→17:14)
[2017-08-25] MEDS: MIDAZOLAM INJ 2 MG/2 ML VIAL (J2250) IV (09:02)
[2017-08-25] MEDS: POTASSIUM CHLORIDE 10% LIQ 20 MEQ/15 ML UDC GT ×2 (13:58→21:26)
[2017-08-25] MEDS: PANTOPRAZOLE 40MG INJ (PROTONIX) (C9113) IV (17:13)
[2017-08-26] MEDS: HumaLOG INSULIN (NovoLOG) PER UNIT SC ×3 (00:07→12:08)
[2017-08-26] MEDS: VANCOMYCIN HCL 1,000 MG, VIAL MATE ADAPTER 1 EACH in D5W 250 ML IV ×3 (00:50→13:48)
[2017-08-26] MEDS: PIPERACILLIN/TAZOBACTAM SOD 3.375 GM in APPROPRIATE DILUENT 1 EA IV ×3 (02:04→13:48)
[2017-08-26] MEDS: MIDAZOLAM INJ 2 MG/2 ML VIAL (J2250) IV ×2 (02:16→04:08)
[2017-08-26] MEDS: IPRATROPIUM 0.5MG/ALBUTEROL 2.5MG INH SOL UD 3ML (DUONEB)(J7620) INH ×5 (03:02→20:29)
[2017-08-26 05:36] LABS: MEAN CORPUSCULAR HEMOGLOBIN 29.6 pg (27.0-33.0); MEAN CORPUSCULAR HGB CONC 32.3 g/dl (32.0-36.5); MEAN CORPUSCULAR VOLUME 91.9 fl (80.0-96.0); PLATELET COUNT, AUTOMATED 160 10^3/uL (150-450); RED CELL DISTRIBUTION WIDTH 14.1 % (11.5-14.5); WHITE BLOOD COUNT 8.9 10^3/uL (4.0-10.0)
[2017-08-26 05:51] LABS: ABG BASE EXCESS 0.9 (-2.0-2.0); ABG HCO3 23.7 MEQ/L (22.0-26.0); ABG PARTIAL PRESSURE CO2 31.5 mmHg (35.0-45.0); ABG PARTIAL PRESSURE O2 175.7 mmHg (75.0-100.0); ABG STANDARD HCO3 25.3 MEQ/L (22.0-26.0); ABG TOTAL CO2 24.7 MEQ/L (22.0-29.0); ABG pH (ARTERIAL) 7.495 UNITS (7.350-7.450)
[2017-08-26 05:53] LABS: ALBUMIN 1.9 GM/DL (3.2-5.2); ALBUMIN/GLOBULIN RATIO 0.51 (1.00-1.93); ALKALINE PHOSPHATASE 92 U/L (45-117); ALT/SGPT 102 U/L (12-78); ANION GAP 6 MEQ/L (8-16); AST/SGOT 70 U/L (7-37); BILIRUBIN,TOTAL 0.5 MG/DL (0.2-1.0); BLOOD UREA NITROGEN 10 MG/DL (7-18); CALCIUM LEVEL 7.3 MG/DL (8.5-10.1); CARBON DIOXIDE LEVEL 29 MEQ/L (21-32); CHLORIDE LEVEL 103 MEQ/L (98-107); CHOLESTEROL LEVEL 65 MG/DL (< 200); CREATININE FOR GFR 0.54 MG/DL (0.55-1.02); GLOMERULAR FILTRATION RATE > 60.0 (>58); GLUCOSE, FASTING 131 MG/DL (70-105); PHOSPHORUS LEVEL 1.5 MG/DL (2.5-4.9); POTASSIUM SERUM 3.7 MEQ/L (3.5-5.1); SODIUM LEVEL 138 MEQ/L (136-145); TOTAL PROTEIN 5.6 GM/DL (6.4-8.2); TRIGLYCERIDES LEVEL 96 MG/DL (<150)
[2017-08-26] MEDS: SODIUM CHLORIDE 0.9% INJ 10 ML SYR IV ×2 (06:08→17:04)
[2017-08-26] MEDS: HEPARIN SOD (PORCINE) 5000 UNITS/ML VIAL SQ ×3 (06:08→22:00)
[2017-08-26] MEDS: K-PHOS NEUTRAL 250MG TABLET (SOD.PHOSPHATE/POT.PHOSPHATE) GT (09:20)
[2017-08-26] MEDS: POTASSIUM CHLORIDE 10% LIQ 20 MEQ/15 ML UDC GT (09:20)
[2017-08-26] MEDS ORDERED: SCOPOLAMINE 1MG TRANSDERMAL PATCH TOP (15:00)
[2017-08-26] MEDS: methylPREDNISolone INJ 125 MG/2 ML VIAL (J2930) IV ×2 (15:17→23:03)
[2017-08-26] MEDS: PANTOPRAZOLE 40MG INJ (PROTONIX) (C9113) IV (17:04)
[2017-08-26] MEDS: MORPHINE 2 MG/ML 1ML SYRINGE IV (21:37)
[2017-08-26] MEDS: LORazepam 2 MG/ML VIAL (J2060) IV (23:03)
[2017-08-27] MEDS: MORPHINE 2 MG/ML 1ML SYRINGE IV ×5 (01:24→22:06)
[2017-08-27] MEDS: IPRATROPIUM 0.5MG/ALBUTEROL 2.5MG INH SOL UD 3ML (DUONEB)(J7620) INH ×6 (01:50→19:04)
[2017-08-27] MEDS: SODIUM CHLORIDE 0.9% INJ 10 ML SYR IV ×3 (06:30→16:46)
[2017-08-27] MEDS: HEPARIN SOD (PORCINE) 5000 UNITS/ML VIAL SQ (06:30)
[2017-08-27] MEDS: methylPREDNISolone INJ 125 MG/2 ML VIAL (J2930) IV ×3 (06:30→22:05)
[2017-08-27] MEDS: POTASSIUM CHLORIDE 10% LIQ 20 MEQ/15 ML UDC GT (09:22)
[2017-08-27] MEDS: LORazepam 2 MG/ML VIAL (J2060) IV ×2 (14:01→23:03)
[2017-08-27] MEDS: ACETAMINOPHEN 325 MG/10.15 ML UDC GT (23:03)
[2017-08-28] MEDS: IPRATROPIUM 0.5MG/ALBUTEROL 2.5MG INH SOL UD 3ML (DUONEB)(J7620) INH ×4 (00:01→11:12)
[2017-08-28] MEDS: MORPHINE 2 MG/ML 1ML SYRINGE IV ×2 (04:34→12:55)
[2017-08-28] MEDS: methylPREDNISolone INJ 125 MG/2 ML VIAL (J2930) IV (06:25)
[2017-08-28] MEDS: SODIUM CHLORIDE 0.9% INJ 10 ML SYR IV (06:25)
[2017-08-28] MEDS: LORazepam 2 MG/ML VIAL (J2060) IV ×2 (06:25→09:44)
== END 2017-08-28 13:30 | DRG 981 ==
LOC: M MS5PR 08-22 18:34 → M ICU 08-23 14:43 → M MS5PR 08-26 21:16 → M PCU 08-15 15:56 → M ED 12:04 → M ED INP 16:38
PROC: 0DP60UZ Removal of Feeding Device from Stomach, Open Approach (ICD-10-PCS; principal; 2017-08-21 08:48)
PROC: 0DHA0UZ Insertion of Feeding Device into Jejunum, Open Approach (ICD-10-PCS; 2017-08-21 08:48)
PROC: 02HV33Z Insertion of Infusion Device into Superior Vena Cava, Percutaneous Approach (ICD-10-PCS; 2017-08-21 14:31)
PROC: 0BH17EZ Insertion of Endotracheal Airway into Trachea, Via Natural or Artificial Opening (ICD-10-PCS; 2017-08-21 14:31)
PROC: 0BJ08ZZ Inspection of Tracheobronchial Tree, Via Natural or Artificial Opening Endoscopic (ICD-10-PCS; 2017-08-21 14:31)
PROC: 5A1945Z Respiratory Ventilation, 24-96 Consecutive Hours (ICD-10-PCS; 2017-08-21 14:31)
DX: J69.0 Pneumonitis due to inhalation of food and vomit (principal); G80.0 Spastic quadriplegic cerebral palsy; J96.01 Acute respiratory failure with hypoxia; R57.9 Shock, unspecified; G10 Huntington's disease; G40.919 Epilepsy, unspecified, intractable, without status epilepticus; K94.13 Enterostomy malfunction; Z51.5 Encounter for palliative care; Z66 Do not resuscitate; K21.9 Gastro-esophageal reflux disease without esophagitis; J45.909 Unspecified asthma, uncomplicated; R11.11 Vomiting without nausea; E87.6 Hypokalemia; E86.0 Dehydration; K63.89 Other specified diseases of intestine; Z88.0 Allergy status to penicillin; Z79.899 Other long term (current) drug therapy

== ENCOUNTER → 2017-08-14 | Outpatient (REF) | payer MEDICARE, MEDICAID ==
[~2017-08-14] MED LIST changes: +DOXY100C GT; -GASTROGRAFIN SOLUTION 30ML (Q9963) As Ordered ONE; +IPRASOL4 IN; +PROC25SU24 PR; +ZITH500T GT
--- NOTE | 2017-08-14 10:50 | REP ---
Supine abdomen, single AP view, the patient semi upright: Comparison is 08/05/2017. On the comparison study there was a G tube. Contrast was infused through the ET tube and can be seen within the stomach and proximal duodenum on the comparison study. On the study today there is a J tube. No G tube is identified. There is moderate gaseous distension of the ascending colon and hepatic flexure of the colon. There is no small bowel distension. There is no distension of the transverse colon, descending colon. There is mild gaseous distension of the stomach. Impression: No evidence of bowel obstruction. Nonspecific bowel gas pattern. J tube. No G tube is identified. Signed by Isidro Eaton MD 08/14/2017 10:41 A
== END ==
LOC: SKLAB2 09:40
PROVIDERS: ATTEND Family Medicine
DX: R11.11 Vomiting without nausea (principal)